=== PATIENT | male | born 1940 | race Caucasian/White ===

== ENCOUNTER → 2017-11-27 | Outpatient (CLI) | payer MEDICARE ==
[2017-11-27 16:07] LABS: T4, Free (Free Thyroxine) 0.71 ng/dL (0.78-2.19)
== END | disposition home or self-care (01) ==
LOC: LABWHC1 15:11
PROVIDERS: ATTEND Internal Medicine
DX: I48.91 Unspecified atrial fibrillation (principal)
CPT/HCPCS: 36415; 84439; 84443

== ENCOUNTER → 2018-04-30 | Outpatient (CLI) | payer MEDICARE ==
[2018-04-30 12:32] LABS: T4, Free (Free Thyroxine) 0.8 ng/dL (0.78-2.19)
== END | disposition home or self-care (01) ==
LOC: LABWHC1 11:22
PROVIDERS: ATTEND Psychiatry & Neurology Neurology
DX: R41.3 Other amnesia (principal)
CPT/HCPCS: 36415; 82607; 83036; 84439; 84443

== ENCOUNTER → 2018-06-11 | Outpatient (CLI) | payer MEDICARE ==
--- NOTE | 2018-06-11 12:16 | CT ---
EXAMINATION TYPE: CT brain wo con DATE OF EXAM: 06/11/2018 COMPARISON: None HISTORY: Memory Loss CT DLP: 1207 mGycm Automated exposure control for dose reduction was used. FINDINGS: Moderate generalized degenerative change. Diffuse areas of low-attenuation the white matter are nonsp ecific. Intracranial atherosclerotic changes noted. No acute hemorrhage or mass effect. Changes of mild chronic sinusitis Craniocervical junction maintained. Sella turcica has a normal appearance. There is ectasia of the ve rtebrobasilar system. IMPRESSION: MODERATE GENERALIZED DEGENERATIVE CHANGE WITH DIFFUSE NONSPECIFIC WHITE MATTER CHANGES MOST TYPICAL R EMOTE MICROVASCULAR ISCHEMIA. SLIGHTLY GREATER CENTRAL COMPONENT RAISES THE POSSIBILITY OF NORMAL PRE SSURE HYDROCEPHALUS. CORRELATE CLINICALLY.
== END ==
LOC: RADCTMAIN 10:50
PROVIDERS: ATTEND Psychiatry & Neurology Neurology
DX: R90.89 Other abnormal findings on diagnostic imaging of central nervous system (principal)
CPT/HCPCS: 70450

== ENCOUNTER → 2019-12-24 | Outpatient (CLI) | payer MEDICARE | END | disposition home or self-care (01) | LOC: LABWHC1 11:37 | PROVIDERS: ATTEND Internal Medicine Interventional Cardiology | DX: Z11.59 Encounter for screening for other viral diseases (principal) | CPT/HCPCS: 87635 ==

== ENCOUNTER 2019-12-28 08:08 | Day surgery (SDC) | payer MEDICARE ==
[2019-12-24 14:00] VITALS: BMI 33.2
[~2019-12-28 08:08] MED LIST: ALPRAZolam 0.25 MG TAB PO PRN; ALPRAZolam 0.5 MG TAB PO PRN; ASPIRIN 325 MG TAB PO ONE; NITROGLYCERIN SL TABS 0.4 MG TAB SUBLINGUAL PRN; SODIUM CHLORIDE 0.9% 1,000 ML in EMPTY BAG 1 BAG IV ONE
[2019-12-28 08:58] VITALS: TEMP 98
[2019-12-28] MEDS ORDERED: LIDOCAINE 1% INJ 10MG/ML (20 ML MDV) ONE (09:05)
[2019-12-28] MEDS ORDERED: MIDAZOLAM 2 MG/2 ML VIAL IVP ONE (09:17)
[2019-12-28] MEDS ORDERED: LIDOCAINE 1% INJ 10MG/ML (20 ML MDV) SQ ONE (09:18)
[2019-12-28 09:28] LABS: Basophils # (A) 0.1 k/uL (0-0.2); Basophils % (A) 0 %; Eosinophils # (A) 0.2 k/uL (0-0.7); Eosinophils % (A) 2 %; HCT 49.4 % (39.0-53.0); HGB 16.1 gm/dL (13.0-17.5); Lymphocytes # (A) 0.7 k/uL (1.0-4.8); Lymphocytes % (A) 5 %; MCH 29.6 pg (25.0-35.0); MCHC 32.6 g/dL (31.0-37.0); MCV 90.9 fL (80.0-100.0); Mean Platelet Volume 8.8; Monocytes # (A) 0.6 k/uL (0-1.0); Monocytes % (A) 4 %; Neutrophils # (A) 12.9 k/uL (1.3-7.7); Neutrophils % (A) 88 %; Platelet Count 213 k/uL (150-450); RBC 5.44 m/uL (4.30-5.90); RDW 13.2 % (11.5-15.5); WBC 14.6 k/uL (3.8-10.6)
[2019-12-28 09:34] LABS: INR 1.1 (<1.2); Prothrombin Time 11.6 sec (9.0-12.0)
[2019-12-28 09:36] LABS: Calcium 9.7 mg/dL (8.4-10.2); Potassium 4.5 mmol/L (3.5-5.1)
[2019-12-28] MEDS ORDERED: IOPAMIDOL-370 50ML BTL INJ ONE (09:40)
[2019-12-28] MEDS ORDERED: IOPAMIDOL-370 100ML BTL INJ ONE (09:40)
[2019-12-28] MEDS ORDERED: SODIUM CHLORIDE 0.9% 1,000 ML IV SCH (10:00)
--- NOTE | 2019-12-28 11:56 | CC ---
CARDIAC CATHETERIZATION REPORT DATE OF SERVICE: 12/28/2019 PROCEDURE: Left heart catheterization, coronary angiography, left ventriculography. PERFORMED BY: Dr. Christine Wyatt. Moderate conscious sedation time was 31 minutes. Patient was administered Versed. Oxygenation, hemodynamics and EKG were monitored closely. CLINICAL INFORMATION: Mr. Pawan Balbuena is a 79-year-old gentleman with a history of nonischemic cardiomyopathy type picture, chronic atrial fibrillation with rate control and underlying sick sinus syndrome. He has a permanent single-chamber pacemaker. He has been having symptoms of shortness of breath and chest tightness. I was also concerned that he was pacing all the time and there could be a pacing-related cardiomyopathy as well. I advised coronary angiography to rule out obstructive CAD and also if he would benefit from a Bi V ICD as well to rule out any obstructive CAD. Procedure, risks, benefits, and options were explained to the patient and and he was brought in for the procedure electively. PROCEDURE NOTE: Under local anesthesia and strict aseptic precautions, a 6-Turkmen introducer was placed in the right femoral artery. Using a JR4 and JL5 catheters, I performed selective coronary angiography and a pigtail catheter was used to check LV pressures and LV-gram was performed in 30-degree NEGRON projection. Patient tolerated procedure well. The sheath was taken out and Angio-Seal device used to secure hemostasis and was sent to the room in stable condition. Results were discussed with the patient and family and I expect he will be discharged later on today and I will also obtain an echocardiogram this afternoon. FINDINGS: The left end-diastolic pressure was 14-15 mmHg without any gradient across the aortic valve. RIGHT CORONARY ARTERY: A large dominant vessel. No significant disease, has minor irregularities, gives off a large PLV, smaller PDA. No significant disease. LEFT MAIN CORONARY ARTERY: Short, patent, disease-free vessel that bifurcates into LAD and circumflex. LEFT ANTERIOR DESCENDING CORONARY ARTERY: Good caliber vessel extends along the anterior wall, gives off septal and diagonal branches. In the midportion, after the second diagonal, there is a 30% to 35% narrowing. Then the caliber improves, it runs all the way to the apex, curves over the apex to supply the inferoapical portion of left ventricle. LEFT POSTERIOR CIRCUMFLEX CORONARY ARTERY: A nondominant vessel, has minor irregularities, 20%-30% distally, it gives off three branches. No significant disease. LEFT VENTRICULOGRAM: This was performed in a 30-degree NEGRON projection. There was a lot of ventricular ectopy. Ejection fraction is at least 50% and there was a catheter- induced mitral regurgitation noted. IMPRESSION: This patient has a right dominant system, about 35% mid LAD disease. Minor irregularities in the circumflex. No significant disease. Not seeing acceptable filling pressures and no gradient across the aortic valve. Ejection fraction is about 50%. There was some ventricular ectopy and ectopy related to mitral regurgitation, ejection fraction is in the 50% range. RECOMMENDATION: Findings were discussed with the patient and . I am recommending that we will do an echocardiogram this afternoon to get a better assessment of wall motion with Definity. We will probably not pursue with any biventricular ICD given the fact that the EF is good and we will seek a Pulmonary evaluation and also improve conditioning by getting into a walking program. Discussed my thoughts in detail with the patient and . I expect he will be discharged later on today if he remains stable. MMEMMANUELLEL / IJN: [id number] /
[2019-12-28 14:00] VITALS: RESP 16
[2019-12-28 17:22] VITALS: BP 132/65; PULSE 56
--- NOTE | 2019-12-29 09:43 | ECHOF ---
Referral Reason:need a good ef evaluation MEASUREMENTS -------- HEIGHT: 180.3 cm WEIGHT: 111.1 kg BP: RVIDd: 3.0 cm (< 3.3) IVSd: 1.4 cm (0.6 - 1.1) LVIDd: 5.4 cm (3.9 - 5.3) LVPWd: 1.9 cm (0.6 - 1.1) IVSs: 2.2 cm LVIDs: 3.3 cm LVPWs: 2.2 cm LAESV Index (A-L): 36.97 ml/m Ao Diam: 3.7 cm (2.0 - 3.7) AV Cusp: 2.6 cm (1.5 - 2.6) LA Diam: 3.7 cm (2.7 - 3.8) MV EXCURSION: 23.279 mm (> 18.000) MV EF SLOPE: 135 mm/s (70 - 150) EPSS: 0.9 cm MV E Ambrosio: 0.64 m/s MV DecT: 202 ms MV A Ambrosio: 0.46 m/s MV E/A Ratio: 1.39 AR PHT: 2292 ms RAP: 5.00 mmHg RVSP: 14.27 mmHg FINDINGS -------- Paced rhythm. This was a technically adequate study. The left ventricular size is normal. There is moderate concentric left ventricular hypertrophy. O verall left ventricular systolic function is low-normal with, an EF between 50 - 55 %. Septal wall motion is delayed, and consistent with ventricular pacing. The right ventricle is normal in size. LA is moderately dilated 34-39 ml/m2 The right atrial size is normal. 5.0mg of Lumason was utilized for enhancement of images The aortic valve is trileaflet and appears structurally normal. There is mild aortic regurgitation. The mitral valve is normal. Mild mitral regurgitation is present. The tricuspid valve appears structurally normal. Mild tricuspid regurgitation present. Right vent ricular systolic pressure is normal at < 35 mmHg. There is no pulmonic regurgitation present. The aortic root size is normal. Normal inferior vena cava with normal inspiratory collapse consistent with estimated right atrial pre ssure of 5 mmHg. There is no pericardial effusion. CONCLUSIONS -------- 1. Paced rhythm. 2. This was a technically adequate study. 3. The left ventricular size is normal. 4. There is moderate concentric left ventricular hypertrophy. 5. Septal wall motion is delayed, and consistent with ventricular pacing. 6. The right ventricle is normal in size. 7. LA is moderately dilated 34-39 ml/m2 8. The right atrial size is normal. 9. 5.0mg of Lumason was utilized for enhancement of images 10. The aortic valve is trileaflet and appears structurally normal. 11. There is mild aortic regurgitation. 12. The mitral valve is normal. 13. Mild mitral regurgitation is present. 14. The tricuspid valve appears structurally normal. 15. Mild tricuspid regurgitation present. 16. Right ventricular systolic pressure is normal at < 35 mmHg. 17. There is no pulmonic regurgitation present. 18. The aortic root size is normal. 19. Normal inferior vena cava with normal inspiratory collapse consistent with estimated right atrial pressure of 5 mmHg. 20. There is no pericardial effusion. COMMUNITY SERVICE OFFICER COORDINATOR: Elizabeth Rosas RDCS
== END 2019-12-28 17:10 | disposition home or self-care (01) ==
LOC: CATHCVL 08:08
PROVIDERS: ATTEND Internal Medicine Interventional Cardiology
DX: I25.10 Atherosclerotic heart disease of native coronary artery without angina pectoris (principal); I42.8 Other cardiomyopathies; I49.5 Sick sinus syndrome; I48.20 Chronic atrial fibrillation, unspecified; I34.0 Nonrheumatic mitral (valve) insufficiency; I11.0 Hypertensive heart disease with heart failure; I50.9 Heart failure, unspecified; D64.9 Anemia, unspecified; E78.5 Hyperlipidemia, unspecified; G47.33 Obstructive sleep apnea (adult) (pediatric); Z79.01 Long term (current) use of anticoagulants; Z79.02 Long term (current) use of antithrombotics/antiplatelets; Z79.82 Long term (current) use of aspirin; Z79.899 Other long term (current) drug therapy; Z95.0 Presence of cardiac pacemaker
CPT/HCPCS: 93458; 80048; 85025; 85610; C8929; C1769 ×4; C1760; C1894; J2250; J2001; Q9950; Q9967 ×2; 93306

== ENCOUNTER → 2020-01-05 | Outpatient (CLI) | payer MEDICARE ==
[2020-01-05 12:01] LABS: HCT 45.7 % (39.0-53.0); HGB 15.1 gm/dL (13.0-17.5); MCH 30.7 pg (25.0-35.0); MCV 92.9 fL (80.0-100.0); Mean Platelet Volume 8.1; Platelet Count 152 k/uL (150-450); RBC 4.92 m/uL (4.30-5.90); RDW 13.4 % (11.5-15.5); WBC 8.7 k/uL (3.8-10.6)
== END | disposition home or self-care (01) ==
LOC: LABWHC1 10:45
PROVIDERS: ATTEND Internal Medicine
DX: I48.91 Unspecified atrial fibrillation (principal)
CPT/HCPCS: 36415; 85027

== ENCOUNTER 2020-05-17 21:47 | Emergency (ER) | payer MEDICARE ==
[2020-05-17] MEDS ORDERED: KETOROLAC 15 MG/ML 1 ML VIAL IM STA (22:30)
--- NOTE | 2020-05-17 23:02 | ED ---
General Adult HPI - General Chief complaint: Extremity Injury, Lower Stated complaint: R Hip Pain Time Seen by Provider: 05/17/20 22:08 Source: patient, family, RN notes reviewed Mode of arrival: wheelchair Limitations: no limitations - History of Present Illness Initial comments: 80-year-old male with a past medical history of atrial fibrillation, hype rlipidemia, hypertension presents to the emergency department for chief complaint of right hip pain. Patient had a trip and fall about a week ago and has had right hip pain since that time however has been able to ambulate. Patient reports that today the pain worsened and he is having difficulty bearing weight on the right hip. Patient denies hitting his head. Patient also complaining of mild right shoulder pain. Patient denies fevers or chills. Denies any back pain.Patient has no other complaints at this time including shortness of breath, chest pain, abdominal pain, nausea or vomiting, headache, or visual changes. - Related Data Home Medications Medication Instructions Recorded Confirmed Warfarin [Coumadin] 3.75 tab PO MOWEFR 12/16/15 12/24/19 Warfarin [Coumadin] 7.5 mg PO SUTUTHSA 12/16/15 12/28/19 lisinopriL 30 mg PO DAILY 12/16/15 12/28/19 hydrALAZINE HCL 25 mg PO TID 04/18/16 12/28/19 Cyanocobalamin (Vitamin B-12) 1,000 mcg PO DAILY 12/24/19 12/28/19 [Vitamin B-12] Multivitamins, Thera [Multivitamin 1 tab PO DAILY 12/24/19 12/28/19 (formulary)] carvediloL [Coreg] 12.5 mg PO BID 12/24/19 12/28/19 Allergies Allergy/AdvReac Type Severity Reaction Status Date / Time shellfish derived [Shrimp] Allergy Anaphylaxis Verified 05/17/20 21:52 Review of Systems ROS Statement: Those systems with pertinent positive or pertinent negative responses have been documented in the HPI. ROS Other: All systems not noted in ROS Statement are negative. Past Medical History Past Medical History: Atrial Fibrillation, Hyperlipidemia, Hypertension, Thyroid Disorder History of Any Multi-Drug Resistant Organisms: None Reported Past Surgical History: Cholecystectomy Past Anesthesia/Blood Transfusion Reactions: No Reported Reaction Past Psychological History: No Psychological Hx Reported Smoking Status: Never smoker Past Alcohol Use History: None Reported Past Drug Use History: None Reported - Past Family History Mother Family Medical History: No Reported History General Exam Limitations: no limitations General appearance: alert, in no apparent distress Head exam: Present: atraumatic, normocephalic, normal inspection Eye exam: Present: normal appearance, PERRL, EOMI. Absent: scleral icterus, conjunctival injection, periorbital swelling ENT exam: Present: normal exam, mucous membranes moist Neck exam: Present: normal inspection, full ROM. Absent: tenderness, meningismus, lymphadenopathy Respiratory exam: Present: normal lung sounds bilaterally. Absent: respiratory distress, wheezes, rales, rhonchi, stridor Cardiovascular Exam: Present: regular rate, normal rhythm, normal heart sounds. Absent: systolic murmur, diastolic murmur, rubs, gallop, clicks GI/Abdominal exam: Present: soft, normal bowel sounds. Absent: distended, tenderness, guarding, rebound, rigid Extremities exam: Present: normal capillary refill (Capillary refill less than 2 seconds, DP pulse 2+ in the right lower extremity.), other (Sensation intact right lower extremity. no external signs of trauma). Absent: full ROM (Patient has about 45 flexion of the right hip, extension to neutral position. He does have pain with external rotation of the right hip.), tenderness Neurological exam: Present: alert Course Vital Signs 05/17/20 21:48 Temperature 98 F Pulse Rate 60 Respiratory 18 Rate Blood Pressure 125/76 O2 Sat by Pulse 98 Oximetry Medical Decision Making - Medical Decision Making X-ray of the right hip and pelvis are negative. X-ray of the right shoulder is negative. Patient can minimally ambulate on the right hip. However given degree of pain CT of the hip was ordered. CT of the hip showed subcutaneous bruising posterior to the right gluteal muscle. No fracture seen. Patient feels comfortable being discharged home. reports have plenty of help. He will follow up outpatient. He will return here for any worsening symptoms. Disposition Clinical Impression: Hip pain, right Disposition: HOME SELF-CARE Condition: Good Instructions (If sedation given, give patient instructions): Hip Pain (ED) Additional Instructions: Take Tylenol for pain. Follow-up with primary care or orthopedics in one to 2 days. Return to the emergency room for any worsening symptoms. Is patient prescribed a controlled substance at d/c from ED?: No Referrals: Dolly Bello MD [Primary Care Provider] - 1-2 days Iván Marie MD [STAFF PHYSICIAN] - 1-2 days Time of Disposition: 00:48
--- NOTE | 2020-05-17 23:14 | XR ---
EXAMINATION TYPE: XR Hip RT and AP Pelvis DATE OF EXAM: 05/17/2020 COMPARISON: NONE HISTORY: Fall. Hip pain TECHNIQUE: 4 views FINDINGS: The pelvic ring is intact. Proximal right femur and hip joint appear intact. There is no si gn of hip dysplasia. Sacroiliac joints appear normal. IMPRESSION: Negative pelvis and right hip exam. No fracture.
--- NOTE | 2020-05-17 23:15 | XR ---
EXAMINATION TYPE: XR shoulder complete RT DATE OF EXAM: 05/17/2020 COMPARISON: NONE HISTORY: Fall. Shoulder pain TECHNIQUE: 3 views FINDINGS: There is mild spurring at the AC joint. There is no fracture nor dislocation. Glenohumeral joint is intact. IMPRESSION: No acute abnormality of the right shoulder.
--- NOTE | 2020-05-18 00:34 | CT ---
EXAMINATION TYPE: CT hip RT wo con DATE OF EXAM: 05/17/2020 COMPARISON: None HISTORY: Fall CT DLP: 1255.6 mGycm Automated exposure control for dose reduction was used. Images were obtained from the mid ileum to the subtrochanteric femur without contrast. The right hemipelvis appears intact. Sacroiliac joint appears intact. There is no evidence of free fl uid in the pelvis. The appendix appears normal. The proximal femur is intact. There is minimal spurri ng of the acetabulum. I see no bony destructive process. There is moderate L5-S1 spondylolisthesis wi th anterior bridging osteophyte. There is subcutaneous density over the posterior right gluteal muscles. IMPRESSION: Subcutaneous bruising posterior to the right gluteal muscles. No hip fracture seen. No significant ar thritic disease.
[2020-05-18 01:14] VITALS: BP 133/76; PULSE 66; RESP 19; TEMP 97.9
== END 2020-05-18 01:13 | disposition home or self-care (01) ==
LOC: EC 21:47
DX: M25.551 Pain in right hip (principal); S30.0XXA Contusion of lower back and pelvis, initial encounter; I48.91 Unspecified atrial fibrillation; I10 Essential (primary) hypertension; Z79.01 Long term (current) use of anticoagulants; Z79.02 Long term (current) use of antithrombotics/antiplatelets; Z79.899 Other long term (current) drug therapy; Z91.013 Allergy to seafood; W01.0XXA Fall on same level from slipping, tripping and stumbling without subsequent striking against object, initial encounter
CPT/HCPCS: 73502; 73030; 73700; 99284; 96372; J1885

== ENCOUNTER → 2020-05-23 | Outpatient (CLI) | payer MEDICARE ==
[2020-05-23 14:15] LABS: HCT 37.9 % (39.0-53.0); HGB 12.7 gm/dL (13.0-17.5); MCH 31.5 pg (25.0-35.0); MCHC 33.6 g/dL (31.0-37.0); MCV 93.8 fL (80.0-100.0); Mean Platelet Volume 7.8; Platelet Count 260 k/uL (150-450); RBC 4.04 m/uL (4.30-5.90); RDW 13.5 % (11.5-15.5); WBC 9.2 k/uL (3.8-10.6)
== END | disposition home or self-care (01) ==
LOC: LABWHC1 13:21
PROVIDERS: ATTEND Internal Medicine
DX: M79.81 Nontraumatic hematoma of soft tissue (principal)
CPT/HCPCS: 36415; 85027

== ENCOUNTER → 2020-08-16 | Outpatient (CLI) | payer MEDICARE ==
[2020-08-16 22:28] LABS: African American GFR (CKD) 73.1 (60.0-200.0); Anion Gap 6.8 mmol/L (4.00-12.00); BUN/Creat Ratio 15.45 Ratio (12.00-20.00); Calcium 9.4 mg/dL (8.7-10.3); Carbon Dioxide 28.2 mmol/L (21.6-31.8); Non-African American GFR(CKD) 63.1 (60.0-200.0)
== END | disposition home or self-care (01) ==
LOC: LABWHC1 12:51
PROVIDERS: ATTEND Internal Medicine Interventional Cardiology
DX: I10 Essential (primary) hypertension (principal); I25.10 Atherosclerotic heart disease of native coronary artery without angina pectoris
CPT/HCPCS: 36415; 80048

== ENCOUNTER → 2020-08-30 | Outpatient (CLI) | payer MEDICARE ==
[2020-08-31 01:19] LABS: Hemoglobin A1C 5.7 % (4.0-6.0)
[2020-08-31 04:59] LABS: INR 2.18 (0.90-1.11); Partial Thromboplastin Time 38.3 sec (23.5-31.0); Prothrombin Time 22.2 sec (9.9-11.9)
[2020-08-31 10:14] LABS: Protein, Total 6.6 g/dL (6.2-8.2)
[2020-08-31 15:07] LABS: Gamma Globulin 0.65 g/dL (0.70-1.50)
== END | disposition home or self-care (01) ==
LOC: LABWHC1 15:48
PROVIDERS: ATTEND Psychiatry & Neurology Neurology
DX: I48.91 Unspecified atrial fibrillation (principal); G62.9 Polyneuropathy, unspecified; G72.9 Myopathy, unspecified; R53.1 Weakness; R26.89 Other abnormalities of gait and mobility; R73.9 Hyperglycemia, unspecified
CPT/HCPCS: 36415; 82550; 82607; 82747; 83036; 84165; 84439; 84443; 85610; 85652; 85730; 86038; 86618

== ENCOUNTER → 2021-02-08 | Outpatient (CLI) | payer MEDICARE ==
--- NOTE | 2021-02-08 14:17 | CT ---
EXAMINATION TYPE: CT brain wo/w con DATE OF EXAM: 02/08/2021 COMPARISON: 06/11/2018 INDICATION: Frequent falls DLP: 3038.1 mGycm, Automated exposure control for dose reduction was used. CONTRAST: None CT of the brain is performed utilizing 3 mm thick sections through the posterior fossa and 3 mm thick sections through the remaining calvarium. Study is performed within 24 hours of arrival to the hosp ital. No abnormal hyperdensity is present to suggest an acute intracranial hemorrhage. No mass lesion is evident. No acute infarcts are evident. Patchy hypodensity is present, likely on the basis of chronic white ma tter ischemic changes Ventricles and sulci are mildly prominent for the patient age. Paranasal sinuses and mastoid air cells within the [id number] are clear. No suspicious enhancement is evident. IMPRESSIONS: 1. Age-related atrophy with mild periventricular white matter ischemic-type changes.
== END | disposition home or self-care (01) ==
LOC: RADCTMAIN 07:06
PROVIDERS: ATTEND Internal Medicine
DX: R93.0 Abnormal findings on diagnostic imaging of skull and head, not elsewhere classified (principal); G31.9 Degenerative disease of nervous system, unspecified
CPT/HCPCS: 70470; 82565; 84520

== ENCOUNTER 2021-05-25 15:31 | Emergency (ER) | payer MEDICARE ==
[2021-05-25] MEDS ORDERED: IBUPROFEN 600 MG TAB PO STA (16:09)
[2021-05-25] MEDS ORDERED: ACETAMINOPHEN TAB 500 MG TAB PO STA (16:09)
[2021-05-25] MEDS ORDERED: SODIUM CHLORIDE 0.9% 1,000 ML IV ONE (16:10)
--- NOTE | 2021-05-25 16:18 | ED ---
General Adult HPI - General Chief complaint: Altered Mental Status Stated complaint: Covid+, fever, bodyaches Time Seen by Provider: 05/25/21 15:45 Source: patient, EMS, RN notes reviewed, old records reviewed Mode of arrival: EMS Limitations: altered mental status - History of Present Illness Initial comments: This is an 81-year-old male who presents emergency Department stating he was diagnosed as COVID on Saturday and he started symptoms on May 17. Patient states he's been still having a fever and he is primary medical care doctor wanted him to come in to get monoclonal antibodies. Patient denies any shortness of breath. Patient states he has occasional cough but is not bothering him. Patient denies chest pain or palpitations. Patient denies any nausea vomiting diarrhea. Patient denies any loss of taste or smell. Patient denies abdominal pain. Patient denies any headache patient denies numbness weakness. - Related Data Home Medications Medication Instructions Recorded Confirmed Warfarin [Coumadin] 3.75 tab PO MOWEFR 12/16/15 12/24/19 Warfarin [Coumadin] 7.5 mg PO SUTUTHSA 12/16/15 12/28/19 lisinopriL 30 mg PO DAILY 12/16/15 12/28/19 hydrALAZINE HCL 25 mg PO TID 04/18/16 12/28/19 Cyanocobalamin (Vitamin B-12) 1,000 mcg PO DAILY 12/24/19 12/28/19 [Vitamin B-12] Multivitamins, Thera [Multivitamin 1 tab PO DAILY 12/24/19 12/28/19 (formulary)] carvediloL [Coreg] 12.5 mg PO BID 12/24/19 12/28/19 Previous Rx's Medication Instructions Recorded Azithromycin [Zithromax Tri-Thony] 500 mg PO DAILY #3 tab 05/25/21 Dexamethasone [Decadron] 6 mg PO DAILY #10 tablet 05/25/21 Allergies Allergy/AdvReac Type Severity Reaction Status Date / Time shellfish derived [Shrimp] Allergy Anaphylaxis Verified 05/25/21 16:05 Review of Systems ROS Statement: Those systems with pertinent positive or pertinent negative responses have been documented in the HPI. ROS Other: All systems not noted in ROS Statement are negative. Past Medical History Past Medical History: Atrial Fibrillation, Hyperlipidemia, Hypertension, Thyroid Disorder History of Any Multi-Drug Resistant Organisms: None Reported Past Surgical History: Cholecystectomy Past Anesthesia/Blood Transfusion Reactions: No Reported Reaction Past Psychological History: No Psychological Hx Reported Smoking Status: Never smoker Past Alcohol Use History: None Reported Past Drug Use History: None Reported - Past Family History Mother Family Medical History: No Reported History General Exam - General Exam Comments Initial Comments: GENERAL: Patient is well-developed and well-nourished. Patient is nontoxic and well- hydrated and is in no acute distress. ENT: Neck is soft and supple. No significant lymphadenopathy is noted. Oropharynx is clear. Moist mucous membranes. Neck has full range of motion without eliciting any pain. EYES: The sclera were anicteric and conjunctiva were pink and moist. Extraocular movements were intact and pupils were equal round and reactive to light. Eyelids were unremarkable. PULMONARY: Unlabored respirations. Good breath sounds bilaterally. No audible rales rhonchi or wheezing was noted. CARDIOVASCULAR: There is a regular rate and rhythm without any murmurs gallops or rubs. ABDOMEN: Soft and nontender with normal bowel sounds. SKIN: Skin is clear with no lesions or rashes and otherwise unremarkable. NEUROLOGIC: Patient is alert and oriented x3. Cranial nerves II through XII are grossly intact. Motor and sensory are also intact. Normal speech, volume and content. Symmetrical smile. MUSCULOSKELETAL: Normal extremities with adequate strength and full range of motion. No lower extremity swelling or edema. No calf tenderness. LYMPHATICS: No significant lymphadenopathy is noted PSYCHIATRIC: Normal psychiatric evaluation. Limitations: altered mental status Course Vital Signs 05/25/21 05/25/21 15:42 17:48 Temperature 102.5 F H 98.8 F Pulse Rate 90 63 Respiratory 18 17 Rate Blood Pressure 128/78 132/82 O2 Sat by Pulse 97 97 Oximetry Medical Decision Making - Medical Decision Making Chest x-ray right lower lobe pneumonia. Patient received monoclonal antibodies. Patient also received 2 g Rocephin and Zithromax. Patient received Decadron as well. I reviewed reevaluated the patient after he got his monoclonal antibodies and antibiotics as well as Decadron and he had no complaints and wanted to go home. I informed the patient if anything worsens to get in immediately. Disposition Clinical Impression: Pneumonia, COVID Disposition: HOME SELF-CARE Instructions (If sedation given, give patient instructions): Pneumonia (ED) Prescriptions: Dexamethasone [Decadron] 6 mg PO DAILY #10 tablet Azithromycin [Zithromax Tri-Thony] 500 mg PO DAILY #3 tab Is patient prescribed a controlled substance at d/c from ED?: No Referrals: Dolly Bello MD [Primary Care Provider] - 1-2 days Time of Disposition: 19:00
[2021-05-25 17:48] VITALS: RESP 17
[2021-05-25] MEDS ORDERED: CASIRIVIMAB (REGN10933) (EUA) 600 MG, IMDEVIMAB (REGN10987) (EUA) 600 MG in SODIUM CHLO... IVPB ONE (18:00)
[2021-05-25] MEDS ORDERED: SODIUM CHLORIDE 0.9% 50 ML IVPB ONE (18:30)
--- NOTE | 2021-05-25 18:48 | XR ---
EXAMINATION TYPE: XR chest 2V DATE OF EXAM: 05/25/2021 COMPARISON: Radiograph 12/20/2015 HISTORY: Fever. TECHNIQUE: Frontal and lateral views of the chest are obtained. FINDINGS: Cardiomediastinal silhouette and pulmonary vasculature are within normal limits. Patchy opacity in the right lower lobe. No effusion or pneumothorax. AICD with the lead tip in the right ventricle. IMPRESSION: Right lower lobe pneumonia.
[2021-05-25] MEDS ORDERED: AZITHROMYCIN 500 MG in SODIUM CHLORIDE 0.9% 250 ML IVPB STA (18:57)
[2021-05-25] MEDS ORDERED: cefTRIAXone IN SWFI 1,000 MG/10 ML SYRINGE IVP STA (18:57)
[2021-05-25] MEDS ORDERED: dexAMETHasone 2 MG TAB PO STA (18:58)
[2021-05-25] MEDS ORDERED: AZITHROMYCIN 500 MG TAB PO STA (20:15)
[2021-05-25] MEDS ORDERED: ACETAMINOPHEN TAB 325 MG TAB PO STA (20:25)
[2021-05-25 21:07] VITALS: BP 140/78; PULSE 89; TEMP 98.5
== END 2021-05-25 20:45 | disposition home or self-care (01) ==
LOC: EC 15:31
DX: U07.1 COVID-19 (principal); J12.82 Pneumonia due to coronavirus disease 2019; I48.91 Unspecified atrial fibrillation; E78.5 Hyperlipidemia, unspecified; I10 Essential (primary) hypertension; E07.9 Disorder of thyroid, unspecified; Z79.01 Long term (current) use of anticoagulants; Z90.49 Acquired absence of other specified parts of digestive tract
CPT/HCPCS: 99283; 96365; 96367; 96375; 96361; 71046; J0456; J0696; J8540; Q0243

== ENCOUNTER 2021-06-27 13:50 | Emergency (ER) | payer MEDICARE ==
--- NOTE | 2021-06-27 14:16 | ED ---
General Adult HPI - General Stated complaint: back pain Time Seen by Provider: 06/27/21 13:56 Source: patient, family, RN notes reviewed Limitations: no limitations - History of Present Illness Initial comments: Patient is a pleasant 81-year-old male presenting to the emergency Department with right hip and back pain. Patient did have a fall over a week ago. Patient does have bruising. Patient is able to ambulate. Patient was not using his walker when he fell and states sometimes that happens. Patient normally does use a walker however occasionally uses a cane. No head injury or loss of consc iousness. No weakness. No incontinence or retention of bowel or bladder products. - Related Data Home Medications Medication Instructions Recorded Confirmed Warfarin [Coumadin] 3.75 tab PO MOWEFR 12/16/15 12/24/19 Warfarin [Coumadin] 7.5 mg PO SUTUTHSA 12/16/15 12/28/19 lisinopriL 30 mg PO DAILY 12/16/15 12/28/19 hydrALAZINE HCL 25 mg PO TID 04/18/16 12/28/19 Cyanocobalamin (Vitamin B-12) 1,000 mcg PO DAILY 12/24/19 12/28/19 [Vitamin B-12] Multivitamins, Thera [Multivitamin 1 tab PO DAILY 12/24/19 12/28/19 (formulary)] carvediloL [Coreg] 12.5 mg PO BID 12/24/19 12/28/19 Previous Rx's Medication Instructions Recorded Azithromycin [Zithromax Tri-Thony] 500 mg PO DAILY #3 tab 05/25/21 Dexamethasone [Decadron] 6 mg PO DAILY #10 tablet 05/25/21 Ibuprofen [Motrin] 600 mg PO Q6HR PRN #12 tab 06/27/21 Allergies Allergy/AdvReac Type Severity Reaction Status Date / Time shellfish derived [Shrimp] Allergy Anaphylaxis Verified 05/25/21 16:05 Review of Systems ROS Statement: Those systems with pertinent positive or pertinent negative responses have been documented in the HPI. ROS Other: All systems not noted in ROS Statement are negative. Constitutional: Denies: fever Eyes: Denies: eye pain ENT: Denies: ear pain Respiratory: Denies: cough Cardiovascular: Denies: chest pain Endocrine: Denies: fatigue Gastrointestinal: Denies: abdominal pain Genitourinary: Denies: dysuria Musculoskeletal: Reports: as per HPI, back pain Skin: Reports: as per HPI Neurological: Denies: weakness Past Medical History Past Medical History: Atrial Fibrillation, Hyperlipidemia, Hypertension, Thyroid Disorder History of Any Multi-Drug Resistant Organisms: None Reported Past Surgical History: Cholecystectomy Past Anesthesia/Blood Transfusion Reactions: No Reported Reaction Past Psychological History: No Psychological Hx Reported Smoking Status: Never smoker Past Alcohol Use History: None Reported Past Drug Use History: None Reported - Past Family History Mother Family Medical History: No Reported History General Exam Limitations: no limitations General appearance: alert, in no apparent distress Head exam: Present: normocephalic Eye exam: Present: normal appearance Neck exam: Present: normal inspection. Absent: tenderness Respiratory exam: Present: normal lung sounds bilaterally Cardiovascular Exam: Present: regular rate, normal rhythm GI/Abdominal exam: Present: soft. Absent: tenderness Extremities exam: Present: normal inspection, full ROM. Absent: tenderness Back exam: Present: tenderness (Mild tenderness right ischial tuberosity). Absent: vertebral tenderness Neurological exam: Present: alert Psychiatric exam: Present: normal affect, normal mood Skin exam: Present: other (Ecchymosis right buttocks) Course Vital Signs 06/27/21 14:14 Temperature 98.5 F Pulse Rate 60 Respiratory 16 Rate Blood Pressure 160/80 O2 Sat by Pulse 97 Oximetry Medical Decision Making - Medical Decision Making Patient reevaluated. Patient and family updated. - Radiology Data Radiology results: image reviewed (X-ray right hip and pelvis shows no fracture or dislocation. Lumbar spine x-rays show alignment stable and straighten. Vertebral body height within normal limits.Narrowing.) Disposition Clinical Impression: Fall, Hip pain Disposition: HOME SELF-CARE Instructions (If sedation given, give patient instructions): Acute Low Back Pain (ED) Additional Instructions: Please follow-up with primary care physician in the next couple of days for recheck. Return for increased pain, weakness, worsening or changing symptoms or other concerns. Prescription for Motrin 600 has been sent to pharmacy. Prescriptions: Ibuprofen [Motrin] 600 mg PO Q6HR PRN #12 tab PRN Reason: Pain Is patient prescribed a controlled substance at d/c from ED?: No Referrals: Dolly Bello MD [Primary Care Provider] - 1-2 days Time of Disposition: 15:38
--- NOTE | 2021-06-27 14:52 | XR ---
EXAMINATION TYPE: XR Hip RT and AP Pelvis DATE OF EXAM: 06/27/2021 COMPARISON: Pelvic and right hip x-ray May 17, 2020 HISTORY: Pain after fall injury. TECHNIQUE: A single AP view of the pelvis is obtained. Two views of the right hip are obtained. FINDINGS: There is no acute fracture/dislocation evident in the pelvis. The sacroiliac joints appea r stable and symmetric. Pubic symphysis is intact. Mild axial joint space loss both hips redemonstrat ed. The overlying soft tissue appears unremarkable. Two views of right hip show no acute fracture or dislocation. No focal lytic or sclerotic lesion see n in the proximal right femur. The overlying soft tissue is unremarkable. IMPRESSION: There is no acute fracture or dislocation in the pelvis or right hip.
--- NOTE | 2021-06-27 14:56 | XR ---
EXAMINATION TYPE: XR lumbar spine 2 or 3V DATE OF EXAM: 06/27/2021 CLINICAL HISTORY: Pain from fall injury. TECHNIQUE: Frontal and lateral images of the lumbar spine are obtained. COMPARISON: Lumbar spine x-ray July 03, 2011 FINDINGS: There are 5 lumbar type vertebral bodies redemonstrated. Alignment is stable and straighte carlton. Vertebral body heights are within normal limits. Moderate disc space narrowing and anterior spur ring L4-L5 level is more prominent from prior. Moderate disc space narrowing L5-S1 level redemonstra liz. Mild to moderate overlying arterial vascular calcifications now seen. IMPRESSION: As above.
[2021-06-27] MEDS ORDERED: traMADol 50 MG STARTER PACK 3 TAB BTL PO STA (15:37)
[2021-06-27 16:04] VITALS: BP 156/78; PULSE 56; RESP 20; TEMP 98.2
== END 2021-06-27 16:03 | disposition home or self-care (01) ==
LOC: EC 13:50
DX: S70.01XA Contusion of right hip, initial encounter (principal); I10 Essential (primary) hypertension; E78.5 Hyperlipidemia, unspecified; I48.91 Unspecified atrial fibrillation; Z79.01 Long term (current) use of anticoagulants; Z79.1 Long term (current) use of non-steroidal anti-inflammatories (NSAID); Z79.52 Long term (current) use of systemic steroids; Z79.899 Other long term (current) drug therapy; Z90.49 Acquired absence of other specified parts of digestive tract; W01.0XXA Fall on same level from slipping, tripping and stumbling without subsequent striking against object, initial encounter
CPT/HCPCS: 72100; 73502; 99284

== ENCOUNTER 2022-10-11 11:13 | Observation (INO) | payer MEDICARE ==
--- NOTE | 2022-10-11 12:18 | XR ---
EXAMINATION TYPE: XR chest 2V DATE OF EXAM: 10/11/2022 COMPARISON: Chest x-ray May 25, 2021 HISTORY: Altered mental status and weakness. TECHNIQUE: Frontal and lateral views of the chest are obtained. FINDINGS: There is no suspicious new focal air space opacity, pleural effusion, or pneumothorax seen . There is cardiomegaly with single lead pacemaker redemonstrated. Bridging osteophytes in the spine are redemonstrated. Cholecystectomy clips are noted. IMPRESSION: Cardiomegaly without acute pulmonary process.
[2022-10-11 12:35] LABS: Basophils % (A) 0 %; Eosinophils # (A) 0.3 k/uL (0-0.7); Eosinophils % (A) 3 %; HGB 15.4 gm/dL (13.0-17.5); Lymphocytes # (A) 0.6 k/uL (1.0-4.8); Lymphocytes % (A) 7 %; MCH 30.3 pg (25.0-35.0); MCHC 33.5 g/dL (31.0-37.0); MCV 90.4 fL (80.0-100.0); Mean Platelet Volume 8.6; Monocytes # (A) 0.4 k/uL (0-1.0); Monocytes % (A) 5 %; Neutrophils # (A) 6.7 k/uL (1.3-7.7); Neutrophils % (A) 83 %; Platelet Count 139 k/uL (150-450); RBC 5.09 m/uL (4.30-5.90); RDW 13.7 % (11.5-15.5); WBC 8.1 k/uL (3.8-10.6)
[2022-10-11 12:42] LABS: Albumin 3.7 g/dL (3.5-5.0); Calcium 8.5 mg/dL (8.4-10.2); Potassium 3.9 mmol/L (3.5-5.1); Total Bilirubin 1.2 mg/dL (0.2-1.3); Total Protein 6.1 g/dL (6.3-8.2)
[2022-10-11 13:10] LABS: INR 2.3 (<1.2); Partial Thromboplastin Time 29.9 sec (22.0-30.0); Prothrombin Time 22.2 sec (9.0-12.0)
--- NOTE | 2022-10-11 14:15 | CT ---
EXAMINATION TYPE: CT brain wo con DATE OF EXAM: 10/11/2022 COMPARISON: 02/08/2021 HISTORY: 82-year-old male Neuro deficit, acute, stroke suspected TECHNIQUE: Examination was done in axial plane without intravenous contrast. Coronal and sagittal r econstructions performed. CT DLP: 1126.5 mGycm Automated exposure control for dose reduction was used. FINDINGS: There is no evidence of acute intracranial hemorrhage, acute ischemic changes, mass, mass-effect, or extra-axial fluid collection. There is no effacement of cerebral sulci or basal subarachnoid cister ns. There is no midline shift. Montalvo-white matter distinction is preserved. Extensive atherosclerotic calcifications within the right greater than left carotid siphons. Some 5 m m nodular prominence to the tip of the basilar artery, axial image 25 and coronal image 43. Some punc guevara benign basal ganglionic calcifications are noted. There is mild ventriculomegaly, administration of calculated at 0.36, stable to minimally increased f rom prior exam. Severe confluent white matter hypodensities in posterior hemispheres. Mild generalized supratentorial volume loss. Moderate mucosal thickening throughout the ethmoid air cells and right maxillary sinus. Small air-flu id level right maxillary sinus. Mastoid air cells are pneumatized. Cerumen in the bilateral external auditory canals. Leftward nasal septal deviation. Orbits and globes are intact. IMPRESSION: 1. Severe confluent burden of chronic small vessel ischemic disease. 2. Mild generalized atrophy. Mild ventriculomegaly is somewhat out of proportion to the degree of cor tical atrophy. Correlate to exclude a component of NPH. Otherwise, no acute intracranial abnormality seen. 3. Nodular prominence to the tip of the basilar artery at 5 mm. A subtle underlying basilar top aneur ysm is difficult to exclude. 4. Chronic ethmoid and right maxillary sinus disease. Air-fluid level suggesting possible superimpose d acute right maxillary sinusitis.
[2022-10-11] MEDS ORDERED: ACETAMINOPHEN TAB 500 MG TAB PO PRN (14:17)
--- NOTE | 2022-10-11 14:44 | CT ---
EXAMINATION TYPE: CT angio head neck DATE OF EXAM: 10/11/2022 HISTORY: Neuro deficit, acute, stroke suspected COMPARISON: None. CT DLP: 815 mGycm. Automated Exposure Control for Dose Reduction was Utilized. TECHNIQUE: CTA scan of the head and neck is performed without and with IV Contrast, patient injected with 100 ml mL of Isovue 370, axial images are obtained, coronal and sagittal reformatted images are reviewed. 3D reconstructed images are created on an independent workstation and reviewed. FINDINGS: Carotid/Vascular Structures: Mild to moderate peripheral plaque in the aortic arch extends into the 3 great vessels without significant stenosis. There is normal origin of the right common carotid arter y from the right brachiocephalic artery. There is mild to moderate peripheral calcified plaque in the right carotid bulb posteriorly extending into the proximal internal carotid artery without significa nt stenosis. There is more moderate mixed plaque in the left carotid bulb extending into the proximal internal carotid artery without significant stenosis. There is mild calcified plaque at origin of th e right external carotid artery. No significant stenosis in either external carotid artery is seen. Tortuous course to the internal carotid arteries is seen bilaterally. Moderate peripheral calcified p laque is seen. There is no significant focal stenosis or aneurysm in the anterior circulation. There is hypoplastic anterior communicating artery. There are codominant vertebral arteries patent to the b asilar junction. There is focal caliber narrowing of the proximal to mid segment of the basilar arter y axial image 29 down to roughly 2.1 mm and reconstitution distal to this up to 3.7 mm. There is some prominence or dolichoectasia of the basilar tip at the branching point of the posterior cerebral art eries. There are hypoplastic bilateral posterior to indicating arteries. There is no significant foca l stenosis or aneurysm seen. Other: Patchy opacification and fluid in the ethmoid sinuses bilaterally. [id number]-[id number] mucosal th ickening inferior left frontal sinus. [id number] mucosal thickening right greater than left max illary sinuses with some dependent fluid on the right. There is mild to moderate diffuse cerebral atrophy and moderate to advanced chronic small vessel isch emic change. There are prominent but subcentimeter lymph nodes seen throughout the neck bilaterally. For reference is a 1.1 x 1.0 cm lymph node axial image 82 adjacent to the right common carotid artery above the hy oid bone axial image 82. There is partial visualization of pacemaker-type device. Some prominence of the ascending aorta, possible 4.0 cm aneurysm right before the great vessel takeoffs is noted axial i mage 4. IMPRESSION: No significant stenosis in common or internal carotid arteries bilaterally. No significan t stenosis or aneurysm at the level of the [place].. NASCET criteria was used in interpretation of this exam?
--- NOTE | 2022-10-11 14:52 | ED ---
Neuro HPI - General Chief Complaint: Neuro Symptoms/Deficit Stated Complaint: poss TIA Time Seen by Provider: 10/11/22 11:40 Source: patient, family, EMS, RN notes reviewed Mode of arrival: EMS Limitations: no limitations - History of Present Illness Is the patient presenting with stroke symptoms?: No Initial Comments: 82-year-old male with a history of atrial fibrillation with a pacemaker hypertension thyroid disease who had the onset yesterday of right side weakness was resolved then today seemed to be a little bit weak on the left that also has resolved. Currently he denies any fevers chills nausea vomiting sweats. Per his family he has been demonstrating weakness however he normally he get around with assistance. Past 2 days has not. - Related Data Home Medications: Home Medications Medication Instructions Recorded Confirmed Warfarin [Coumadin] 3.75 tab PO MOWEFR@209912/16/15 10/11/22 Warfarin [Coumadin] 7.5 mg PO SUTUTHSA@209912/16/15 10/11/22 Multivitamins, Thera [Multivitamin 1 tab PO DAILY@119912/24/19 10/11/22 (formulary)] carvediloL [Coreg] 12.5 mg PO BID 12/24/19 10/11/22 Acetaminophen [Tylenol] 500 mg PO Q4-6H PRN 06/27/21 10/11/22 Cholecalciferol [Vitamin D3 (25 50 mcg PO DAILY@1200 06/27/21 10/11/22 Mcg = 1000 Iu)] Cyanocobalamin [Vitamin B-12] 500 mcg PO DAILY@1200 06/27/21 10/11/22 Ibuprofen [Motrin Ib] 800 mg PO Q4H PRN 06/27/21 10/11/22 L.acidoph,Paracasei, B.lactis 1 cap PO DAILY@1200 06/27/21 10/11/22 [Probiotic] Losartan Potassium 50 mg PO DAILY 06/27/21 10/11/22 Zinc 50 mg PO HS 06/27/21 10/11/22 Ascorbic Acid [Vitamin C] 1,000 mg PO HS 10/11/22 10/11/22 Rosuvastatin Calcium 5 mg PO HS 10/11/22 10/11/22 Allergies/Adverse Reactions: Allergies Allergy/AdvReac Type Severity Reaction Status Date / Time shellfish derived [Shrimp] Allergy Anaphylaxis Verified 10/11/22 12:38 watermelon Allergy Abdominal Verified 10/11/22 12:38 Pain watermelon Allergy Abdominal Uncoded 10/11/22 11:20 Pain Review of Systems ROS Statement: Those systems with pertinent positive or pertinent negative responses have been documented in the HPI. ROS Other: All systems not noted in ROS Statement are negative. General Exam - General Exam Comments Initial Comments: This a well-developed well-nourished awake alert oriented 4 male Limitations: no limitations General appearance: alert, in no apparent distress Head exam: Present: atraumatic, normocephalic, normal inspection Eye exam: Present: normal appearance, PERRL, EOMI. Absent: scleral icterus, conjunctival injection, periorbital swelling ENT exam: Present: mucous membranes dry Neck exam: Present: normal inspection, full ROM, other (Surgery or bruits). Absent: tenderness, meningismus, lymphadenopathy Respiratory exam: Present: normal lung sounds bilaterally. Absent: respiratory distress, wheezes, rales, rhonchi, stridor Cardiovascular Exam: Present: normal rhythm, bradycardia. Absent: systolic murmur, diastolic murmur, rubs, gallop, clicks GI/Abdominal exam: Present: soft, normal bowel sounds. Absent: distended, tenderness, guarding, rebound, rigid Extremities exam: Present: full ROM, normal capillary refill, other. Absent: tenderness, pedal edema, joint swelling, calf tenderness Back exam: Present: normal inspection Neurological exam: Present: alert, oriented X3, CN II-XII intact Psychiatric exam: Present: normal affect, normal mood Skin exam: Present: warm, dry, intact, normal color. Absent: rash Stroke MDM - Lab Data Result diagrams: 10/11/22 12:13 10/11/22 12:13 Lab Results 10/11/22 10/11/22 10/11/22 Range/Units 12:13 12:13 12:13 WBC 8.1 (3.8-10.6) k/uL RBC 5.09 (4.30-5.90) m/uL Hgb 15.4 (13.0-17.5) gm/dL Hct 46.0 (39.0-53.0) % MCV 90.4 (80.0-100.0) fL MCH 30.3 (25.0-35.0) pg MCHC 33.5 (31.0-37.0) g/dL RDW 13.7 (11.5-15.5) % Plt Count 139 L (150-450) k/uL MPV 8.6 Neutrophils % 83 % Lymphocytes % 7 % Monocytes % 5 % Eosinophils % 3 % Basophils % 0 % Neutrophils # 6.7 (1.3-7.7) k/uL Lymphocytes # 0.6 L (1.0-4.8) k/uL Monocytes # 0.4 (0-1.0) k/uL Eosinophils # 0.3 (0-0.7) k/uL Basophils # 0.0 (0-0.2) k/uL PT 22.2 H (9.0-12.0) sec INR 2.3 H (<1.2) APTT 29.9 (22.0-30.0) sec Sodium 141 (137-145) mmol/L Potassium 3.9 (3.5-5.1) mmol/L Chloride 107 (98-107) mmol/L Carbon Dioxide 27 (22-30) mmol/L Anion Gap 7 mmol/L BUN 25 H (9-20) mg/dL Creatinine 1.14 (0.66-1.25) mg/dL Est GFR (CKD-EPI)AfAm 69 (>60 ml/min/1.73 sqM) Est GFR (CKD-EPI)NonAf 60 (>60 ml/min/1.73 sqM) Glucose 122 H (74-99) mg/dL Calcium 8.5 (8.4-10.2) mg/dL Total Bilirubin 1.2 (0.2-1.3) mg/dL AST 26 (17-59) U/L ALT 25 (4-49) U/L Alkaline Phosphatase 61 (38-126) U/L Creatine Kinase 81 (55-170) U/L Troponin I (0.000-0.034) ng/mL Total Protein 6.1 L (6.3-8.2) g/dL Albumin 3.7 (3.5-5.0) g/dL 10/11/22 Range/Units 12:13 WBC (3.8-10.6) k/uL RBC (4.30-5.90) m/uL Hgb (13.0-17.5) gm/dL Hct (39.0-53.0) % MCV (80.0-100.0) fL MCH (25.0-35.0) pg MCHC (31.0-37.0) g/dL RDW (11.5-15.5) % Plt Count (150-450) k/uL MPV Neutrophils % % Lymphocytes % % Monocytes % % Eosinophils % % Basophils % % Neutrophils # (1.3-7.7) k/uL Lymphocytes # (1.0-4.8) k/uL Monocytes # (0-1.0) k/uL Eosinophils # (0-0.7) k/uL Basophils # (0-0.2) k/uL PT (9.0-12.0) sec INR (<1.2) APTT (22.0-30.0) sec Sodium (137-145) mmol/L Potassium (3.5-5.1) mmol/L Chloride (98-107) mmol/L Carbon Dioxide (22-30) mmol/L Anion Gap mmol/L BUN (9-20) mg/dL Creatinine (0.66-1.25) mg/dL Est GFR (CKD-EPI)AfAm (>60 ml/min/1.73 sqM) Est GFR (CKD-EPI)NonAf (>60 ml/min/1.73 sqM) Glucose (74-99) mg/dL Calcium (8.4-10.2) mg/dL Total Bilirubin (0.2-1.3) mg/dL AST (17-59) U/L ALT (4-49) U/L Alkaline Phosphatase (38-126) U/L Creatine Kinase (55-170) U/L Troponin I 0.017 (0.000-0.034) ng/mL Total Protein (6.3-8.2) g/dL Albumin (3.5-5.0) g/dL - NIH Stroke Scale 1a. Level of Consciousness: (0) alert 1b. LOC Questions: (0) answers correctly 1c. LOC Commands: (0) performs tasks correctly 2. Best Gaze: (0) normal 3. Visual: (0) no visual loss 4. Facial Palsy: (0) normal symmetrical movement 5a. Motor Arm Left: (0) no drift 5b. Motor Arm Right: (0) no drift 6a. Motor Leg Left: (0) no drift 6b. Motor Leg Right: (0) no drift 7. Limb Ataxia: (0) absent 8. Sensory: (0) normal 9. Best Language: (0) no aphasia 10. Dysarthria: (0) normal 11. Extinction/Inattention: (0) no abnormality - Medical Decision Making I did interpret the imaging x-ray shows no processes at this time CAT scan shows no apparent acute bleeds or masses potassium evidence of old CVA. I did discuss findings with the patient family as well as with Dr. Macario who did come the emergency department see the patient patient will be admitted diagnoses appears consistent with TIAWas pt. sent in by a medical professional or institution (, [place], [facility], urgent care, hospital, or residential...) When possible be specific @ -[No] Did you speak to anyone other than the patient for history (EMS, parent, family, police, friend...)? What history was obtained from this source @ -[Family] Did you review nursing and triage notes (agree or disagree)? Why? @ -[I reviewed and agree with nursing and triage notes] Were old charts reviewed (outside hosp., previous admission, EMS record, old EKG, old radiological studies, urgent care reports/EKG's, residential records)? Report findings @ -[ old charts were reviewed] Differential Diagnosis (chest pain, altered mental status, abdominal pain women, abdominal pain men, vaginal bleeding, weakness, fever, dyspnea, syncope, headache, dizziness, GI bleed, back pain, seizure, CVA, palpatations, mental health, musculoskeletal)? @ -[TIA] EKG interpreted by me (3pts min.). @ -[As above] X-rays interpreted by me (1pt min.). @ -[As above] CT interpreted by me (1pt min.). @ -[As above] U/S interpreted by me (1pt. min.). @ -[None done] What testing was considered but not performed or refused? (CT, X-rays, U/S, labs)? Why? @ -[None] What meds were considered but not given or refused? Why? @ -[None] Did you discuss the management of the patient with other professionals (professionals i.e. , [place], [facility] [employer], lab, RT, psych nurse, manager social, stationary equipment mechanic, teacher, information officer, onsite case manager)? Give summary @ -[Dr. Macario] Was smoking cessation discussed for >3mins.? @ -[No] Was critical care preformed (if so, how long)? @ -[No] Were there social determinants of health that impacted care today? How? (Homelessness, low income, unemployed, alcoholism, drug addiction, transpor tation, low edu. Level, literacy, decrease access to med. care, intermediate, rehab)? @ -[No] Was there de-escalation of care discussed even if they declined (Discuss DNR or withdrawal of care, Hospice)? DNR status @ -[No] What co-morbidities impacted this encounter? (DM, HTN, Smoking, COPD, CAD, Cancer, CVA, ARF, Chemo, Hep., AIDS, mental health diagnosis, sleep apnea, morbid obesity)? @ -[Atrial fibrillation and pacemaker placement, thyroid disease hypertension] Was patient admitted / discharged? Hospital course, mention meds given and route, prescriptions, significant lab abnormalities, going to OR and other pertinent info. @ -[hospital course] minute Undiagnosed new problem with uncertain prognosis? @ -[No] Drug Therapy requiring intensive monitoring for toxicity (Heparin, Nitro, Insulin, Cardizem)? @ -[No] Were any procedures done? @ -[No] Diagnosis/symptom? @ -[TIA] Acute, or Chronic, or Acute on Chronic? @ -[] Uncomplicated (without systemic symptoms) or Complicated (systemic symptoms)? @ -[default] Side effects of treatment? @ -[No] Exacerbation, Progression, or Severe Exacerbation? @ -[No] Poses a threat to life or bodily function? How? (Chest pain, [place], [place], pneumonia, PE, COPD, DKA, ARF, appy, cholecystitis, CVA, Diverticulitis, Homicidal, Suicidal, threat to staff... and all critical care pts) @ -[No] - EKG Data -: EKG Interpreted by Me (EKG interpreted by me like a pacemaker rhythm a 61 QRS duration 188 QT sinc) Past Medical History Past Medical History: Atrial Fibrillation, Hyperlipidemia, Hypertension, Thyroid Disorder History of Any Multi-Drug Resistant Organisms: None Reported Past Surgical History: Cholecystectomy Past Anesthesia/Blood Transfusion Reactions: No Reported Reaction Past Psychological History: No Psychological Hx Reported Smoking Status: Never smoker Past Alcohol Use History: None Reported Past Drug Use History: None Reported - Past Family History Mother Family Medical History: No Reported History Course Vital Signs 10/11/22 10/11/22 11:21 13:31 Pulse Rate 60 61 Respiratory 19 19 Rate Blood Pressure 138/77 136/88 O2 Sat by Pulse 93 L 97 Oximetry Disposition Clinical Impression: Transient cerebral ischemia Disposition: ADMITTED IP TO THIS [facility] Condition: Stable Referrals: Dolly Bello MD [Primary Care Provider] - 1-2 days Decision Date: 10/11/22 Decision Time: 14:00
[2022-10-11] MEDS: SODIUM CHLORIDE 0.9% 1,000 ML IV SCH (16:07)
[2022-10-11 17:06] LABS: INR 2.3 (<1.2); Prothrombin Time 22.7 sec (9.0-12.0)
[2022-10-11] MEDS: carvediloL 12.5 MG TAB PO SCH ×2 (18:19→21:13)
--- NOTE | 2022-10-11 18:53 | P.CNNES ---
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 History was obtained from the patient's and daughter were at bedside. According to the patient's she stated that yesterday the patient was the very weak and they felt the patient had weakness on the right side than the left side and episode was a noticeable at 2 PM yesterday and the lasted for at least 7 hours. They are unsure when the onset of his symptoms but again they noticed that at 2. Patient does not recall what happened yesterday. That and the family had to help him a system as a result of his weakness. Patient denies of any headache, any difficulty getting his words out any focal weakness currently or numbness. No jerk in of any extremities yesterday. feels that the patient is back to baseline other than he does not remember what transpired yesterday. No history of seizures. No tongue bite, urinary bowel incontinence. According to the may be the patient had a TIA that was questionable at in the past in which the patient was sitting in [employer] and the was not responsive. Patient is on Coumadi n for atrial fibrillation and he follows up with the communications supervisor. Of note he follows up with the Dr. 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 Some of the workup in this hospital visit consisted of: Initial INR is 2.3 Initial serum glucose is 122 BUN is 25 otherwise is unremarkable of the chemistry panel CT of the head is reported as severe confluent burden of chronic small vessel ischemic disease. Mild degenerative atrophy. Mild ventricle medullary is somewhat out of proportion to the degree of the cortical atrophy. Correlate to exclude a component of NPH. Otherwise no acute intracranial abnormality seen. Nodule prominence at the tip of the basilar artery at 5 mm. Septal underlying basilar tip aneurysm is difficult to exclude. Chronic ethmoid and right maxillary sinus disease. Air fluid level she just possible superimposed acute right maxillary sinusitis. I personally reviewed the CT of the head and I agree there is no acute or subacute ischemia and appears the ventricles is that the more dilated than the his atrophy possible suggestive of NPH. CT and dry view of the head and neck is reported as no significant stenosis in the common or internal carotid arteries bilaterally. No significant stenosis or aneurysm at the level [place]. Review of Systems Review of system: The 12 point system was reviewed and apparent positive and negative per HPI. Past Medical History Past Medical History: Atrial Fibrillation, Hyperlipidemia, Hypertension, Thyroid Disorder History of Any Multi-Drug Resistant Organisms: None Reported Past Surgical History: Cholecystectomy Past Anesthesia/Blood Transfusion Reactions: No Reported Reaction Past Psychological History: No Psychological Hx Reported Smoking Status: Never smoker Past Alcohol Use History: None Reported Past Drug Use History: None Reported - Past Family History Mother Family Medical History: No Reported History Medications and Allergies Home Medications Medication Instructions Recorded Confirmed Type Warfarin [Coumadin] 3.75 tab PO [id number]@209912/16/15 10/11/22 History Warfarin [Coumadin] 7.5 mg PO SUTUTHSA@209912/16/15 10/11/22 History Multivitamins, Thera [Multivitamin 1 tab PO DAILY@1200 12/24/19 10/11/22 History (formulary)] carvediloL [Coreg] 12.5 mg PO BID 12/24/19 10/11/22 History Acetaminophen [Tylenol] 500 mg PO Q4-6H PRN 06/27/21 10/11/22 History Cholecalciferol [Vitamin D3 (25 50 mcg PO DAILY@1200 06/27/21 10/11/22 History Mcg = 1000 Iu)] Cyanocobalamin [Vitamin B-12] 500 mcg PO DAILY@1200 06/27/21 10/11/22 History Ibuprofen [Motrin Ib] 800 mg PO Q4H PRN 06/27/21 10/11/22 History L.acidoph,Paracasei, B.lactis 1 cap PO DAILY@1200 06/27/21 10/11/22 History [Probiotic] Losartan Potassium 50 mg PO DAILY 06/27/21 10/11/22 History Zinc 50 mg PO HS 06/27/21 10/11/22 History Ascorbic Acid [Vitamin C] 1,000 mg PO HS 10/11/22 10/11/22 History Rosuvastatin Calcium 5 mg PO HS 10/11/22 10/11/22 History Allergies Allergy/AdvReac Type Severity Reaction Status Date / Time shellfish derived [Shrimp] Allergy Anaphylaxis Verified 10/11/22 12:38 watermelon Allergy Abdominal Verified 10/11/22 12:38 Pain watermelon Allergy Abdominal Uncoded 10/11/22 11:20 Pain Physical Examination - Vital Signs Vital Signs: Vital Signs Pulse Resp BP Pulse Ox 10/11/22 17:00 61 18 146/86 10/11/22 16:11 60 18 165/85 96 10/11/22 13:31 61 19 136/88 97 10/11/22 11:21 60 19 138/77 93 L Intake and Output 10/11/22 10/11/22 10/11/22 06:59 14:59 22:59 Other: Weight 81.647 kg GENERAL: The patient is lying in bed and is not in acute distress. CHEST: The heart rate is regular rate rhythm. No murmurs to auscultation. LUNG: Clear to auscultation bilaterally no wheezing noted throughout. Not labored breathing. ABDOMEN/GI: Bowel sounds present in all 4 quadrants. No tenderness to palpation throughout. NEUROLOGICAL: Higher mental function: The patient is awake, alert, oriented to self, place and time. Patient is following commands. No aphasia and no neglect. Cranial nerves: The pupils are round, equal and reactive to light and accommodation. Visual courtney are full to confrontation throughout. Extraocular movement is intact no nystagmus is noted. Facial sensation is normal to touch throughout. The facial strength is normal throughout. Hearing is normal bilaterally to hand rub. Tongue is midline and moved [id number] without any difficulty. No dysarthria is noted. Shoulder shrug is normal bilaterally. Motor: The strength is 5 over 5 throughout. Normal tone and bulk. Cerebellum: Normal finger to nose bilaterally. Sensation: Sensation is normal to touch throughout. Reflexes (right/left): 1+ throughout Plantars are mute bilaterally. Results - Laboratory Findings CBC and BMP: 10/11/22 12:13 10/11/22 12:13 Abnormal Lab Findings: Abnormal Labs 10/11/22 10/11/22 10/11/22 12:13 12:13 12:13 Plt Count 139 L Lymphocytes # 0.6 L PT 22.2 H INR 2.3 H BUN 25 H Glucose 122 H Total Protein 6.1 L 10/11/22 15:57 Plt Count Lymphocytes # PT 22.7 H INR 2.3 H BUN Glucose Total Protein Assessment and Plan Assessment: Episode of generalized weakness but mostly the right side was weaker than the left and had confusion: Probable transient ischemic attack. Cannot exclude underlying subclinical seizure but seems unlikely. Possible Normal Pressure Hydrocephalus from radiographic imaging Atrial fibrillation on Coumadin Pacemaker Hypertension Neuropathy of lowers Plan: * I cannot obtain MRI therefore I'll either obtain a repeat CT tomorrow or the day after to see if there is any changes from the initial CT * I ordered routine EEG since patient had episode of confusion. * I ordered a 2-D echo, vitamin B12, folate, HA1c * Is on Coumadin and I feel if the patient is on other oral anticoagulant such as Ahlquist or Xarelto would be possibly beneficial since there is no diet m odification or monitoring but will defer that decision to the communications supervisor. * Continue Lipitor 10 mg daily at bedtime for secondary stroke prophylaxis * Continue neuro checks * Cardiac monitoring * PT OT and MEDIA MANAGER are consulted * Regarding this questionable normal pressure hydrocephalus recommend a large volume tap and if there is improvement after the tap then recommend LEATHER GOODS II ASSEMBLER shunt. 7 the patient to follow-up with the his neurologist (Dr. Garza) and follow-up with neurosurgeon. Currently on Coumadin. * We'll defer the rest of the medical management to the primary team * For DVT prophylaxis the patient is on Coumadin The plan is discussed with patient and his who is at bedside. Thank you for the consultation. Time with Patient: Greater than 30
[2022-10-11 19:36] LABS: Creatine Kinase 99 U/L (55-170)
[2022-10-11] MEDS ORDERED: WARFARIN 7.5 MG TAB PO SCH (21:00)
[2022-10-11] MEDS: ZINC SULFATE 220 MG CAP PO SCH (21:13)
[2022-10-11] MEDS: ASCORBIC ACID 500 MG TAB PO SCH (21:13)
[2022-10-11] MEDS: ATORVASTATIN 10 MG TAB PO SCH (21:14)
[2022-10-12] MEDS: SODIUM CHLORIDE 0.9% 1,000 ML IV SCH ×3 (00:39→20:16)
[2022-10-12 04:42] LABS: Basophils # (A) 0.1 k/uL (0-0.2); Basophils % (A) 1 %; Eosinophils # (A) 0.5 k/uL (0-0.7); Eosinophils % (A) 6 %; HCT 46.5 % (39.0-53.0); Lymphocytes # (A) 0.9 k/uL (1.0-4.8); Lymphocytes % (A) 11 %; MCH 29.6 pg (25.0-35.0); MCHC 32.4 g/dL (31.0-37.0); MCV 91.5 fL (80.0-100.0); Mean Platelet Volume 8.1; Monocytes # (A) 0.5 k/uL (0-1.0); Monocytes % (A) 7 %; Neutrophils # (A) 6.1 k/uL (1.3-7.7); Neutrophils % (A) 74 %; Platelet Count 161 k/uL (150-450); RBC 5.08 m/uL (4.30-5.90); RDW 13.5 % (11.5-15.5); WBC 8.3 k/uL (3.8-10.6)
[2022-10-12 04:50] LABS: African American GFR (CKD) 86 (>60 ml/min/1.73 sqM); Anion Gap 8 mmol/L; Blood Urea Nitrogen 25 mg/dL (9-20); Calcium 8.5 mg/dL (8.4-10.2); Carbon Dioxide 25 mmol/L (22-30); Chloride 107 mmol/L (98-107); Glucose 111 mg/dL (74-99); Non-African American GFR(CKD) 75 (>60 ml/min/1.73 sqM); Potassium 3.8 mmol/L (3.5-5.1); Sodium 140 mmol/L (137-145)
--- NOTE | 2022-10-12 05:33 | CONS ---
CONSULTATION REASON FOR CONSULTATION: Numbness of the left and right of the body. HISTORY OF PRESENT ILLNESS: This is an 82-year-old gentleman with past medical history of atrial fibrillation, hypertension, hyperlipidemia, being followed by Dr. Bello in the outpatient complaining of right-sided numbness yesterday. Today, the patient had left-sided numbness. The patient came to [facility] and admitted for further evaluation and treatment. A CAT scan of the brain, which I reviewed personally was reported as showing mild generalized atrophy and multiple other abnormalities. There is no history of any fever, rigors or chills. PAST MEDICAL HISTORY: Reviewed and include atrial fibrillation, hypertension, hyperlipidemia. The rest of history and the rest of the chart is also reviewed. HOME MEDICATIONS: Reviewed include Crestor, dose and rest of medication noted. ALLERGIES: Reviewed include shellfish. FAMILY HISTORY: No history of heart disease or strokes in the family. SOCIAL HISTORY: No history of smoking or alcohol. REVIEW OF SYSTEMS: A 14-point review is negative except as mentioned earlier. PHYSICAL EXAMINATION: VITAL SIGNS: Pulse is 61, blood pressure 130/80, respirations 19. HEENT: Conjunctivae normal. NECK: No jugular venous distention. CARDIOVASCULAR: S1, S2 muffled. RESPIRATIONS: Diminished at the bases. ABDOMEN: Soft. LEGS: No edema. No swelling. NERVOUS SYSTEM: No focal deficits. SKIN: No ulcer, rash, bleeding. JOINTS: No active deforming arthropathy. LABORATORY DATA: Labs are reviewed. INR 2.3. ASSESSMENT: 1. Acute transient ischemic attack involving both hemispheres. 2. Hypertension. 3. Hyperlipidemia. 4. Atrial fibrillation. 5. Hypothyroidism. RECOMMENDATIONS: This is an 82-year-old gentleman who presented with multiple complex medical issues, we will monitor the patient closely. Continue current medications and symptomatic treatment. We will obtain Neurology consultation. Complete neurovascular workup. Resume the home medications. Monitor closely. Antiplatelet agents. Prognosis guarded because of multiple complex medical issues. Further recommendations to follow. MMODL / IJN: [id number] /
[2022-10-12 08:00] LABS: INR 2.1 (<1.2); Prothrombin Time 20.2 sec (9.0-12.0)
[2022-10-12] MEDS: LOSARTAN 50 MG TAB PO SCH (08:07)
[2022-10-12 10:06] LABS: Chol/HDL Ratio 4.81 Ratio; LDL Cholesterol,Calculated 87.9 mg/dL (0.0-131.0)
[2022-10-12] MEDS: CHOLECALCIFEROL 25 MCG (1000 IU) TABLET PO SCH (12:29)
[2022-10-12] MEDS: MULTIVITAMINS, THERA 1 EACH TAB PO SCH (12:30)
[2022-10-12] MEDS: LACTOBACILLUS ACIDOPH & BULGAR 1 EACH PACKET PO SCH (12:30)
[2022-10-12] MEDS: CYANOCOBALAMIN 500 MCG TAB PO SCH (12:30)
--- NOTE | 2022-10-12 12:46 | P.PN ---
Subjective Progress Note Date: 10/12/22 The patient is seen at bedside and feels is doing well. No further issues. Feels back to baseline. Objective - Vital Signs Vital signs: Vital Signs Temp 98.2 F 10/12/22 06:02 Pulse 85 10/12/22 06:02 Resp 19 10/12/22 06:02 BP 164/88 10/12/22 06:02 Pulse Ox 94 L 10/12/22 08:12 FiO2 21 10/12/22 08:12 Intake & Output 10/11/22 10/12/22 10/12/22 18:59 06:59 18:59 Weight 81.647 kg 81.647 kg Other: Voiding Method Toilet Toilet Diaper # Voids 1 - Exam GENERAL: The patient is lying in bed and is not in acute distress. CHEST: The heart rate is regular rate rhythm. No murmurs to auscultation. LUNG: Clear to auscultation bilaterally no wheezing noted throughout. Not labored breathing. ABDOMEN/GI: Bowel sounds present in all 4 quadrants. No tenderness to palpation throughout. NEUROLOGICAL: Higher mental function: The patient is awake, alert, oriented to self, place and time. Patient is following commands. No aphasia and no neglect. Cranial nerves: The pupils are round, equal and reactive to light and accommodation. Visual courtney are full to confrontation throughout. Extraocular movement is intact no nystagmus is noted. Facial sensation is normal to touch throughout. The facial strength is normal throughout. Tongue is midline and moved [id number] without any difficulty. No dysarthria is noted. Shoulder shrug is normal bilaterally. Motor: The strength is 5 over 5 throughout. Normal tone and bulk. Cerebellum: Normal finger to nose bilaterally. Sensation: Sensation is normal to touch throughout. Some of the workup in this hospital visit consisted of: Vitamin B12 641, folate is 22.3 TSH is 1.50 CK level is 99 Hemoglobin A1c is 6.0 Lipid panels triglyceride of 107, last roll 138, LDLs the 87 and HDL is 28. Initial serum glucose is 122 BUN is 25 otherwise is unremarkable of the chemistry panel CT of the head is reported as severe confluent burden of chronic small vessel ischemic disease. Mild degenerative atrophy. Mild ventricle medullary is somewhat out of proportion to the degree of the cortical atrophy. Correlate to exclude a component of NPH. Otherwise no acute intracranial abnormality seen. Nodule prominence at the tip of the basilar artery at 5 mm. Septal underlying basilar tip aneurysm is difficult to exclude. Chronic ethmoid and right maxillary sinus disease. Air fluid level she just possible superimposed acute right maxillary sinusitis. I personally reviewed the CT of the head and I agree there is no acute or subacute ischemia and appears the ventricles is that the more dilated than the his atrophy possible suggestive of NPH. CTA head and neck is reported as no significant stenosis in the common or internal carotid arteries bilaterally. No significant stenosis or aneurysm at the level [place] of [place]. - Labs CBC & Chem 7: 10/12/22 04:26 10/12/22 04:26 Labs: Abnormal Lab Results - Last 24 Hours (Table) 10/11/22 10/11/22 10/11/22 Range/Units 12:13 12:13 15:57 Lymphocytes # (1.0-4.8) k/uL PT 22.2 H 22.7 H (9.0-12.0) sec INR 2.3 H 2.3 H (<1.2) BUN 25 H (9-20) mg/dL Glucose 122 H (74-99) mg/dL Total Protein 6.1 L (6.3-8.2) g/dL HDL Cholesterol (40.00-60.00) mg/dL 10/12/22 10/12/22 10/12/22 Range/Units 04:26 04:26 06:52 Lymphocytes # 0.9 L (1.0-4.8) k/uL PT 20.2 H (9.0-12.0) sec INR 2.1 H (<1.2) BUN 25 H (9-20) mg/dL Glucose 111 H (74-99) mg/dL Total Protein (6.3-8.2) g/dL HDL Cholesterol 28.70 L (40.00-60.00) mg/dL Assessment and Plan Assessment: Episode of generalized weakness but mostly the right side was weaker than the left and had confusion: Probable transient ischemic attack. Cannot exclude underlying subclinical seizure but seems unlikely. Possible Normal Pressure Hydrocephalus from radiographic imaging Atrial fibrillation on Coumadin Pacemaker Hypertension Neuropathy of lowers Plan: * I cannot obtain MRI Brain and patient is doing clinically better. If he has new changes will get repeat CT head. * Pending routine EEG since patient had episode of confusion--today is much better. * Pending 2-D echo, * Is on Coumadin and I feel if the patient is on other oral anticoagulant such as Ahlquist or Xarelto would be possibly beneficial since there is no diet modification or monitoring but will defer that decision to the envelope addresser. * Continue Lipitor 10 mg daily at bedtime for secondary stroke prophylaxis * Continue neuro checks * Cardiac monitoring * PT OT and STUDENT SUCCESS COACH are consulted * Regarding this questionable normal pressure hydrocephalus recommend a large volume tap and if there is improvement after the tap then recommend STREETCAR DISPATCHER shunt. 7 the patient to follow-up with the his neurologist (Dr. Garza) and follow-up with neurosurgeon. Currently on Coumadin. * We'll defer the rest of the medical management to the primary team * For DVT prophylaxis the patient is on Coumadin The plan is discussed with patient and his nurse. Time with Patient: Less than 30
[2022-10-12] MEDS: carvediloL 12.5 MG TAB PO SCH (17:31)
--- NOTE | 2022-10-12 19:49 | P.PN ---
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 History was obtained from the patient's and daughter were at bedside. According to the patient's she stated that yesterday the patient was the very weak and they felt the patient had weakness on the right side than the left side and episode was a noticeable at 2 PM yesterday and the lasted for at least 7 hours. They are unsure when the onset of his symptoms but again they noticed that at 2. Patient does not recall what happened yesterday. That and the family had to help him a system as a result of his weakness. Patient denies of any headache, any difficulty getting his words out any focal weakness currently or numbness. No jerk in of any extremities yesterday. feels that the patient is back to baseline other than he does not remember what transpired yesterday. No history of seizures. No tongue bite, urinary bowel incontinence. 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 Patient is on Coumadin for atrial fibrillat ion and he follows up with the general administrator. Of note he follows up with the Dr. 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 Some of the workup in this hospital visit consisted of: Initial INR is 2.3 Initial serum glucose is 122 BUN is 25 otherwise is unremarkable of the chemistry panel CT of the head is reported as severe confluent burden of chronic small vessel ischemic disease. Mild degenerative atrophy. Mild ventricle medullary is somewhat out of proportion to the degree of the cortical atrophy. Correlate to exclude a component of NPH. Otherwise no acute intracranial abnormality seen. Nodule prominence at the tip of the basilar artery at 5 mm. Septal underlying basilar tip aneurysm is difficult to exclude. Chronic ethmoid and right maxillary sinus disease. Air fluid level she just possible superimposed acute right maxillary sinusitis. I personally reviewed the CT of the head and I agree there is no acute or subacute ischemia and appears the ventricles is that the more dilated than the his atrophy possible suggestive of NPH. CT and dry view of the head and neck is reported as no significant stenosis in the common or internal carotid arteries bilaterally. No significant stenosis or aneurysm at the level [place] of [place]. Objective - Vital Signs Vital signs: Vital Signs Temp 98.2 F 10/12/22 06:02 Pulse 85 10/12/22 06:02 Resp 19 10/12/22 06:02 BP 164/88 10/12/22 06:02 Pulse Ox 94 L 10/12/22 08:12 FiO2 21 10/12/22 08:12 Intake & Output 10/11/22 10/12/22 10/12/22 18:59 06:59 18:59 Weight 81.647 kg 81.647 kg Other: Voiding Method Toilet Toilet Diaper # Voids 1 - Exam PHYSICAL EXAMINATION: GENERAL: The patient is alert and oriented x3, not in any acute distress. Well developed, well nourished. HEENT: Pupils are round and equally reacting to light. EOMI. No scleral icterus. No conjunctival pallor. Normocephalic, atraumatic. No pharyngeal erythema. No thyromegaly. CARDIOVASCULAR: S1 and S2 present. No murmurs, rubs, or gallops. PULMONARY: Chest is clear to auscultation, no wheezing or crackles. ABDOMEN: Soft, nontender, nondistended, normoactive bowel sounds. No palpable organomegaly. MUSCULOSKELETAL: No joint swelling or deformity. EXTREMITIES: No cyanosis, clubbing, or pedal edema. NEUROLOGICAL: Gross neurological examination did not reveal any focal deficits. SKIN: No rashes. - Labs CBC & Chem 7: 10/12/22 04:26 10/12/22 04:26 Labs: Abnormal Lab Results - Last 24 Hours (Table) 10/11/22 10/11/22 10/11/22 Range/Units 12:13 12:13 12:13 Plt Count 139 L (150-450) k/uL Lymphocytes # 0.6 L (1.0-4.8) k/uL PT 22.2 H (9.0-12.0) sec INR 2.3 H (<1.2) BUN 25 H (9-20) mg/dL Glucose 122 H (74-99) mg/dL Total Protein 6.1 L (6.3-8.2) g/dL HDL Cholesterol (40.00-60.00) mg/dL 10/11/22 10/12/22 10/12/22 Range/Units 15:57 04:26 04:26 Plt Count (150-450) k/uL Lymphocytes # 0.9 L (1.0-4.8) k/uL PT 22.7 H (9.0-12.0) sec INR 2.3 H (<1.2) BUN 25 H (9-20) mg/dL Glucose 111 H (74-99) mg/dL Total Protein (6.3-8.2) g/dL HDL Cholesterol 28.70 L (40.00-60.00) mg/dL 10/12/22 Range/Units 06:52 Plt Count (150-450) k/uL Lymphocytes # (1.0-4.8) k/uL PT 20.2 H (9.0-12.0) sec INR 2.1 H (<1.2) BUN (9-20) mg/dL Glucose (74-99) mg/dL Total Protein (6.3-8.2) g/dL HDL Cholesterol (40.00-60.00) mg/dL Assessment and Plan Assessment: 1. Episode of generalized weakness but mostly the right side was weaker than the left and had confusion: Probable transient ischemic attack. Cannot exclude underlying subclinical seizure but seems unlikely. 2. 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 Atrial fibrillation on Coumadin 4. History of Pacemaker 5. Hypertension 6. Peripheral neuropathy Plan: -- cannot obtain MRI Brain and patient is doing clinically better. If he has new changes will get repeat CT head. - routine EEG since patient had episode of confusion--today is much better. - 2-D echo, ordered and pending - Continue Lipitor 10 mg daily at bedtime for secondary stroke prophylaxis - Continue neuro checks - Cardiac monitoring - PT OT and POURER BUGGY LADLE are consulted - Regarding this questionable normal pressure hydrocephalus recommend a large vo lume tap and if there is improvement after the tap then recommend CERAMIC PAINTER shunt. 7 the patient to follow-up with the his neurologist (Dr. Garza) and follow-up with neurosurgeon. Currently on Coumadin.
[2022-10-12] MEDS: ATORVASTATIN 10 MG TAB PO SCH (20:16)
[2022-10-12] MEDS: ASCORBIC ACID 500 MG TAB PO SCH (20:16)
[2022-10-12] MEDS: ZINC SULFATE 220 MG CAP PO SCH (20:17)
--- NOTE | 2022-10-12 20:25 | EEG ---
ELECTROENCEPHALOGRAM REPORT CLINICAL HISTORY: This is an 82-year-old gentleman with altered mental status. The video EEG is obtained to evaluate for seizure and epileptiform activity. RELEVANT MEDICATIONS: The patient is not on any antiseizure medication. EEG TYPE: A routine 21-channel EEG is performed with video using the 10/20 electrode placement system. DESCRIPTION: Wakefulness is only obtained. During awake state, the posterior-dominant rhythm consists of [id number] voltage of 5.5 to 6.5 hertz activity that is well modulated and well sustained. Rarely the patient had diffuse nonrhythmic delta activity. There was no physiological stage 2 sleep architecture. There is no focal slowing. Interictal and ictal is none. ACTIVATION PROCEDURE: Photic stimulation did not evoke a posterior driving response. There is no abnormality during the photic stimulation. Hyperventilation is not performed. CLINICAL CORRELATION: This is an abnormal routine EEG. The background slowing is suggestive of mild-to- moderate encephalopathy of unknown etiology. Otherwise, there is no focal slowing, epileptiform discharges or seizure on the EEG. If there is any further concerns for seizure or the patient has any further confusion, consider repeat EEG or prolonged EEG. Clinical correlation is recommended. MMODL / IJN: [id number] /
[2022-10-12] MEDS ORDERED: WARFARIN 7.5 MG TAB PO SCH (21:00)
[2022-10-13] MEDS: SODIUM CHLORIDE 0.9% 1,000 ML IV SCH (03:26)
[2022-10-13] MEDS: carvediloL 12.5 MG TAB PO SCH (05:17)
[2022-10-13 08:09] VITALS: RESP 16
[2022-10-13] MEDS: LOSARTAN 50 MG TAB PO SCH (08:42)
--- NOTE | 2022-10-13 11:41 | CA ---
Transthoracic Echo Report Name: Pawan Balbuena Age: 82 Gender: M : 1940 Exam Date: 10/12/2022 11:46 Exam Location: [facility] Ht (in): 28.3 Wt (lb): 397 Ordering Physician: López Collazo MD Attending/Referring Phys: Alternative Energy Engineer Alva Ervin RDCS Procedure CPT: Indications: stroke Cardiac Hx: HTN, Pacemaker, Obesity Technical Quality: Fair Contrast 1: Lumason Total Dose (mL): 4 Contrast 2: Total Dose (mL): MEASUREMENTS (Male / Female) Normal Values 2D ECHO LV Diastolic Diameter PLAX 6.2 cm 4.2 - 5.9 / 3.9 - 5.3 cm LV Systolic Diameter PLAX 4.9 cm IVS Diastolic Thickness 1.9 cm 0.6 - 1.0 / 0.6 - 0.9 cm LVPW Diastolic Thickness 1.6 cm 0.6 - 1.0 / 0.6 - 0.9 cm LV Relative Wall Thickness 0.6 RV Internal Dim ED PLAX 4.2 cm LVOT Diameter 2.7 cm LA Systolic Diameter LX 5.1 cm 3.0 - 4.0 / 2.7 - 3.8 cm M-MODE Aortic Root Diameter MM 3.8 cm LA Systolic Diameter MM 4.7 cm LA Ao Ratio MM 1.3 MV E Point Septal Separation 3.5 cm AV Cusp Separation MM 1.5 cm DOPPLER AV Peak Velocity 116.3 cm/s AV Peak Gradient 5.4 mmHg AI Peak Velocity 451.8 cm/s AI Peak Gradient 81.6 mmHg AI Pressure Half Time 913.1 ms Mitral E Point Velocity 59.0 cm/s Mitral A Point Velocity 22.7 cm/s Mitral E to A Ratio 2.6 MV Deceleration Time 371.8 ms MV E' Velocity 3.0 cm/s Mitral E to MV E' Ratio 19.5 TR Peak Velocity 308.7 cm/s TR Peak Gradient 38.1 mmHg Right Ventricular Systolic Press 46.1 mmHg PV Peak Velocity 102.5 cm/s PV Peak Gradient 4.2 mmHg FINDINGS Left Ventricle Left ventricular ejection fraction is estimated at 40-45 %. Left ventricular cavity size at the upper limits of normal. Mild left ventricular dilatation. Mild concentric left ventricular hypertrophy. Dyskinetic septum. [place] hypokinetic. 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 Right Ventricle Right ventricle at upper limits of normal. Mild pulmonary hypertension. Catheter/pacemaker wire in the right ventricular cavity. RVSP-46 mm Hg. Right Atrium Mild right atrial dilatation. Left Atrium Mild left atrial dilatation. Mitral Valve Mitral valve thickened. Mild mitral annular calcification. Mild mitral regurgitation. Aortic Valve Trileaflet aortic valve. Diffuse thickening of the aortic valve cusps with reduced excursion. [id number] aortic regurgitation. Tricuspid Valve Mild tricuspid regurgitation. Structurally normal tricuspid valve. Pulmonic Valve Mild pulmonic regurgitation. Structurally normal pulmonic valve. Pericardium Normal pericardium. No pericardial effusion. Aorta Normal size aortic root and proximal ascending aorta. CONCLUSIONS Inverted OV function was EF between 40-45% [id number] aortic regurgitation Previewed by: Dr. Rehan Britt MD (Electronically Signed) Final Date: 13 October 2022 11:40
[2022-10-13] MEDS: LACTOBACILLUS ACIDOPH & BULGAR 1 EACH PACKET PO SCH (13:17)
[2022-10-13] MEDS: CHOLECALCIFEROL 25 MCG (1000 IU) TABLET PO SCH (13:17)
[2022-10-13] MEDS: CYANOCOBALAMIN 500 MCG TAB PO SCH (13:17)
[2022-10-13] MEDS: MULTIVITAMINS, THERA 1 EACH TAB PO SCH (13:29)
--- NOTE | 2022-10-13 14:10 | P.PN ---
Subjective Progress Note Date: 10/13/22 I am following up for the patient and he is accompanied by his . He feels he is at baseline and feels he is doing well. Denies any focal weakness. Objective - Vital Signs Vital signs: Vital Signs Temp 97.9 F 10/13/22 08:00 Pulse 61 10/13/22 08:00 Resp 16 10/13/22 08:00 BP 172/91 10/13/22 08:00 Pulse Ox 91 L 10/13/22 09:05 FiO2 21 10/12/22 08:12 Intake & Output 10/12/22 10/13/22 10/13/22 18:59 06:59 18:59 Intake Total 709 118 Balance 709 118 Intake: Oral 709 118 Other: Voiding Method Toilet Toilet Toilet Diaper Diaper Diaper # Voids 1 1 # Bowel Movements 1 - Exam GENERAL: The patient is lying in bed and is not in acute distress. CHEST: The heart rate is regular rate rhythm. No murmurs to auscultation. LUNG: Clear to auscultation bilaterally no wheezing noted throughout. Not labored breathing. ABDOMEN/GI: Bowel sounds present in all 4 quadrants. No tenderness to palpation throughout. NEUROLOGICAL: Higher mental function: The patient is awake, alert, oriented to self, place and is oriented to month. But could not tell me month. Patient is following commands. No aphasia and no neglect. Cranial nerves: The pupils are round, equal and reactive to light and accommodation. Visual courtney are full to confrontation throughout. Extraocular movement is intact no nystagmus is noted. Facial sensation is normal to touch throughout. The facial strength is normal throughout. Tongue is midline and moved [id number] without any difficulty. No dysarthria is noted. Shoulder shrug is normal bilaterally. Motor: The strength is 5 over 5 throughout. Normal tone and bulk. Cerebellum: Normal finger to nose bilaterally. Sensation: Sensation is normal to touch throughout. Some of the workup in this hospital visit consisted of: Vitamin B12 641, folate is 22.3 TSH is 1.50 CK level is 99 Hemoglobin A1c is 6.0 Lipid panels triglyceride of 107, last roll 138, LDLs the 87 and HDL is 28. Initial serum glucose is 122 BUN is 25 otherwise is unremarkable of the chemistry panel CT of the head is reported as severe confluent burden of chronic small vessel ischemic disease. Mild degenerative atrophy. Mild ventricle medullary is somewhat out of proportion to the degree of the cortical atrophy. Correlate to exclude a component of NPH. Otherwise no acute intracranial abnormality seen. Nodule prominence at the tip of the basilar artery at 5 mm. Septal underlying basilar tip aneurysm is difficult to exclude. Chronic ethmoid and right maxillary sinus disease. Air fluid level she just possible superimposed acute right maxillary sinusitis. I personally reviewed the CT of the head and I agree there is no acute or subacute ischemia and appears the ventricles is that the more dilated than the his atrophy possible suggestive of NPH. CTA head and neck is reported as no significant stenosis in the common or internal carotid arteries bilaterally. No significant stenosis or aneurysm at the level gambell of [place]. EEG: This is an abnromal routine. The background slowing is suggestive of mild to moderate encephalopathy of unknown etiology. Otherwise, there is no focal slowing, epileptiform discharges or seizure on the EEG. If there is any further concerns for seizure or patient has any further confusion, consider repeat EEG or prolonged EEG. 2D echo: Inverted OV function was EF 40-45%. Mild to moderate aortic regurgitation. - Labs CBC & Chem 7: 10/12/22 04:26 10/12/22 04:26 Assessment and Plan Assessment: Episode of generalized weakness but mostly the right side was weaker than the left and had confusion: Probable transient ischemic attack. Cannot exclude underlying subclinical seizure but seems unlikely. 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 From clinical image has symptoms for 1.5 years. Atrial fibrillation on Coumadin Pacemaker Hypertension Neuropathy of lowers Plan: * I cannot obtain MRI Brain and patient is doing clinically better. Patient stated he does not want any repeat CT imaging and agrees since feels back to baseline. I recommend MRI Brain as outpatient that is pacemaker compatible. * Is on Coumadin and I feel if the patient is on other oral anticoagulant such as Ahlquist or Xarelto would be possibly beneficial since there is no diet modification or monitoring but will defer that decision to the type caster. * Continue Lipitor 10 mg daily at bedtime for secondary stroke prophylaxis * Continue neuro checks * Cardiac monitoring * PT OT and DIRECTOR GIFT are consulted * Regarding this questionable normal pressure hydrocephalus recommend a large volume tap and if there is improvement after the tap then recommend ASSOCIATE PROFESSOR OF MEDIA ARTS shunt. The patient to follow-up with the his neurologist (Dr. Garza) and follow-up with neurosurgeon. Currently on Coumadin. I notified the and she stated he has memory issues, unsteady gait and urinary incontinence for past 1.5 years. She will speak with Dr. Garza regarding further work-up. * We'll defer the rest of the medical management to the primary team * For DVT prophylaxis the patient is on Coumadin The plan is discussed with patient and his nurse. There is no further neurological and is clear for discharge. Time with Patient: Less than 30
[2022-10-13 15:11] VITALS: BP 133/79; PULSE 64; TEMP 97.7
--- NOTE | 2022-10-19 05:43 | CDI ---
Documentation Clarification Form Date: 10/19/22 From: Sherly Mirza Admit Date: 10/12/2022 12:53:00 PM Patient Name: Pawan Balbuena Visit Number: [id number] Discharge Date: 10/13/2022 4:08:00 PM ATTENTION: The Clinical Documentation Specialists (CDI) and [facility] Coding Staff appreciate your assistance in clarifying documentation. Please respond to the clarification below the line at the bottom and electronically sign. The CDI & [facility] Coding staff will review the response and follow-up if needed. Please note: Queries are made part of the Legal Health Record. If you have any questions, please contact the author of this message via ITS. Dr. Criss Macario, Atrial Fibrillation is documented in your consult. Additional clarification regarding the type of atrial fibrillation is requested. History/Risk Factors: TIA, HTN, HLD, hypothyroidism Clinical Indicators: History of atrial fibrillation EKG/telemetry: pacemakerrhythma 61 QRS duration 188 QT Treatment: Coumadin Please clarify the type of atrial fibrillation, if known: [ ] Chronic [ ] Permanent [ ] Paroxysmal [ ] Persistent [ ] Other, please specify [ ] Unable to determine Chronic MTDD
--- NOTE | 2022-11-16 08:07 | P.DS ---
Providers Date of admission: 10/12/22 12:53 Expected date of discharge: 10/13/22 Attending physician: Criss Macario Consults: 10/11/22 14:52 Consult Physician Routine Consulting Provider: López Collazo Consult Reason/Comments: TIA Do you want consulting provider notified?: Yes Primary care physician: Dolly Bello 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 History was obtained from the patient's and daughter were at bedside. According to the patient's she stated that yesterday the patient was the very weak and they felt the patient had weakness on the right side than the left side and episode was a noticeable at 2 PM yesterday and the lasted for at least 7 hours. They are unsure when the onset of his symptoms but again they noticed that at 2. Patient does not recall what happened yesterday. That and the family had to help him a system as a result of his weakness. Patient denies of any headache, any difficulty getting his words out any focal weakness currently or numbness. No jerk in of any extremities yesterday. feels that the patient is back to baseline other than he does not remember what transpired yesterday. No history of seizures. No tongue bite, urinary bowel incontinence. According to the may be the patient had a TIA that was questionable at in the past in which the patient was sitting in scientology and the was not responsive. Patient is on Coumadin for atrial fibrillation and he follows up with the program director scouting. Of note he follows up with the Dr. 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 Mild degenerative atrophy. Mild ventricle medullary is somewhat out of proportion to the degree of the cortical atrophy. Correlate to exclude a component of NPH. Otherwise no acute intracranial abnormality seen. Nodule prominence at the tip of the basilar artery at 5 mm. Septal underlying basilar tip aneurysm is difficult to exclude. Chronic ethmoid and right maxillary sinus disease. Air fluid level she just possible superimposed acute right maxillary sinusitis. I personally reviewed the CT of the head and I agree there is no acute or subacute ischemia and appears the ventricles is that the more dilated than the his atrophy possible suggestive of NPH. CT and dry view of the head and neck is reported as no significant stenosis in the common or internal carotid arteries bilaterally. No significant stenosis or aneurysm at the level [place]. 1. Episode of generalized weakness but mostly the right side was weaker than the left and had confusion: Probable transient ischemic attack. Cannot exclude underlying subclinical seizure but seems unlikely. 2. 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 Atrial fibrillation on Coumadin 4. History of Pacemaker 5. Hypertension 6. Peripheral neuropathy Plan: -- cannot obtain MRI Brain and patient is doing clinically better. If he has new changes will get repeat CT head. - routine EEG since patient had episode of confusion--today is much better. - 2-D echo, ordered and pending - Continue Lipitor 10 mg daily at bedtime for secondary stroke prophylaxis - Continue neuro checks - Cardiac monitoring - PT OT and COOLING SYSTEM OPERATOR are consulted - Regarding this questionable normal pressure hydrocephalus recommend a large volume tap and if there is improvement after the tap then recommend SUPERVISOR FORMING DEPARTMENT shunt. 7 the patient to follow-up with the [facility] neurologist (Dr. Garza) and follow-up with neurosurgeon. Currently on Coumadin. * I cannot obtain MRI Brain and patient is doing clinically better. Patient stated he does not want any repeat CT imaging and agrees since feels back to baseline. I recommend MRI Brain as outpatient that is pacemaker compatible. * Is on Coumadin and I feel if the patient is on other oral anticoagulant such as [place] or Xarelto would be possibly beneficial since there is no diet modification or monitoring but will defer that decision to the program director scouting. * Continue Lipitor 10 mg daily at bedtime for secondary stroke prophylaxis * Continue neuro checks * Cardiac monitoring * PT OT and COOLING SYSTEM OPERATOR are consulted * Regarding this questionable normal pressure hydrocephalus recommend a large volume tap and if there is improvement after the tap then recommend SUPERVISOR FORMING DEPARTMENT shunt. The patient to follow-up with the [facility] neurologist (Dr. Garza) and follow-up with neurosurgeon. Currently on Coumadin. I notified the and she stated he has memory issues, unsteady gait and urinary incontinence for past 1.5 years. She will speak with Dr. Garza regarding further work-up. * We'll defer the rest of the medical management to the primary team * For DVT prophylaxis the patient is on Coumadin Patient Condition at Discharge: Stable Plan - Discharge Summary New Discharge Prescriptions: Continue Warfarin [Coumadin] 7.5 mg PO SUTUTHSA@2100 Warfarin [Coumadin] 3.75 tab PO MOWEFR@2100 Multivitamins, Thera [Multivitamin (formulary)] 1 tab PO DAILY@1200 carvediloL [Coreg*] 12.5 mg PO BID L.acidoph,Paracasei, B.lactis [Probiotic] 1 cap PO DAILY@1200 Acetaminophen [Tylenol] 500 mg PO Q4-6H PRN PRN Reason: Pain Rosuvastatin Calcium 5 mg PO HS Ascorbic Acid [Vitamin C] 1,000 mg PO HS Zinc 50 mg PO HS Ibuprofen [Motrin Ib] 800 mg PO Q4H PRN PRN Reason: Pain Or Fever > 100.5 Cyanocobalamin [Vitamin B-12] 500 mcg PO DAILY@1200 Cholecalciferol [Vitamin D3 (25 Mcg = 1000 Iu)] 50 mcg PO DAILY@1200 Losartan Potassium 50 mg PO DAILY No Action Cephalexin [Keflex] 500 mg PO Q6HR 7 Days #28 cap Discharge Medication List Warfarin [Coumadin] 3.75 tab PO MOWEFR@209912/16/15 [History] Warfarin [Coumadin] 7.5 mg PO SUTUTHSA@209912/16/15 [History] Multivitamins, Thera [Multivitamin (formulary)] 1 tab PO DAILY@1200 12/24/19 [History] carvediloL [Coreg*] 12.5 mg PO BID 12/24/19 [History] Acetaminophen [Tylenol] 500 mg PO Q4-6H PRN 06/27/21 [History] Cholecalciferol [Vitamin D3 (25 Mcg = 1000 Iu)] 50 mcg PO DAILY@1200 06/27/21 [History] Cyanocobalamin [Vitamin B-12] 500 mcg PO DAILY@1200 06/27/21 [History] Ibuprofen [Motrin Ib] 800 mg PO Q4H PRN 06/27/21 [History] L.acidoph,Paracasei, B.lactis [Probiotic] 1 cap PO DAILY@1200 06/27/21 [History] Losartan Potassium 50 mg PO DAILY 06/27/21 [History] Zinc 50 mg PO HS 06/27/21 [History] Ascorbic Acid [Vitamin C] 1,000 mg PO HS 10/11/22 [History] Rosuvastatin Calcium 5 mg PO HS 10/11/22 [History] Cephalexin [Keflex] 500 mg PO Q6HR 7 Days #28 cap 11/02/22 [Rx] Follow up Appointment(s)/Referral(s): Kishor Garza DO [STAFF PHYSICIAN] - 1 Week Dolly Bello MD [Primary Care Provider] - 1-2 days Patient Instructions/Handouts: Transient Ischemic Attack (DC) Discharge Disposition: HOME SELF-CARE
== END 2022-10-13 16:08 | disposition home or self-care (01) ==
LOC: EC 11:13 → 6NMEDSUR 15:01 → 3SCARD 15:26 → 6NMEDSUR 22:13 → INTOOBSV 10-12 12:53 → OBSVTOIN 10-12 12:53 → 6NMEDSUR 10-12 21:31 → UNDODISIN 10-13 16:08
PROVIDERS: ADMIT Hospitalist; ATTEND Hospitalist
DX: R53.1 Weakness (principal); R41.0 Disorientation, unspecified; I48.91 Unspecified atrial fibrillation; E03.9 Hypothyroidism, unspecified; I10 Essential (primary) hypertension; E78.5 Hyperlipidemia, unspecified; G62.9 Polyneuropathy, unspecified; R94.01 Abnormal electroencephalogram [EEG]; Z95.0 Presence of cardiac pacemaker; Z79.01 Long term (current) use of anticoagulants; Z79.899 Other long term (current) drug therapy
CPT/HCPCS: 96360; 99285; 36415; 94760 ×2; 95816; 93005; 97162; 97166; 80061; 80053; 80048; 84443; 82607; 82550; 82746; 84484; 85025 ×2; 85610 ×2; 85730; 83036; 71046; 70496; 70450; 70498; G0378 ×4; C8929; Q9950; Q9967; 93306

== ENCOUNTER 2022-11-02 19:45 | Emergency (ER) | payer MEDICARE ==
[2022-11-02] MEDS ORDERED: SODIUM CHLORIDE 0.9% 1,000 ML IV ONE (20:13)
[2022-11-02] MEDS ORDERED: hydrALAZINE HCL 20 MG/ML 1 ML VIAL IVP STA (20:13)
[2022-11-02] MEDS ORDERED: SILVER NITRATE APPLICATOR 1 EACH STICK..EA. TOPICAL STA (20:47)
[2022-11-02 21:36] LABS: Basophils # (A) 0.1 k/uL (0-0.2); Basophils % (A) 1 %; Eosinophils # (A) 0.3 k/uL (0-0.7); Eosinophils % (A) 5 %; INR 2.1 (<1.2); Lymphocytes % (A) 13 %; MCH 30.1 pg (25.0-35.0); MCHC 33.3 g/dL (31.0-37.0); MCV 90.4 fL (80.0-100.0); Mean Platelet Volume 8.1; Monocytes # (A) 0.5 k/uL (0-1.0); Monocytes % (A) 7 %; Neutrophils # (A) 5.6 k/uL (1.3-7.7); Neutrophils % (A) 75 %; Platelet Count 101 k/uL (150-450); Prothrombin Time 20.2 sec (9.0-12.0); RBC 6.56 m/uL (4.30-5.90); RDW 13.3 % (11.5-15.5); WBC 7.5 k/uL (3.8-10.6)
[2022-11-02] MEDS ORDERED: carvediloL 12.5 MG TAB PO STA (22:11)
[2022-11-02 22:23] LABS: HGB 19.7 gm/dL (13.0-17.5)
[2022-11-02 22:24] LABS: HCT 59.3 % (39.0-53.0)
[2022-11-02 22:47] LABS: Basophils # (A) 0.1 k/uL (0-0.2); Basophils % (A) 1 %; Eosinophils # (A) 0.4 k/uL (0-0.7); Eosinophils % (A) 3 %; HCT 43.4 % (39.0-53.0); Lymphocytes # (A) 1.1 k/uL (1.0-4.8); Lymphocytes % (A) 9 %; MCH 30.1 pg (25.0-35.0); MCHC 33.5 g/dL (31.0-37.0); MCV 89.8 fL (80.0-100.0); Mean Platelet Volume 8.3; Monocytes # (A) 0.5 k/uL (0-1.0); Monocytes % (A) 4 %; Neutrophils % (A) 83 %; Platelet Count 176 k/uL (150-450); RBC 4.83 m/uL (4.30-5.90); RDW 13.4 % (11.5-15.5); WBC 12.1 k/uL (3.8-10.6)
[2022-11-02 23:04] LABS: HGB 14.5 gm/dL (13.0-17.5); INR 2.2 (<1.2); Prothrombin Time 21.7 sec (9.0-12.0)
--- NOTE | 2022-11-02 23:09 | ED ---
ENT HPI - General Chief complaint: ENT Stated complaint: Nose Bleed Time Seen by Provider: 11/02/22 20:09 Source: patient, EMS, old records reviewed Mode of arrival: EMS Limitations: no limitations - History of Present Illness Initial comments: Patient is an 82-year-old male presenting with chief complaint of nosebleed. Patient presents from [facility]. Patient is on warfarin. Patient states that he had a nosebleed earlier today which eventually stopped, however this current nosebleed has been ongoing for the last 3-4 hours. Patient has no dizziness or lightheadedness. No fall, injury, trauma. Patient is hypertensive, patient resides at [facility] and believes that he got his medication as scheduled today. Patient has nasal clamp on and blood is draining down the back of his throat which he is coughing up. - Related Data Home Medications Medication Instructions Recorded Confirmed Warfarin [Coumadin] 3.75 tab PO MOWEFR@209912/16/15 10/11/22 Warfarin [Coumadin] 7.5 mg PO SUTUTHSA@209912/16/15 10/11/22 Multivitamins, Thera [Multivitamin 1 tab PO DAILY@1200 12/24/19 10/11/22 (formulary)] carvediloL [Coreg*] 12.5 mg PO BID 12/24/19 10/11/22 Acetaminophen [Tylenol] 500 mg PO Q4-6H PRN 06/27/21 10/11/22 Cholecalciferol [Vitamin D3 (25 50 mcg PO DAILY@1200 06/27/21 10/11/22 Mcg = 1000 Iu)] Cyanocobalamin [Vitamin B-12] 500 mcg PO DAILY@1200 06/27/21 10/11/22 Ibuprofen [Motrin Ib] 800 mg PO Q4H PRN 06/27/21 10/11/22 L.acidoph,Paracasei, B.lactis 1 cap PO DAILY@1200 06/27/21 10/11/22 [Probiotic] Losartan Potassium 50 mg PO DAILY 06/27/21 10/11/22 Zinc 50 mg PO HS 06/27/21 10/11/22 Ascorbic Acid [Vitamin C] 1,000 mg PO HS 10/11/22 10/11/22 Rosuvastatin Calcium 5 mg PO HS 10/11/22 10/11/22 Previous Rx's Medication Instructions Recorded Cephalexin [Keflex] 500 mg PO Q6HR 7 Days #28 cap 11/02/22 Allergies Allergy/AdvReac Type Severity Reaction Status Date / Time shellfish derived [Shrimp] Allergy Anaphylaxis Verified 10/11/22 12:38 watermelon Allergy Abdominal Verified 10/11/22 12:38 Pain watermelon Allergy Abdominal Uncoded 10/11/22 11:20 Pain Review of Systems ROS Statement: Those systems with pertinent positive or pertinent negative responses have been documented in the HPI. ROS Other: All systems not noted in ROS Statement are negative. Past Medical History Past Medical History: Atrial Fibrillation, Hyperlipidemia, Hypertension, Thyroid Disorder History of Any Multi-Drug Resistant Organisms: None Reported Past Surgical History: Cholecystectomy Past Anesthesia/Blood Transfusion Reactions: No Reported Reaction Past Psychological History: No Psychological Hx Reported Smoking Status: Never smoker Past Alcohol Use History: None Reported Past Drug Use History: None Reported - Past Family History Mother Family Medical History: No Reported History General Exam Limitations: no limitations General appearance: alert, in no apparent distress Head exam: Present: atraumatic, normocephalic, normal inspection Eye exam: Present: normal appearance ENT exam: Present: other (Bleeding from the left nare) Neck exam: Present: normal inspection, full ROM Neurological exam: Present: alert Psychiatric exam: Present: normal affect, normal mood Skin exam: Present: warm, dry, intact, normal color. Absent: rash Course Vital Signs 11/02/22 11/02/22 11/02/22 20:02 20:22 23:18 Temperature 97.9 F 98.0 F Pulse Rate 60 67 62 Respiratory 18 20 18 Rate Blood Pressure 191/111 145/95 152/78 O2 Sat by Pulse 97 95 97 Oximetry Medical Decision Making - Medical Decision Making Was pt. sent in by a medical professional or institution (, PA, BUSINESS DIRECTOR, urgent care, hospital, or alf...) When possible be specific @ -FCI Did you speak to anyone other than the patient for history (EMS, parent, family, police, friend...)? What history was obtained from this source @ - Did you review nursing and triage notes (agree or disagree)? Why? @ -I reviewed and agree with nursing and triage notes Were old charts reviewed (outside hosp., previous admission, EMS record, old EKG, old radiological studies, urgent care reports/EKG's, alf records)? Report findings @ -No old charts were reviewed Differential Diagnosis (chest pain, altered mental status, abdominal pain women, abdominal pain men, vaginal bleeding, weakness, fever, dyspnea, syncope, headache, dizziness, GI bleed, back pain, seizure, CVA, palpatations, mental health, musculoskeletal)? @ -not applicable EKG interpreted by me (3pts min.). @ -As above X-rays interpreted by me (1pt min.). @ -None done CT interpreted by me (1pt min.). @ -None done U/S interpreted by me (1pt. min.). @ -None done What testing was considered but not performed or refused? (CT, X-rays, U/S, labs)? Why? @ -None What meds were considered but not given or refused? Why? @ -None Did you discuss the management of the patient with other professionals (professionals i.e. , PA, BUSINESS DIRECTOR, lab, RT, psych nurse, hospital social worker, communications department chair, teacher, contact officer, top case assembler)? Give summary @ -No Was smoking cessation discussed for >3mins.? @ -No Was critical care preformed (if so, how long)? @ -No Were there social determinants of health that impacted care today? How? (Homelessness, low income, unemployed, alcoholism, drug addiction, transportation, low edu. Level, literacy, decrease access to med. care, fdc, rehab)? @ -No Was there de-escalation of care discussed even if they declined (Discuss DNR or withdrawal of care, Hospice)? DNR status @ -No What co-morbidities impacted this encounter? (DM, HTN, Smoking, COPD, CAD, Cancer, CVA, ARF, Chemo, Hep., AIDS, mental health diagnosis, sleep apnea, morbid obesity)? @ -Hypertension Was patient admitted / discharged? Hospital course, mention meds given and route, prescriptions, significant lab abnormalities, going to OR and other pertinent info. @ -Patient is an 82-year-old male presenting with chief complaint of epistaxis. Episode has been ongoing for the last 3-4 hours. Patient is on warfarin. On physical examination there is bleeding from the left nostril. Patient is hypertensive. Patient is given one dose of hydralazine, which normalizes his blood pressure. Murocel is placed in the left nostril which was successful in stopping the bleeding. Patient is having a small amount of bleeding from the right nostril. Silver nitrate cauterization sticks were used to help control the bleeding. Lab work is drawn INR is 2.1. Initial CBC showed signs of hemoconcentration, redraw is WNL. Patient is observed and has no recurrence of bleeding. He is given his evening dose of carvedilol. Patient is placed on Keflex and instructed to follow-up with ENT. Follow-up with PCP. Report back to ER with any new or worsening symptoms. Discussed return parameters and answered all questions. Patient conveyed verbal understanding and agreed to the plan. I discussed this case in detail with my attending Dr. Edouard Undiagnosed new problem with uncertain prognosis? @ -No Drug Therapy requiring intensive monitoring for toxicity (Heparin, Nitro, Insulin, Cardizem)? @ -No Were any procedures done? @ -No Diagnosis/symptom? @ -Epistaxis Acute, or Chronic, or Acute on Chronic? @ -Acute Uncomplicated (without systemic symptoms) or Complicated (systemic symptoms)? @ -Uncomplicated Side effects of treatment? @ -No Exacerbation, Progression, or Severe Exacerbation? @ -No Poses a threat to life or bodily function? How? (Chest pain, USA, SC, pneumonia, PE, COPD, DKA, ARF, appy, cholecystitis, CVA, Diverticulitis, Homicidal, Suicidal, threat to staff... and all critical care pts) @ - - Lab Data Result diagrams: 11/02/22 22:39 Lab Results 11/02/22 11/02/22 11/02/22 Range/Units 21:23 21:23 22:39 WBC 7.5 12.1 H (3.8-10.6) k/uL RBC 6.56 H 4.83 (4.30-5.90) m/uL Hgb 19.7 H* D 14.5 D (13.0-17.5) gm/dL Hct 59.3 H* 43.4 (39.0-53.0) % MCV 90.4 89.8 (80.0-100.0) fL MCH 30.1 30.1 (25.0-35.0) pg MCHC 33.3 33.5 (31.0-37.0) g/dL RDW 13.3 13.4 (11.5-15.5) % Plt Count 101 L 176 D (150-450) k/uL MPV 8.1 8.3 Neutrophils % 75 83 % Lymphocytes % 13 9 % Monocytes % 7 4 % Eosinophils % 5 3 % Basophils % 1 1 % Neutrophils # 5.6 10.0 H (1.3-7.7) k/uL Lymphocytes # 1.0 1.1 (1.0-4.8) k/uL Monocytes # 0.5 0.5 (0-1.0) k/uL Eosinophils # 0.3 0.4 (0-0.7) k/uL Basophils # 0.1 0.1 (0-0.2) k/uL PT 20.2 H (9.0-12.0) sec INR 2.1 H (<1.2) 11/02/22 Range/Units 22:39 WBC (3.8-10.6) k/uL RBC (4.30-5.90) m/uL Hgb (13.0-17.5) gm/dL Hct (39.0-53.0) % MCV (80.0-100.0) fL MCH (25.0-35.0) pg MCHC (31.0-37.0) g/dL RDW (11.5-15.5) % Plt Count (150-450) k/uL MPV Neutrophils % % Lymphocytes % % Monocytes % % Eosinophils % % Basophils % % Neutrophils # (1.3-7.7) k/uL Lymphocytes # (1.0-4.8) k/uL Monocytes # (0-1.0) k/uL Eosinophils # (0-0.7) k/uL Basophils # (0-0.2) k/uL PT 21.7 H (9.0-12.0) sec INR 2.2 H (<1.2) Disposition Clinical Impression: Epistaxis Disposition: HOME SELF-CARE Condition: Fair Instructions (If sedation given, give patient instructions): Nosebleed (ED) Additional Instructions: Follow-up with PCP and ENT. Report back to ER with any new or worsening symptoms. Take medication as prescribed. Prescriptions: Cephalexin [Keflex] 500 mg PO Q6HR 7 Days #28 cap Is patient prescribed a controlled substance at d/c from ED?: No Referrals: Dolly Bello MD [Primary Care Provider] - 1-2 days Gwyn Benedict DO [Doctor of Osteopathic Medicine] - 1-2 days Time of Disposition: 23:07
[2022-11-02 23:20] VITALS: BP 152/78; PULSE 62; RESP 18; TEMP 98
== END 2022-11-02 23:20 | disposition home or self-care (01) ==
LOC: EC 19:45
DX: R04.0 Epistaxis (principal); I48.91 Unspecified atrial fibrillation; E78.5 Hyperlipidemia, unspecified; I10 Essential (primary) hypertension; Z79.01 Long term (current) use of anticoagulants; Z79.899 Other long term (current) drug therapy; Z91.013 Allergy to seafood; Z91.018 Allergy to other foods
CPT/HCPCS: 36415; 85025; 85610; 99284; 96374; 96361; J0360

== ENCOUNTER 2022-11-08 09:25 | Emergency (ER) | payer MEDICARE ==
[2022-11-08 09:32] VITALS: BP 111/67; PULSE 60; RESP 20; TEMP 97.5
--- NOTE | 2022-11-08 09:56 | ED ---
General Adult HPI - General Chief complaint: Recheck/Abnormal Lab/Rx Stated complaint: FOREIGN OBJECT IN NOSE Time Seen by Provider: 11/08/22 09:27 Source: patient Mode of arrival: ambulatory Limitations: no limitations - History of Present Illness Initial comments: Dictation was produced using [employer] dictation software. please excuse any grammatical, word or spelling errors. Chief Complaint: 82-year-old male presents emergency department for nasal packing removal History of Present Illness: Is 82-year-old male who presents emergency department for nasal packing removal. Patient was here in emergency department for epistaxis on November 02. He had more so placement to the left naris. Patient followed up shortly after with primary care doctor. Primary care doctor did not fill comfortable removing packing. She did speak with ENT who told patient and family were to leave packing in for total 5 days. Patient tried to make an appointment with ENT however Available point was in December. Instead he decided come to the emergency department for nasal packing removal. He was prescribed antibiotics during his last ER visit however has not filled his medications. Patient states that the bleeding is improved overall. The ROS documented in this emergency department record has been reviewed and confirmed by me. Those systems with pertinent positive or negative responses have been documented in the HPI. All other systems are other negative and/or noncontributory. PHYSICAL EXAM: General Impression: Alert and oriented x3, not in acute distress HEENT: Normocephalic atraumatic, extra-ocular movements intact, pupils equal and reactive to light bilaterally, mucous membranes moist, nasal packing in place to the left nostril, no posterior oropharyngeal bleeding, no bleeding from the right naris Cardiovascular: Heart regular rate and rhythm Chest: Able to complete full sentences, no retractions, no tachypnea Musculoskeletal: no peripheral edema Motor: no focal deficits noted Neurological: CN II-XII grossly intact, no focal motor or sensory deficits noted Skin: Intact with no visualized rashes Psych: Normal affect and mood ED course: 82-year-old male presents emergency department for nasal packing removal. All signs upon arrival are within acceptable limits. Nasal packing was removed. Patient be observed in emergency department assess for recurrence of bleeding. Nursing notes and chart review was performed Was pt. sent in by a medical professional or institution (, PA, REHEAT FURNACE OPERATOR, urgent care, hospital, or prison...) When possible be specific @ -No Did you speak to anyone other than the patient for history (EMS, parent, family, police, friend...)? What history was obtained from this source @ -No Did you review nursing and triage notes (agree or disagree)? Why? @ -I reviewed and agree with nursing and triage notes Were old charts reviewed (outside hosp., previous admission, EMS record, old EKG, old radiological studies, urgent care reports/EKG's, prison records)? Report findings @ -No old charts were reviewed Differential Diagnosis (chest pain, altered mental status, abdominal pain women, abdominal pain men, vaginal bleeding, musculoskeletal, weakness, fever, dyspnea, syncope, headache, dizziness, GI bleed, back pain, seizure, CVA, palpatations, mental health)? @ -not applicable EKG interpreted by me (3pts min.). @ -None done X-rays interpreted by me (1pt min.). @ -None done CT interpreted by me (1pt min.). @ -None done U/S interpreted by me (1pt. min.). @ -None done What testing was considered but not performed or refused? (CT, X-rays, U/S, labs)? Why? @ -None What meds were considered but not given or refused? Why? @ -None Did you discuss the management of the patient with other professionals (professionals i.e. , PA, REHEAT FURNACE OPERATOR, lab, RT, psych nurse, social media specialist, shafting worker, teacher, landcare officer, pillowcase cleaner)? Give summary @ -No Was smoking cessation discussed for >3mins.? @ -No Was critical care preformed (if so, how long)? @ -No Were there social determinants of health that impacted care today? How? (Homelessness, low income, unemployed, alcoholism, drug addiction, transportation, low edu. Level, literacy, decrease access to med. care, correction, rehab)? @ -Unable to get a timely appointment with ENT Was there de-escalation of care discussed even if they declined (Discuss DNR or withdrawal of care, Hospice)? DNR status @ -No What co-morbidities impacted this encounter? (DM, HTN, Smoking, COPD, CAD, Cancer, CVA, ARF, Chemo, Hep., AIDS, mental health diagnosis, sleep apnea, morbid obesity)? @ -None Was patient admitted / discharged? Hospital course, mention meds given and route, prescriptions, significant lab abnormalities, going to OR and other pertinent info. @ -82 Year-old male presents emergency department for nasal packing removal after nasal packing had been in place for 5 days. Patient was removed immediately upon arrival. Patient observed in emergency department for one hour and 20 minutes. Reevaluated at bedside at 10:45 AM. No bleeding. Patient g iven [place] nasal spray. Patient discharged advised follow-up with primary care doctor. Undiagnosed new problem with uncertain prognosis? @ -No Drug Therapy requiring intensive monitoring for toxicity (Heparin, Nitro, Insulin, Cardizem)? @ -No Were any procedures done? @ -No Diagnosis/symptom? Acute, or Chronic, or Acute on Chronic? Uncomplicated (without systemic symptoms) or Complicated (systemic symptoms)? @ -1. Nasal packing removal Side effects of treatment? @ -No Exacerbation, Progression, or Severe Exacerbation? @ -No Poses a threat to life or bodily function? How? (Chest pain, [place], ID, pneumonia, PE, COPD, DKA, ARF, appy, cholecystitis, CVA, Diverticulitis, Homicidal, Suicidal, threat to staff... and all critical care pts) @ -No - Related Data Home Medications Medication Instructions Recorded Confirmed Warfarin [Coumadin] 3.75 tab PO MOWEFR@209912/16/15 10/11/22 Warfarin [Coumadin] 7.5 mg PO SUTUTHSA@209912/16/15 10/11/22 Multivitamins, Thera [Multivitamin 1 tab PO DAILY@119912/24/19 10/11/22 (formulary)] carvediloL [Coreg*] 12.5 mg PO BID 12/24/19 10/11/22 Acetaminophen [Tylenol] 500 mg PO Q4-6H PRN 06/27/21 10/11/22 Cholecalciferol [Vitamin D3 (25 50 mcg PO DAILY@119906/27/21 10/11/22 Mcg = 1000 Iu)] Cyanocobalamin [Vitamin B-12] 500 mcg PO DAILY@119906/27/21 10/11/22 Ibuprofen [Motrin Ib] 800 mg PO Q4H PRN 06/27/21 10/11/22 L.acidoph,Paracasei, B.lactis 1 cap PO DAILY@119906/27/21 10/11/22 [Probiotic] Losartan Potassium 50 mg PO DAILY 06/27/21 10/11/22 Zinc 50 mg PO HS 06/27/21 10/11/22 Ascorbic Acid [Vitamin C] 1,000 mg PO HS 10/11/22 10/11/22 Rosuvastatin Calcium 5 mg PO HS 10/11/22 10/11/22 Previous Rx's Medication Instructions Recorded Cephalexin [Keflex] 500 mg PO Q6HR 7 Days #28 cap 11/02/22 Allergies Allergy/AdvReac Type Severity Reaction Status Date / Time shellfish derived [Shrimp] Allergy Anaphylaxis Verified 11/08/22 09:32 watermelon Allergy Abdominal Verified 11/08/22 09:32 Pain watermelon Allergy Abdominal Uncoded 11/08/22 09:32 Pain Review of Systems ROS Statement: Those systems with pertinent positive or pertinent negative responses have been documented in the HPI. ROS Other: All systems not noted in ROS Statement are negative. Past Medical History Past Medical History: Atrial Fibrillation, Hyperlipidemia, Hypertension, Thyroid Disorder History of Any Multi-Drug Resistant Organisms: None Reported Past Surgical History: Cholecystectomy Past Anesthesia/Blood Transfusion Reactions: No Reported Reaction Past Psychological History: No Psychological Hx Reported Smoking Status: Never smoker Past Alcohol Use History: None Reported Past Drug Use History: None Reported - Past Family History Mother Family Medical History: No Reported History General Exam Limitations: no limitations Course Vital Signs 11/08/22 09:26 Temperature 97.5 F L Pulse Rate 60 Respiratory 20 Rate Blood Pressure 111/67 O2 Sat by Pulse 96 Oximetry Disposition Clinical Impression: Encounter for removal of nasal packing Disposition: HOME SELF-CARE Condition: Good Instructions (If sedation given, give patient instructions): Nosebleed (ED) Is patient prescribed a controlled substance at d/c from ED?: No Referrals: Dolly Bello MD [Primary Care Provider] - 1-2 days Time of Disposition: 10:45
[2022-11-08] MEDS ORDERED: SODIUM CHLORIDE 0.65% NASAL SPRAY 44 ML BTL NASAL SCH (10:05)
== END 2022-11-08 10:53 | disposition home or self-care (01) ==
LOC: EC 09:25
DX: Z48.00 Encounter for change or removal of nonsurgical wound dressing (principal); I10 Essential (primary) hypertension; E78.5 Hyperlipidemia, unspecified; I48.91 Unspecified atrial fibrillation; Z79.01 Long term (current) use of anticoagulants; Z79.899 Other long term (current) drug therapy; Z91.013 Allergy to seafood; Z91.018 Allergy to other foods
CPT/HCPCS: 99282

== ENCOUNTER 2023-08-18 19:06 | Inpatient (IN) | payer MEDICARE ==
[2023-08-18 19:34] LABS: Glucose,Whole Blood 146 mg/dL (70-110)
[2023-08-18] MEDS ORDERED: SODIUM CHLORIDE 0.9% 500 ML 500 ML IV STA (19:39)
--- NOTE | 2023-08-18 19:47 | ED ---
Altered Mental Status HPI - General Chief Complaint: Altered Mental Status Stated Complaint: AMS Time Seen by Provider: 08/18/23 19:28 Source: family, EMS, RN notes reviewed, old records reviewed Mode of arrival: EMS Limitations: altered mental status - History of Present Illness Initial Comments: 83-year-old male with history of multiple medical problems who resides in a fpc who also has dementia lady onset 2 days ago progressively worsening mental status. He was found have a Covid today on testing was sent here for further evaluation. Additionally per paramedics she was noted have a fever upon contacted. Patient himself is a poor historian the patient's states he normally is confused but this is worse than usual. No reports of nausea vomiting diarrhea no focal deficits. He has a history of apparently becoming confused when he gets sick per his he is also noted have elevated blood pressure the high of 208 systolic. MD Complaint: altered mental status, decreased responsiveness, other - Related Data Home Medications Medication Instructions Recorded Confirmed Warfarin [Coumadin] 7.5 mg PO DAILY 12/16/15 08/18/23 Multivitamins, Thera [Multivitamin 1 tab PO DAILY 12/24/19 08/18/23 (formulary)] carvediloL [Coreg*] 12.5 mg PO BID 12/24/19 08/18/23 Cyanocobalamin [Vitamin B-12] 500 mcg PO DAILY 06/27/21 08/18/23 Rosuvastatin Calcium 5 mg PO DAILY 10/11/22 08/18/23 Albuterol Nebulized [Ventolin 2.5 mg INHALATION RT-Q4H PRN 08/18/23 08/18/23 Nebulized] Cholecalciferol [Vitamin D3 (10 10 mcg PO DAILY 08/18/23 08/18/23 Mcg = 400 Iu)] Losartan [Cozaar] 50 mg PO DAILY 08/18/23 08/18/23 guaiFENesin [Mucinex] 600 mg PO Q6HR PRN 08/18/23 08/18/23 Allergies Allergy/AdvReac Type Severity Reaction Status Date / Time shellfish derived [Shrimp] Allergy Anaphylaxis Verified 08/18/23 20:17 watermelon Allergy Abdominal Verified 08/18/23 20:17 Pain Review of Systems ROS Statement: Those systems with pertinent positive or pertinent negative responses have been documented in the HPI. ROS Other: All systems not noted in ROS Statement are negative. Past Medical History Past Medical History: Atrial Fibrillation, Hyperlipidemia, Hypertension, Thyroid Disorder History of Any Multi-Drug Resistant Organisms: None Reported Past Surgical History: Cholecystectomy Past Anesthesia/Blood Transfusion Reactions: No Reported Reaction Past Psychological History: No Psychological Hx Reported Smoking Status: Never smoker Past Alcohol Use History: None Reported Past Drug Use History: None Reported - Past Family History Mother Family Medical History: No Reported History General Exam - General Exam Comments Initial Comments: Is a well-developed well-nourished lethargic male who appears be awake and alert to Noted have an axillary Temperature of 101. Limitations: altered mental status General appearance: lethargic Head exam: Present: atraumatic, normocephalic, normal inspection Eye exam: Present: normal appearance, PERRL, EOMI. Absent: scleral icterus, conjunctival injection, periorbital swelling ENT exam: Present: mucous membranes dry Neck exam: Present: normal inspection, full ROM, other. Absent: tenderness, meningismus, lymphadenopathy Respiratory exam: Present: decreased breath sounds, other ( decreased breath sounds left especially compared to right also tachypnea noted). Absent: respiratory distress, wheezes, rales, rhonchi, stridor Cardiovascular Exam: Present: regular rate, normal rhythm, normal heart sounds. Absent: systolic murmur, diastolic murmur, rubs, gallop, clicks GI/Abdominal exam: Present: soft, normal bowel sounds. Absent: distended, tenderness, guarding, rebound, rigid Extremities exam: Present: full ROM, normal capillary refill, pedal edema. Absent: tenderness, joint swelling, calf tenderness Back exam: Present: normal inspection Neurological exam: Present: alert, altered, CN II-XII intact Psychiatric exam: Present: normal affect, normal mood Skin exam: Present: warm, dry, intact, normal color. Absent: rash Course Vital Signs 08/18/23 08/18/23 08/18/23 19:10 19:35 20:21 Temperature 99.4 F 101 F H 97.9 F Pulse Rate 60 60 Respiratory 30 H 22 Rate Blood Pressure 182/107 O2 Sat by Pulse 92 L 93 L Oximetry 08/18/23 08/18/23 08/18/23 21:21 23:18 23:42 Temperature Pulse Rate 61 60 60 Respiratory 24 24 36 H Rate Blood Pressure 187/106 O2 Sat by Pulse 93 L 94 L 96 Oximetry 08/19/23 00:10 Temperature Pulse Rate 60 Respiratory 36 H Rate Blood Pressure 196/117 O2 Sat by Pulse 92 L Oximetry - Reevaluation(s) Reevaluation #1: 08/19/23 00:36 The patient did get some improvement breathing after the nebulizer treatment. Mckenna catheter was placed showing markedly dark urine consistent with dehydration. Reevaluation #2: 08/19/23 00:42 On questioning family did state that the patient has had decreased urine output of late. Medical Decision Making - Medical Decision Making I did discuss Pfizer the patient's family. Reevaluation patient reveals improvement after nebulizer treatment he did get IV hydration blood pressure still remains high be treated for this. I did discuss CODE STATUS with the family the patient is a no code and I did paperwork to confirm this. Case is discussed with denise who is covering for Dr. Macario's group.Was pt. sent in by a medical professional or institution (, PA, OXYHYDROGEN WELDER, urgent care, hospital, or fpc...) When possible be specific @ -No Did you speak to anyone other than the patient for history (EMS, parent, family, police, friend...)? What history was obtained from this source @ -Paramedics as well as family members Did you review nursing and triage notes (agree or disagree)? Why? @ -I reviewed and agree with nursing and triage notes Were old charts reviewed (outside hosp., previous admission, EMS record, old EKG, old radiological studies, urgent care reports/EKG's, fpc records)? Report findings @ -Nursing facility old charts were reviewed Differential Diagnosis (chest pain, altered mental status, abdominal pain women, abdominal pain men, vaginal bleeding, weakness, fever, dyspnea, syncope, heada parrish, dizziness, GI bleed, back pain, seizure, CVA, palpatations, mental health, musculoskeletal)? @ -Covid, bronchospasm, dehydration, hypertensive episode, febrile illness EKG interpreted by me (3pts min.). @ -As above EKG interpreted by me electronic ventricular pacemaker rhythm of 60 QRS duration 176 QT since QTC 8 no acute findings seen X-rays interpreted by me (1pt min.). @ -Interpreted by me no definitive acute process seen. CT interpreted by me (1pt min.). @ -Interpreted by me no acute definitive process seen U/S interpreted by me (1pt. min.). @ -None done What testing was considered but not performed or refused? (CT, X-rays, U/S, labs)? Why? @ -None What meds were considered but not given or refused? Why? @ -None Did you discuss the management of the patient with other professionals (professionals i.e. DrMishel, PA, OXYHYDROGEN WELDER, lab, RT, psych nurse, social service manager, platen press feeder, teacher, contracts officer, mattress spring encaser)? Give summary @ -Laura covering for Dr. Macario Was smoking cessation discussed for >3mins.? @ -No Was critical care preformed (if so, how long)? @ -No Were there social determinants of health that impacted care today? How? (Homelessness, low income, unemployed, alcoholism, drug addiction, transpo rtation, low edu. Level, literacy, decrease access to med. care, custodial, rehab)? @ -No Was there de-escalation of care discussed even if they declined (Discuss DNR or withdrawal of care, Hospice)? DNR status @ -No What co-morbidities impacted this encounter? (DM, HTN, Smoking, COPD, CAD, Cancer, CVA, ARF, Chemo, Hep., AIDS, mental health diagnosis, sleep apnea, morbid obesity)? @ -Pacemaker, dementia Was patient admitted / discharged? Hospital course, mention meds given and route, prescriptions, significant lab abnormalities, going to OR and other pertinent info. @ -hospital course patient was admitted for inpatient treatment Undiagnosed new problem with uncertain prognosis? @ -Covid 19 Drug Therapy requiring intensive monitoring for toxicity (Heparin, Nitro, Insulin, Cardizem)? @ -No Were any procedures done? @ -No Diagnosis/symptom? @ -Acute altered mental status, Covid 19, acute bronchospasm, dehydration, elevated BNP, febrile illness, elevated pro calcitonin Acute, or Chronic, or Acute on Chronic? @ -Acute Uncomplicated (without systemic symptoms) or Complicated (systemic symptoms)? @ -default Side effects of treatment? @ -No Exacerbation, Progression, or Severe Exacerbation? @ -No Poses a threat to life or bodily function? How? (Chest pain, [place], NH, pneumonia, PE, COPD, DKA, ARF, appy, cholecystitis, CVA, Diverticulitis, Homicidal, Suicidal, threat to staff... and all critical care pts) @ -Potential - Lab Data Result diagrams: 08/18/23 19:36 08/18/23 19:36 Lab Results 08/18/23 08/18/23 08/18/23 Range/Units 19:32 19:32 19:36 WBC 9.6 (3.8-10.6) k/uL RBC 5.24 (4.30-5.90) m/uL Hgb 15.7 (13.0-17.5) gm/dL Hct 48.2 (39.0-53.0) % MCV 92.0 (80.0-100.0) fL MCH 30.0 (25.0-35.0) pg MCHC 32.6 (31.0-37.0) g/dL RDW 14.0 (11.5-15.5) % Plt Count 130 L (150-450) k/uL MPV 8.8 Neutrophils % 88 % Lymphocytes % 6 % Monocytes % 5 % Eosinophils % 0 % Basophils % 0 % Neutrophils # 8.4 H (1.3-7.7) k/uL Lymphocytes # 0.5 L (1.0-4.8) k/uL Monocytes # 0.5 (0-1.0) k/uL Eosinophils # 0.0 (0-0.7) k/uL Basophils # 0.0 (0-0.2) k/uL Sodium (137-145) mmol/L Potassium (3.5-5.1) mmol/L Chloride (98-107) mmol/L Carbon Dioxide (22-30) mmol/L Anion Gap mmol/L BUN (9-20) mg/dL Creatinine (0.66-1.25) mg/dL Est GFR (CKD-EPI)AfAm (>60 ml/min/1.73 sqM) Est GFR (CKD-EPI)NonAf (>60 ml/min/1.73 sqM) Glucose (74-99) mg/dL POC Glucose (mg/dL) 146 H (70-110) mg/dL POC Glu [place] [employer] Dredge Or Barge ID Dk [place] Plasma Lactic Acid Jerald (0.7-2.0) mmol/L Calcium (8.4-10.2) mg/dL Magnesium (1.6-2.3) mg/dL Total Bilirubin (0.2-1.3) mg/dL AST (17-59) U/L ALT (4-49) U/L Alkaline Phosphatase (38-126) U/L Creatine Kinase (55-170) U/L Troponin I (0.000-0.034) ng/mL NT-Pro-B Natriuret Pep 51925 pg/mL Total Protein (6.3-8.2) g/dL Albumin (3.5-5.0) g/dL Procalcitonin (0.02-0.09) ng/mL Urine Color Urine Appearance (Clear) Urine pH (5.0-8.0) Ur Specific [place] (1.001-1.035) Urine Protein (Negative) Urine Glucose (UA) (Negative) Urine Ketones (Negative) Urine Blood (Negative) Urine Nitrite (Negative) Urine Bilirubin (Negative) Urine Urobilinogen (<2.0) mg/dL Ur Leukocyte Esterase (Negative) Urine RBC (0-5) /hpf Urine WBC (0-5) /hpf Urine Mucus (None) /hpf Influenza Type A (PCR) (Not Detectd) Influenza Type B (PCR) (Not Detectd) RSV (PCR) (Not Detectd) SARS-CoV-2 (PCR) (Not Detectd) 08/18/23 08/18/23 08/18/23 Range/Units 19:36 19:36 19:36 WBC (3.8-10.6) k/uL RBC (4.30-5.90) m/uL Hgb (13.0-17.5) gm/dL Hct (39.0-53.0) % MCV (80.0-100.0) fL MCH (25.0-35.0) pg MCHC (31.0-37.0) g/dL RDW (11.5-15.5) % Plt Count (150-450) k/uL MPV Neutrophils % % Lymphocytes % % Monocytes % % Eosinophils % % Basophils % % Neutrophils # (1.3-7.7) k/uL Lymphocytes # (1.0-4.8) k/uL Monocytes # (0-1.0) k/uL Eosinophils # (0-0.7) k/uL Basophils # (0-0.2) k/uL Sodium 142 (137-145) mmol/L Potassium 4.5 (3.5-5.1) mmol/L Chloride 109 H (98-107) mmol/L Carbon Dioxide 21 L (22-30) mmol/L Anion Gap 12 mmol/L BUN 29 H (9-20) mg/dL Creatinine 1.15 (0.66-1.25) mg/dL Est GFR (CKD-EPI)AfAm 68 (>60 ml/min/1.73 sqM) Est GFR (CKD-EPI)NonAf 59 (>60 ml/min/1.73 sqM) Glucose 147 H (74-99) mg/dL POC Glucose (mg/dL) (70-110) mg/dL POC Glu [place] [employer] Dredge Or Barge ID Plasma Lactic Acid Jerald 2.0 (0.7-2.0) mmol/L Calcium 9.3 (8.4-10.2) mg/dL Magnesium 2.2 (1.6-2.3) mg/dL Total Bilirubin 1.6 H (0.2-1.3) mg/dL AST 35 (17-59) U/L ALT 29 (4-49) U/L Alkaline Phosphatase 82 (38-126) U/L Creatine Kinase 203 H (55-170) U/L Troponin I 0.022 (0.000-0.034) ng/mL NT-Pro-B Natriuret Pep pg/mL Total Protein 6.9 (6.3-8.2) g/dL Albumin 4.3 (3.5-5.0) g/dL Procalcitonin (0.02-0.09) ng/mL Urine Color Urine Appearance (Clear) Urine pH (5.0-8.0) Ur Specific [place] (1.001-1.035) Urine Protein (Negative) Urine Glucose (UA) (Negative) Urine Ketones (Negative) Urine Blood (Negative) Urine Nitrite (Negative) Urine Bilirubin (Negative) Urine Urobilinogen (<2.0) mg/dL Ur Leukocyte Esterase (Negative) Urine RBC (0-5) /hpf Urine WBC (0-5) /hpf Urine Mucus (None) /hpf Influenza Type A (PCR) (Not Detectd) Influenza Type B (PCR) (Not Detectd) RSV (PCR) (Not Detectd) SARS-CoV-2 (PCR) (Not Detectd) 0108/18/23 08/19/23 Range/Units 19:36 19:36 00:14 WBC (3.8-10.6) k/uL RBC (4.30-5.90) m/uL Hgb (13.0-17.5) gm/dL Hct (39.0-53.0) % MCV (80.0-100.0) fL MCH (25.0-35.0) pg MCHC (31.0-37.0) g/dL RDW (11.5-15.5) % Plt Count (150-450) k/uL MPV Neutrophils % % Lymphocytes % % Monocytes % % Eosinophils % % Basophils % % Neutrophils # (1.3-7.7) k/uL Lymphocytes # (1.0-4.8) k/uL Monocytes # (0-1.0) k/uL Eosinophils # (0-0.7) k/uL Basophils # (0-0.2) k/uL Sodium (137-145) mmol/L Potassium (3.5-5.1) mmol/L Chloride (98-107) mmol/L Carbon Dioxide (22-30) mmol/L Anion Gap mmol/L BUN (9-20) mg/dL Creatinine (0.66-1.25) mg/dL Est GFR (CKD-EPI)AfAm (>60 ml/min/1.73 sqM) Est GFR (CKD-EPI)NonAf (>60 ml/min/1.73 sqM) Glucose (74-99) mg/dL POC Glucose (mg/dL) (70-110) mg/dL POC Glu [place] [employer] Dredge Or Barge ID Plasma Lactic Acid Jerald (0.7-2.0) mmol/L Calcium (8.4-10.2) mg/dL Magnesium (1.6-2.3) mg/dL Total Bilirubin (0.2-1.3) mg/dL AST (17-59) U/L ALT (4-49) U/L Alkaline Phosphatase (38-126) U/L Creatine Kinase (55-170) U/L Troponin I (0.000-0.034) ng/mL NT-Pro-B Natriuret Pep pg/mL Total Protein (6.3-8.2) g/dL Albumin (3.5-5.0) g/dL Procalcitonin 0.14 H (0.02-0.09) ng/mL Urine Color Yellow Urine Appearance Clear (Clear) Urine pH 5.5 (5.0-8.0) Ur Specific [place] 1.039 H (1.001-1.035) Urine Protein 2+ H (Negative) Urine Glucose (UA) Negative (Negative) Urine Ketones Trace H (Negative) Urine Blood Negative (Negative) Urine Nitrite Negative (Negative) Urine Bilirubin Negative (Negative) Urine Urobilinogen 4.0 (<2.0) mg/dL Ur Leukocyte Esterase Negative (Negative) Urine RBC 11 H (0-5) /hpf Urine WBC 1 (0-5) /hpf Urine Mucus Many H (None) /hpf Influenza Type A (PCR) Not Detected (Not Detectd) Influenza Type B (PCR) Not Detected (Not Detectd) RSV (PCR) Not Detected (Not Detectd) SARS-CoV-2 (PCR) Detected A (Not Detectd) - EKG Data -: EKG Interpreted by Me EKG Comments: EKG interpreted by me pacemaker rhythm of 60 QRS 176 QT since QTC 5 white cells 508 Disposition Clinical Impression: Acute alteration in mental status, Acute bronchospasm, Febrile illness, acute, Dehydration, Oliguria, Elevated brain natriuretic peptide (BNP) level Disposition: ADMITTED IP TO THIS HOSP Condition: Fair Referrals: Dolly Bello MD [STAFF PHYSICIAN] - 1-2 days Decision Date: 08/19/23 Decision Time: 00:43
--- NOTE | 2023-08-18 20:21 | XR ---
EXAMINATION TYPE: XR chest 2V DATE OF EXAM: 08/18/2023 COMPARISON: 10/11/2022 HISTORY: 83-year-old male with fever, confusion, altered mental status, COVID positive TECHNIQUE: AP and lateral views FINDINGS: Left anterior chest wall pacemaker generator with right ventricular lead. Heart mild to moderately en larged. Interstitial density. Possible trace effusions. The lateral view is motion limited. IMPRESSION: Mild to moderate cardiomegaly. Possible mild pulmonary vascular congestion. The lateral view is motio n limited. There may be trace effusions.
[2023-08-18 20:25] LABS: Basophils % (A) 0 %; Eosinophils % (A) 0 %; HCT 48.2 % (39.0-53.0); HGB 15.7 gm/dL (13.0-17.5); Lymphocytes # (A) 0.5 k/uL (1.0-4.8); Lymphocytes % (A) 6 %; MCHC 32.6 g/dL (31.0-37.0); Mean Platelet Volume 8.8; Monocytes # (A) 0.5 k/uL (0-1.0); Monocytes % (A) 5 %; Neutrophils # (A) 8.4 k/uL (1.3-7.7); Neutrophils % (A) 88 %; Platelet Count 130 k/uL (150-450); RBC 5.24 m/uL (4.30-5.90); WBC 9.6 k/uL (3.8-10.6)
[2023-08-18] MEDS: SODIUM CHLORIDE 0.9% 1,000 ML IV STA (20:29)
[2023-08-18 20:36] LABS: ALT 29 U/L (4-49); AST 35 U/L (17-59); African American GFR (CKD) 68 (>60 ml/min/1.73 sqM); Albumin 4.3 g/dL (3.5-5.0); Alkaline Phosphatase 82 U/L (38-126); Anion Gap 12 mmol/L; Blood Urea Nitrogen 29 mg/dL (9-20); Calcium 9.3 mg/dL (8.4-10.2); Carbon Dioxide 21 mmol/L (22-30); Chloride 109 mmol/L (98-107); Creatine Kinase 203 U/L (55-170); Glucose 147 mg/dL (74-99); Magnesium 2.2 mg/dL (1.6-2.3); Non-African American GFR(CKD) 59 (>60 ml/min/1.73 sqM); Potassium 4.5 mmol/L (3.5-5.1); Sodium 142 mmol/L (137-145); Total Bilirubin 1.6 mg/dL (0.2-1.3); Total Protein 6.9 g/dL (6.3-8.2)
[2023-08-18] MEDS ORDERED: IPRATROPIUM-ALBUTEROL 3 ML NEB INHALATION STA (22:28)
--- NOTE | 2023-08-18 22:50 | CT ---
EXAM: CT Head Without Intravenous Contrast CLINICAL HISTORY: ITS.REASON CT Reason: Altered mental status TECHNIQUE: Axial computed tomography images of the head/brain without intravenous contrast. CTDI is 49.1 mGy and DLP is 1220.4 mGy-cm. This CT exam was performed using one or more of the following dose reduction techniques: automated exposure control, adjustment of the mA and/or kV according to patient size, and/or use of iterative reconstruction technique. COMPARISON: No relevant prior studies available. FINDINGS: No acute intracranial hemorrhage. No midline shift or mass effect. The territorial schwartz-white matter differentiation is maintained throughout. Age-related cerebral volume loss. Periventricular and subcortical white matter hypoattenuation, consistent with chronic microangiopathy. The visualized orbits appear grossly unremarkable. The calvarium is intact. Paranasal sinus mucosal thickening. IMPRESSION: No acute intracranial hemorrhage, midline shift, or mass effect.
[2023-08-19] MEDS: ALBUTEROL HFA INHALER INHALATION SCH ×6 (00:18→20:33)
[2023-08-19 00:28] LABS: Appearance,Urine Clear (Clear); Bilirubin,Urine Negative (Negative); Blood,Urine Negative (Negative); Color,Urine Yellow; Glucose,Urine (UA) Negative (Negative); Ketones,Urine Trace (Negative); Leukocyte Esterase,Urine Negative (Negative); Mucus,Urine Many /hpf; Nitrite,Urine Negative (Negative); PH, Urine 5.5 (5.0-8.0); Protein,Urine 2+ (Negative); RBC,Urine 11 /hpf (0-5); Specific Gravity,Urine 1.039 (1.001-1.035); WBC,Urine 1 /hpf (0-5)
[2023-08-19] MEDS ORDERED: hydrALAZINE HCL 20 MG/ML 1 ML VIAL IVP STA ×2 (00:28→01:43)
[2023-08-19] MEDS ORDERED: ONDANSETRON 4 MG/2 ML VIAL IVP PRN (00:43)
[2023-08-19] MEDS ORDERED: NALOXONE 0.4 MG/ML 1 ML VIAL IV PRN (00:43)
[2023-08-19] MEDS ORDERED: SODIUM CHLORIDE 0.9% 1,000 ML IV SCH (00:45)
[2023-08-19] MEDS ORDERED: methylPREDNISolone SOD SUCCI 125 MG/2 ML VIAL IV STA (00:46)
[2023-08-19] MEDS ORDERED: ALBUTEROL HFA INHALER INHALATION PRN (00:46)
[2023-08-19] MEDS: SODIUM CHLORIDE 0.9% 1,000 ML IV STA (01:06)
[2023-08-19] MEDS ORDERED: dexAMETHasone 2 MG TAB PO STA (09:36)
[2023-08-19] MEDS ORDERED: hydrALAZINE HCL 20 MG/ML 1 ML VIAL IVP PRN (09:41)
--- NOTE | 2023-08-19 09:44 | P.HPIM ---
History of Present Illness This is a pleasant 83 years old male with past medical history of Atrial Fibrillation, Hyperlipidemia, Hypertension and hypothyroidism. He presents from [facility] for altered mental status, hypertension and recently diagnosed with Stanley it. Information is obtained from the patient and at bedside. He is awake and alert mildly confused He feels generally weak and tachypneic Occasional cough and no chest pain. No change in urine or bowel habits. No fever. However vitals show increased temperature of 101, his tachypneic 24 saturating 91-94% on room air. His blood pressure was elevated with systolic more than 200 on presentation, currently blood pressure is 186/129. He feels generally weak. He denies smoking alcohol or illicit tracts. Other Vitas looks stable. Labs showing no leukocytosis with platelet counts around 130, WBC is 9.6, hemoglobin 15.7, creatinine 1.15. MRSA BMP liver enzymes were unremarkable. Protocol stone and is moderately elevated [place] 0.14[place] [address]. He tested positive for cough. EKG showing paced ventricular rhythm CT of the brain's negative for acute process Chest x-ray showing mild to moderate cardiomegaly with mild pulmonary vascular congestion and maybe trace left effusion. Review of Systems Review of systems CONSTITUTIONAL: No fever, no malaise, no fatigue. HEENT: No recent visual problems or hearing problems. Denied any sore throat. CARDIOVASCULAR: No orthopnea, PND, no palpitations, no syncope. PULMONARY: No shortness of breath, no cough, no hemoptysis. GASTROINTESTINAL: No diarrhea, no nausea, no vomiting, no abdominal pain. Normoactive bowel sounds. NEUROLOGICAL: No headaches, no weakness, no numbness. HEMATOLOGICAL: Denies any bleeding or petechiae. GENITOURINARY: Denies any burning micturition, frequency, or urgency. MUSCULOSKELETAL/RHEUMATOLOGICAL: Denies any joint pain, swelling, or any muscle pain. ENDOCRINE: Denies any polyuria or polydipsia. Past Medical History Past Medical History: Atrial Fibrillation, Hyperlipidemia, Hypertension, Thyroid Disorder History of Any Multi-Drug Resistant Organisms: None Reported Past Surgical History: Cholecystectomy Past Anesthesia/Blood Transfusion Reactions: No Reported Reaction Past Psychological History: No Psychological Hx Reported Smoking Status: Never smoker Past Alcohol Use History: None Reported Past Drug Use History: None Reported - Past Family History Mother Family Medical History: No Reported History Medications and Allergies Home Medications Medication Instructions Recorded Confirmed Type Warfarin [Coumadin] 7.5 mg PO DAILY 12/16/15 08/18/23 History Multivitamins, Thera [Multivitamin 1 tab PO DAILY 12/24/19 08/18/23 History (formulary)] carvediloL [Coreg*] 12.5 mg PO BID 12/24/19 08/18/23 History Cyanocobalamin [Vitamin B-12] 500 mcg PO DAILY 06/27/21 08/18/23 History Rosuvastatin Calcium 5 mg PO DAILY 10/11/22 08/18/23 History Albuterol Nebulized [Ventolin 2.5 mg INHALATION RT-Q4H PRN 08/18/23 08/18/23 History Nebulized] Cholecalciferol [Vitamin D3 (10 10 mcg PO DAILY 08/18/23 08/18/23 History Mcg = 400 Iu)] Losartan [Cozaar] 50 mg PO DAILY 08/18/23 08/18/23 History guaiFENesin [Mucinex] 600 mg PO Q6HR PRN 08/18/23 08/18/23 History Allergies Allergy/AdvReac Type Severity Reaction Status Date / Time shellfish derived [Shrimp] Allergy Anaphylaxis Verified 08/18/23 20:17 watermelon Allergy Abdominal Verified 08/18/23 20:17 Pain Physical Exam Vitals: Vital Signs Temp Pulse Resp BP Pulse Ox 08/19/23 07:01 60 172/95 94 L 08/19/23 06:25 60 24 177/98 91 L 08/19/23 05:45 60 32 H 156/83 08/19/23 04:05 59 L 32 H 148/110 08/19/23 03:05 60 32 H 171/120 93 L 08/19/23 02:41 60 36 H 174/94 08/19/23 01:43 60 28 H 178/102 95 08/19/23 01:14 60 40 H 187/110 08/19/23 00:10 60 36 H 196/117 92 L 08/18/23 23:42 60 36 H 96 08/18/23 23:18 60 24 187/106 94 L 08/18/23 21:21 61 24 93 L 08/18/23 20:21 97.9 F 60 22 93 L 08/18/23 19:35 101 F H 08/18/23 19:10 99.4 F 60 30 H 182/107 92 L Intake and Output 08/18/23 08/19/23 08/19/23 22:59 06:59 14:59 Output Total 200 Balance -200 Output: Urine 200 Uretheral (Mckenna) 200 Other: Weight 110.677 kg GENERAL: The patient is alert and oriented x3, not in any acute distress. Well developed, well nourished. HEENT: Pupils are round and equally reacting to light. EOMI. No scleral icterus. No conjunctival pallor. Normocephalic, atraumatic. No pharyngeal erythema. No thyromegaly. CARDIOVASCULAR: S1 and S2 present. No murmurs, rubs, or gallops. -PULMONARY: Chest is clear to auscultation, no wheezing , bilateral basal crackles. ABDOMEN: Soft, nontender, nondistended, normoactive bowel sounds. No palpable organomegaly. MUSCULOSKELETAL: No joint swelling or deformity. -EXTREMITIES: No cyanosis, clubbing, or bilateral patellar leg edema. NEUROLOGICAL: Gross neurological examination did not reveal any focal deficits. SKIN: No rashes. no petechiae. Results CBC & Chem 7: 08/18/23 19:36 08/18/23 19:36 Labs: Abnormal Lab Results - Last 24 Hours (Table) 08/18/23 08/18/23 08/18/23 Range/Units 19:32 19:36 19:36 Plt Count 130 L (150-450) k/uL Neutrophils # 8.4 H (1.3-7.7) k/uL Lymphocytes # 0.5 L (1.0-4.8) k/uL Chloride 109 H (98-107) mmol/L Carbon Dioxide 21 L (22-30) mmol/L BUN 29 H (9-20) mg/dL Glucose 147 H (74-99) mg/dL POC Glucose (mg/dL) 146 H (70-110) mg/dL Total Bilirubin 1.6 H (0.2-1.3) mg/dL Creatine Kinase 203 H (55-170) U/L Procalcitonin (0.02-0.09) ng/mL Ur Specific [place] (1.001-1.035) Urine Protein (Negative) Urine Ketones (Negative) Urine RBC (0-5) /hpf Urine Mucus (None) /hpf SARS-CoV-2 (PCR) (Not Detectd) 08/18/23 08/18/23 08/19/23 Range/Units 19:36 19:36 00:14 Plt Count (150-450) k/uL Neutrophils # (1.3-7.7) k/uL Lymphocytes # (1.0-4.8) k/uL Chloride (98-107) mmol/L Carbon Dioxide (22-30) mmol/L BUN (9-20) mg/dL Glucose (74-99) mg/dL POC Glucose (mg/dL) (70-110) mg/dL Total Bilirubin (0.2-1.3) mg/dL Creatine Kinase (55-170) U/L Procalcitonin 0.14 H (0.02-0.09) ng/mL Ur Specific [place] 1.039 H (1.001-1.035) Urine Protein 2+ H (Negative) Urine Ketones Trace H (Negative) Urine RBC 11 H (0-5) /hpf Urine Mucus Many H (None) /hpf SARS-CoV-2 (PCR) Detected A (Not Detectd) Assessment and Plan Assessment: Acute on chronic systolic CHF with ejection fraction 40-45% Covid infection with no pneumonia Mild hypoxic respiratory failure Metabolic encephalopathy Hypertension with urgency present on admission Generalized weakness secondary to above Hyperlipidemia Chronic dementia Cardiology consult Labs and medication were reviewed.. Continue same treatment. Continue with sym ptomatic treatment. Resume home medication. Monitor labs and vitals. DVT and GI prophylaxis. Further recommendations as per clinical course of the patient DVT prophylaxis: Subcutaneous heparin GI Prophylaxis: Ppi PT/OT: Pending Prognosis is guarded
[2023-08-19] MEDS ORDERED: ENOXAPARIN 40 MG/0.4 ML SYRINGE SQ SCH (10:00)
[2023-08-19 10:25] LABS: INR 2.6 (<1.2); Prothrombin Time 25.7 sec (10.0-12.5)
[2023-08-19] MEDS: ASCORBIC ACID 500 MG TAB PO SCH (10:28)
[2023-08-19] MEDS: CHOLECALCIFEROL 25 MCG (1000 IU) TABLET PO SCH (10:29)
[2023-08-19] MEDS: ZINC SULFATE 220 MG CAP PO SCH (10:30)
[2023-08-19] MEDS: carvediloL 12.5 MG TAB PO SCH ×2 (10:31→19:37)
[2023-08-19] MEDS: LOSARTAN 50 MG TAB PO SCH (10:32)
[2023-08-19] MEDS: PANTOPRAZOLE 40 MG/10 ML VIAL IV SCH (10:40)
[2023-08-19] MEDS: FUROSEMIDE 10 MG/ML 4 ML VIAL IV SCH ×2 (10:44→20:20)
[2023-08-19 10:49] LABS: C Reactive Protein 5.1 mg/dL (<1.0)
--- NOTE | 2023-08-19 11:34 | P.CRDCN ---
History of Present Illness Consult date: 08/19/23 Consult reason: congestive heart failure History of present illness: History of present illness: This is an 83-year-old male patient of Dr. VIOLETA Wyatt with past medical history of chronic atrial fibrillation on Coumadin, nonischemic cardiomyopathy, sick sinus syndrome with dual-chamber pacemaker, noncritical coronary artery disease. Known ejection fraction is 40%. We have been asked to evaluate the patient for heart failure. Patient is seen today in the emergency center waiting for a bed on the [facility] floor. He is currently in isolation due to Covid 19. Patient resides at [facility] and was noted to be more confused with underlying dementia that has started 2 days ago and progressively worsening. Patient was noted to have fever. Patient unable to provide history due to his underlying dementia and mental status changes.. EKG ventricularly paced rhythm Chest x-ray: Mild to moderate cardiomegaly. Possible mild pulmonary vascular congestion. WBC 9.6, hemoglobin 15.7, platelet count 130. INR 2.6. Sodium 142, potassium 4 .5, BUN 29 creatinine 1.15. Blood sugar 146. CK 203. ProBNP 16,600. Pro- calcitonin 0.14. Total bilirubin 1.6 otherwise liver function tests are normal. Magnesium 2.2. Urinalysis reveals 2+ protein, trace ketones. Influenza A, influenza B, RSV not detected. Covid 19 detected. Home cardiac medications: Coreg 12.5 mg twice daily, losartan 50 mg daily, Crestor 5 mg daily, Coumadin 7.5 mg daily. Cardiac catheterization history 2019 revealed right dominant system, 35% mid LAD, minor irregularities in the RCA and circumflex, no significant coronary artery disease. No gradient across aortic valve, ejection fraction 50%. Echocardiogram performed 07/02/2023 in the office revealed EF 40%, moderate mitral, tricuspid and mild to moderate aortic regurgitation with moderate pulmonary hypertension with right-sided pressure of 48 mmHg. Lexiscan stress test performed 2018 revealed no ischemia. Review Of Systems: At the time of my exam: CONSTITUTIONAL: + fever or chills. CARDIOVASCULAR: Denies chest pain, Denies shortness of breath, no orthopnea, PND or palpitations. RESPIRATORY: Denies cough. GASTROINTESTINAL: Denies abdominal pain, diarrhea, constipation, nausea or vomiting. MUSCULOSKELETAL: Denies myalgias. NEUROLOGIC: Denies numbness, tingling or weakness. ENDOCRINE: Denies fatigue, weight change, polydipsia or polyurina. GENITOURINARY: Denies burning, hematuria or urgency with micturation. HEMATOLOGIC: Denies history of anemia or bleeding. Physical examination: Gen: This is an 83-year-old male. He is resting on ER stretcher appears to be in no acute respiratory distress. VS: reviewed temperature max 101. Heart rate 60, blood pressure 175/93. HEENT: Head is atraumatic, normocephalic. Pupils equal, round. Sclerae is anicteric. NECK: Supple. No JVD. LUNGS: Clear to auscultation. No wheezes or rhonchi. No intercostal retractions. HEART: Regular rate and rhythm. No murmur. ABDOMEN: Soft No tenderness. EXTREMITIES: No pedal edema. No calf tenderness. NEUROLOGICAL: Patient is awake, alert and oriented x3. Assessment: COVID-19 Patient is euvolemic, no signs of acute heart failure Uncontrolled hypertension Chronic atrial fibrillation on Coumadin Nonischemic cardiomyopathy Sick sinus syndrome status post dual-chamber pacemaker Noncritical coronary artery disease Plan: Resume patient's home cardiac medications Pharmacy to manage Coumadin Further recommendations to follow based upon clinical course Thank you kindly for this consultation. Nurse practitioner note has been reviewed, I agree with documented findings and plan of care. Patient was seen and examined. Past Medical History Past Medical History: Atrial Fibrillation, Hyperlipidemia, Hypertension, Thyroid Disorder History of Any Multi-Drug Resistant Organisms: None Reported Past Surgical History: Cholecystectomy Past Anesthesia/Blood Transfusion Reactions: No Reported Reaction Past Psychological History: No Psychological Hx Reported Smoking Status: Never smoker Past Alcohol Use History: None Reported Past Drug Use History: None Reported - Past Family History Mother Family Medical History: No Reported History Medications and Allergies Home Medications Medication Instructions Recorded Confirmed Type Warfarin [Coumadin] 7.5 mg PO DAILY 12/16/15 08/18/23 History Multivitamins, Thera [Multivitamin 1 tab PO DAILY 12/24/19 08/18/23 History (formulary)] carvediloL [Coreg*] 12.5 mg PO BID 12/24/19 08/18/23 History Cyanocobalamin [Vitamin B-12] 500 mcg PO DAILY 06/27/21 08/18/23 History Rosuvastatin Calcium 5 mg PO DAILY 10/11/22 08/18/23 History Albuterol Nebulized [Ventolin 2.5 mg INHALATION RT-Q4H PRN 08/18/23 08/18/23 History Nebulized] Cholecalciferol [Vitamin D3 (10 10 mcg PO DAILY 08/18/23 08/18/23 History Mcg = 400 Iu)] Losartan [Cozaar] 50 mg PO DAILY 08/18/23 08/18/23 History guaiFENesin [Mucinex] 600 mg PO Q6HR PRN 08/18/23 08/18/23 History Allergies Allergy/AdvReac Type Severity Reaction Status Date / Time shellfish derived [Shrimp] Allergy Anaphylaxis Verified 08/18/23 20:17 watermelon Allergy Abdominal Verified 08/18/23 20:17 Pain Physical Exam Vitals: Vital Signs Temp Pulse Resp BP Pulse Ox 08/19/23 07:01 60 172/95 94 L 08/19/23 06:25 60 24 177/98 91 L 08/19/23 05:45 60 32 H 156/83 08/19/23 04:05 59 L 32 H 148/110 08/19/23 03:05 60 32 H 171/120 93 L 08/19/23 02:41 60 36 H 174/94 08/19/23 01:43 60 28 H 178/102 95 08/19/23 01:14 60 40 H 187/110 08/19/23 00:10 60 36 H 196/117 92 L 08/18/23 23:42 60 36 H 96 08/18/23 23:18 60 24 187/106 94 L 08/18/23 21:21 61 24 93 L 08/18/23 20:21 97.9 F 60 22 93 L 08/18/23 19:35 101 F H 08/18/23 19:10 99.4 F 60 30 H 182/107 92 L Intake and Output 08/18/23 08/19/23 08/19/23 22:59 06:59 14:59 Output Total 200 Balance -200 Output: Urine 200 Uretheral (Mckenna) 200 Other: Weight 110.677 kg Results 08/18/23 19:36 08/18/23 19:36 Cardiac Enzymes 08/18/23 08/18/23 08/19/23 Range/Units 19:36 19:36 10:00 AST 35 (17-59) U/L Lactate Dehydrogenase 205 (120-246) U/L Troponin I 0.022 (0.000-0.034) ng/mL Coagulation 08/19/23 Range/Units 10:00 PT 25.7 H (10.0-12.5) sec APTT 34.0 H (22.0-30.0) sec CBC 08/18/23 Range/Units 19:36 WBC 9.6 (3.8-10.6) k/uL RBC 5.24 (4.30-5.90) m/uL Hgb 15.7 (13.0-17.5) gm/dL Hct 48.2 (39.0-53.0) % Plt Count 130 L (150-450) k/uL Comprehensive Metabolic Panel 08/18/23 Range/Units 19:36 Sodium 142 (137-145) mmol/L Potassium 4.5 (3.5-5.1) mmol/L Chloride 109 H (98-107) mmol/L Carbon Dioxide 21 L (22-30) mmol/L BUN 29 H (9-20) mg/dL Creatinine 1.15 (0.66-1.25) mg/dL Glucose 147 H (74-99) mg/dL Calcium 9.3 (8.4-10.2) mg/dL AST 35 (17-59) U/L ALT 29 (4-49) U/L Alkaline Phosphatase 82 (38-126) U/L Total Protein 6.9 (6.3-8.2) g/dL Albumin 4.3 (3.5-5.0) g/dL Current Medications Generic Name Dose Route Start Last Admin Trade Name Freq PRN Reason Stop Dose Admin Albuterol Sulfate 2 puff 08/19/23 00:20 08/19/23 08:48 Albuterol Hfa Inhaler INHALATION 2 puff RT-QID MAURIZIO Administration Albuterol Sulfate 2.5 puff 08/19/23 00:46 Albuterol Hfa Inhaler INHALATION RT-Q4H PRN Shortness Of Breath Ascorbic Acid 1,000 mg 08/19/23 09:45 08/19/23 10:28 Ascorbic Acid 500 Mg Tab PO 1,000 mg DAILY MAURIZIO Administration Carvedilol 12.5 mg 08/19/23 10:00 08/19/23 10:31 Carvedilol 12.5 Mg Tab PO 12.5 mg BID-W/MEALS MAURIZIO Administration Cholecalciferol 50 mcg 08/19/23 09:45 08/19/23 10:29 Cholecalciferol 25 Mcg (1000 Iu) Tablet PO 50 mcg DAILY MAURIZIO Administration Enoxaparin Sodium 40 mg 08/19/23 10:00 08/19/23 10:47 Enoxaparin 40 Mg/0.4 Ml Syringe SQ 40 mg DAILY MAURIZIO Administration Furosemide 40 mg 08/19/23 10:00 08/19/23 10:44 Furosemide 10 Mg/Ml 4 Ml Vial IV 40 mg Q12HR MAURIZIO Administration Hydralazine HCl 10 mg 08/19/23 09:41 Hydralazine Hcl 20 Mg/Ml 1 Ml Vial IVP Q6HR PRN Blood Pressure - High Losartan Potassium 50 mg 08/19/23 10:00 08/19/23 10:32 Losartan 50 Mg Tab PO 50 mg DAILY MAURIZIO Administration Naloxone HCl 0.2 mg 08/19/23 00:43 Naloxone 0.4 Mg/Ml 1 Ml Vial IV Q2M PRN Opioid Reversal Ondansetron HCl 4 mg 08/19/23 00:43 Ondansetron 4 Mg/2 Ml Vial IVP Q8HR PRN Nausea And Vomiting Pantoprazole Sodium 40 mg 08/19/23 09:00 08/19/23 10:40 Pantoprazole 40 Mg/10 Ml Vial IV 40 mg DAILY MAURIZIO Administration Zinc Sulfate 220 mg 08/19/23 09:45 08/19/23 10:30 Zinc Sulfate 220 Mg Cap PO 220 mg DAILY MAURIZIO Administration Intake and Output 08/18/23 08/19/23 08/19/23 22:59 06:59 14:59 Output Total 200 Balance -200 Output: Urine 200 Uretheral (Mckenna) 200 Other: Weight 110.677 kg 08/18/23 19:36 08/18/23 19:36
[2023-08-19] MEDS ORDERED: WARFARIN 7.5 MG TAB PO SCH (18:00)
[2023-08-20] MEDS: carvediloL 12.5 MG TAB PO SCH ×2 (06:30→17:20)
[2023-08-20 07:17] LABS: INR 3.2 (<1.2); Prothrombin Time 31.9 sec (10.0-12.5)
[2023-08-20] MEDS: FUROSEMIDE 10 MG/ML 4 ML VIAL IV SCH ×2 (08:26→20:21)
[2023-08-20] MEDS: PANTOPRAZOLE 40 MG/10 ML VIAL IV SCH (08:26)
[2023-08-20] MEDS: ATORVASTATIN 10 MG TAB PO SCH (08:34)
[2023-08-20] MEDS: CHOLECALCIFEROL 25 MCG (1000 IU) TABLET PO SCH (08:34)
[2023-08-20] MEDS: LOSARTAN 50 MG TAB PO SCH (08:34)
[2023-08-20] MEDS: ASCORBIC ACID 500 MG TAB PO SCH (08:34)
[2023-08-20] MEDS: ZINC SULFATE 220 MG CAP PO SCH (08:34)
[2023-08-20] MEDS: ALBUTEROL HFA INHALER INHALATION SCH ×4 (08:45→21:10)
[2023-08-20 10:52] LABS: Basophils # (A) 0.01 X 10*3/uL (0.00-0.10); Basophils % (A) 0.1 %; Eosinophils # (A) 0 X 10*3/uL (0.04-0.35); Eosinophils % (A) 0 %; HCT 45.2 % (39.6-50.0); HGB 14.9 g/dL (13.0-17.0); Lymphocytes # (A) 0.66 X 10*3/uL (0.90-5.00); Lymphocytes % (A) 5.5 %; MCH 29.4 pg (27.0-32.0); MCV 89.2 FL (80.0-97.0); Mean Platelet Volume 11.6 FL (9.5-12.2); Monocytes # (A) 1.05 X 10*3/uL (0.20-1.00); Monocytes % (A) 8.7 %; NRBC Per 100 WBC 0 X 10*3/uL (0.00-0.01); Neutrophils # (A) 10.29 X 10*3/uL (1.80-7.70); Neutrophils % (A) 85.2 %; Platelet Count 156 X 10*3/uL (140-440); RBC 5.07 X 10*6/uL (4.40-5.60); RDW 14.5 % (11.5-14.5); WBC 12.07 X 10*3/uL (4.50-10.00)
[2023-08-20 11:08] LABS: Blood Urea Nitrogen 34.8 mg/dL (9.0-27.0); Calcium 9.4 mg/dL (8.7-10.3); Carbon Dioxide 23.9 mmol/L (21.6-31.8); Chloride 106 mmol/L (96-109); Glucose 136 mg/dL (70-110); Potassium 3.7 mmol/L (3.5-5.5); Sodium 144 mmol/L (135-145)
[2023-08-20] MEDS ORDERED: LOSARTAN 50 MG TAB PO STA (11:50)
--- NOTE | 2023-08-20 12:47 | P.PN ---
Subjective This is a pleasant 83 years old male with past medical history of Atrial Fibrillation, Hyperlipidemia, Hypertension and hypothyroidism. He presents from [facility] for altered mental status, hypertension and recently diagnosed with [place] it. Information is obtained from the patient and at bedside. He is awake and alert mildly confused He feels generally weak and tachypneic Occasional cough and no chest pain. No change in urine or bowel habits. No fever. However vitals show increased temperature of 101, his tachypneic 24 saturating 91-94% on room air. His blood pressure was elevated with systolic more than 200 on presentation, currently blood pressure is 186/129. He feels generally weak. He denies smoking alcohol or illicit tracts. Other Vitas looks stable. Labs showing no leukocytosis with platelet counts around 130, WBC is 9.6, hemoglobin 15.7, creatinine 1.15. MRSA BMP liver enzymes were unremarkable. Protocol stone and is moderately elevated at 0.14[place] [address]. He tested positive for cough. EKG showing paced ventricular rhythm CT of the brain's negative for acute process Chest x-ray showing mild to moderate cardiomegaly with mild pulmonary vascular congestion and maybe trace left effusion. 08/20/2023 Patient is still confused, he knows he is in the hospital but he cannot feel the date or the person. He has insight into health illness and he knows that he is confused. No weakness in extremities or numbness. CT of the brain was negative for acute process Re: To consult neurology service Patient breathing quietly Is still mildly fluid overloaded Chest x-ray showing pulmonary congestion with cardiomegaly Currently kept on IV Lasix 40 mg twice daily at my be considered to switch to oral dose tomorrow Creatinine is 1.2 which is similar to yesterday of 1.15. INRs today 3.2, patient is Coumadin pharmacy to dose Losartan increased to 100 mg with close monitoring of blood pressure. Blood cardiology or the following the patient. Review of systems CONSTITUTIONAL: No fever, no malaise, no fatigue. HEENT: No recent visual problems or hearing problems. Denied any sore throat. CARDIOVASCULAR: No orthopnea, PND, no palpitations, no syncope. PULMONARY: No shortness of breath, no cough, no hemoptysis. GASTROINTESTINAL: No diarrhea, no nausea, no vomiting, no abdominal pain. Normoactive bowel sounds. NEUROLOGICAL: No headaches, no weakness, no numbness. Active Medications Generic Name Dose Route Start Last Admin Trade Name Freq PRN Reason Stop Dose Admin Albuterol Sulfate 2 puff 08/19/23 00:20 08/20/23 12:26 Albuterol Hfa Inhaler INHALATION 2 puff RT-QID MAURIZIO Administration Albuterol Sulfate 2.5 puff 08/19/23 00:46 Albuterol Hfa Inhaler INHALATION RT-Q4H PRN Shortness Of Breath Ascorbic Acid 1,000 mg 08/19/23 09:45 08/20/23 08:34 Ascorbic Acid 500 Mg Tab PO 1,000 mg DAILY MAURIZIO Administration Atorvastatin Calcium 10 mg 08/20/23 09:00 08/20/23 08:34 Atorvastatin 10 Mg Tab PO 10 mg DAILY MAURIZIO Administration Carvedilol 12.5 mg 08/19/23 10:00 08/20/23 06:30 Carvedilol 12.5 Mg Tab PO 12.5 mg BID-W/MEALS MAURIZIO Administration Cholecalciferol 50 mcg 08/19/23 09:45 08/20/23 08:34 Cholecalciferol 25 Mcg (1000 Iu) Tablet PO 50 mcg DAILY MAURIZIO Administration Furosemide 40 mg 08/19/23 10:00 08/20/23 08:26 Furosemide 10 Mg/Ml 4 Ml Vial IV 40 mg Q12HR MAURIZIO Administration Hydralazine HCl 10 mg 08/19/23 09:41 Hydralazine Hcl 20 Mg/Ml 1 Ml Vial IVP Q6HR PRN Blood Pressure - High Losartan Potassium 100 mg 08/21/23 09:00 Losartan 50 Mg Tab PO DAILY [facility] Miscellaneous Information 1 each 08/19/23 11:03 Warfarin Per Pharmacy MISCELLANE DIRECTED PRN Per Protocol Naloxone HCl 0.2 mg 08/19/23 00:43 Naloxone 0.4 Mg/Ml 1 Ml Vial IV Q2M PRN Opioid Reversal Ondansetron HCl 4 mg 08/19/23 00:43 Ondansetron 4 Mg/2 Ml Vial IVP Q8HR PRN Nausea And Vomiting Pantoprazole Sodium 40 mg 08/19/23 09:00 08/20/23 08:26 Pantoprazole 40 Mg/10 Ml Vial IV 40 mg DAILY MAURIZIO Administration Warfarin Sodium 0 mg 08/20/23 18:00 Warfarin 0.5 Mg Tab PO 08/20/23 18:01 ONCE@1800 ONE Zinc Sulfate 220 mg 08/19/23 09:45 08/20/23 08:34 Zinc Sulfate 220 Mg Cap PO 220 mg DAILY MAURIZIO Administration Objective - Vital Signs Vital signs: Vital Signs Temp 97.9 F 08/20/23 07:12 Pulse 60 08/20/23 07:12 Resp 20 08/20/23 07:12 BP 179/90 08/20/23 07:12 Pulse Ox 94 L 08/20/23 07:12 FiO2 Intake & Output 08/19/23 08/20/23 08/20/23 18:59 06:59 18:59 Output Total 1550 2900 Balance -1550 -2900 Weight 110.677 kg Output: Urine 1550 2900 Uretheral (Mckenna) 1550 900 Other: Voiding Method Indwelling Catheter - Exam GENERAL: The patient is alert and oriented x1, not in any acute distress. Well developed, well nourished. HEENT: Pupils are round and equally reacting to light. EOMI. No scleral icterus. No conjunctival pallor. Normocephalic, atraumatic. No pharyngeal erythema. No thyromegaly. CARDIOVASCULAR: S1 and S2 present. No murmurs, rubs, or gallops. PULMONARY: Chest is clear to auscultation, no wheezing , no crackles. ABDOMEN: Soft, nontender, nondistended, normoactive bowel sounds. No palpable o rganomegaly. MUSCULOSKELETAL: No joint swelling or deformity. EXTREMITIES: No cyanosis, clubbing, or pedal edema. NEUROLOGICAL: Gross neurological examination did not reveal any focal deficits. SKIN: No rashes. no petechiae. - Labs CBC & Chem 7: 08/20/23 06:09 08/20/23 06:09 Labs: Abnormal Lab Results - Last 24 Hours (Table) 08/20/23 08/20/23 Range/Units 06:09 06:09 WBC 12.07 H (4.50-10.00) X 10*3/uL Immature Gran # 0.06 H (0.00-0.04) X 10*3/uL Neutrophils # 10.29 H (1.80-7.70) X 10*3/uL Lymphocytes # 0.66 L (0.90-5.00) X 10*3/uL Monocytes # 1.05 H (0.20-1.00) X 10*3/uL Eosinophils # 0 L (0.04-0.35) X 10*3/uL PT 31.9 H (10.0-12.5) sec INR 3.2 H (<1.2) Assessment and Plan Assessment: Acute on chronic systolic CHF with ejection fraction 40-45% Covid infection with no pneumonia Mild hypoxic respiratory failure Metabolic encephalopathy, rule out intracranial caused Hypertension with urgency present on admission Generalized weakness secondary to above Hyperlipidemia Chronic dementia Cardiology consult Labs and medication were reviewed.. Continue same treatment. Continue with symptomatic treatment. Resume home medication. Monitor labs and vitals. DVT and GI prophylaxis. Further recommendations as per clinical course of the patient DVT prophylaxis: Subcutaneous heparin GI Prophylaxis: Ppi PT/OT: Pending Prognosis is guarded Plan: Continue with IV Lasix for another 24 hours and may be switched to oral dose tomorrow Monitor INR and continue with Coumadin pharmacy to dose Continue with vitamin C, vitamin D and zinc LDH and CRP are not significantly elevated Low Zartan was increased 100 mg daily by trial justice Cardiology team on the case. We'll consult neurology service for continuous confusion Labs and medication were reviewed.. Continue same treatment. Continue with symptomatic treatment. Resume home medication. Monitor labs and vitals. DVT and GI prophylaxis. Further recommendations as per clinical course of the patient DVT prophylaxis: on coumadin GI Prophylaxis: Ppi PT/OT: Pending Prognosis is guarded
--- NOTE | 2023-08-20 13:09 | P.CNNES ---
History of Present Illness Consult date: 08/20/23 Requesting physician: Andrew E Fanta Reason for Consult: Confusion History of Present Illness: Patient is a 83-year-old male with history of atrial fibrillation, mild dementia, came to the hospital by ambulance 2 days ago, on 08/18/2022 at 7:06 PM for altered mental status. Patient's was also present, who provided history. She mentions that on Saturday, 2 days ago, he was having difficulty breathing, and temperature was high 101. He tested positive for Covid at home. She notices that his blood pressure was very high and he was generalized weak. Because of these symptoms including breathing difficulty, he was brought to the hospital by ambulance. As per EMS flow sheet, when they arrived, patient was alert and oriented 1, sitting in a chair. Patient's and staff states patient tested positive for Covid today, is hypertensive at this time and more altered than normal. mentioned that he is normally with it for most part. When asking the patient questions, he would repeat the same answers for any question you ask him. Patient's mentions that he is talking to himself as well. Patient's mentioned that he has not been eating or drinking normally. Staff mentions that his urine is very dark and is dehydrated. Patient denied any chest pain, difficulty breathing nausea or dizziness. Patient states that he does not feel good and does not feel right. The cardiac rhythm showed a paced rhythm. Patient's vitals at the scene was blood pressure 127/106, pulse rate 59, respiration 22 saturation 94% temperature 99.1. Blood test shows normal CBC, INR 2.6, sodium and potassium are normal, renal functions normal. Hepatic panel normal. Troponin negative. UA negative, influenza is negative RSV negative, but [place] virus PCR positive. Patient has history of mild dementia for last 2 years since he suffered from Covid in 2020. He takes losartan, carvedilol, and Coumadin. Patient's has not noticed any strokelike symptoms like loss of vision, double vision, slurred speech, facial droop or focal weakness. He was just generalized weak since he got Covid infection. Review of Systems Constitutional: Reports fever, Denies chills Eyes: denies blurred vision, denies diplopia, denies pain Ears: deny: decreased hearing, ear discharge Ears, nose, mouth and throat: Denies headache, Denies sore throat Cardiovascular: Reports shortness of breath, Denies chest pain Respiratory: Reports cough, Reports excessive sputum Gastrointestinal: Denies abdominal pain, Denies diarrhea, Denies nausea, Denies vomiting Genitourinary: Reports incontinence, Reports urinary frequency Musculoskeletal: Denies low back pain, Denies neck pain Integumentary: Denies pruritus, Denies rash Neurological: Reports as per HPI Psychiatric: Reports memory loss, Denies anxiety, Denies depression Endocrine: Reports fatigue, Denies weight change Hematologic/Lymphatic: Denies easy bleeding, Denies easy bruising Past Medical History Past Medical History: Atrial Fibrillation, Dementia, Hyperlipidemia, Hypertension, Memory Impairment History of Any Multi-Drug Resistant Organisms: None Reported Past Surgical History: Cholecystectomy, Pacemaker Past Anesthesia/Blood Transfusion Reactions: No Reported Reaction Type of Cardiac Device: Unknown Device Placement Date:: 2013 Past Psychological History: No Psychological Hx Reported Smoking Status: Never smoker Past Alcohol Use History: None Reported Past Drug Use History: None Reported - Past Family History Mother Family Medical History: No Reported History Medications and Allergies Home Medications Medication Instructions Recorded Confirmed Type Warfarin [Coumadin] 7.5 mg PO DAILY 12/16/15 08/18/23 History Multivitamins, Thera [Multivitamin 1 tab PO DAILY 12/24/19 08/18/23 History (formulary)] carvediloL [Coreg*] 12.5 mg PO BID 12/24/19 08/18/23 History Cyanocobalamin [Vitamin B-12] 500 mcg PO DAILY 06/27/21 08/18/23 History Rosuvastatin Calcium 5 mg PO DAILY 10/11/22 08/18/23 History Albuterol Nebulized [Ventolin 2.5 mg INHALATION RT-Q4H PRN 08/18/23 08/18/23 History Nebulized] Cholecalciferol [Vitamin D3 (10 10 mcg PO DAILY 08/18/23 08/18/23 History Mcg = 400 Iu)] Losartan [Cozaar] 50 mg PO DAILY 08/18/23 08/18/23 History guaiFENesin [Mucinex] 600 mg PO Q6HR PRN 08/18/23 08/18/23 History Allergies Allergy/AdvReac Type Severity Reaction Status Date / Time shellfish derived [Shrimp] Allergy Anaphylaxis Verified 08/18/23 20:17 watermelon Allergy Abdominal Verified 08/18/23 20:17 Pain Physical Examination - Vital Signs Vital Signs: Vital Signs Temp Pulse Pulse Resp BP BP Pulse Ox 08/20/23 07:12 97.9 F 60 20 179/90 94 L 08/20/23 02:00 97.4 F L 57 L 18 171/74 92 L 08/19/23 22:29 98.1 F 61 18 162/81 92 L 08/19/23 21:35 98.1 F 60 18 143/80 92 L 08/19/23 20:00 60 18 154/82 93 L 08/19/23 19:00 60 18 155/77 92 L 08/19/23 16:04 60 18 08/19/23 14:28 79 18 170/93 93 L Intake and Output 08/19/23 08/20/23 08/20/23 22:59 06:59 14:59 Output Total 1800 2300 Balance -1800 -2300 Output: Urine 1800 2300 Uretheral (Mckenna) 1800 300 Other: Voiding Method Indwelling Catheter Weight 110.677 kg Patient is an elderly male, in no acute distress. Patient is alert awake in no distress. Patient states it is August and the year is 2019 and that he is in [facility] in [place]. He thinks Mr. Gurwinder Gramajo is the president. Speech and language functions are n ormal. Patient can name and repeat very well. No aphasia or dysarthria. Attention, concentration is intact and fund of knowledge is slightly limited. Patient has positive bilateral palmomental reflex, and positive visuospatial apraxia. On cranial nerve examination, pupils are equal, round and reacting to light, visual courtney are full on confrontation, with no neglect on double simultaneous stimulation. Extraocular muscles are intact with no nystagmus. Face is symmetric, tongue protrudes to the midline. Palatal elevation and sensation normal, hearing and shoulder shrug normal, facial sensation normal. On muscle strength testing, there is no pronator drift and the strength is norm al in arms and legs distally and proximally. Deep tendon reflexes are symmetric and hypoactive and plantars are flat bilaterally. Sensory to touch is equal with no neglect on double simultaneous stimulation. Cerebellar function showed no ataxia for [id number] testing. No dysdiadochokinesia. No ataxia for [id number] testing on either side. Tone and bulk of muscles normal. Gait deferred.. On general examination, there is no carotid bruit or murmur, S1-S2 audible. Chest is clear on consultation. Abdomen is soft nontender. No organomegaly, bowel sounds present. Peripheral pulses are present. Patient has mild peripheral edema. Results - Laboratory Findings CBC and BMP: 08/20/23 06:09 08/20/23 06:09 Abnormal Lab Findings: Abnormal Labs 08/18/23 08/18/23 08/18/23 19:32 19:36 19:36 WBC Plt Count 130 L Immature Gran # Neutrophils # 8.4 H Lymphocytes # 0.5 L Monocytes # Eosinophils # PT INR APTT Chloride 109 H Carbon Dioxide 21 L Anion Gap BUN 29 H BUN/Creatinine Ratio Glucose 147 H POC Glucose (mg/dL) 146 H Total Bilirubin 1.6 H Creatine Kinase 203 H C-Reactive Protein Procalcitonin Ur Specific [place] Urine Protein Urine Ketones Urine RBC Urine Mucus SARS-CoV-2 (PCR) 08/18/23 08/18/23 08/19/23 19:36 19:36 00:14 WBC Plt Count Immature Gran # Neutrophils # Lymphocytes # Monocytes # Eosinophils # PT INR APTT Chloride Carbon Dioxide Anion Gap BUN BUN/Creatinine Ratio Glucose POC Glucose (mg/dL) Total Bilirubin Creatine Kinase C-Reactive Protein Procalcitonin 0.14 H Ur Specific [place] 1.039 H Urine Protein 2+ H Urine Ketones Trace H Urine RBC 11 H Urine Mucus Many H SARS-CoV-2 (PCR) Detected A 08/19/23 08/19/23 08/20/23 10:00 10:00 06:09 WBC 12.07 H Plt Count Immature Gran # 0.06 H Neutrophils # 10.29 H Lymphocytes # 0.66 L Monocytes # 1.05 H Eosinophils # 0 L PT 25.7 H INR 2.6 H APTT 34.0 H Chloride Carbon Dioxide Anion Gap BUN BUN/Creatinine Ratio Glucose POC Glucose (mg/dL) Total Bilirubin Creatine Kinase C-Reactive Protein 5.1 H Procalcitonin Ur Specific [place] Urine Protein Urine Ketones Urine RBC Urine Mucus SARS-CoV-2 (PCR) 08/20/23 08/20/23 06:09 06:09 WBC Plt Count Immature Gran # Neutrophils # Lymphocytes # Monocytes # Eosinophils # PT 31.9 H INR 3.2 H APTT Chloride Carbon Dioxide Anion Gap 14.10 H BUN 34.8 H BUN/Creatinine Ratio 29.00 H Glucose 136 H POC Glucose (mg/dL) Total Bilirubin Creatine Kinase C-Reactive Protein Procalcitonin Ur Specific [place] Urine Protein Urine Ketones Urine RBC Urine Mucus SARS-CoV-2 (PCR) Assessment and Plan Assessment: * Altered mental status, and generalized weakness, likely due to acute Covid infection. Patient's examination is nonfocal. * Acute Covid infection. * Dementia, mild degree, for last 2 years * Hypertension * Hyperlipidemia * History of atrial fibrillation, currently on Coumadin with therapeutic INR. Plan: * Patient's worsening confusion, and generalized weakness is likely due to acute Covid infection. Current examination is nonfocal. No other neurological workup indicated. * Continue Coumadin. INR is therapeutic 3.2. * Patient had all tests performed earlier this year including vitamin B12 641, folate 22.3, TSH 1.15, A1c 6.0, cholesterol 138, LDL 87.9. * CTA of head and neck performed 10/11/2022 revealed no significant stenosis and, or internal carotid arteries bilaterally. No significant stenosis or aneurysm at the level of [place] * 2-D echo from 10/12/2022 revealed LVEF between 40-45%, left ventricular cavity size at the upper limits of normal, mild left-ventricular dilation, mild concentric LVH, dyskinetic septum, apex hypokinetic, dyssynchrony movement of LV hernandez due to pacemaker, mild to moderate AR, mild left atrial dilation. * Patient does have mild dementia, currently not on any cognitive enhancing medication. Patient and his were suggested for patient to follow-up with the neurologist outpatient to consider starting cognitive enhancing medication. * Neurologically clear for discharge. We will sign off. Thank you for the consult.
--- NOTE | 2023-08-20 14:09 | P.PN ---
Subjective Progress Note Date: 08/20/23 Consult reason: congestive heart failure History of present illness: History of present illness: This is an 83-year-old male patient of Dr. VIOLETA Wyatt with past medical history of chronic atrial fibrillation on Coumadin, nonischemic cardiomyopathy, sick sinus syndrome with dual-chamber pacemaker, noncritical coronary artery disease. Known ejection fraction is 40%. We have been asked to evaluate the patient for heart failure. Patient is seen today in the emergency center waiting for a bed on the [facility] floor. He is currently in isolation due to Covid 19. Patient resides at [facility] and was noted to be more confused with underlying dementia that has started 2 days ago and progressively worsening. Patient was noted to have fever. Patient unable to provide history due to his underlying dementia and mental status changes.. EKG ventricularly paced rhythm Chest x-ray: Mild to moderate cardiomegaly. Possible mild pulmonary vascular c ongestion. WBC 9.6, hemoglobin 15.7, platelet count 130. INR 2.6. Sodium 142, potassium 4.5, BUN 29 creatinine 1.15. Blood sugar 146. CK 203. ProBNP 16,600. Pro- calcitonin 0.14. Total bilirubin 1.6 otherwise liver function tests are normal. Magnesium 2.2. Urinalysis reveals 2+ protein, trace ketones. Influenza A, influenza B, RSV not detected. Covid 19 detected. Home cardiac medications: Coreg 12.5 mg twice daily, losartan 50 mg daily, Crestor 5 mg daily, Coumadin 7.5 mg daily. Cardiac catheterization history 2019 revealed right dominant system, 35% mid LAD, minor irregularities in the RCA and circumflex, no significant coronary artery disease. No gradient across aortic valve, ejection fraction 50%. Echocardiogram performed 07/02/2023 in the office revealed EF 40%, moderate nely ral, tricuspid and mild to moderate aortic regurgitation with moderate pulmonary hypertension with right-sided pressure of 48 mmHg. Lexiscan stress test performed 2018 revealed no ischemia. 08/20 Patient is seen today in follow-up. He remains in isolation for Covid 19. Noted that his blood pressure readings are elevated. He has been resumed back on his home cardiac medications. Patient noted to have less coughing and breathing seems to be stable today. Blood pressure 179/90, heart rate in the 60s, pulse ox 94% on room air. INR is 3.2 and Coumadin is being dosed by pharmacy. Hemoglobin 14.9. Creatinine 1.2. Physical examination: Gen: This is an 83-year-old male. He is resting on ER stretcher appears to be in no acute respiratory distress. VS: reviewed temperature max 101. Heart rate 60, blood pressure 175/93. HEENT: Head is atraumatic, normocephalic. Pupils equal, round. Sclerae is anicteric. NECK: Supple. No JVD. LUNGS: Clear to auscultation. No wheezes or rhonchi. No intercostal retractions. HEART: Regular rate and rhythm. No murmur. ABDOMEN: Soft No tenderness. EXTREMITIES: No pedal edema. No calf tenderness. NEUROLOGICAL: Patient is awake, alert and oriented x3. Assessment: COVID-19 Patient is euvolemic, no signs of acute heart failure Uncontrolled hypertension Chronic atrial fibrillation on Coumadin Nonischemic cardiomyopathy Sick sinus syndrome status post dual-chamber pacemaker Noncritical coronary artery disease Plan: Continue patient's home cardiac medications Increase losartan to 100 mg daily Pharmacy to manage Coumadin At time of discharge, patient will follow-up with Dr. VIOLETA Wyatt in about 2 weeks. Nurse practitioner note has been reviewed, I agree with documented findings and plan of care. Patient was seen and examined. Objective - Vital Signs Vital signs: Vital Signs Temp 97.9 F 08/20/23 07:12 Pulse 60 08/20/23 07:12 Resp 20 08/20/23 07:12 BP 179/90 08/20/23 07:12 Pulse Ox 94 L 08/20/23 07:12 FiO2 Intake & Output 08/19/23 08/20/23 08/20/23 18:59 06:59 18:59 Output Total 1550 2900 Balance -1550 -2900 Weight 110.677 kg Output: Urine 1550 2900 Uretheral (Mckenna) 1550 900 Other: Voiding Method Indwelling Catheter - Labs CBC & Chem 7: 08/20/23 06:09 08/20/23 06:09 Labs: Abnormal Lab Results - Last 24 Hours (Table) 08/20/23 08/20/23 08/20/23 Range/Units 06:09 06:09 06:09 WBC 12.07 H (4.50-10.00) X 10*3/uL Immature Gran # 0.06 H (0.00-0.04) X 10*3/uL Neutrophils # 10.29 H (1.80-7.70) X 10*3/uL Lymphocytes # 0.66 L (0.90-5.00) X 10*3/uL Monocytes # 1.05 H (0.20-1.00) X 10*3/uL Eosinophils # 0 L (0.04-0.35) X 10*3/uL PT 31.9 H (10.0-12.5) sec INR 3.2 H (<1.2) Anion Gap 14.10 H (4.00-12.00) mmol/L BUN 34.8 H (9.0-27.0) mg/dL BUN/Creatinine Ratio 29.00 H (12.00-20.00) Ratio Glucose 136 H (70-110) mg/dL
[2023-08-20] MEDS ORDERED: WARFARIN 0.5 MG TAB PO ONE (18:00)
[2023-08-21] MEDS: carvediloL 12.5 MG TAB PO SCH ×2 (06:38→17:41)
[2023-08-21 06:57] LABS: INR 3.7 (<1.2); Prothrombin Time 36.5 sec (10.0-12.5)
[2023-08-21] MEDS: CHOLECALCIFEROL 25 MCG (1000 IU) TABLET PO SCH (07:58)
[2023-08-21] MEDS: ASCORBIC ACID 500 MG TAB PO SCH (07:58)
[2023-08-21] MEDS: LOSARTAN 50 MG TAB PO SCH (07:58)
[2023-08-21] MEDS: ZINC SULFATE 220 MG CAP PO SCH (07:58)
[2023-08-21] MEDS: FUROSEMIDE 10 MG/ML 4 ML VIAL IV SCH ×2 (07:59→20:15)
[2023-08-21] MEDS: PANTOPRAZOLE 40 MG/10 ML VIAL IV SCH (07:59)
[2023-08-21] MEDS: ATORVASTATIN 10 MG TAB PO SCH (07:59)
[2023-08-21 08:50] LABS: Basophils # (A) 0.03 X 10*3/uL (0.00-0.10); Basophils % (A) 0.3 %; Eosinophils # (A) 0.27 X 10*3/uL (0.04-0.35); Eosinophils % (A) 2.6 %; HCT 47.7 % (39.6-50.0); HGB 15.6 g/dL (13.0-17.0); Lymphocytes # (A) 0.62 X 10*3/uL (0.90-5.00); Lymphocytes % (A) 5.9 %; MCH 29.4 pg (27.0-32.0); MCHC 32.7 g/dL (32.0-37.0); MCV 89.8 FL (80.0-97.0); Mean Platelet Volume 11.3 FL (9.5-12.2); Monocytes # (A) 0.82 X 10*3/uL (0.20-1.00); Monocytes % (A) 7.8 %; NRBC Per 100 WBC 0 X 10*3/uL (0.00-0.01); Neutrophils # (A) 8.77 X 10*3/uL (1.80-7.70); Platelet Count 170 X 10*3/uL (140-440); RBC 5.31 X 10*6/uL (4.40-5.60); RDW 14.3 % (11.5-14.5); WBC 10.55 X 10*3/uL (4.50-10.00)
[2023-08-21] MEDS: ALBUTEROL HFA INHALER INHALATION SCH ×4 (09:45→21:27)
[2023-08-21 11:03] LABS: BUN/Creat Ratio 30.25 Ratio (12.00-20.00); Blood Urea Nitrogen 36.3 mg/dL (9.0-27.0); Calcium 9.1 mg/dL (8.7-10.3); Carbon Dioxide 26.6 mmol/L (21.6-31.8); Chloride 103 mmol/L (96-109); Glucose 113 mg/dL (70-110); Potassium 3.1 mmol/L (3.5-5.5); Sodium 144 mmol/L (135-145)
[2023-08-21] MEDS: amLODIPine 10 MG TAB PO SCH (11:33)
[2023-08-21] MEDS ORDERED: Potassium Replacement Protocol 1 EACH MISC MISCELLANE PRN (13:27)
--- NOTE | 2023-08-21 13:29 | P.PN ---
Subjective Progress Note Date: 08/21/23 This is a pleasant 83 years old male with past medical history of Atrial Fibrillation, Hyperlipidemia, Hypertension and hypothyroidism. He presents from [facility] for altered mental status, hypertension and recently diagnosed with [place] it. Information is obtained from the patient and at bedside. He is awake and alert mildly confused He feels generally weak and tachypneic Occasional cough and no chest pain. No change in urine or bowel habits. No fever. However vitals show increased temperature of 101, his tachypneic 24 saturating 91-94% on room air. His blood pressure was elevated with systolic more than 200 on presentation, currently blood pressure is 186/129. He feels generally weak. He denies smoking alcohol or illicit tracts. Other Vitas looks stable. Labs showing no leukocytosis with platelet counts around 130, WBC is 9.6, hemoglobin 15.7, creatinine 1.15. MRSA BMP liver enzymes were unremarkable. Protocol stone and is moderately elevated at 0.14[place] [address]. He tested positive for cough. EKG showing paced ventricular rhythm CT of the brain's negative for acute process Chest x-ray showing mild to moderate cardiomegaly with mild pulmonary vascular congestion and maybe trace left effusion. 08/20/2023 Patient is still confused, he knows he is in the hospital but he cannot feel the date or the person. He has insight into health illness and he knows that he is confused. No weakness in extremities or numbness. CT of the brain was negative for acute process Re: To consult neurology service Patient breathing quietly Is still mildly fluid overloaded Chest x-ray showing pulmonary congestion with cardiomegaly Currently kept on IV Lasix 40 mg twice daily at my be considered to switch to oral dose tomorrow Creatinine is 1.2 which is similar to yesterday of 1.15. INRs today 3.2, patient is Coumadin pharmacy to dose Losartan increased to 100 mg with close monitoring of blood pressure. Blood cardiology or the following the patient. 08/21. Patient seen and examined. at the bedside. Patient continues to be lethargic and get lab work done this morning showed WBC 10.55, hemoglobin 15.6, sodium 144, potassium 3.1, BUN 36, creatinine 1.2 REVIEW OF SYSTEMS: CONSTITUTIONAL: No fever, no malaise,. CARDIOVASCULAR: No chest pain, no palpitations, no syncope. PULMONARY: No shortness of breath, no cough, GASTROINTESTINAL: No diarrhea, no nausea, no vomiting, no abdominal pain. NEUROLOGICAL: No headaches, no weakness, PHYSICAL EXAMINATION: GENERAL: The patient is alert , not in any acute distress. Well developed, well nourished. HEENT: Pupils are round and equally reacting to light. EOMI. No scleral icterus. No conjunctival pallor. Normocephalic, atraumatic. No pharyngeal erythema. No thyromegaly. CARDIOVASCULAR: S1 and S2 present. No murmurs, rubs, or gallops. PULMONARY: Chest is clear to auscultation, no wheezing or crackles. ABDOMEN: Soft, nontender, nondistended, normoactive bowel sounds. No palpable organomegaly. MUSCULOSKELETAL: No joint swelling or deformity. EXTREMITIES: No cyanosis, clubbing, or pedal edema. NEUROLOGICAL: Gross neurological examination did not reveal any focal deficits. SKIN: No rashes. Assessment and plan Acute on chronic systolic CHF with ejection fraction 40-45% Covid infection with no pneumonia Mild hypoxic respiratory failure Metabolic encephalopathy, rule out intracranial caused Hypertension with urgency present on admission Generalized weakness secondary to above Hyperlipidemia Chronic dementia Plan: Monitor vital signs Monitor CBC Monitor CMP Continue COVID-19 isolation Strict I's and O's, daily weights, continue IV Lasix Monitor INR and continue with Coumadin pharmacy to dose Continue with vitamin C, vitamin D and zinc Cardiology following Neurology cleared the patient for discharge Labs and medication were reviewed.. Continue same treatment. Continue with symptomatic treatment. Resume home medication. Monitor labs and vitals. DVT and GI prophylaxis. Further recommendations as per clinical course of the patient Dictation was produced using [employer] dictation software. please excuse any grammatical, word or spelling errors. Objective - Vital Signs Vital signs: Vital Signs Temp 98.3 F 08/21/23 07:58 Pulse 59 L 08/21/23 07:59 Resp 15 08/21/23 07:59 BP 168/84 08/21/23 07:58 Pulse Ox 96 08/21/23 07:58 FiO2 Intake & Output 08/20/23 08/21/23 08/21/23 18:59 06:59 18:59 Other: Voiding Method Diaper Diaper # Voids 2 1 # Bowel Movements 1 - Labs CBC & Chem 7: 08/21/23 05:45 08/21/23 05:45 Labs: Abnormal Lab Results - Last 24 Hours (Table) 08/21/23 08/21/23 08/21/23 Range/Units 05:45 05:45 05:45 WBC 10.55 H (4.50-10.00) X 10*3/uL Neutrophils # 8.77 H (1.80-7.70) X 10*3/uL Lymphocytes # 0.62 L (0.90-5.00) X 10*3/uL PT 36.5 H (10.0-12.5) sec INR 3.7 H (<1.2) Potassium 3.1 L (3.5-5.5) mmol/L Anion Gap 14.40 H (4.00-12.00) mmol/L BUN 36.3 H (9.0-27.0) mg/dL BUN/Creatinine Ratio 30.25 H (12.00-20.00) Ratio Glucose 113 H (70-110) mg/dL
--- NOTE | 2023-08-21 14:37 | P.PN ---
Subjective Progress Note Date: 08/21/23 Consult reason: congestive heart failure History of present illness: History of present illness: This is an 83-year-old male patient of Dr. VIOLETA Wyatt with past medical history of chronic atrial fibrillation on Coumadin, nonischemic cardiomyopathy, sick sinus syndrome with dual-chamber pacemaker, noncritical coronary artery disease. Known ejection fraction is 40%. We have been asked to evaluate the patient for heart failure. Patient is seen today in the emergency center waiting for a bed on the [facility] floor. He is currently in isolation due to Covid 19. Patient resides at [facility] and was noted to be more confused with underlying dementia that has started 2 days ago and progressively worsening. Patient was noted to have fever. Patient unable to provide history due to his underlying dementia and mental status changes.. EKG ventricularly paced rhythm Chest x-ray: Mild to moderate cardiomegaly. Possible mild pulmonary vascular c ongestion. WBC 9.6, hemoglobin 15.7, platelet count 130. INR 2.6. Sodium 142, potassium 4.5, BUN 29 creatinine 1.15. Blood sugar 146. CK 203. ProBNP 16,600. Pro- calcitonin 0.14. Total bilirubin 1.6 otherwise liver function tests are normal. Magnesium 2.2. Urinalysis reveals 2+ protein, trace ketones. Influenza A, influenza B, RSV not detected. Covid 19 detected. Home cardiac medications: Coreg 12.5 mg twice daily, losartan 50 mg daily, Crestor 5 mg daily, Coumadin 7.5 mg daily. Cardiac catheterization history 2019 revealed right dominant system, 35% mid LAD, minor irregularities in the RCA and circumflex, no significant coronary artery disease. No gradient across aortic valve, ejection fraction 50%. Echocardiogram performed 07/02/2023 in the office revealed EF 40%, moderate nely ral, tricuspid and mild to moderate aortic regurgitation with moderate pulmonary hypertension with right-sided pressure of 48 mmHg. Lexiscan stress test performed 2018 revealed no ischemia. 08/20 Patient is seen today in follow-up. He remains in isolation for Covid 19. Noted that his blood pressure readings are elevated. He has been resumed back on his home cardiac medications. Patient noted to have less coughing and breathing seems to be stable today. Blood pressure 179/90, heart rate in the 60s, pulse ox 94% on room air. INR is 3.2 and Coumadin is being dosed by pharmacy. Hemoglobin 14.9. Creatinine 1.2. 08/21 Respiratory status seems to be slowly improving. Blood pressure levels are elevated and yesterday losartan was increased to 100 mg daily. Patient will be started on amlodipine. Patient is maintained on Coreg and Coumadin pharmacy dosing. INR is 3.7. Physical examination: Gen: This is an 83-year-old male. He is resting on ER stretcher appears to be in no acute respiratory distress. VS: reviewed temperature max 101. Heart rate 60, blood pressure 175/93. HEENT: Head is atraumatic, normocephalic. Pupils equal, round. Sclerae is anicteric. NECK: Supple. No JVD. LUNGS: Clear to auscultation. No wheezes or rhonchi. No intercostal retractions. HEART: Regular rate and rhythm. No murmur. ABDOMEN: Soft No tenderness. EXTREMITIES: No pedal edema. No calf tenderness. NEUROLOGICAL: Patient is awake, alert and oriented x3. Assessment: COVID-19 Patient is euvolemic, no signs of acute heart failure Uncontrolled hypertension Chronic atrial fibrillation on Coumadin Nonischemic cardiomyopathy Sick sinus syndrome status post dual-chamber pacemaker Noncritical coronary artery disease Plan: Continue patient's home cardiac medications Continue losartan to 100 mg daily Pharmacy to manage Coumadin Start patient on amlodipine 10 mg daily At time of discharge, patient will follow-up with Dr. VIOLETA Wyatt in about 2 weeks. Cardiology will sign off this case and follow on an as-needed basis. Please reconsult for any new concerns. Nurse practitioner note has been reviewed, I agree with documented findings and plan of care. Patient was seen and examined. Objective - Vital Signs Vital signs: Vital Signs Temp 98.3 F 08/21/23 07:58 Pulse 59 L 08/21/23 07:59 Resp 15 08/21/23 07:59 BP 168/84 08/21/23 07:58 Pulse Ox 96 08/21/23 07:58 FiO2 Intake & Output 08/20/23 08/21/23 08/21/23 18:59 06:59 18:59 Other: Voiding Method Diaper Diaper # Voids 2 1 # Bowel Movements 1 - Labs CBC & Chem 7: 08/21/23 05:45 08/21/23 05:45 Labs: Abnormal Lab Results - Last 24 Hours (Table) 08/20/23 08/20/23 08/21/23 Range/Units 06:09 06:09 05:45 WBC 12.07 H (4.50-10.00) X 10*3/uL Immature Gran # 0.06 H (0.00-0.04) X 10*3/uL Neutrophils # 10.29 H (1.80-7.70) X 10*3/uL Lymphocytes # 0.66 L (0.90-5.00) X 10*3/uL Monocytes # 1.05 H (0.20-1.00) X 10*3/uL Eosinophils # 0 L (0.04-0.35) X 10*3/uL PT 36.5 H (10.0-12.5) sec INR 3.7 H (<1.2) Anion Gap 14.10 H (4.00-12.00) mmol/L BUN 34.8 H (9.0-27.0) mg/dL BUN/Creatinine Ratio 29.00 H (12.00-20.00) Ratio Glucose 136 H (70-110) mg/dL 08/21/23 Range/Units 05:45 WBC 10.55 H (4.50-10.00) X 10*3/uL Immature Gran # (0.00-0.04) X 10*3/uL Neutrophils # 8.77 H (1.80-7.70) X 10*3/uL Lymphocytes # 0.62 L (0.90-5.00) X 10*3/uL Monocytes # (0.20-1.00) X 10*3/uL Eosinophils # (0.04-0.35) X 10*3/uL PT (10.0-12.5) sec INR (<1.2) Anion Gap (4.00-12.00) mmol/L BUN (9.0-27.0) mg/dL BUN/Creatinine Ratio (12.00-20.00) Ratio Glucose (70-110) mg/dL
[2023-08-21] MEDS: POTASSIUM CHLORIDE ER 20 MEQ TAB.ER PO SCH ×2 (16:25→17:41)
[2023-08-21] MEDS ORDERED: WARFARIN 0.5 MG TAB PO ONE (18:00)
[2023-08-21 20:09] VITALS: TEMP 98.3
[2023-08-22 06:47] LABS: INR 2.9 (<1.2); Prothrombin Time 28.2 sec (10.0-12.5)
[2023-08-22] MEDS: ATORVASTATIN 10 MG TAB PO SCH (08:50)
[2023-08-22] MEDS: carvediloL 12.5 MG TAB PO SCH (08:50)
[2023-08-22] MEDS: amLODIPine 10 MG TAB PO SCH (08:50)
[2023-08-22] MEDS: ZINC SULFATE 220 MG CAP PO SCH (08:50)
[2023-08-22] MEDS: ASCORBIC ACID 500 MG TAB PO SCH (08:50)
[2023-08-22] MEDS: CHOLECALCIFEROL 25 MCG (1000 IU) TABLET PO SCH (08:50)
[2023-08-22] MEDS: PANTOPRAZOLE 40 MG/10 ML VIAL IV SCH (08:50)
[2023-08-22] MEDS: LOSARTAN 50 MG TAB PO SCH (08:50)
[2023-08-22] MEDS: ALBUTEROL HFA INHALER INHALATION SCH ×2 (08:58→12:51)
[2023-08-22 10:17] LABS: Basophils # (A) 0.1 k/uL (0-0.2); Basophils % (A) 1 %; Eosinophils # (A) 0.5 k/uL (0-0.7); Eosinophils % (A) 5 %; HCT 48.9 % (39.0-53.0); HGB 16.2 gm/dL (13.0-17.5); Lymphocytes % (A) 11 %; MCH 30.2 pg (25.0-35.0); MCHC 33.1 g/dL (31.0-37.0); MCV 91.2 fL (80.0-100.0); Mean Platelet Volume 10.5; Monocytes # (A) 0.8 k/uL (0-1.0); Monocytes % (A) 9 %; Neutrophils # (A) 6.4 k/uL (1.3-7.7); Neutrophils % (A) 72 %; Platelet Count 160 k/uL (150-450); RBC 5.36 m/uL (4.30-5.90); WBC 8.8 k/uL (3.8-10.6)
[2023-08-22 10:21] LABS: African American GFR (CKD) 83 (>60 ml/min/1.73 sqM); Anion Gap 10 mmol/L; Blood Urea Nitrogen 35 mg/dL (9-20); Calcium 8.7 mg/dL (8.4-10.2); Carbon Dioxide 28 mmol/L (22-30); Chloride 103 mmol/L (98-107); Glucose 110 mg/dL (74-99); Non-African American GFR(CKD) 72 (>60 ml/min/1.73 sqM); Potassium 3.4 mmol/L (3.5-5.1); Sodium 141 mmol/L (137-145)
[2023-08-22] MEDS: FUROSEMIDE 10 MG/ML 4 ML VIAL IV SCH (11:29)
[2023-08-22] MEDS ORDERED: POTASSIUM CHLORIDE ER 20 MEQ TAB.ER PO STA (12:39)
[2023-08-22 14:23] VITALS: BP 104/67; PULSE 60; RESP 14
[2023-08-22] MEDS ORDERED: WARFARIN 5 MG TAB PO ONE (18:00)
--- NOTE | 2023-08-24 07:37 | P.DS ---
Providers Date of admission: 08/19/23 00:44 Expected date of discharge: 08/22/23 Attending physician: Criss Macario Consults: 08/19/23 09:42 Consult Physician Routine Consulting Provider: Rehan Britt Consult Reason/Comments: chf Do you want consulting provider notified?: Yes 08/20/23 08:39 Consult Physician Routine Consulting Provider: Elijah Calle Consult Reason/Comments: confusion Do you want consulting provider notified?: Yes Primary care physician: Stated None Hospital Course: Final diagnosis Acute on chronic systolic CHF with ejection fraction 40-45% Covid infection with no pneumonia Mild hypoxic respiratory failure, secondary to Covid and CHF exacerbation, improved Metabolic encephalopathy, secondary to Covid 19, improved Hypertension with urgency present on admission Generalized weakness secondary to above Hyperlipidemia Chronic dementia Discharge disposition Patient is being discharged in a stable condition with guarded prognosis to an resides at [facility]. Patient will follow-up with Dr. Bello in the outpatient setting upon discharge. Patient is to continue with medications as mentioned below and outpatient follow-up with cardiology as scheduled. Total time taken is greater than 35 minutes. Hospital course This is a 83-year-old male who was recently admitted With slightly altered mentation with metabolic encephalopathy likely secondary to Covid along with acute on chronic CHF exacerbation. Patient was placed on IV Lasix and has weaned off O2 and mentation is improved to baseline. Patient has been cleared by consultations for discharge and patient resides at [facility] with his . Patient reports to feeling improved and was evaluated by physical therapy and will be going back to [facility] with continued care. Please refer to other consultation notes for further HPI. Patient reports to feeling well and would like to go home. Currently no reports of chest pain, shortness of breath, or palpitations. Patient is afebrile. No reports of nausea or vomiting and patient is tolerating diet. Patient will be discharged today. Physical exam: Gen: This is a 83-year-old male who is awake, alert and oriented 2-3, baseline, well-developed, well-nourished, obese HEENT: Head is atraumatic, normocephalic. Pupils equal, round. Sclerae is anicteric. NECK: Supple. No JVD. No lymphadenopathy. No thyromegaly. LUNGS: diminished breath sounds bilaterally otherwise Clear to auscultation. No wheezes or rhonchi. No intercostal retractions. HEART: Regular rate and rhythm. No murmur. ABDOMEN: Soft. Bowel sounds are present. No masses. No tenderness. EXTREMITIES: No pedal edema. No calf tenderness. NEUROLOGICAL: Patient is awake, alert and oriented x3. Cranial nerves 2 through 12 are grossly intact. Please refer to medication reconciliation sheet for a list of medications. The impression and plan of care has been dictated by Eri Horn, Nurse Practitioner as directed. Dr. Cristian MD I have performed a history and examination and MDM of this patient, discussed the same with the dictator, and agree with the dictator's assessment and plan as written ,documented as a scribe. Based on total visit time, I have performed more than 50% of the visit. Patient Condition at Discharge: Fair Plan - Discharge Summary Discharge Rx Participant: No New Discharge Prescriptions: New amLODIPine [Norvasc] 10 mg PO DAILY 30 Days #30 tab Zinc Sulfate [Orazinc] 220 mg PO DAILY 15 Days #15 cap Cholecalciferol [Vitamin D3 (25 Mcg = 1000 Iu)] 50 mcg PO DAILY #30 tab Losartan [Cozaar] 100 mg PO DAILY #60 tab Ascorbic Acid [Vitamin C] 1,000 mg PO DAILY 30 Days #30 tab Continue Warfarin [Coumadin] 7.5 mg PO DAILY Multivitamins, Thera [Multivitamin (formulary)] 1 tab PO DAILY carvediloL [Coreg*] 12.5 mg PO BID Rosuvastatin Calcium 5 mg PO DAILY Cholecalciferol [Vitamin D3 (10 Mcg = 400 Iu)] 10 mcg PO DAILY Cyanocobalamin [Vitamin B-12] 500 mcg PO DAILY Albuterol Nebulized [Ventolin Nebulized] 2.5 mg INHALATION RT-Q4H PRN PRN Reason: Shortness Of Breath guaiFENesin [Mucinex] 600 mg PO Q6HR PRN PRN Reason: Cough Discontinued Losartan [Cozaar] 50 mg PO DAILY Discharge Medication List Warfarin [Coumadin] 7.5 mg PO DAILY 12/16/15 [History] Multivitamins, Thera [Multivitamin (formulary)] 1 tab PO DAILY 12/24/19 [History] carvediloL [Coreg*] 12.5 mg PO BID 12/24/19 [History] Cyanocobalamin [Vitamin B-12] 500 mcg PO DAILY 06/27/21 [History] Rosuvastatin Calcium 5 mg PO DAILY 10/11/22 [History] Albuterol Nebulized [Ventolin Nebulized] 2.5 mg INHALATION RT-Q4H PRN 08/18/23 [History] Cholecalciferol [Vitamin D3 (10 Mcg = 400 Iu)] 10 mcg PO DAILY 08/18/23 [History] guaiFENesin [Mucinex] 600 mg PO Q6HR PRN 08/18/23 [History] Ascorbic Acid [Vitamin C] 1,000 mg PO DAILY 30 Days #30 tab 08/22/23 [Rx] Cholecalciferol [Vitamin D3 (25 Mcg = 1000 Iu)] 50 mcg PO DAILY #30 tab 08/22/23 [Rx] Losartan [Cozaar] 100 mg PO DAILY #60 tab 08/22/23 [Rx] Zinc Sulfate [Orazinc] 220 mg PO DAILY 15 Days #15 cap 08/22/23 [Rx] amLODIPine [Norvasc] 10 mg PO DAILY 30 Days #30 tab 08/22/23 [Rx] Follow up Appointment(s)/Referral(s): Ayo Wyatt MD [STAFF PHYSICIAN] - 2 Weeks (Office is closed at time of discharge. Please call for follow-up appointment.) Dolly Bello MD [STAFF PHYSICIAN] - 1-2 days (Office is closed at time of discharge. Please call for follow-up appointment.) Ambulatory/Diagnostic Orders: Basic Metabolic Panel [LAB.AMB] Time Frame: 3 Days, Location: None Selected Prothrombin Time INR [LAB.AMB] Location: None Selected Activity/Diet/Wound Care/Special Instructions: activity limited until follow up follow up with cardio outpatient follow up with pcp on discharge repeat labs in 2 days to monitor INR levels Discharge Disposition: TRANSFER TO SNF/ECF
== END 2023-08-22 16:08 | DRG 291 ==
LOC: EC 19:06 → 4SSUR 08-19 00:44
PROVIDERS: ADMIT Hospitalist; ATTEND Hospitalist
DX: I11.0 Hypertensive heart disease with heart failure (principal); G93.41 Metabolic encephalopathy; I50.23 Acute on chronic systolic (congestive) heart failure; U07.1 COVID-19; J96.91 Respiratory failure, unspecified with hypoxia; I48.20 Chronic atrial fibrillation, unspecified; E78.5 Hyperlipidemia, unspecified; F03.A0 Unspecified dementia, mild, without behavioral disturbance, psychotic disturbance, mood disturbance, and anxiety; E03.9 Hypothyroidism, unspecified; E86.0 Dehydration; I25.10 Atherosclerotic heart disease of native coronary artery without angina pectoris; I27.20 Pulmonary hypertension, unspecified; I16.0 Hypertensive urgency; R53.1 Weakness; I08.3 Combined rheumatic disorders of mitral, aortic and tricuspid valves; I42.8 Other cardiomyopathies; I49.5 Sick sinus syndrome; Z79.01 Long term (current) use of anticoagulants; E07.9 Disorder of thyroid, unspecified; Z95.0 Presence of cardiac pacemaker; Z78.9 Other specified health status; Z79.899 Other long term (current) drug therapy; Z91.013 Allergy to seafood; Z79.890 Hormone replacement therapy; I27.29 Other secondary pulmonary hypertension; Z86.16 Personal history of COVID-19; Z91.018 Allergy to other foods; Z90.49 Acquired absence of other specified parts of digestive tract
CPT/HCPCS: 36415; 51702; 70450; 71046; 80048; 80053; 81001; 82550; 83605; 83615; 83735; 83880; 84145; 84484; 85025; 85610; 85730; 86140; 87636; 93005; 94640; 96361; 96372; 96374; 96375; 96376; 99285

== ENCOUNTER 2023-10-21 09:31 | Emergency (ER) | payer MEDICARE ==
[2023-10-21 10:00] VITALS: PULSE 60
[2023-10-21 10:27] LABS: Basophils # (A) 0.1 k/uL (0-0.2); Basophils % (A) 1 %; Eosinophils # (A) 0.4 k/uL (0-0.7); Eosinophils % (A) 4 %; HCT 44.1 % (39.0-53.0); HGB 14.2 gm/dL (13.0-17.5); Lymphocytes # (A) 1.1 k/uL (1.0-4.8); Lymphocytes % (A) 12 %; MCH 29.1 pg (25.0-35.0); MCHC 32.1 g/dL (31.0-37.0); MCV 90.6 fL (80.0-100.0); Mean Platelet Volume 7.8; Monocytes # (A) 0.4 k/uL (0-1.0); Monocytes % (A) 5 %; Neutrophils # (A) 6.8 k/uL (1.3-7.7); Neutrophils % (A) 77 %; Platelet Count 252 k/uL (150-450); RBC 4.87 m/uL (4.30-5.90); RDW 14.1 % (11.5-15.5); WBC 8.8 k/uL (3.8-10.6)
[2023-10-21 10:31] LABS: INR 2.3 (<1.2); Partial Thromboplastin Time 33.8 sec (22.0-30.0); Prothrombin Time 22.8 sec (10.0-12.5)
[2023-10-21 10:34] LABS: African American GFR (CKD) 80 (>60 ml/min/1.73 sqM); Anion Gap 6 mmol/L; Blood Urea Nitrogen 22 mg/dL (9-20); Calcium 9.1 mg/dL (8.4-10.2); Carbon Dioxide 26 mmol/L (22-30); Chloride 108 mmol/L (98-107); Glucose 115 mg/dL (74-99); Non-African American GFR(CKD) 69 (>60 ml/min/1.73 sqM); Sodium 140 mmol/L (137-145)
--- NOTE | 2023-10-21 11:02 | CT ---
EXAMINATION TYPE: CT brain merle luz con DATE OF EXAM: 10/21/2023 COMPARISON: CT brain on 08/18/2023. HISTORY: Pain after fall. CT DLP: 1664.7 mGycm Automated exposure control for dose reduction was used. TECHNIQUE: CT scan of the head and cervical spine are performed without contrast. FINDINGS: CT HEAD: There is no acute intracranial hemorrhage, mass, mass effect, midline shift, extra axial fluid collec tion or hydrocephalus. There is extensive hypoattenuation the periventricular, subcortical and deep white matter which likel y relates to chronic ischemic small vessel change. No acute major vessel infarct is seen. Visualized paranasal sinuses show some mild mucosal thickening within the right maxillary sinus. The sinuses otherwise appear clear. There is no mastoid air cell opacification. Cervical spine: The vertebral bodies are well aligned without evidence of fracture, subluxation or dislocation. There is moderate multilevel degenerative disc, facet and uncovertebral joint changes throughout the spine. Vertebral body heights are maintained. There is no prevertebral soft tissue swelling. IMPRESSION: 1. No acute intracranial process with extensive chronic changes as described above. 2. Degenerative changes of the cervical spine with no acute fracture, subluxation or dislocation.
--- NOTE | 2023-10-21 11:32 | ED ---
General Adult HPI - General Chief complaint: Fall Stated complaint: Fall, head injury Time Seen by Provider: 10/21/23 09:31 Source: patient, family, RN notes reviewed, old records reviewed Mode of arrival: ambulatory Limitations: no limitations - History of Present Illness Initial comments: Patient is an 83-year-old male who presents from his assisted living facility with his over concern for a fall on blood thinners. Patient does take Coumadin. Last known INR was elevated at 4. States he had his legs give out on him, which is a frequent occurrence as he was not using his walker. Fell backwards on the carpet and struck his head. Has a bruise over the back of his head. Did not lose consciousness. Denies chest pain or shortness of breath. Has no other acute complaints at this time. No other injuries at this time. Presents for further evaluation at this time. Fall occurred approximately 1 hour prior to arrival. - Related Data Home Medications Medication Instructions Recorded Confirmed Warfarin [Coumadin] 7.5 mg PO DAILY 12/16/15 08/18/23 Multivitamins, Thera [Multivitamin 1 tab PO DAILY 12/24/19 08/18/23 (formulary)] carvediloL [Coreg*] 12.5 mg PO BID 12/24/19 08/18/23 Cyanocobalamin [Vitamin B-12] 500 mcg PO DAILY 06/27/21 08/18/23 Rosuvastatin Calcium 5 mg PO DAILY 10/11/22 08/18/23 Albuterol Nebulized [Ventolin 2.5 mg INHALATION RT-Q4H PRN 08/18/23 08/18/23 Nebulized] Cholecalciferol [Vitamin D3 (10 10 mcg PO DAILY 08/18/23 08/18/23 Mcg = 400 Iu)] guaiFENesin [Mucinex] 600 mg PO Q6HR PRN 08/18/23 08/18/23 Previous Rx's Medication Instructions Recorded Ascorbic Acid [Vitamin C] 1,000 mg PO DAILY 30 Days #30 tab 08/22/23 Cholecalciferol [Vitamin D3 (25 50 mcg PO DAILY #30 tab 08/22/23 Mcg = 1000 Iu)] Losartan [Cozaar] 100 mg PO DAILY #60 tab 08/22/23 Zinc Sulfate [Orazinc] 220 mg PO DAILY 15 Days #15 cap 08/22/23 amLODIPine [Norvasc] 10 mg PO DAILY 30 Days #30 tab 08/22/23 Allergies Allergy/AdvReac Type Severity Reaction Status Date / Time shellfish derived [Shrimp] Allergy Anaphylaxis Verified 08/18/23 20:17 watermelon Allergy Abdominal Verified 08/18/23 20:17 Pain Review of Systems ROS Statement: Those systems with pertinent positive or pertinent negative responses have been documented in the HPI. Review of Systems: CONST: Denies fever EYES: Denies blurry vision ENT: Denies nasal congestion C/V: Denies Chest pain RESP: Denies shortness of breath GI: Denies abdominal pain : Denies dysuria SKIN: Denies rash. MSK: Denies joint pain. NEURO: Denies headache ROS Other: All systems not noted in ROS Statement are negative. Past Medical History Past Medical History: Atrial Fibrillation, Dementia, Hyperlipidemia, Hypertension, Memory Impairment History of Any Multi-Drug Resistant Organisms: None Reported Past Surgical History: Cholecystectomy, Pacemaker Past Anesthesia/Blood Transfusion Reactions: No Reported Reaction Type of Cardiac Device: Unknown Device Placement Date:: 2013 Past Psychological History: No Psychological Hx Reported Smoking Status: Never smoker Past Alcohol Use History: None Reported Past Drug Use History: None Reported - Past Family History Mother Family Medical History: No Reported History General Exam - General Exam Comments Initial Comments: General: Appears in no acute distress. HEAD: Patient does have a small contusion to the posterior superior scalp. Negative Pop sign. Negative raccoon eyes. EYES: PERRLA, EOMI, conjunctiva normal, no discharge. Pupils are 2 to 3 mm and equal bilaterally. ENT: Hearing grossly intact, normal oropharynx. RESPIRATORY: Clear breath sounds bilaterally. No wheezes, rales, or rhonchi. C/V: Regular rate and rhythm. S1 and S2 auscultated, no edema, peripheral pulses 2+ and intact throughout ABD: Abd is soft, nontender, nondistended EXT: Normal range of motion, no obvious deformity. Pelvis is stable. No midli ne cervical, thoracic, lumbar spine tenderness to palpation. No extremity tenderness to palpation. SKIN: Small contusion to the posterior superior scalp. NEURO: Alert and oriented x 4. GCS of 15. No focal deficits. Limitations: no limitations Course Vital Signs 10/21/23 10/21/23 09:35 11:41 Temperature 98.4 F 97.8 F Pulse Rate 60 60 Respiratory 16 18 Rate Blood Pressure 92/60 97/60 O2 Sat by Pulse 98 97 Oximetry Medical Decision Making - Medical Decision Making Was pt. sent in by a medical professional or institution (NARENDRA Mckeon, [employer], urgent care, hospital, or fdc...) When possible be specific @ -No Did you speak to anyone other than the patient for history (EMS, parent, family, police, friend...)? What history was obtained from this source @ -No Did you review nursing and triage notes (agree or disagree)? Why? @ -I reviewed and agree with nursing and triage notes Were old charts reviewed (outside hosp., previous admission, EMS record, old EKG, old radiological studies, urgent care reports/EKG's, fdc records)? Report findings @ -No old charts were reviewed Differential Diagnosis (chest pain, altered mental status, abdominal pain women, abdominal pain men, vaginal bleeding, weakness, fever, dyspnea, syncope, headache, dizziness, GI bleed, back pain, seizure, CVA, palpatations, mental health, musculoskeletal)? @ -Differential Musculoskeletal Muscular strain, contusion, ligament sprain, fracture, arthritis, septic arthritis, bursitis, cellulitis, muscle spasm, nerve compression, DVT, arterial occlusion, herpes zoster, electrolyte abnormality, tumor.... This is not meant to be in all inclusive list. Also includes intracranial trauma. EKG interpreted by me (3pts min.). @ -As above X-rays interpreted by me (1pt min.). @ -None done CT interpreted by me (1pt min.). @ -CT brain shows no obvious acute intracranial process. CT C-spine negative for any obvious traumatic injury. U/S interpreted by me (1pt. min.). @ -None done What testing was considered but not performed or refused? (CT, X-rays, U/S, labs)? Why? @ -Considered x-rays however patient declines at this time. What meds were considered but not given or refused? Why? @ -None Did you discuss the management of the patient with other professionals (professionals i.e. NARENDRA Mckeon, [employer], lab, RT, psych nurse, social worker aide, character actor, teacher, ship's officer, correctional case manager)? Give summary @ -No Was smoking cessation discussed for >3mins.? @ -No Was critical care preformed (if so, how long)? @ -No Were there social determinants of health that impacted care today? How? (Homelessness, low income, unemployed, alcoholism, drug addiction, tra nsportation, low edu. Level, literacy, decrease access to med. care, skilled nursing, rehab)? @ -No Was there de-escalation of care discussed even if they declined (Discuss DNR or withdrawal of care, Hospice)? DNR status @ -No What co-morbidities impacted this encounter? (DM, HTN, Smoking, COPD, CAD, Cancer, CVA, ARF, Chemo, Hep., AIDS, mental health diagnosis, sleep apnea, morbid obesity)? @ -On Coumadin. Was patient admitted / discharged? Hospital course, mention meds given and route, prescriptions, significant lab abnormalities, going to OR and other pertinent info. @ -Based on the patient's presentation and physical exam, patient presents emergency department complaining of fall on blood thinners. We will obtain basic labs including INR as well as CT of the brain and C-spine. Discussed with family as well as patient and they declined any x-rays as patient is low risk fall from standing, with no other obvious injuries at this time. Has no complaints at this time. Does not meet criteria for trauma activation. Vital signs are within acceptable limits. Imaging is unremarkable. Labs are remarkable for therapeutic INR. Remainder the workup unremarkable. On reevaluation, patient is feeling the same. No complaints. Reviewed his images. He will be discharged home at this time. He was in agreement this plan. Strict return precautions discussed. I instructed the patient to follow up with their PCP in the next 1-3 days. I explained that the patient should return to the emergency department if they experience any worsening symptoms. Strict return precautions were discussed with the patient. The patient expressed understanding of these instructions. I answered all questions that the patient had. The patient was discharged home in good condition with their prescriptions and follow up information. Undiagnosed new problem with uncertain prognosis? @ -No Drug Therapy requiring intensive monitoring for toxicity (Heparin, Nitro, Insulin, Cardizem)? @ -No Were any procedures done? @ -No Diagnosis/symptom? @ -Fall, scalp contusion Acute, or Chronic, or Acute on Chronic? @ -Acute Uncomplicated (without systemic symptoms) or Complicated (systemic symptoms)? @ -Uncomplicated Side effects of treatment? @ -No Exacerbation, Progression, or Severe Exacerbation? @ -No Poses a threat to life or bodily function? How? (Chest pain, USA, LA, pneumonia, PE, COPD, DKA, ARF, appy, cholecystitis, CVA, Diverticulitis, Homicidal, Suicidal, threat to staff... and all critical care pts) @ -Unlikely - Lab Data Result diagrams: 10/21/23 09:58 10/21/23 09:58 Lab Results 10/21/23 10/21/23 10/21/23 Range/Units 09:58 09:58 09:58 WBC 8.8 (3.8-10.6) k/uL RBC 4.87 (4.30-5.90) m/uL Hgb 14.2 (13.0-17.5) gm/dL Hct 44.1 (39.0-53.0) % MCV 90.6 (80.0-100.0) fL MCH 29.1 (25.0-35.0) pg MCHC 32.1 (31.0-37.0) g/dL RDW 14.1 (11.5-15.5) % Plt Count 252 (150-450) k/uL MPV 7.8 Neutrophils % 77 % Lymphocytes % 12 % Monocytes % 5 % Eosinophils % 4 % Basophils % 1 % Neutrophils # 6.8 (1.3-7.7) k/uL Lymphocytes # 1.1 (1.0-4.8) k/uL Monocytes # 0.4 (0-1.0) k/uL Eosinophils # 0.4 (0-0.7) k/uL Basophils # 0.1 (0-0.2) k/uL PT 22.8 H (10.0-12.5) sec INR 2.3 H (<1.2) APTT 33.8 H (22.0-30.0) sec Sodium 140 (137-145) mmol/L Potassium 4.0 (3.5-5.1) mmol/L Chloride 108 H (98-107) mmol/L Carbon Dioxide 26 (22-30) mmol/L Anion Gap 6 mmol/L BUN 22 H (9-20) mg/dL Creatinine 1.00 (0.66-1.25) mg/dL Est GFR (CKD-EPI)AfAm 80 (>60 ml/min/1.73 sqM) Est GFR (CKD-EPI)NonAf 69 (>60 ml/min/1.73 sqM) Glucose 115 H (74-99) mg/dL Calcium 9.1 (8.4-10.2) mg/dL Disposition Clinical Impression: Fall, Scalp contusion Disposition: HOME SELF-CARE Condition: Good Instructions (If sedation given, give patient instructions): Fall Prevention for Older Adults (ED) Is patient prescribed a controlled substance at d/c from ED?: No Referrals: None,Stated [Primary Care Provider] - 1-2 days Time of Disposition: 11:31
[2023-10-21 11:46] VITALS: BP 97/60; RESP 18; TEMP 97.8
== END 2023-10-21 11:51 | disposition home or self-care (01) ==
LOC: EC 09:31
DX: S00.03XA Contusion of scalp, initial encounter (principal); I10 Essential (primary) hypertension; I48.91 Unspecified atrial fibrillation; E78.5 Hyperlipidemia, unspecified; F03.90 Unspecified dementia, unspecified severity, without behavioral disturbance, psychotic disturbance, mood disturbance, and anxiety; Z79.01 Long term (current) use of anticoagulants; Z79.899 Other long term (current) drug therapy; Z95.0 Presence of cardiac pacemaker; Z90.49 Acquired absence of other specified parts of digestive tract; Z91.013 Allergy to seafood; Z91.018 Allergy to other foods; W18.30XA Fall on same level, unspecified, initial encounter; W22.03XA Walked into furniture, initial encounter
CPT/HCPCS: 36415; 70450; 72125; 80048; 85025; 85610; 85730; 99284

== ENCOUNTER 2023-11-12 21:28 | Inpatient (IN) | payer MEDICARE ==
--- NOTE | 2023-11-12 21:40 | ED ---
General Adult HPI - General Chief complaint: Syncope Stated complaint: Syncope Time Seen by Provider: 11/12/23 21:35 Source: EMS Mode of arrival: EMS - History of Present Illness Initial comments: Pawan is an 83 male with history of dementia is brought to the ER today from his nursing facility. Family notes he has had multiple falls and seemingly episodes of syncope over the past 2 weeks. Patient had an episode today in which she had syncope he was noted to be pale and very unwell appearing, nursing staff checked his vital signs and noted that his heart rate was in the 20s. Patient does have a demand pacemaker due to a history of bradycardia however it seemed as though it was not pacing at that time. 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 - Related Data Home Medications Medication Instructions Recorded Confirmed Warfarin [Coumadin] 7.5 mg PO DAILY 12/16/15 08/18/23 Multivitamins, Thera [Multivitamin 1 tab PO DAILY 12/24/19 08/18/23 (formulary)] carvediloL [Coreg*] 12.5 mg PO BID 12/24/19 08/18/23 Cyanocobalamin [Vitamin B-12] 500 mcg PO DAILY 06/27/21 08/18/23 Rosuvastatin Calcium 5 mg PO DAILY 10/11/22 08/18/23 Albuterol Nebulized [Ventolin 2.5 mg INHALATION RT-Q4H PRN 08/18/23 08/18/23 Nebulized] Cholecalciferol [Vitamin D3 (10 10 mcg PO DAILY 08/18/23 08/18/23 Mcg = 400 Iu)] guaiFENesin [Mucinex] 600 mg PO Q6HR PRN 08/18/23 08/18/23 Previous Rx's Medication Instructions Recorded Ascorbic Acid [Vitamin C] 1,000 mg PO DAILY 30 Days #30 tab 08/22/23 Cholecalciferol [Vitamin D3 (25 50 mcg PO DAILY #30 tab 08/22/23 Mcg = 1000 Iu)] Losartan [Cozaar] 100 mg PO DAILY #60 tab 08/22/23 Zinc Sulfate [Orazinc] 220 mg PO DAILY 15 Days #15 cap 08/22/23 amLODIPine [Norvasc] 10 mg PO DAILY 30 Days #30 tab 08/22/23 Allergies Allergy/AdvReac Type Severity Reaction Status Date / Time shellfish derived [Shrimp] Allergy Anaphylaxis Verified 11/12/23 21:35 watermelon Allergy Abdominal Verified 11/12/23 21:35 Pain Review of Systems ROS Statement: Those systems with pertinent positive or pertinent negative responses have been documented in the HPI. ROS Other: All systems not noted in ROS Statement are negative. Past Medical History Past Medical History: Atrial Fibrillation, Dementia, Hyperlipidemia, Hypertension, Memory Impairment History of Any Multi-Drug Resistant Organisms: None Reported Past Surgical History: Cholecystectomy, Pacemaker Past Anesthesia/Blood Transfusion Reactions: No Reported Reaction Type of Cardiac Device: Unknown Device Placement Date:: 2013 Past Psychological History: No Psychological Hx Reported Smoking Status: Never smoker Past Alcohol Use History: None Reported Past Drug Use History: None Reported - Past Family History Mother Family Medical History: No Reported History General Exam - General Exam Comments Initial Comments: Physical Exam GENERAL: Chronically ill-appearing elderly gentleman HENT: Normocephalic, Atraumatic. EYES: PERRL, EOMI PULMONARY: Unlabored respirations CARDIOVASCULAR: Rate is 60 ABDOMEN: Non-distended SKIN: No rashes or bruising : Deferred NEUROLOGIC: Alert and oriented to self MUSCULOSKELETAL: Moving all extremities with no apparent injury Course Vital Signs 11/12/23 11/12/23 11/13/23 21:29 23:00 00:00 Temperature 97.8 F Pulse Rate 67 60 62 Respiratory 18 18 18 Rate Blood Pressure 113/63 124/64 122/59 O2 Sat by Pulse 97 95 96 Oximetry 11/13/23 04:00 Temperature Pulse Rate 60 Respiratory 18 Rate Blood Pressure 119/56 O2 Sat by Pulse 97 Oximetry EKG Findings - EKG Comments: EKG Findings:: EKG interpreted by me, EKG obtained due to syncope, EKG obtained at 2131 rate is 60 rhythm is ventricularly paced. No ST elevations or depressio ns no evidence of acute ischemia or infarction. Medical Decision Making - Medical Decision Making Was pt. sent in by a medical professional or institution (, PA, BROWNING PROCESSOR, urgent care, hospital, or group home...) When possible be specific @ -Yes sent from group home Did you speak to anyone other than the patient for history (EMS, parent, family, police, friend...)? What history was obtained from this source @ -, EMS Did you review nursing and triage notes (agree or disagree)? Why? @ -I reviewed and agree with nursing and triage notes Were old charts reviewed (outside hosp., previous admission, EMS record, old EKG, old radiological studies, urgent care reports/EKG's, group home records)? Report findings @ -Previous admissions reviewed Differential Diagnosis (chest pain, altered mental status, abdominal pain women, abdominal pain men, vaginal bleeding, weakness, fever, dyspnea, syncope, headache, dizziness, GI bleed, back pain, seizure, CVA, palpatations, mental health)? @ -Differential Syncope: Valvular disease, hypertrophic cardiomyopathy, pulmonary embolism, tamponade, tachycardia, bradycardia, [place], hypovolemia, hemorrhage, dissection, anemia, intracranial hemorrhage, seizure, hypoglycemia, carbon monoxide poisoning, this is not meant to be an all-inclusive list. EKG interpreted by me (3pts min.). @ -As above X-rays interpreted by me (1pt min.). @ -Chest x-ray with cardiomegaly, pacemaker in place, no pneumothorax or focal consolidations CT interpreted by me (1pt min.). @ -Head CT with no mass or bleed U/S interpreted by me (1pt. min.). @ -None done What testing was considered but not performed or refused? (CT, X-rays, U/S, labs)? Why? @ -Pacemaker interrogation -will be done while admitted What meds were considered but not given or refused? Why? @ -None Did you discuss the management of the patient with other professionals (professionals i.e. , PA, BROWNING PROCESSOR, lab, RT, psych nurse, long term care social worker, hoop maker machine, teacher, housing management officer, corrections caseworker)? Give summary @ -No Was smoking cessation discussed for >3mins.? @ -No Was critical care preformed (if so, how long)? @ -No Were there social determinants of health that impacted care today? How? (Homelessness, low income, unemployed, alcoholism, drug addiction, transportation, low edu. Level, literacy, decrease access to med. care, longterm, rehab)? @ -No Was there de-escalation of care discussed even if they declined (Discuss DNR or withdrawal of care, Hospice)? DNR status @ -Patient was DNR upon arrival, we did discuss possible reversal of CODE STATUS if he is to have a procedure for his pacemaker What co-morbidities impacted this encounter? (DM, HTN, Smoking, COPD, CAD, Cancer, CVA, ARF, Chemo, Hep., AIDS, mental health diagnosis, sleep apnea, morbid obesity)? @ -None Was patient admitted / discharged? Hospital course, mention meds given and route, prescriptions, significant lab abnormalities, going to OR and other pertinent info. @ -Admit Patient was seen and evaluated, history is obtained from patient EMS and family at bedside. Patient with multiple syncopal episodes over the past couple of weeks noted to have a heart rate in the 20s concern for pacemaker failure. We will place the patient in observation on cardiac monitoring with referral to cardiology. Undiagnosed new problem with uncertain prognosis? @ -No Drug Therapy requiring intensive monitoring for toxicity (Heparin, Nitro, Insulin, Cardizem)? @ -No Were any procedures done? @ -No Diagnosis/symptom? @ -Recurrent syncope, bradycardia Acute, or Chronic, or Acute on Chronic? @ -Acute Uncomplicated (without systemic symptoms) or Complicated (systemic symptoms)? @ -Default Side effects of treatment? @ -No Exacerbation, Progression, or Severe Exacerbation? @ -No Poses a threat to life or bodily function? How? (Chest pain, [place], [place], pneumonia, PE, COPD, DKA, ARF, appy, cholecystitis, CVA, Diverticulitis, Homicidal, Suicidal, threat to staff... and all critical care pts) @ -Potentially - Lab Data Result diagrams: 11/12/23 21:31 11/12/23 21:31 Lab Results 11/12/23 11/12/23 11/12/23 Range/Units 21:31 21:31 21:31 WBC 8.9 (3.8-10.6) k/uL RBC 4.85 (4.30-5.90) m/uL Hgb 15.2 (13.0-17.5) gm/dL Hct 44.7 (39.0-53.0) % MCV 92.2 (80.0-100.0) fL MCH 31.4 (25.0-35.0) pg MCHC 34.1 (31.0-37.0) g/dL RDW 14.9 (11.5-15.5) % Plt Count 175 (150-450) k/uL MPV 8.4 Neutrophils % 79 % Lymphocytes % 11 % Monocytes % 5 % Eosinophils % 4 % Basophils % 0 % Neutrophils # 7.1 (1.3-7.7) k/uL Lymphocytes # 1.0 (1.0-4.8) k/uL Monocytes # 0.5 (0-1.0) k/uL Eosinophils # 0.3 (0-0.7) k/uL Basophils # 0.0 (0-0.2) k/uL PT 25.5 H (10.0-12.5) sec INR 2.6 H (<1.2) APTT 33.8 H (22.0-30.0) sec Sodium 140 (137-145) mmol/L Potassium 3.4 L (3.5-5.1) mmol/L Chloride 108 H (98-107) mmol/L Carbon Dioxide 23 (22-30) mmol/L Anion Gap 9 mmol/L BUN 31 H (9-20) mg/dL Creatinine 1.27 H (0.66-1.25) mg/dL Est GFR (CKD-EPI)AfAm 60 (>60 ml/min/1.73 sqM) Est GFR (CKD-EPI)NonAf 52 (>60 ml/min/1.73 sqM) Glucose 136 H (74-99) mg/dL Calcium 8.6 (8.4-10.2) mg/dL Magnesium 2.0 (1.6-2.3) mg/dL Total Bilirubin 1.2 (0.2-1.3) mg/dL AST 44 (17-59) U/L ALT 44 (4-49) U/L Alkaline Phosphatase 93 (38-126) U/L Troponin I (0.000-0.034) ng/mL Total Protein 6.3 (6.3-8.2) g/dL Albumin 3.8 (3.5-5.0) g/dL 11/12/23 Range/Units 21:31 WBC (3.8-10.6) k/uL RBC (4.30-5.90) m/uL Hgb (13.0-17.5) gm/dL Hct (39.0-53.0) % MCV (80.0-100.0) fL MCH (25.0-35.0) pg MCHC (31.0-37.0) g/dL RDW (11.5-15.5) % Plt Count (150-450) k/uL MPV Neutrophils % % Lymphocytes % % Monocytes % % Eosinophils % % Basophils % % Neutrophils # (1.3-7.7) k/uL Lymphocytes # (1.0-4.8) k/uL Monocytes # (0-1.0) k/uL Eosinophils # (0-0.7) k/uL Basophils # (0-0.2) k/uL PT (10.0-12.5) sec INR (<1.2) APTT (22.0-30.0) sec Sodium (137-145) mmol/L Potassium (3.5-5.1) mmol/L Chloride (98-107) mmol/L Carbon Dioxide (22-30) mmol/L Anion Gap mmol/L BUN (9-20) mg/dL Creatinine (0.66-1.25) mg/dL Est GFR (CKD-EPI)AfAm (>60 ml/min/1.73 sqM) Est GFR (CKD-EPI)NonAf (>60 ml/min/1.73 sqM) Glucose (74-99) mg/dL Calcium (8.4-10.2) mg/dL Magnesium (1.6-2.3) mg/dL Total Bilirubin (0.2-1.3) mg/dL AST (17-59) U/L ALT (4-49) U/L Alkaline Phosphatase (38-126) U/L Troponin I 0.017 (0.000-0.034) ng/mL Total Protein (6.3-8.2) g/dL Albumin (3.5-5.0) g/dL Disposition Clinical Impression: Fall, Syncope, Symptomatic bradycardia, Pacemaker failure Disposition: ADMITTED IP TO THIS HOSP Condition: Serious Is patient prescribed a controlled substance at d/c from ED?: No
[2023-11-12 21:46] LABS: Basophils % (A) 0 %; Eosinophils # (A) 0.3 k/uL (0-0.7); Eosinophils % (A) 4 %; HCT 44.7 % (39.0-53.0); HGB 15.2 gm/dL (13.0-17.5); Lymphocytes % (A) 11 %; MCH 31.4 pg (25.0-35.0); MCHC 34.1 g/dL (31.0-37.0); MCV 92.2 fL (80.0-100.0); Mean Platelet Volume 8.4; Monocytes # (A) 0.5 k/uL (0-1.0); Monocytes % (A) 5 %; Neutrophils # (A) 7.1 k/uL (1.3-7.7); Neutrophils % (A) 79 %; Platelet Count 175 k/uL (150-450); RBC 4.85 m/uL (4.30-5.90); RDW 14.9 % (11.5-15.5); WBC 8.9 k/uL (3.8-10.6)
[2023-11-12 21:57] LABS: ALT 44 U/L (4-49); AST 44 U/L (17-59); African American GFR (CKD) 60 (>60 ml/min/1.73 sqM); Albumin 3.8 g/dL (3.5-5.0); Alkaline Phosphatase 93 U/L (38-126); Anion Gap 9 mmol/L; Blood Urea Nitrogen 31 mg/dL (9-20); Calcium 8.6 mg/dL (8.4-10.2); Carbon Dioxide 23 mmol/L (22-30); Chloride 108 mmol/L (98-107); Glucose 136 mg/dL (74-99); Non-African American GFR(CKD) 52 (>60 ml/min/1.73 sqM); Potassium 3.4 mmol/L (3.5-5.1); Sodium 140 mmol/L (137-145); Total Bilirubin 1.2 mg/dL (0.2-1.3); Total Protein 6.3 g/dL (6.3-8.2)
--- NOTE | 2023-11-12 22:20 | CT ---
EXAM: CT Head Without Intravenous Contrast CLINICAL HISTORY: ITS.REASON CT Reason: syncope TECHNIQUE: Axial computed tomography images of the head/brain without intravenous contrast. CTDI is 45.2 mGy and DLP is 1094 mGy-cm. This CT exam was performed using one or more of the following dose reduction techniques: automated exposure control, adjustment of the mA and/or kV according to patient size, and/or use of iterative reconstruction technique. COMPARISON: No relevant prior studies available. FINDINGS: No acute intracranial hemorrhage. No midline shift or mass effect. The territorial schwartz-white matter differentiation is maintained throughout. Age-related cerebral volume loss. Periventricular and subcortical white matter hypoattenuation, consistent with chronic microangiopathy. The visualized orbits appear grossly unremarkable. The calvarium is intact. The visualized paranasal sinuses and mastoid air cells are grossly clear. IMPRESSION: No acute intracranial hemorrhage, midline shift, or mass effect. EXAM: CT Cervical Spine Without Intravenous Contrast CLINICAL HISTORY: ITS.REASON CT Reason: syncope TECHNIQUE: Axial computed tomography images of the cervical spine without intravenous contrast. CTDI is 13.9 mGy and DLP is 378.4 mGy-cm. This CT exam was performed using one or more of the following dose reduction techniques: automated exposure control, adjustment of the mA and/or kV according to patient size, and/or use of iterative reconstruction technique. COMPARISON: No relevant prior studies available. FINDINGS: The vertebral body heights are maintained. The craniocervical junction is intact. The atlanto-dens interval is maintained. The dens is intact. There is no spondylolisthesis. Multilevel cervical spondylosis and degenerative disc disease. Straightening of the cervical lordosis. The unenhanced neck soft tissues are grossly unremarkable. The visualized lung apices are grossly clear. IMPRESSION: No acute fracture or subluxation of the cervical spine.
--- NOTE | 2023-11-12 22:21 | XR ---
EXAM: XR Chest, 1 View CLINICAL HISTORY: ITS.REASON XR Reason: syncope TECHNIQUE: Frontal view of the chest. COMPARISON: No relevant prior studies available. FINDINGS: Lungs: Unremarkable. No consolidation. Pleural space: Unremarkable. No pneumothorax. Heart: Cardiomegaly. Mediastinum: Unremarkable. Normal mediastinal contour. Bones/joints: Unremarkable. No acute fracture. Tubes, lines and devices: Pacemaker lead. Upper abdomen: Cholecystectomy clip. IMPRESSION: No acute findings in the chest.
[2023-11-12 22:37] LABS: INR 2.6 (<1.2); Partial Thromboplastin Time 33.8 sec (22.0-30.0); Prothrombin Time 25.5 sec (10.0-12.5)
[2023-11-12] MEDS: SODIUM CHLORIDE 0.9% 500 ML 500 ML IV ONE (23:07)
[2023-11-12] MEDS ORDERED: NITROGLYCERIN SL TABS 0.4 MG TAB SUBLINGUAL PRN (23:37)
--- NOTE | 2023-11-13 07:42 | P.HPIM ---
History of Present Illness Patient is a pleasant 83 years old male with past medical history of dementia, atrial fibrillation, hypertension, hyperlipidemia Presents because of recurrent syncopal episodes. Patient states he was getting to the living room when he got wobbly and dizzy and fell to the ground and with passing out, he states he woke up right away. He has been feeling more dizzy lately and he had similar episodes and fell about 5 times over the last 2 to 3 weeks. He states he has been feeling dizzy on and off. As per staff states he shital t to see his PCP a week ago who diagnosed him with orthostatic hypotension 1 day earlier he had stomach flu, he was complaining from stomach upset and he vomited more than once and he had diarrhea more than once but these are resolved now. He denies any dysuria or urgency No chest pain or dyspnea No headache dizziness weakness or numbness He denies smoking alcohol or illicit drugs He is hemodynamically stable He has unremarkable CBC, BMP except for mildly low potassium 3.1 and creatinine slightly elevated 1.27 with baseline 0.1-1.0. Liver enzymes not elevated. Troponin x 2 is -0.017 and less than 0.012. EKG showing ventricular paced rhythm at 63 and another EKG at a rate of 60 CTA of the head and neck is negative for aneurysm dissection or other abnormality Chest x-ray is negative for acute process Patient was started on aspirin 325 mg and admitted with cardiology consult There was documented in the chart for bradycardia and heart rate was in the 20s and history however since admission is heart rate was in 60s with a range 60-67. Also blood pressure and other vitals stable Review of Systems Review of systems CONSTITUTIONAL: No fever, no malaise, no fatigue. HEENT: No recent visual problems or hearing problems. Denied any sore throat. CARDIOVASCULAR: No orthopnea, PND, no palpitations, no syncope. PULMONARY: No shortness of breath, no cough, no hemoptysis. GASTROINTESTINAL: No diarrhea, no nausea, no vomiting, no abdominal pain. Normoactive bowel sounds. NEUROLOGICAL: No headaches, no weakness, no numbness. HEMATOLOGICAL: Denies any bleeding or petechiae. GENITOURINARY: Denies any burning micturition, frequency, or urgency. MUSCULOSKELETAL/RHEUMATOLOGICAL: Denies any joint pain, swelling, or any muscle pain. ENDOCRINE: Denies any polyuria or polydipsia. Past Medical History Past Medical History: Atrial Fibrillation, Dementia, Hyperlipidemia, Hypertension, Memory Impairment History of Any Multi-Drug Resistant Organisms: None Reported Past Surgical History: Cholecystectomy, Pacemaker Past Anesthesia/Blood Transfusion Reactions: No Reported Reaction Type of Cardiac Device: Unknown Device Placement Date:: 2013 Past Psychological History: No Psychological Hx Reported Smoking Status: Never smoker Past Alcohol Use History: None Reported Past Drug Use History: None Reported - Past Family History Mother Family Medical History: No Reported History Medications and Allergies Home Medications Medication Instructions Recorded Confirmed Type Warfarin [Coumadin] 7.5 mg PO DAILY 12/16/15 08/18/23 History Multivitamins, Thera [Multivitamin 1 tab PO DAILY 12/24/19 08/18/23 History (formulary)] carvediloL [Coreg*] 12.5 mg PO BID 12/24/19 08/18/23 History Cyanocobalamin [Vitamin B-12] 500 mcg PO DAILY 06/27/21 08/18/23 History Rosuvastatin Calcium 5 mg PO DAILY 10/11/22 08/18/23 History Albuterol Nebulized [Ventolin 2.5 mg INHALATION RT-Q4H PRN 08/18/23 08/18/23 History Nebulized] Cholecalciferol [Vitamin D3 (10 10 mcg PO DAILY 08/18/23 08/18/23 History Mcg = 400 Iu)] guaiFENesin [Mucinex] 600 mg PO Q6HR PRN 08/18/23 08/18/23 History Ascorbic Acid [Vitamin C] 1,000 mg PO DAILY 30 Days #30 tab 08/22/23 Rx Cholecalciferol [Vitamin D3 (25 50 mcg PO DAILY #30 tab 08/22/23 Rx Mcg = 1000 Iu)] Losartan [Cozaar] 100 mg PO DAILY #60 tab 08/22/23 Rx Zinc Sulfate [Orazinc] 220 mg PO DAILY 15 Days #15 cap 08/22/23 Rx amLODIPine [Norvasc] 10 mg PO DAILY 30 Days #30 tab 08/22/23 Rx Allergies Allergy/AdvReac Type Severity Reaction Status Date / Time shellfish derived [Shrimp] Allergy Anaphylaxis Verified 11/12/23 21:35 watermelon Allergy Abdominal Verified 11/12/23 21:35 Pain Physical Exam Vitals: Vital Signs Temp Pulse Resp BP Pulse Ox 11/13/23 06:00 60 18 148/89 97 11/13/23 04:00 60 18 119/56 97 11/13/23 00:00 62 18 122/59 96 11/12/23 23:00 60 18 124/64 95 11/12/23 21:29 97.8 F 67 18 113/63 97 Intake and Output 11/12/23 11/13/23 11/13/23 22:59 06:59 14:59 Other: Weight 101.151 kg GENERAL: The patient is alert and oriented x3, not in any acute distress. Well developed, well nourished. HEENT: Pupils are round and equally reacting to light. EOMI. No scleral icterus. No conjunctival pallor. Normocephalic, atraumatic. No pharyngeal erythema. No thyromegaly. CARDIOVASCULAR: S1 and S2 present. No murmurs, rubs, or gallops. PULMONARY: Chest is clear to auscultation, no wheezing , no crackles. ABDOMEN: Soft, nontender, nondistended, normoactive bowel sounds. No palpable organomegaly. MUSCULOSKELETAL: No joint swelling or deformity. EXTREMITIES: No cyanosis, clubbing, or pedal edema. NEUROLOGICAL: Gross neurological examination did not reveal any focal deficits. SKIN: No rashes. no petechiae. Results CBC & Chem 7: 11/12/23 21:31 11/12/23 21:31 Labs: Abnormal Lab Results - Last 24 Hours (Table) 11/12/23 11/12/23 Range/Units 21:31 21:31 PT 25.5 H (10.0-12.5) sec INR 2.6 H (<1.2) APTT 33.8 H (22.0-30.0) sec Potassium 3.4 L (3.5-5.1) mmol/L Chloride 108 H (98-107) mmol/L BUN 31 H (9-20) mg/dL Creatinine 1.27 H (0.66-1.25) mg/dL Glucose 136 H (74-99) mg/dL Assessment and Plan Assessment: Recurrent syncope, rule out arrhythmia. Could be contributed to orthostatic hypotension versus other. Mild acute kidney injury related to dehydration and mild gastroenteritis at 1.2 prior to admission Mild acute kidney injury Paroxysmal atrial fibrillation, currently patient has ventricular paced rhythm History of dementia Plan: Check orthostatic vitals Continue with telemetry monitoring with cardiology consult Continue with Coumadin with monitoring INR Giv encourage hydration and monitor creatinine Check TSH, B12. Check urine analysis and bladder scan Check orthostatic vitals Labs and medication were reviewed.. Continue same treatment. Continue with symptomatic treatment. Resume home medication. Monitor labs and vitals. DVT and GI prophylaxis. Further recommendations as per clinical course of the patient DVT prophylaxis: On warfarin GI Prophylaxis: Pepcid PT/OT: Pending Prognosis is guarded
[2023-11-13] MEDS: ASPIRIN 325 MG TAB PO SCH (08:14)
[2023-11-13] MEDS: FAMOTIDINE 20 MG/2 ML VIAL IV SCH (08:24)
[2023-11-13 09:18] LABS: Anion Gap 9 mmol/L; Blood Urea Nitrogen 32 mg/dL (9-20); Carbon Dioxide 24 mmol/L (22-30); Chloride 109 mmol/L (98-107); Glucose 104 mg/dL (74-99); Potassium 3.5 mmol/L (3.5-5.1); Sodium 142 mmol/L (137-145)
[2023-11-13 10:00] LABS: African American GFR (CKD) 69 (>60 ml/min/1.73 sqM); Non-African American GFR(CKD) 60 (>60 ml/min/1.73 sqM)
--- NOTE | 2023-11-13 10:38 | P.CRDCN ---
History of Present Illness History of present illness: HISTORY OF PRESENT ILLNESS: This is a 83-year-old male with a past medical history significant for permanent atrial fibrillation, nonischemic cardiomyopathy, sick sinus syndrome with prev ious pacemaker implantation, hypertension, hyperlipidemia, and asthma. Patient follows in the office with Dr. Wyatt. We have been asked to see the patient in consultation for symptomatic bradycardia. Patient examined at the bedside in the emergency room. There is no family present. The patient is a poor historian. Apparently he had a syncopal episode at his nursing facility. According to the ER documentation the patient has had multiple falls recently. The patient currently denies any chest pain or pressure. He denies any shortness of breath. Vital signs are stable. According to EMS the patient's heart rate was down in the 20s however there are no telemetry tracings available for review. Since patient has been in the hospital his heart rates have been around 60. His pacemaker appears to be functioning properly. DIAGNOSTICS: - EKG reveals paced rhythm - Chest xray negative for acute process - Laboratory data: WBC 8.9. Hemoglobin 15.2. Platelet count 175. INR 2.6. Sodium 142. Potassium 3.5. BUN 32. Creatinine 1.13. Magnesium 2.0. TSH 2.250. Troponin negative x 3. - Current home cardiac medications include carvedilol 12.5 mg twice a day, Norvasc 10 mg daily, rosuvastatin 5 mg daily, warfarin 7.5 mg daily, and losartan 50 mg daily. - Most recent echocardiogram obtained in October 2022 revealed ejection fraction 40 to 45%, mild left ventricular dilatation, mild concentric LVH, dyskinetic septum, apex hypokinetic, mild pulmonary hypertension, mild to moderate AR - Cardiac catheterization history: December 2019 revealing right dominant system, 35% mid LAD disease, minor irregularities in RCA and circumflex no significant CAD, no gradient across aortic valve, EF 50% REVIEW OF SYSTEMS: At the time of my exam: CONSTITUTIONAL: Denies fever or chills. HEENT: Denies blurred vision, vision changes, or eye pain. Denies hemoptysis CARDIOVASCULAR: Denies chest pain. Denies orthopnea. Denies PND. Denies palpitations RESPIRATORY: Denies shortness of breath. GASTROINTESTINAL: Denies abdominal pain. Denies nausea or vomiting. HEMATOLOGIC: Denies bleeding disorders. GENITOURINARY: Denies any blood in urine. SKIN: Denies pruitis. Denies rash. PHYSICAL EXAM: VITAL SIGNS: Reviewed. GENERAL: Well-developed in no acute distress. HEENT: Head is normocephalic. Pupils are equal, round. Sclerae anicteric. Mucous membranes of the mouth are moist. Neck supple. No JVD or thyromegaly LUNGS: Respirations even and unlabored. Lungs essentially clear to auscultation bilaterally. HEART: Regular rate and rhythm. S1 and S2 heard. ABDOMEN: Soft. Nondistended. Nontender. EXTREMITIES: Normal range of motion. No clubbing or cyanosis. Peripheral pulses intact. No lower extremity edema NEUROLOGIC: Awake and alert. Oriented x 3. ASSESSMENT: Reported syncope Questionable bradycardia per EMS, however no telemetry strips available for review, no evidence of bradycardia since being in the hospital Permanent atrial fibrillation Nonischemic cardiomyopathy Sick sinus syndrome with previous pacemaker implantation Hypertension Hyperlipidemia History of asthma PLAN: Obtain 2D echo to assess cardiac structure and function Resume home cardiac medications Continue home dose of carvedilol. No bradycardia has been seen since patient has arrived at the hospital Interrogate patient's pacemaker, [email or web address] Continue telemetry monitoring Continue anticoagulation with Coumadin. Monitor INR. Further recommendations pending patient course Nurse practitioner note has been reviewed by physician. Signing provider agrees with the documented findings, assessment, and plan of care documented by RACE ENGINE BUILDER as a scribe. Past Medical History Past Medical History: Atrial Fibrillation, Dementia, Hyperlipidemia, Hypertension, Memory Impairment History of Any Multi-Drug Resistant Organisms: None Reported Past Surgical History: Cholecystectomy, Pacemaker Past Anesthesia/Blood Transfusion Reactions: No Reported Reaction Type of Cardiac Device: Unknown Device Placement Date:: 2013 Past Psychological History: No Psychological Hx Reported Smoking Status: Never smoker Past Alcohol Use History: None Reported Past Drug Use History: None Reported - Past Family History Mother Family Medical History: No Reported History Medications and Allergies Home Medications Medication Instructions Recorded Confirmed Type Warfarin [Coumadin] 7.5 mg PO DAILY 12/16/15 11/13/23 History Multivitamins, Thera [Multivitamin 1 tab PO DAILY 12/24/19 11/13/23 History (formulary)] carvediloL [Coreg*] 12.5 mg PO BID 12/24/19 11/13/23 History Cyanocobalamin [Vitamin B-12] 500 mcg PO DAILY 06/27/21 11/13/23 History Rosuvastatin Calcium 5 mg PO DAILY 10/11/22 11/13/23 History Albuterol Nebulized [Ventolin 2.5 mg INHALATION RT-Q4H PRN 08/18/23 11/13/23 History Nebulized] Cholecalciferol [Vitamin D3 (10 10 mcg PO DAILY 08/18/23 11/13/23 History Mcg = 400 Iu)] guaiFENesin [Mucinex] 600 mg PO Q6HR PRN 08/18/23 11/13/23 History Ascorbic Acid [Vitamin C] 1,000 mg PO DAILY 30 Days #30 tab 08/22/23 11/13/23 Rx amLODIPine [Norvasc] 10 mg PO DAILY 30 Days #30 tab 08/22/23 11/13/23 Rx Losartan [Cozaar] 50 mg PO DAILY 11/13/23 11/13/23 History Zinc Gluconate [Zinc] 100 mg PO DAILY 11/13/23 11/13/23 History Allergies Allergy/AdvReac Type Severity Reaction Status Date / Time iodine Allergy Unknown Verified 11/13/23 08:22 shellfish derived [Shrimp] Allergy Anaphylaxis Verified 11/13/23 08:22 watermelon AdvReac Abdominal Verified 11/13/23 08:22 Pain Physical Exam Vitals: Vital Signs Temp Pulse Resp BP Pulse Ox 11/13/23 10:06 66 18 132/77 95 11/13/23 08:19 59 L 20 123/78 96 11/13/23 07:47 96 11/13/23 06:00 60 18 148/89 97 11/13/23 04:00 60 18 119/56 97 11/13/23 00:00 62 18 122/59 96 11/12/23 23:00 60 18 124/64 95 11/12/23 21:29 97.8 F 67 18 113/63 97 Intake and Output 11/12/23 11/13/23 11/13/23 22:59 06:59 14:59 Output Total 72 Balance -72 Output: Post Void Residual 72 Other: Weight 101.151 kg Results 11/12/23 21:31 11/13/23 08:16 Cardiac Enzymes 11/12/23 11/12/23 11/13/23 Range/Units 21:31 21:31 03:27 AST 44 (17-59) U/L Troponin I 0.017 <0.012 (0.000-0.034) ng/mL 11/13/23 Range/Units 08:16 AST (17-59) U/L Troponin I 0.013 (0.000-0.034) ng/mL Coagulation 11/12/23 Range/Units 21:31 PT 25.5 H (10.0-12.5) sec APTT 33.8 H (22.0-30.0) sec CBC 11/12/23 Range/Units 21:31 WBC 8.9 (3.8-10.6) k/uL RBC 4.85 (4.30-5.90) m/uL Hgb 15.2 (13.0-17.5) gm/dL Hct 44.7 (39.0-53.0) % Plt Count 175 (150-450) k/uL Comprehensive Metabolic Panel 11/12/23 11/13/23 Range/Units 21:31 08:16 Sodium 140 142 (137-145) mmol/L Potassium 3.4 L 3.5 (3.5-5.1) mmol/L Chloride 108 H 109 H (98-107) mmol/L Carbon Dioxide 23 24 (22-30) mmol/L BUN 31 H 32 H (9-20) mg/dL Creatinine 1.27 H 1.13 (0.66-1.25) mg/dL Glucose 136 H 104 H (74-99) mg/dL Calcium 8.6 9.0 (8.4-10.2) mg/dL AST 44 (17-59) U/L ALT 44 (4-49) U/L Alkaline Phosphatase 93 (38-126) U/L Total Protein 6.3 (6.3-8.2) g/dL Albumin 3.8 (3.5-5.0) g/dL Current Medications Generic Name Dose Route Start Last Admin Trade Name Freq PRN Reason Stop Dose Admin Aspirin 325 mg 11/13/23 09:00 11/13/23 08:24 Aspirin 325 Mg Tab PO Not Given DAILY [facility] Famotidine 10 mg 11/13/23 09:00 11/13/23 08:24 Famotidine 20 Mg/2 Ml Vial IV Not Given Q12HR [facility] Miscellaneous Information 1 each 11/13/23 07:41 Warfarin Per Pharmacy MISCELLANE DIRECTED PRN Per Protocol Protocol Nitroglycerin 0.4 mg 11/12/23 23:37 Nitroglycerin Sl Tabs 0.4 Mg Tab SUBLINGUAL Q5M PRN Chest Pain Intake and Output 11/12/23 11/13/23 11/13/23 22:59 06:59 14:59 Output Total 72 Balance -72 Output: Post Void Residual 72 Other: Weight 101.151 kg 11/12/23 21:31 11/13/23 08:16
[2023-11-13 10:56] LABS: Amorphous Sediment,Urine Rare /hpf; Appearance,Urine Cloudy (Clear); Bilirubin,Urine Negative (Negative); Blood,Urine Negative (Negative); Color,Urine Yellow; Glucose,Urine (UA) Negative (Negative); Hyaline Casts,Urine 9 /lpf (0-2); Ketones,Urine Negative (Negative); Leukocyte Esterase,Urine Negative (Negative); Mucus,Urine Occasional /hpf; Nitrite,Urine Negative (Negative); PH, Urine 5.5 (5.0-8.0); Protein,Urine Trace (Negative); Specific Gravity,Urine 1.028 (1.001-1.035); Squamous Epithelial Cell,Urine <1 /hpf (0-4); Urobilinogen,Urine <2.0 mg/dL (<2.0); WBC,Urine 4 /hpf (0-5)
[2023-11-13] MEDS: LOSARTAN 50 MG TAB PO SCH (11:41)
[2023-11-13] MEDS: ATORVASTATIN 10 MG TAB PO SCH (11:41)
[2023-11-13] MEDS: carvediloL 12.5 MG TAB PO SCH (11:41)
[2023-11-13] MEDS: WARFARIN 3 MG TAB PO ONE (17:32)
[2023-11-13] MEDS ORDERED: guaiFENesin 600 MG TABLET.ER PO PRN (19:59)
[2023-11-13] MEDS ORDERED: ALBUTEROL NEBULIZED 2.5 MG/3 ML INHALATION PRN (19:59)
--- NOTE | 2023-11-14 08:35 | P.PN ---
Subjective Patient is a pleasant 83 years old male with past medical history of dementia, atrial fibrillation, hypertension, hyperlipidemia Presents because of recurrent syncopal episodes. Patient states he was getting to the living room when he got wobbly and dizzy and fell to the ground and with passing out, he states he woke up right away. He has been feeling more dizzy lately and he had similar episodes and fell about 5 times over the last 2 to 3 weeks. He states he has been feeling dizzy on and off. As per staff states he went to see his PCP a week ago who diagnosed him with orthostatic hypotension 1 day earlier he had stomach flu, he was complaining from stomach upset and he vomited more than once and he had diarrhea more than once but these are resolved now. He denies any dysuria or urgency No chest pain or dyspnea No headache dizziness weakness or numbness He denies smoking alcohol or illicit drugs He is hemodynamically stable He has unremarkable CBC, BMP except for mildly low potassium 3.1 and creatinine slightly elevated 1.27 with baseline 0.1-1.0. Liver enzymes not elevated. Troponin x 2 is -0.017 and less than 0.012. EKG showing ventricular paced rhythm at 63 and another EKG at a rate of 60 CTA of the head and neck is negative for aneurysm dissection or other abnormality Chest x-ray is negative for acute process Patient was started on aspirin 325 mg and admitted with cardiology consult There was documented in the chart for bradycardia and heart rate was in the 20s and history however since admission is heart rate was in 60s with a range 60-67. Also blood pressure and other vitals stable 11/14/2023 Patient just waking up from sleep, he denies chest pain or dizziness. No other new complaints Yesterday we checked his orthostatic vitals and they were really off his systolic blood pressure dropped to 141 on supine down to 88 on standing. Patient also has evidence of dehydration on admission which might be c ontributing with creatinine 1.27, down to 1.1. We are going to check orthostatic again this morning and the distal positive for going to give him more fluids. I lowered his Norvasc 10 mg to 5 mg. Patient has evidence of supine hypertension with systolic blood pressure 141 therefore we recommend elevated head of bed 30 degree at night to help lower his supine hypertension. No other new complaint. Vital stable Labs from today still pending He is still on aspirin and warfarin. INR 3 yesterday recommend to check INR again today. Echocardiogram still pending. I reviewed TSH, B12, urine analysis and bladder scan: All checked and they were unremarkable Discussed with staff in details Review of systems CONSTITUTIONAL: No fever, no malaise, no fatigue. HEENT: No recent visual problems or hearing problems. Denied any sore throat. CARDIOVASCULAR: No orthopnea, PND, no palpitations, no syncope. PULMONARY: No shortness of breath, no cough, no hemoptysis. GASTROINTESTINAL: No diarrhea, no nausea, no vomiting, no abdominal pain. Normoactive bowel sounds. NEUROLOGICAL: No headaches, no weakness, no numbness. Active Medications Generic Name Dose Route Start Last Admin Trade Name Freq PRN Reason Stop Dose Admin Albuterol Sulfate 2.5 mg 11/13/23 19:59 Albuterol Nebulized 2.5 Mg/3 Ml INHALATION RT-Q4H PRN Shortness Of Breath Amlodipine Besylate 5 mg 11/14/23 09:00 Amlodipine 5 Mg Tab PO DAILY [facility] Ascorbic Acid 1,000 mg 11/14/23 09:00 Ascorbic Acid 500 Mg Tab PO DAILY [facility] Atorvastatin Calcium 10 mg 11/13/23 10:45 11/13/23 11:41 Atorvastatin 10 Mg Tab PO 10 mg DAILY [facility] Administration Carvedilol 12.5 mg 11/13/23 10:30 11/14/23 06:41 Carvedilol 12.5 Mg Tab PO 12.5 mg BID-W/MEALS [facility] Administration Cholecalciferol 10 mcg 11/14/23 09:00 Cholecalciferol 10 Mcg (400 Iu) Tablet PO DAILY [facility] Cyanocobalamin 500 mcg 11/14/23 09:00 Cyanocobalamin 500 Mcg Tab PO DAILY [facility] Famotidine 10 mg 11/13/23 09:00 11/13/23 20:11 Famotidine 20 Mg/2 Ml Vial IV 10 mg Q12HR [facility] Administration Guaifenesin 600 mg 11/13/23 19:59 Guaifenesin 600 Mg Tablet.Er PO Q6HR PRN Cough Losartan Potassium 50 mg 11/13/23 10:45 11/13/23 11:41 Losartan 50 Mg Tab PO 50 mg DAILY [facility] Administration Miscellaneous Information 1 each 11/13/23 07:41 Warfarin Per Pharmacy MISCELLANE DIRECTED PRN Per Protocol Protocol Multivitamins 1 each 11/14/23 09:00 Multivitamins, Thera 1 Each Tab PO DAILY [facility] Nitroglycerin 0.4 mg 11/12/23 23:37 Nitroglycerin Sl Tabs 0.4 Mg Tab SUBLINGUAL Q5M PRN Chest Pain Quetiapine Fumarate 12.5 mg 11/14/23 02:15 Quetiapine 25 Mg Tab PO HS PRN Mild Anxiety Zinc Sulfate 220 mg 11/14/23 09:00 Zinc Sulfate 220 Mg Cap PO DAILY [facility] Objective - Vital Signs Vital signs: Vital Signs Temp 98.1 F 11/14/23 04:00 Pulse 60 11/14/23 04:00 Resp 16 11/14/23 04:00 BP 134/73 11/14/23 04:00 Pulse Ox 96 11/14/23 08:17 FiO2 Intake & Output 11/13/23 11/14/23 11/14/23 18:59 06:59 18:59 Output Total 72 Balance -72 Weight 101.151 kg Output: Post Void Residual 72 Other: Voiding Method Toilet Toilet Urinal Urinal # Voids 1 - Exam GENERAL: The patient is alert and oriented x3, not in any acute distress. Well developed, well nourished. HEENT: Pupils are round and equally reacting to light. EOMI. No scleral icterus. No conjunctival pallor. Normocephalic, atraumatic. No pharyngeal erythema. No thyromegaly. CARDIOVASCULAR: S1 and S2 present. No murmurs, rubs, or gallops. PULMONARY: Chest is clear to auscultation, no wheezing , no crackles. ABDOMEN: Soft, nontender, nondistended, normoactive bowel sounds. No palpable organomegaly. MUSCULOSKELETAL: No joint swelling or deformity. EXTREMITIES: No cyanosis, clubbing, or pedal edema. NEUROLOGICAL: Gross neurological examination did not reveal any focal deficits. SKIN: No rashes. no petechiae. - Labs CBC & Chem 7: 11/12/23 21:31 11/13/23 08:16 Labs: Abnormal Lab Results - Last 24 Hours (Table) 11/13/23 11/13/23 11/13/23 Range/Units 08:16 09:58 10:17 PT 29.0 H (10.0-12.5) sec INR 3.0 H (<1.2) Chloride 109 H (98-107) mmol/L BUN 32 H (9-20) mg/dL Glucose 104 H (74-99) mg/dL Vitamin B12 2383.0 H (200.0-944.0) pg/mL Urine Protein Trace H (Negative) Amorphous Sediment Rare H (None) /hpf Hyaline Casts 9 H (0-2) /lpf Urine Mucus Occasional H (None) /hpf Assessment and Plan Assessment: recurrent falls secondary to syncope, rule out arrhythmia. Could be contributed to orthostatic hypotension versus other. Orthostatic hypotension, present on admission Mild acute kidney injury related to dehydration and mild gastroenteritis at 1.2 prior to admission Paroxysmal atrial fibrillation, currently patient has ventricular paced rhythm History of dementia Plan: Check orthostatic vitals this morning Continue with telemetry monitoring with cardiology consult Continue with Coumadin with monitoring INR Giv encourage hydration and monitor creatinine Labs and medication were reviewed.. Continue same treatment. Continue with symptomatic treatment. Resume home medication. Monitor labs and vitals. DVT and GI prophylaxis. Further recommendations as per clinical course of the patient DVT prophylaxis: On warfarin GI Prophylaxis: Pepcid PT/OT: Pending Prognosis is guarded
[2023-11-14] MEDS ORDERED: amLODIPine 10 MG TAB PO SCH (09:00)
[2023-11-14] MEDS ORDERED: amLODIPine 5 MG TAB PO SCH (09:00)
[2023-11-14] MEDS: CHOLECALCIFEROL 10 MCG (400 IU) TABLET PO SCH (09:25)
[2023-11-14] MEDS: ZINC SULFATE 220 MG CAP PO SCH (09:25)
[2023-11-14] MEDS: MULTIVITAMINS, THERA 1 EACH TAB PO SCH (09:25)
[2023-11-14] MEDS: CYANOCOBALAMIN 500 MCG TAB PO SCH (09:25)
[2023-11-14] MEDS: ASCORBIC ACID 500 MG TAB PO SCH (09:25)
[2023-11-14] MEDS: FAMOTIDINE 20 MG TAB PO SCH (09:27)
[2023-11-14] MEDS: LOSARTAN 25 MG TAB PO SCH (09:41)
[2023-11-14] MEDS: SODIUM CHLORIDE 0.9% 500 ML 500 ML IV ONE ×2 (10:20→11:24)
[2023-11-14] MEDS: MIDODRINE 5 MG TAB PO SCH (11:16)
[2023-11-14 11:18] LABS: Basophils % (A) 1 %; Eosinophils # (A) 0.4 k/uL (0-0.7); Eosinophils % (A) 5 %; HCT 44.7 % (39.0-53.0); HGB 14.2 gm/dL (13.0-17.5); Lymphocytes % (A) 14 %; MCH 29.6 pg (25.0-35.0); MCHC 31.8 g/dL (31.0-37.0); MCV 93.1 fL (80.0-100.0); Monocytes # (A) 0.4 k/uL (0-1.0); Monocytes % (A) 6 %; Neutrophils # (A) 4.9 k/uL (1.3-7.7); Neutrophils % (A) 73 %; Platelet Count 173 k/uL (150-450); RDW 14.8 % (11.5-15.5); WBC 6.8 k/uL (3.8-10.6)
[2023-11-14 11:29] LABS: African American GFR (CKD) 69 (>60 ml/min/1.73 sqM); Anion Gap 4 mmol/L; Blood Urea Nitrogen 27 mg/dL (9-20); Calcium 8.5 mg/dL (8.4-10.2); Carbon Dioxide 28 mmol/L (22-30); Chloride 110 mmol/L (98-107); Glucose 96 mg/dL (74-99); Non-African American GFR(CKD) 60 (>60 ml/min/1.73 sqM); Potassium 3.7 mmol/L (3.5-5.1); Sodium 142 mmol/L (137-145)
[2023-11-14 11:30] LABS: INR 3.1 (<1.2); Prothrombin Time 30.3 sec (10.0-12.5)
[2023-11-14 11:40] VITALS: BMI 28.6
--- NOTE | 2023-11-14 12:07 | CA ---
Transthoracic Echo Report Name: Pawan Balbuena Age: 83 Gender: M : 1940 Exam Date: 11/13/2023 11:15 Exam Location: [facility] Ht (in): 72 Wt (lb): 223 Ordering Physician: Molly Zavala Attending/Referring Phys: [id number], Lucas Grants Administrator Sudhir Salazar RDCS Procedure CPT: Indications: LV function, possible syncope Cardiac Hx: Technical Quality: Contrast 1: Definity Total Dose (mL): 3 Contrast 2: Total Dose (mL): MEASUREMENTS (Male / Female) Normal Values 2D ECHO LV Diastolic Diameter PLAX 6.0 cm 4.2 - 5.9 / 3.9 - 5.3 cm LV Systolic Diameter PLAX 3.7 cm IVS Diastolic Thickness 1.1 cm 0.6 - 1.0 / 0.6 - 0.9 cm LVPW Diastolic Thickness 1.3 cm 0.6 - 1.0 / 0.6 - 0.9 cm LV Relative Wall Thickness 0.4 LVOT Diameter 2.3 cm Aortic Root Diameter 4.0 cm LA Systolic Diameter LX 5.2 cm 3.0 - 4.0 / 2.7 - 3.8 cm LA Volume 129.6 cm??? 18 - 58 / 22 - 52 cm??? LA Volume Index 56.6 cm???/m??? 16 - 28 cm???/m??? DOPPLER AV Peak Velocity 106.5 cm/s AV Peak Gradient 4.5 mmHg AV Mean Velocity 68.3 cm/s AV Mean Gradient 2.2 mmHg AV Velocity Time Integral 17.7 cm AI Peak Velocity 385.0 cm/s AI Peak Gradient 59.3 mmHg AI Pressure Half Time 885.1 ms LVOT Peak Velocity 45.8 cm/s LVOT Peak Gradient 0.8 mmHg LVOT Velocity Time Integral 8.7 cm LVOT Stroke Volume 37.8 cm??? LVOT Stroke Volume Index 17.0 ml/m??? LVOT Cardiac Index 974.1 cm???/min???m??? AV Area Cont Eq vti 2.1 cm??? AV Area Cont Eq pk 1.9 cm??? MV Area PHT 3.8 cm??? Mitral E Point Velocity 62.1 cm/s Mitral A Point Velocity 29.6 cm/s Mitral E to A Ratio 2.1 MV Deceleration Time 200.2 ms TR Peak Velocity 234.0 cm/s TR Peak Gradient 21.9 mmHg PV Peak Velocity 69.4 cm/s PV Peak Gradient 1.9 mmHg FINDINGS Left Ventricle Mildly increased septal wall thickness. Mildly increased left ventricular diastolic diameter. Left ventricular ejection fraction is estimated at 45%. There is mid to apical anterior, apical inferior hypokinesis which may be consistent with CAD versus Takotsubo's cardiomyopathy. Right Ventricle Normal right ventricular size. Right Atrium Normal right atrial size. Left Atrium Moderately increased left atrial diameter. Moderately increased left atrial area. Mitral Valve Mild mitral regurgitation. Aortic Valve Mild aortic regurgitation. Tricuspid Valve Mild tricuspid regurgitation. Pulmonic Valve Trace pulmonic regurgitation. Pericardium No pericardial effusion. Aorta Mildly dilated aortic root and proximal ascending aorta. CONCLUSIONS Left ventricular EF 45% with apical hypokinesis. May be consistent with CAD versus Takotsubo's cardiomyopathy. Mildly dilated left atrium Mild mitral regurgitation Mild tricuspid regurgitation Previewed by: Dr. Mayco Dc DO (Electronically Signed) Final Date: 14 November 2023 12:07
--- NOTE | 2023-11-14 12:13 | P.PN ---
Subjective HISTORY OF PRESENT ILLNESS: This is a 83-year-old male with a past medical history significant for permanent atrial fibrillation, nonischemic cardiomyopathy, sick sinus syndrome with previous pacemaker implantation, hypertension, hyperlipidemia, and asthma. Patient follows in the office with Dr. Wyatt. We have been asked to see the patient in consultation for symptomatic bradycardia. Patient examined at the bedside in the emergency room. There is no family present. The patient is a poor historian. Apparently he had a syncopal episode at his nursing facility. According to the ER documentation the patient has had multiple falls recently. The patient currently denies any chest pain or pressure. He denies any shortness of breath. Vital signs are stable. According to EMS the patient's heart rate was down in the 20s however there are no telemetry tracings available for review. Since patient has been in the hospital his heart rates have been around 60. His pacemaker appears to be functioning properly. DIAGNOSTICS: - EKG reveals paced rhythm - Chest xray negative for acute process - Laboratory data: WBC 8.9. Hemoglobin 15.2. Platelet count 175. INR 2.6. Sodium 142. Potassium 3.5. BUN 32. Creatinine 1.13. Magnesium 2.0. TSH 2.250. Troponin negative x 3. - Current home cardiac medications include carvedilol 12.5 mg twice a day, Norvasc 10 mg daily, rosuvastatin 5 mg daily, warfarin 7.5 mg daily, and losartan 50 mg daily. - Most recent echocardiogram obtained in October 2022 revealed ejection fraction 40 to 45%, mild left ventricular dilatation, mild concentric LVH, dyskinetic septum, apex hypokinetic, mild pulmonary hypertension, mild to moderate AR - Cardiac catheterization history: December 2019 revealing right dominant system, 35% mid LAD disease, minor irregularities in RCA and circumflex no significant CAD, no gradient across aortic valve, EF 50% 11/14/2023 Patient examined this morning at the bedside. Patient currently denies chest pain or pressure. He denies shortness of breath. He does report dizziness upon standing. Patient's pacemaker was interrogated and is functioning appropriately. No significant events were noted. Patient was found to have positive orthostatic blood pressures with a systolic blood pressure supine of 141 dropping to 88 standing. Echocardiogram completed revealing ejection fraction 45% with mid to apical anterior, apical inferior hypokinesis, mild MR, mild TR PHYSICAL EXAM: VITAL SIGNS: Reviewed. GENERAL: Well-developed in no acute distress. HEENT: Head is normocephalic. Pupils are equal, round. Sclerae anicteric. Mucous membranes of the mouth are moist. Neck supple. No JVD or thyromegaly LUNGS: Respirations even and unlabored. Lungs essentially clear to auscultation bilaterally. HEART: Regular rate and rhythm. S1 and S2 heard. ABDOMEN: Soft. Nondistended. Nontender. EXTREMITIES: Normal range of motion. No clubbing or cyanosis. Peripheral pulses intact. No lower extremity edema NEUROLOGIC: Awake and alert. Oriented x 3. ASSESSMENT: Reported syncope Questionable bradycardia per EMS, however no telemetry strips available for review, no evidence of bradycardia since being in the hospital Orthostatic hypotension Permanent atrial fibrillation Nonischemic cardiomyopathy Sick sinus syndrome with previous pacemaker implantation Hypertension Hyperlipidemia History of asthma PLAN: Discontinue amlodipine Decrease losartan to 25 mg daily Add midodrine 2.5 mg 3 times a day Continue telemetry monitoring Continue to monitor orthostatic blood pressures Continue anticoagulation with Coumadin. Monitor INR. Further recommendations pending patient course Nurse practitioner note has been reviewed by physician. Signing provider agrees with the documented findings, assessment, and plan of care documented by [employer] CONSULTANT as a scribe. Objective - Vital Signs Vital signs: Vital Signs Temp 97.4 F L 11/14/23 09:06 Pulse 61 11/14/23 11:01 Resp 16 11/14/23 11:01 BP 117/77 11/14/23 11:03 Pulse Ox 97 11/14/23 11:01 FiO2 Intake & Output 11/13/23 11/14/23 11/14/23 18:59 06:59 18:59 Output Total 72 Balance -72 Weight 101.151 kg 101.151 kg Output: Post Void Residual 72 Other: Voiding Method Toilet Toilet Toilet Urinal Urinal Urinal # Voids 1 1 - Labs CBC & Chem 7: 11/14/23 09:24 11/14/23 09:24 Labs: Abnormal Lab Results - Last 24 Hours (Table) 11/13/23 11/14/23 11/14/23 Range/Units 08:16 09:24 09:24 PT 30.3 H (10.0-12.5) sec INR 3.1 H (<1.2) Chloride 110 H (98-107) mmol/L BUN 27 H (9-20) mg/dL Vitamin B12 2383.0 H (200.0-944.0) pg/mL
[2023-11-14] MEDS: WARFARIN 5 MG TAB PO ONE (18:03)
[2023-11-14] MEDS: QUEtiapine 25 MG TAB PO PRN (20:59)
[2023-11-15 11:28] LABS: Basophils % (A) 1 %; Eosinophils # (A) 0.4 k/uL (0-0.7); Eosinophils % (A) 5 %; HCT 42.7 % (39.0-53.0); HGB 13.8 gm/dL (13.0-17.5); Lymphocytes # (A) 0.8 k/uL (1.0-4.8); Lymphocytes % (A) 11 %; MCHC 32.5 g/dL (31.0-37.0); MCV 92.3 fL (80.0-100.0); Mean Platelet Volume 8.5; Monocytes # (A) 0.4 k/uL (0-1.0); Monocytes % (A) 5 %; Neutrophils # (A) 5.9 k/uL (1.3-7.7); Neutrophils % (A) 78 %; Platelet Count 174 k/uL (150-450); RBC 4.62 m/uL (4.30-5.90); RDW 15.1 % (11.5-15.5); WBC 7.6 k/uL (3.8-10.6)
[2023-11-15 11:44] LABS: African American GFR (CKD) 76 (>60 ml/min/1.73 sqM); Anion Gap 7 mmol/L; Blood Urea Nitrogen 23 mg/dL (9-20); Calcium 8.5 mg/dL (8.4-10.2); Carbon Dioxide 24 mmol/L (22-30); Chloride 109 mmol/L (98-107); Glucose 102 mg/dL (74-99); Non-African American GFR(CKD) 66 (>60 ml/min/1.73 sqM); Potassium 3.8 mmol/L (3.5-5.1); Sodium 140 mmol/L (137-145)
[2023-11-15 11:50] LABS: INR 3.8 (<1.2)
[2023-11-15] MEDS: MIDODRINE 5 MG TAB PO SCH (11:58)
--- NOTE | 2023-11-15 12:40 | P.PN ---
Subjective HISTORY OF PRESENT ILLNESS: This is a 83-year-old male with a past medical history significant for permanent atrial fibrillation, nonischemic cardiomyopathy, sick sinus syndrome with previous pacemaker implantation, hypertension, hyperlipidemia, and asthma. Patient follows in the office with Dr. Wyatt. We have been asked to see the patient in consultation for symptomatic bradycardia. Patient examined at the bedside in the emergency room. There is no family present. The patient is a poor historian. Apparently he had a syncopal episode at his nursing facility. According to the ER documentation the patient has had multiple falls recently. The patient currently denies any chest pain or pressure. He denies any shortness of breath. Vital signs are stable. According to EMS the patient's heart rate was down in the 20s however there are no telemetry tracings available for review. Since patient has been in the hospital his heart rates have been around 60. His pacemaker appears to be functioning properly. DIAGNOSTICS: - EKG reveals paced rhythm - Chest xray negative for acute process - Laboratory data: WBC 8.9. Hemoglobin 15.2. Platelet count 175. INR 2.6. Sodium 142. Potassium 3.5. BUN 32. Creatinine 1.13. Magnesium 2.0. TSH 2.250. Troponin negative x 3. - Current home cardiac medications include carvedilol 12.5 mg twice a day, Norvasc 10 mg daily, rosuvastatin 5 mg daily, warfarin 7.5 mg daily, and losartan 50 mg daily. - Most recent echocardiogram obtained in October 2022 revealed ejection fraction 40 to 45%, mild left ventricular dilatation, mild concentric LVH, dyskinetic septum, apex hypokinetic, mild pulmonary hypertension, mild to moderate AR - Cardiac catheterization history: December 2019 revealing right dominant system, 35% mid LAD disease, minor irregularities in RCA and circumflex no significant CAD, no gradient across aortic valve, EF 50% 11/14/2023 Patient examined this morning at the bedside. Patient currently denies chest pain or pressure. He denies shortness of breath. He does report dizziness upon standing. Patient's pacemaker was interrogated and is functioning appropriately. No significant events were noted. Patient was found to have positive orthostatic blood pressures with a systolic blood pressure supine of 141 dropping to 88 standing. Echocardiogram completed revealing ejection fraction 45% with mid to apical anterior, apical inferior hypokinesis, mild MR, mild TR 11/15/2023 Patient examined this morning. He is sitting up in the chair. His is present. Patient continues to have positive orthostatic blood pressures. Patient's baseline blood pressures are now in the low 100s which is new from yesterday as his blood pressures were in the [id number]. Patient's states he has been having dizziness and episodes of falls for the past 5 weeks. She states about 3 weeks ago they did get a blood pressure machine and he has been having orthostatic changes on an outpatient basis as well. They did speak to Dr. Wyatt about this and his losartan was decreased on an outpatient basis. PHYSICAL EXAM: VITAL SIGNS: Reviewed. GENERAL: Well-developed in no acute distress. HEENT: Head is normocephalic. Pupils are equal, round. Sclerae anicteric. Mucous membranes of the mouth are moist. Neck supple. No JVD or thyromegaly LUNGS: Respirations even and unlabored. Lungs essentially clear to auscultation bilaterally. HEART: Regular rate and rhythm. S1 and S2 heard. ABDOMEN: Soft. Nondistended. Nontender. EXTREMITIES: Normal range of motion. No clubbing or cyanosis. Peripheral pulses intact. No lower extremity edema NEUROLOGIC: Awake and alert. Oriented x 3. ASSESSMENT: Reported syncope Questionable bradycardia per EMS, however no telemetry strips available for review, no evidence of bradycardia since being in the hospital Orthostatic hypotension, symptomatic Permanent atrial fibrillation Nonischemic cardiomyopathy Sick sinus syndrome with previous pacemaker implantation Hypertension Hyperlipidemia History of asthma PLAN: Amlodipine has been discontinued Decrease carvedilol to 3.125 mg twice a day Continue losartan. Hold for systolic blood pressure less than 100 Increase midodrine to 5 mg 3 times a day Nursing to place AUR[place]A hose to bilateral lower extremities Continue telemetry monitoring Continue to monitor orthostatic blood pressures every shift Continue anticoagulation with Coumadin. Monitor INR. Hold Coumadin tonight as INR is 3.8. Further recommendations pending patient course Nurse practitioner note has been reviewed by physician. Signing provider agrees with the documented findings, assessment, and plan of care documented by WATER/WASTEWATER ENGINEER as a scribe. Objective - Vital Signs Vital signs: Vital Signs Temp 97.7 F 11/15/23 11:25 Pulse 60 11/15/23 11:25 Resp 18 11/15/23 11:25 BP 109/67 11/15/23 11:25 Pulse Ox 95 11/15/23 11:25 FiO2 Intake & Output 11/14/23 11/15/23 11/15/23 18:59 06:59 18:59 Intake Total 480 180 Output Total 450 Balance 480 -450 180 Weight 101.151 kg Intake: Oral 480 180 Output: Urine 450 Other: Voiding Method Urinal Urinal Diaper Incontinent # Voids 2 1 - Labs CBC & Chem 7: 11/15/23 11:01 11/15/23 11:01 Labs: Abnormal Lab Results - Last 24 Hours (Table) 11/15/23 11/15/23 11/15/23 Range/Units 11:01 11:01 11:01 Lymphocytes # 0.8 L (1.0-4.8) k/uL PT 37.0 H (10.0-12.5) sec INR 3.8 H (<1.2) Chloride 109 H (98-107) mmol/L BUN 23 H (9-20) mg/dL Glucose 102 H (74-99) mg/dL
--- NOTE | 2023-11-15 13:26 | P.PN ---
Subjective Progress Note Date: 11/15/23 Patient is a pleasant 83 years old male with past medical history of dementia, atrial fibrillation, hypertension, hyperlipidemia Presents because of recurrent syncopal episodes. Patient states he was getting to the living room when he got wobbly and dizzy and fell to the ground and with passing out, he states he woke up right away. He has been feeling more dizzy lately and he had similar episodes and fell about 5 times over the last 2 to 3 weeks. He states he has been feeling dizzy on and off. As per staff states he went to see his PCP a week ago who diagnosed him with orthostatic hypotension 1 day earlier he had stomach flu, he was complaining from stomach upset and he vomited more than once and he had diarrhea more than once but these are resolved now. He denies any dysuria or urgency No chest pain or dyspnea No headache dizziness weakness or numbness He denies smoking alcohol or illicit drugs He is hemodynamically stable He has unremarkable CBC, BMP except for mildly low potassium 3.1 and creatinine slightly elevated 1.27 with baseline 0.1-1.0. Liver enzymes not elevated. Troponin x 2 is -0.017 and less than 0.012. EKG showing ventricular paced rhythm at 63 and another EKG at a rate of 60 CTA of the head and neck is negative for aneurysm dissection or other abnormality Chest x-ray is negative for acute process Patient was started on aspirin 325 mg and admitted with cardiology consult There was documented in the chart for bradycardia and heart rate was in the 20s and history however since admission is heart rate was in 60s with a range 60-67. Also blood pressure and other vitals stable 11/14/2023 Patient just waking up from sleep, he denies chest pain or dizziness. No other new complaints Yesterday we checked his orthostatic vitals and they were really off his sys tolic blood pressure dropped to 141 on supine down to 88 on standing. Patient also has evidence of dehydration on admission which might be contributing with creatinine 1.27, down to 1.1. We are going to check orthostatic again this morning and the distal positive for going to give him more fluids. I lowered his Norvasc 10 mg to 5 mg. Patient has evidence of supine hypertension with systolic blood pressure 141 therefore we recommend elevated head of bed 30 degree at night to help lower his supine hypertension. No other new complaint. Vital stable Labs from today still pending He is still on aspirin and warfarin. INR 3 yesterday recommend to check INR again today. Echocardiogram still pending. I reviewed TSH, B12, urine analysis and bladder scan: All checked and they were unremarkable Discussed with staff in details 11/14. Patient seen and examined. Patient still very orthostatic, got dizzy on standing up. Patient was started on midodrine, dose increased to 5 mg 3 times daily. REVIEW OF SYSTEMS: CONSTITUTIONAL: No fever, no malaise,. CARDIOVASCULAR: No chest pain, no palpitations, no syncope. PULMONARY: No shortness of breath, no cough, GASTROINTESTINAL: No diarrhea, no nausea, no vomiting, no abdominal pain. NEUROLOGICAL: No headaches, no weakness, PHYSICAL EXAMINATION: GENERAL: The patient is alert and oriented x3, not in any acute distress. Well developed, well nourished. HEENT: Pupils are round and equally reacting to light. EOMI. No scleral icterus. No conjunctival pallor. Normocephalic, atraumatic. No pharyngeal erythema. No thyromegaly. CARDIOVASCULAR: S1 and S2 present. No murmurs, rubs, or gallops. PULMONARY: Chest is clear to auscultation, no wheezing or crackles. ABDOMEN: Soft, nontender, nondistended, normoactive bowel sounds. No palpable organomegaly. MUSCULOSKELETAL: No joint swelling or deformity. EXTREMITIES: No cyanosis, clubbing, or pedal edema. NEUROLOGICAL: Gross neurological examination did not reveal any focal deficits. SKIN: No rashes. Assessment and plan recurrent falls secondary to syncope, rule out arrhythmia. Could be contributed to orthostatic hypotension versus other. Orthostatic hypotension, present on admission Mild acute kidney injury related to dehydration and mild gastroenteritis at 1.2 prior to admission Paroxysmal atrial fibrillation, currently patient has ventricular paced rhythm History of dementia Monitor vital signs Monitor CBC Monitor CMP Continue telemetry monitoring Encourage use of incentive spirometer Check orthostatics Continue Coumadin pharmacy to dose Continue Lipitor Continue Coreg, losartan, midodrine Cardiology following Labs and medication were reviewed.. Continue same treatment. Continue with symptomatic treatment. Resume home medication. Monitor labs and vitals. DVT and GI prophylaxis. Further recommendations as per clinical course of the patient Dictation was produced using [employer] dictation software. please excuse any grammatical, word or spelling errors. Objective - Vital Signs Vital signs: Vital Signs Temp 98 F 11/15/23 08:45 Pulse 60 11/15/23 08:45 Resp 18 11/15/23 08:45 BP 92/58 11/15/23 09:30 Pulse Ox 95 11/15/23 08:45 FiO2 Intake & Output 11/14/23 11/15/23 11/15/23 18:59 06:59 18:59 Intake Total 480 180 Output Total 450 Balance 480 -450 180 Weight 101.151 kg Intake: Oral 480 180 Output: Urine 450 Other: Voiding Method Urinal Urinal Diaper Incontinent # Voids 2 1 - Labs CBC & Chem 7: 11/15/23 11:01 11/15/23 11:01 Labs: Abnormal Lab Results - Last 24 Hours (Table) 11/14/23 11/14/23 Range/Units 09:24 09:24 PT 30.3 H (10.0-12.5) sec INR 3.1 H (<1.2) Chloride 110 H (98-107) mmol/L BUN 27 H (9-20) mg/dL
[2023-11-15] MEDS: carvediloL 3.125 MG TAB PO SCH (16:49)
[2023-11-15] MEDS: WARFARIN 0.5 MG TAB PO ONE (17:22)
[2023-11-15] MEDS ORDERED: carvediloL 6.25 MG TAB PO SCH (17:30)
[2023-11-16 09:38] LABS: INR 3.9 (<1.2)
--- NOTE | 2023-11-16 11:58 | P.PN ---
Subjective HISTORY OF PRESENT ILLNESS: This is a 83-year-old male with a past medical history significant for permanent atrial fibrillation, nonischemic cardiomyopathy, sick sinus syndrome with previous pacemaker implantation, hypertension, hyperlipidemia, and asthma. Patient follows in the office with Dr. Wyatt. We have been asked to see the patient in consultation for symptomatic bradycardia. Patient examined at the bedside in the emergency room. There is no family present. The patient is a poor historian. Apparently he had a syncopal episode at his nursing facility. According to the ER documentation the patient has had multiple falls recently. The patient currently denies any chest pain or pressure. He denies any shortness of breath. Vital signs are stable. According to EMS the patient's heart rate was down in the 20s however there are no telemetry tracings available for review. Since patient has been in the hospital his heart rates have been around 60. His pacemaker appears to be functioning properly. DIAGNOSTICS: - EKG reveals paced rhythm - Chest xray negative for acute process - Laboratory data: WBC 8.9. Hemoglobin 15.2. Platelet count 175. INR 2.6. Sodium 142. Potassium 3.5. BUN 32. Creatinine 1.13. Magnesium 2.0. TSH 2.250. Troponin negative x 3. - Current home cardiac medications include carvedilol 12.5 mg twice a day, Norvasc 10 mg daily, rosuvastatin 5 mg daily, warfarin 7.5 mg daily, and losartan 50 mg daily. - Most recent echocardiogram obtained in October 2022 revealed ejection fraction 40 to 45%, mild left ventricular dilatation, mild concentric LVH, dyskinetic septum, apex hypokinetic, mild pulmonary hypertension, mild to moderate AR - Cardiac catheterization history: December 2019 revealing right dominant system, 35% mid LAD disease, minor irregularities in RCA and circumflex no significant CAD, no gradient across aortic valve, EF 50% 11/14/2023 Patient examined this morning at the bedside. Patient currently denies chest pain or pressure. He denies shortness of breath. He does report dizziness upon standing. Patient's pacemaker was interrogated and is functioning appropriately. No significant events were noted. Patient was found to have positive orthostatic blood pressures with a systolic blood pressure supine of 141 dropping to 88 standing. Echocardiogram completed revealing ejection fraction 45% with mid to apical anterior, apical inferior hypokinesis, mild MR, mild TR 11/15/2023 Patient examined this morning. He is sitting up in the chair. His is present. Patient continues to have positive orthostatic blood pressures. Patient's baseline blood pressures are now in the low 100s which is new from yesterday as his blood pressures were in the [id number]. Patient's states he has been having dizziness and episodes of falls for the past 5 weeks. She states about 3 weeks ago they did get a blood pressure machine and he has been having orthostatic changes on an outpatient basis as well. They did speak to Dr. Wyatt about this and his losartan was decreased on an outpatient basis. 11/16/2023 Patient examined this morning. He is sitting up in the chair. Patient's pulses present. Orthostatic blood pressures obtained this morning are still positive. Blood pressure sitting 107/66. Blood pressure standing 76/39. INR today 3.9. PHYSICAL EXAM: VITAL SIGNS: Reviewed. GENERAL: Well-developed in no acute distress. HEENT: Head is normocephalic. Pupils are equal, round. Sclerae anicteric. Mucous membranes of the mouth are moist. Neck supple. No JVD or thyromegaly LUNGS: Respirations even and unlabored. Lungs essentially clear to auscultation bilaterally. HEART: Regular rate and rhythm. S1 and S2 heard. ABDOMEN: Soft. Nondistended. Nontender. EXTREMITIES: Normal range of motion. No clubbing or cyanosis. Peripheral pulses intact. No lower extremity edema NEUROLOGIC: Awake and alert. Oriented x 3. ASSESSMENT: Reported syncope Questionable bradycardia per EMS, however no telemetry strips available for review, no evidence of bradycardia since being in the hospital Orthostatic hypotension, symptomatic Permanent atrial fibrillation Nonischemic cardiomyopathy Sick sinus syndrome with previous pacemaker implantation Hypertension Hyperlipidemia History of asthma PLAN: Amlodipine has been discontinued Continue decreased dose of carvedilol 3.125 mg twice a day Discontinue losartan Increase midodrine to 10 mg 3 times a day Add Florinef 0.1 mg daily Continue to monitor orthostatic blood pressures every shift Continue AUR[place]A hose to bilateral lower extremities Continue telemetry monitoring Continue anticoagulation with Coumadin. Monitor INR. Hold Coumadin tonight as INR is 3.9. Further recommendations pending patient course Nurse practitioner note has been reviewed by physician. Signing provider agrees with the documented findings, assessment, and plan of care documented by SUPERINTENDENT ELECTRIC POWER as a scribe. Objective - Vital Signs Vital signs: Vital Signs Temp 97.8 F 11/16/23 09:55 Pulse 60 11/16/23 09:55 Resp 16 11/16/23 09:55 BP 107/66 11/16/23 09:55 Pulse Ox 96 11/16/23 09:55 FiO2 Intake & Output 11/15/23 11/16/23 11/16/23 18:59 06:59 18:59 Intake Total 540 Balance 540 Intake: Oral 540 Other: Voiding Method Toilet Toilet Toilet Urinal Urinal Urinal Diaper Diaper Diaper Incontinent Incontinent Incontinent # Voids 1 2 # Bowel Movements 1 - Labs CBC & Chem 7: 11/15/23 11:01 11/15/23 11:01 Labs: Abnormal Lab Results - Last 24 Hours (Table) 11/16/23 Range/Units 08:26 PT 38.0 H (10.0-12.5) sec INR 3.9 H (<1.2)
[2023-11-16] MEDS: FLUDROCORTISONE 0.1 MG TAB PO SCH (12:11)
[2023-11-16] MEDS: MIDODRINE 5 MG TAB PO SCH (12:12)
--- NOTE | 2023-11-16 13:25 | P.PN ---
Subjective Progress Note Date: 11/16/23 Patient is a pleasant 83 years old male with past medical history of dementia, atrial fibrillation, hypertension, hyperlipidemia Presents because of recurrent syncopal episodes. Patient states he was getting to the living room when he got wobbly and dizzy and fell to the ground and with passing out, he states he woke up right away. He has been feeling more dizzy lately and he had similar episodes and fell about 5 times over the last 2 to 3 weeks. He states he has been feeling dizzy on and off. As per staff states he went to see his PCP a week ago who diagnosed him with orthostatic hypotension 1 day earlier he had stomach flu, he was complaining from stomach upset and he vomited more than once and he had diarrhea more than once but these are resolved now. He denies any dysuria or urgency No chest pain or dyspnea No headache dizziness weakness or numbness He denies smoking alcohol or illicit drugs He is hemodynamically stable He has unremarkable CBC, BMP except for mildly low potassium 3.1 and creatinine slightly elevated 1.27 with baseline 0.1-1.0. Liver enzymes not elevated. Troponin x 2 is -0.017 and less than 0.012. EKG showing ventricular paced rhythm at 63 and another EKG at a rate of 60 CTA of the head and neck is negative for aneurysm dissection or other abnormality Chest x-ray is negative for acute process Patient was started on aspirin 325 mg and admitted with cardiology consult There was documented in the chart for bradycardia and heart rate was in the 20s and history however since admission is heart rate was in 60s with a range 60-67. Also blood pressure and other vitals stable 11/14/2023 Patient just waking up from sleep, he denies chest pain or dizziness. No other new complaints Yesterday we checked his orthostatic vitals and they were really off his sys tolic blood pressure dropped to 141 on supine down to 88 on standing. Patient also has evidence of dehydration on admission which might be contributing with creatinine 1.27, down to 1.1. We are going to check orthostatic again this morning and the distal positive for going to give him more fluids. I lowered his Norvasc 10 mg to 5 mg. Patient has evidence of supine hypertension with systolic blood pressure 141 therefore we recommend elevated head of bed 30 degree at night to help lower his supine hypertension. No other new complaint. Vital stable Labs from today still pending He is still on aspirin and warfarin. INR 3 yesterday recommend to check INR again today. Echocardiogram still pending. I reviewed TSH, B12, urine analysis and bladder scan: All checked and they were unremarkable Discussed with staff in details 11/14. Patient seen and examined. Patient still very orthostatic, got dizzy on standing up. Patient was started on midodrine, dose increased to 5 mg 3 times daily. 11/15. Patient seen and examined. No acute issue overnight. Orthostatics were positive, losartan was discontinued, cardiology added Florinef REVIEW OF SYSTEMS: CONSTITUTIONAL: No fever, no malaise,. CARDIOVASCULAR: No chest pain, no palpitations, no syncope. PULMONARY: No shortness of breath, no cough, GASTROINTESTINAL: No diarrhea, no nausea, no vomiting, no abdominal pain. NEUROLOGICAL: No headaches, no weakness, PHYSICAL EXAMINATION: GENERAL: The patient is alert and oriented x3, not in any acute distress. Well developed, well nourished. HEENT: Pupils are round and equally reacting to light. EOMI. No scleral icterus. No conjunctival pallor. Normocephalic, atraumatic. No pharyngeal erythema. No thyromegaly. CARDIOVASCULAR: S1 and S2 present. No murmurs, rubs, or gallops. PULMONARY: Chest is clear to auscultation, no wheezing or crackles. ABDOMEN: Soft, nontender, nondistended, normoactive bowel sounds. No palpable organomegaly. MUSCULOSKELETAL: No joint swelling or deformity. EXTREMITIES: No cyanosis, clubbing, or pedal edema. NEUROLOGICAL: Gross neurological examination did not reveal any focal deficits. SKIN: No rashes. Assessment and plan recurrent falls secondary to syncope, rule out arrhythmia. Could be contributed to orthostatic hypotension versus other. Orthostatic hypotension, present on admission Mild acute kidney injury related to dehydration and mild gastroenteritis at 1.2 prior to admission Paroxysmal atrial fibrillation, currently patient has ventricular paced rhythm History of dementia Monitor vital signs Monitor CBC Monitor CMP Continue telemetry monitoring Encourage use of incentive spirometer Monitor orthostatics Continue Coumadin pharmacy to dose Continue Lipitor DC losartan, added Florinef Continue Coreg, midodrine Cardiology following Labs and medication were reviewed.. Continue same treatment. Continue with symptomatic treatment. Resume home medication. Monitor labs and vitals. DVT and GI prophylaxis. Further recommendations as per clinical course of the patient Dictation was produced using [employer] dictation software. please excuse any grammatical, word or spelling errors. Objective - Vital Signs Vital signs: Vital Signs Temp 98.1 F 11/16/23 03:13 Pulse 62 11/16/23 06:46 Resp 18 11/16/23 03:13 BP 167/82 11/16/23 06:46 Pulse Ox 96 11/16/23 03:13 FiO2 Intake & Output 11/15/23 11/16/23 11/16/23 18:59 06:59 18:59 Intake Total 540 Balance 540 Intake: Oral 540 Other: Voiding Method Toilet Toilet Urinal Urinal Diaper Diaper Incontinent Incontinent # Voids 1 2 # Bowel Movements 1 - Labs CBC & Chem 7: 11/15/23 11:01 11/15/23 11:01 Labs: Abnormal Lab Results - Last 24 Hours (Table) 11/15/23 11/15/23 11/15/23 Range/Units 11:01 11:01 11:01 Lymphocytes # 0.8 L (1.0-4.8) k/uL PT 37.0 H (10.0-12.5) sec INR 3.8 H (<1.2) Chloride 109 H (98-107) mmol/L BUN 23 H (9-20) mg/dL Glucose 102 H (74-99) mg/dL
[2023-11-16] MEDS: WARFARIN 0.5 MG TAB PO ONE (17:19)
[2023-11-17] MEDS: FLUDROCORTISONE 0.1 MG TAB PO SCH (09:17)
--- NOTE | 2023-11-17 10:05 | P.PN ---
Subjective HISTORY OF PRESENT ILLNESS: This is a 83-year-old male with a past medical history significant for permanent atrial fibrillation, nonischemic cardiomyopathy, sick sinus syndrome with previous pacemaker implantation, hypertension, hyperlipidemia, and asthma. Patient follows in the office with Dr. Wyatt. We have been asked to see the patient in consultation for symptomatic bradycardia. Patient examined at the bedside in the emergency room. There is no family present. The patient is a poor historian. Apparently he had a syncopal episode at his nursing facility. According to the ER documentation the patient has had multiple falls recently. The patient currently denies any chest pain or pressure. He denies any shortness of breath. Vital signs are stable. According to EMS the patient's heart rate was down in the 20s however there are no telemetry tracings available for review. Since patient has been in the hospital his heart rates have been around 60. His pacemaker appears to be functioning properly. DIAGNOSTICS: - EKG reveals paced rhythm - Chest xray negative for acute process - Laboratory data: WBC 8.9. Hemoglobin 15.2. Platelet count 175. INR 2.6. Sodium 142. Potassium 3.5. BUN 32. Creatinine 1.13. Magnesium 2.0. TSH 2.250. Troponin negative x 3. - Current home cardiac medications include carvedilol 12.5 mg twice a day, Norvasc 10 mg daily, rosuvastatin 5 mg daily, warfarin 7.5 mg daily, and losartan 50 mg daily. - Most recent echocardiogram obtained in October 2022 revealed ejection fraction 40 to 45%, mild left ventricular dilatation, mild concentric LVH, dyskinetic septum, apex hypokinetic, mild pulmonary hypertension, mild to moderate AR - Cardiac catheterization history: December 2019 revealing right dominant system, 35% mid LAD disease, minor irregularities in RCA and circumflex no significant CAD, no gradient across aortic valve, EF 50% 11/14/2023 Patient examined this morning at the bedside. Patient currently denies chest pain or pressure. He denies shortness of breath. He does report dizziness upon standing. Patient's pacemaker was interrogated and is functioning appropriately. No significant events were noted. Patient was found to have positive orthostatic blood pressures with a systolic blood pressure supine of 141 dropping to 88 standing. Echocardiogram completed revealing ejection fraction 45% with mid to apical anterior, apical inferior hypokinesis, mild MR, mild TR 11/15/2023 Patient examined this morning. He is sitting up in the chair. His is present. Patient continues to have positive orthostatic blood pressures. Patient's baseline blood pressures are now in the low 100s which is new from yesterday as his blood pressures were in the [id number]. Patient's states he has been having dizziness and episodes of falls for the past 5 weeks. She states about 3 weeks ago they did get a blood pressure machine and he has been having orthostatic changes on an outpatient basis as well. They did speak to Dr. Wyatt about this and his losartan was decreased on an outpatient basis. 11/16/2023 Patient examined this morning. He is sitting up in the chair. Patient's pulses present. Orthostatic blood pressures obtained this morning are still positive. Blood pressure sitting 107/66. Blood pressure standing 76/39. INR today 3.9. 11/17/2023 Patient examined this morning. He is sitting up in the chair. Patient currently denies chest pain or pressure. He denies shortness of breath. Resting blood pressures are more elevated today. However, patient is less symptomatic with his orthostatic blood pressures. He currently denies any dizziness or lightheadedness. PHYSICAL EXAM: VITAL SIGNS: Reviewed. GENERAL: Well-developed in no acute distress. HEENT: Head is normocephalic. Pupils are equal, round. Sclerae anicteric. Mucous membranes of the mouth are moist. Neck supple. No JVD or thyromegaly LUNGS: Respirations even and unlabored. Lungs essentially clear to auscultation bilaterally. HEART: Regular rate and rhythm. S1 and S2 heard. ABDOMEN: Soft. Nondistended. Nontender. EXTREMITIES: Normal range of motion. No clubbing or cyanosis. Peripheral pulses intact. No lower extremity edema NEUROLOGIC: Awake and alert. Oriented x 3. ASSESSMENT: Reported syncope Questionable bradycardia per EMS, however no telemetry strips available for re view, no evidence of bradycardia since being in the hospital Orthostatic hypotension, symptomatic Permanent atrial fibrillation Nonischemic cardiomyopathy Sick sinus syndrome with previous pacemaker implantation Hypertension Hyperlipidemia History of asthma PLAN: Amlodipine and losartan has been discontinued Continue decreased dose of carvedilol 3.125 mg twice a day Discontinue losartan Continue midodrine to 10 mg 3 times a day Increase Florinef 0.2 mg daily Continue to monitor orthostatic blood pressures every shift Continue AURORA hose to bilateral lower extremities Continue telemetry monitoring Continue anticoagulation with Coumadin. Monitor INR. Patient is currently stable for discharge from a cardiac standpoint Nurse practitioner note has been reviewed by physician. Signing provider agrees with the documented findings, assessment, and plan of care documented by APPAREL PATTERN MAKER as a scribe. Objective - Vital Signs Vital signs: Vital Signs Temp 98.1 F 11/17/23 04:30 Pulse 60 11/17/23 04:30 Resp 18 11/17/23 04:30 BP 152/86 11/17/23 06:27 Pulse Ox 98 11/17/23 04:30 FiO2 Intake & Output 11/16/23 11/17/23 11/17/23 18:59 06:59 18:59 Intake Total 476 Balance 476 Intake: Oral 476 Other: Voiding Method Toilet Toilet Urinal Urinal Diaper Diaper Incontinent Incontinent # Voids 1 2 - Labs CBC & Chem 7: 11/15/23 11:01 11/15/23 11:01 Labs: Abnormal Lab Results - Last 24 Hours (Table) 11/17/23 Range/Units 06:08 PT 30.0 H (10.0-12.5) sec INR 3.0 H (<1.2)
--- NOTE | 2023-11-17 13:43 | P.PN ---
Subjective Progress Note Date: 11/17/23 Patient is a pleasant 83 years old male with past medical history of dementia, atrial fibrillation, hypertension, hyperlipidemia Presents because of recurrent syncopal episodes. Patient states he was getting to the living room when he got wobbly and dizzy and fell to the ground and with passing out, he states he woke up right away. He has been feeling more dizzy lately and he had similar episodes and fell about 5 times over the last 2 to 3 weeks. He states he has been feeling dizzy on and off. As per staff states he went to see his PCP a week ago who diagnosed him with orthostatic hypotension 1 day earlier he had stomach flu, he was complaining from stomach upset and he vomited more than once and he had diarrhea more than once but these are resolved now. He denies any dysuria or urgency No chest pain or dyspnea No headache dizziness weakness or numbness He denies smoking alcohol or illicit drugs He is hemodynamically stable He has unremarkable CBC, BMP except for mildly low potassium 3.1 and creatinine slightly elevated 1.27 with baseline 0.1-1.0. Liver enzymes not elevated. Troponin x 2 is -0.017 and less than 0.012. EKG showing ventricular paced rhythm at 63 and another EKG at a rate of 60 CTA of the head and neck is negative for aneurysm dissection or other abnormality Chest x-ray is negative for acute process Patient was started on aspirin 325 mg and admitted with cardiology consult There was documented in the chart for bradycardia and heart rate was in the 20s and history however since admission is heart rate was in 60s with a range 60-67. Also blood pressure and other vitals stable 11/14/2023 Patient just waking up from sleep, he denies chest pain or dizziness. No other new complaints Yesterday we checked his orthostatic vitals and they were really off his sys tolic blood pressure dropped to 141 on supine down to 88 on standing. Patient also has evidence of dehydration on admission which might be contributing with creatinine 1.27, down to 1.1. We are going to check orthostatic again this morning and the distal positive for going to give him more fluids. I lowered his Norvasc 10 mg to 5 mg. Patient has evidence of supine hypertension with systolic blood pressure 141 therefore we recommend elevated head of bed 30 degree at night to help lower his supine hypertension. No other new complaint. Vital stable Labs from today still pending He is still on aspirin and warfarin. INR 3 yesterday recommend to check INR again today. Echocardiogram still pending. I reviewed TSH, B12, urine analysis and bladder scan: All checked and they were unremarkable Discussed with staff in details 11/14. Patient seen and examined. Patient still very orthostatic, got dizzy on standing up. Patient was started on midodrine, dose increased to 5 mg 3 times daily. 11/15. Patient seen and examined. No acute issue overnight. Orthostatics were positive, losartan was discontinued, cardiology added Florinef 11/16. Patient seen and examined. Patient orthostatics have improved, patient losartan and Norvasc was discontinued but patient systolic blood pressure is now elevated, cardiology recommended decreasing the dose of midodrine to 5 mg 3 times daily. REVIEW OF SYSTEMS: CONSTITUTIONAL: No fever, no malaise,. CARDIOVASCULAR: No chest pain, no palpitations, no syncope. PULMONARY: No shortness of breath, no cough, GASTROINTESTINAL: No diarrhea, no nausea, no vomiting, no abdominal pain. NEUROLOGICAL: No headaches, no weakness, PHYSICAL EXAMINATION: GENERAL: The patient is alert and oriented x3, not in any acute distress. Well developed, well nourished. HEENT: Pupils are round and equally reacting to light. EOMI. No scleral icterus. No conjunctival pallor. Normocephalic, atraumatic. No pharyngeal erythema. No thyromegaly. CARDIOVASCULAR: S1 and S2 present. No murmurs, rubs, or gallops. PULMONARY: Chest is clear to auscultation, no wheezing or crackles. ABDOMEN: Soft, nontender, nondistended, normoactive bowel sounds. No palpable organomegaly. MUSCULOSKELETAL: No joint swelling or deformity. EXTREMITIES: No cyanosis, clubbing, or pedal edema. NEUROLOGICAL: Gross neurological examination did not reveal any focal deficits. SKIN: No rashes. Assessment and plan recurrent falls secondary to syncope, rule out arrhythmia. Could be contributed to orthostatic hypotension versus other. Orthostatic hypotension, present on admission Mild acute kidney injury related to dehydration and mild gastroenteritis at 1.2 prior to admission Paroxysmal atrial fibrillation, currently patient has ventricular paced rhythm History of dementia Monitor vital signs Monitor CBC Monitor CMP Continue telemetry monitoring Encourage use of incentive spirometer Monitor orthostatics Continue Coumadin pharmacy to dose Continue Lipitor Continue Florinef Continue Coreg, Dose of midodrine increased to 5 mg 3 times daily Cardiology following Labs and medication were reviewed.. Continue same treatment. Continue with symptomatic treatment. Resume home medication. Monitor labs and vitals. DVT and GI prophylaxis. Further recommendations as per clinical course of the patient Dictation was produced using [employer] dictation software. please excuse any grammatical, word or spelling errors. Objective - Vital Signs Vital signs: Vital Signs Temp 98.1 F 11/17/23 04:30 Pulse 60 11/17/23 04:30 Resp 18 11/17/23 04:30 BP 152/86 11/17/23 06:27 Pulse Ox 98 11/17/23 04:30 FiO2 Intake & Output 11/16/23 11/17/23 11/17/23 18:59 06:59 18:59 Intake Total 476 Balance 476 Intake: Oral 476 Other: Voiding Method Toilet Toilet Urinal Urinal Diaper Diaper Incontinent Incontinent # Voids 1 2 - Labs CBC & Chem 7: 11/15/23 11:01 11/15/23 11:01 Labs: Abnormal Lab Results - Last 24 Hours (Table) 11/17/23 Range/Units 06:08 PT 30.0 H (10.0-12.5) sec INR 3.0 H (<1.2)
[2023-11-17] MEDS: MIDODRINE 5 MG TAB PO SCH (14:06)
[2023-11-17] MEDS: LOSARTAN 25 MG TAB PO STA (14:06)
[2023-11-17] MEDS: WARFARIN 2 MG TAB PO ONE (17:08)
[2023-11-18 09:15] LABS: INR 1.7 (<1.2); Prothrombin Time 16.9 sec (10.0-12.5)
[2023-11-18 09:25] VITALS: RESP 16; TEMP 98.4
[2023-11-18 12:20] VITALS: BP 156/84; PULSE 59
--- NOTE | 2023-11-18 12:46 | P.PN ---
Subjective Progress Note Date: 11/18/23 Patient is a pleasant 83 years old male with past medical history of dementia, atrial fibrillation, hypertension, hyperlipidemia Presents because of recurrent syncopal episodes. Patient states he was getting to the living room when he got wobbly and dizzy and fell to the ground and with passing out, he states he woke up right away. He has been feeling more dizzy lately and he had similar episodes and fell about 5 times over the last 2 to 3 weeks. He states he has been feeling dizzy on and off. As per staff states he went to see his PCP a week ago who diagnosed him with orthostatic hypotension 1 day earlier he had stomach flu, he was complaining from stomach upset and he vomited more than once and he had diarrhea more than once but these are resolved now. He denies any dysuria or urgency No chest pain or dyspnea No headache dizziness weakness or numbness He denies smoking alcohol or illicit drugs He is hemodynamically stable He has unremarkable CBC, BMP except for mildly low potassium 3.1 and creatinine slightly elevated 1.27 with baseline 0.1-1.0. Liver enzymes not elevated. Troponin x 2 is -0.017 and less than 0.012. EKG showing ventricular paced rhythm at 63 and another EKG at a rate of 60 CTA of the head and neck is negative for aneurysm dissection or other abnormality Chest x-ray is negative for acute process Patient was started on aspirin 325 mg and admitted with cardiology consult There was documented in the chart for bradycardia and heart rate was in the 20s and history however since admission is heart rate was in 60s with a range 60-67. Also blood pressure and other vitals stable 11/14/2023 Patient just waking up from sleep, he denies chest pain or dizziness. No other new complaints Yesterday we checked his orthostatic vitals and they were really off his sys tolic blood pressure dropped to 141 on supine down to 88 on standing. Patient also has evidence of dehydration on admission which might be contributing with creatinine 1.27, down to 1.1. We are going to check orthostatic again this morning and the distal positive for going to give him more fluids. I lowered his Norvasc 10 mg to 5 mg. Patient has evidence of supine hypertension with systolic blood pressure 141 therefore we recommend elevated head of bed 30 degree at night to help lower his supine hypertension. No other new complaint. Vital stable Labs from today still pending He is still on aspirin and warfarin. INR 3 yesterday recommend to check INR again today. Echocardiogram still pending. I reviewed TSH, B12, urine analysis and bladder scan: All checked and they were unremarkable Discussed with staff in details 11/14. Patient seen and examined. Patient still very orthostatic, got dizzy on standing up. Patient was started on midodrine, dose increased to 5 mg 3 times daily. 11/15. Patient seen and examined. No acute issue overnight. Orthostatics were positive, losartan was discontinued, cardiology added Florinef 11/16. Patient seen and examined. Patient orthostatics have improved, patient losartan and Norvasc was discontinued but patient systolic blood pressure is now elevated, cardiology recommended decreasing the dose of midodrine to 5 mg 3 times daily. 11/17. Patient seen and examined. Orthostatics have improved, patient is less symptomatic. REVIEW OF SYSTEMS: CONSTITUTIONAL: No fever, no malaise,. CARDIOVASCULAR: No chest pain, no palpitations, no syncope. PULMONARY: No shortness of breath, no cough, GASTROINTESTINAL: No diarrhea, no nausea, no vomiting, no abdominal pain. NEUROLOGICAL: No headaches, no weakness, PHYSICAL EXAMINATION: GENERAL: The patient is alert and oriented x3, not in any acute distress. Well developed, well nourished. HEENT: Pupils are round and equally reacting to light. EOMI. No scleral icterus. No conjunctival pallor. Normocephalic, atraumatic. No pharyngeal erythema. No thyromegaly. CARDIOVASCULAR: S1 and S2 present. No murmurs, rubs, or gallops. PULMONARY: Chest is clear to auscultation, no wheezing or crackles. ABDOMEN: Soft, nontender, nondistended, normoactive bowel sounds. No palpable organomegaly. MUSCULOSKELETAL: No joint swelling or deformity. EXTREMITIES: No cyanosis, clubbing, or pedal edema. NEUROLOGICAL: Gross neurological examination did not reveal any focal deficits. SKIN: No rashes. Assessment and plan recurrent falls secondary to syncope, rule out arrhythmia. Could be contributed to orthostatic hypotension versus other. Orthostatic hypotension, present on admission Mild acute kidney injury related to dehydration and mild gastroenteritis at 1.2 prior to admission Paroxysmal atrial fibrillation, currently patient has ventricular paced rhythm History of dementia Monitor vital signs Monitor CBC Monitor CMP Continue telemetry monitoring Encourage use of incentive spirometer Monitor orthostatics Continue Coumadin pharmacy to dose Continue Lipitor Continue Florinef Continue Coreg, Midodrine 5 mg 3 times daily Cardiology following Labs and medication were reviewed.. Continue same treatment. Continue with symptomatic treatment. Resume home medication. Monitor labs and vitals. DVT and GI prophylaxis. Further recommendations as per clinical course of the patient Dictation was produced using [employer] dictation software. please excuse any grammatical, word or spelling errors. Objective - Vital Signs Vital signs: Vital Signs Temp 98.4 F 11/18/23 08:00 Pulse 59 L 11/18/23 12:00 Resp 16 11/18/23 12:00 BP 156/84 11/18/23 12:00 Pulse Ox 97 11/18/23 12:00 FiO2 Intake & Output 11/17/23 11/18/23 11/18/23 18:59 06:59 18:59 Intake Total 1556 10 240 Balance 1556 10 240 Intake: IV 10 Invasive Line 2 10 Oral 1556 240 Other: Voiding Method Toilet Toilet Toilet Urinal Urinal Urinal Diaper Diaper Diaper Incontinent Incontinent Incontinent # Voids 2 3 - Labs CBC & Chem 7: 11/15/23 11:01 11/15/23 11:01 Labs: Abnormal Lab Results - Last 24 Hours (Table) 11/18/23 Range/Units 08:28 PT 16.9 H (10.0-12.5) sec INR 1.7 H (<1.2)
--- NOTE | 2023-11-18 14:47 | P.PN ---
Subjective Progress Note Date: 11/18/23 HISTORY OF PRESENT ILLNESS: This is a 83-year-old male with a past medical history significant for permanent atrial fibrillation, nonischemic cardiomyopathy, sick sinus syndrome with previous pacemaker implantation, hypertension, hyperlipidemia, and asthma. Patient follows in the office with Dr. Wyatt. We have been asked to see the patient in consultation for symptomatic bradycardia. Patient examined at the bedside in the emergency room. There is no family present. The patient is a poor historian. Apparently he had a syncopal episode at his nursing facility. According to the ER documentation the patient has had multiple falls recently. The patient currently denies any chest pain or pressure. He denies any shortness of breath. Vital signs are stable. According to EMS the patient's heart rate was down in the 20s however there are no telemetry tracings available for review. Since patient has been in the hospital his heart rates have been around 60. His pacemaker appears to be functioning properly. DIAGNOSTICS: - EKG reveals paced rhythm - Chest xray negative for acute process - Laboratory data: WBC 8.9. Hemoglobin 15.2. Platelet count 175. INR 2.6. Sodium 142. Potassium 3.5. BUN 32. Creatinine 1.13. Magnesium 2.0. TSH 2.250. Troponin negative x 3. - Current home cardiac medications include carvedilol 12.5 mg twice a day, Norvasc 10 mg daily, rosuvastatin 5 mg daily, warfarin 7.5 mg daily, and losartan 50 mg daily. - Most recent echocardiogram obtained in October 2022 revealed ejection fraction 40 to 45%, mild left ventricular dilatation, mild concentric LVH, dyskinetic septum, apex hypokinetic, mild pulmonary hypertension, mild to moderate AR - Cardiac catheterization history: December 2019 revealing right dominant system, 35% mid LAD disease, minor irregularities in RCA and circumflex no significant CAD, no gradient across aortic valve, EF 50% 11/14/2023 Patient examined this morning at the bedside. Patient currently denies chest pain or pressure. He denies shortness of breath. He does report dizziness upon standing. Patient's pacemaker was interrogated and is functioning appropriately. No significant events were noted. Patient was found to have pos itive orthostatic blood pressures with a systolic blood pressure supine of 141 dropping to 88 standing. Echocardiogram completed revealing ejection fraction 45% with mid to apical anterior, apical inferior hypokinesis, mild MR, mild TR 11/15/2023 Patient examined this morning. He is sitting up in the chair. His is present. Patient continues to have positive orthostatic blood pressures. Jimmy del valle's baseline blood pressures are now in the low 100s which is new from yesterday as his blood pressures were in the [id number]. Patient's states he has been having dizziness and episodes of falls for the past 5 weeks. She states about 3 weeks ago they did get a blood pressure machine and he has been having orthostatic changes on an outpatient basis as well. They did speak to Dr. Wyatt about this and his losartan was decreased on an outpatient basis. 11/16/2023 Patient examined this morning. He is sitting up in the chair. Patient's pulses present. Orthostatic blood pressures obtained this morning are still positive. Blood pressure sitting 107/66. Blood pressure standing 76/39. INR today 3.9. 11/17/2023 Patient examined this morning. He is sitting up in the chair. Patient cu rrently denies chest pain or pressure. He denies shortness of breath. Resting blood pressures are more elevated today. However, patient is less symptomatic with his orthostatic blood pressures. He currently denies any dizziness or lightheadedness. 11/17 Blood pressure 114/68, heart rate between 59 and 82, pulse ox 96% on room air. Repeat blood work reveals INR 1.7. PHYSICAL EXAM: VITAL SIGNS: Reviewed. GENERAL: Well-developed in no acute distress. HEENT: Head is normocephalic. Pupils are equal, round. Sclerae anicteric. Mucous membranes of the mouth are moist. Neck supple. No JVD or thyromegaly LUNGS: Respirations even and unlabored. Lungs essentially clear to auscultation bilaterally. HEART: Regular rate and rhythm. S1 and S2 heard. ABDOMEN: Soft. Nondistended. Nontender. EXTREMITIES: Normal range of motion. No clubbing or cyanosis. Peripheral pulses intact. No lower extremity edema NEUROLOGIC: Awake and alert. Oriented x 3. ASSESSMENT: Reported syncope Questionable bradycardia per EMS, however no telemetry strips available for review, no evidence of bradycardia since being in the hospital Orthostatic hypotension, symptomatic Permanent atrial fibrillation Nonischemic cardiomyopathy Sick sinus syndrome with previous pacemaker implantation Hypertension Hyperlipidemia History of asthma PLAN: Amlodipine and losartan has been discontinued Continue decreased dose of carvedilol 3.125 mg twice a day Discontinue losartan Continue midodrine to 10 mg 3 times a day Increase Florinef 0.2 mg daily Continue to monitor orthostatic blood pressures every shift Continue AURORA hose to bilateral lower extremities Continue telemetry monitoring Continue anticoagulation with Coumadin. Monitor INR. Patient is currently stable for discharge from a cardiac standpoint Nurse practitioner note has been reviewed by physician. Signing provider agrees with the documented findings, assessment, and plan of care documented by PHOTO OPTICS TECHNICIAN as a scribe. Objective - Vital Signs Vital signs: Vital Signs Temp 98.4 F 11/18/23 08:00 Pulse 59 L 11/18/23 12:00 Resp 16 11/18/23 12:00 BP 156/84 11/18/23 12:00 Pulse Ox 97 11/18/23 12:00 FiO2 Intake & Output 11/17/23 11/18/23 11/18/23 18:59 06:59 18:59 Intake Total 1556 10 240 Balance 1556 10 240 Intake: IV 10 Invasive Line 2 10 Oral 1556 240 Other: Voiding Method Toilet Toilet Toilet Urinal Urinal Urinal Diaper Diaper Diaper Incontinent Incontinent Incontinent # Voids 2 3 - Labs CBC & Chem 7: 11/15/23 11:01 11/15/23 11:01 Labs: Abnormal Lab Results - Last 24 Hours (Table) 11/18/23 Range/Units 08:28 PT 16.9 H (10.0-12.5) sec INR 1.7 H (<1.2)
[2023-11-18] MEDS ORDERED: WARFARIN 7.5 MG TAB PO ONE (18:00)
== END 2023-11-18 14:26 | disposition home or self-care (01) | DRG 312 ==
LOC: SUPCPDRO 21:28 → EC 21:28 → 3SCARD 11-13 00:23 → OBSVTOIN 11-14 00:04
PROVIDERS: ADMIT Hospitalist; ATTEND Hospitalist
DX: I95.1 Orthostatic hypotension (principal); I48.21 Permanent atrial fibrillation; N17.9 Acute kidney failure, unspecified; I42.8 Other cardiomyopathies; I10 Essential (primary) hypertension; Z95.0 Presence of cardiac pacemaker; E78.5 Hyperlipidemia, unspecified; E86.0 Dehydration; K52.9 Noninfective gastroenteritis and colitis, unspecified; R00.1 Bradycardia, unspecified; R29.6 Repeated falls; Z79.899 Other long term (current) drug therapy; F03.90 Unspecified dementia, unspecified severity, without behavioral disturbance, psychotic disturbance, mood disturbance, and anxiety; Z91.041 Radiographic dye allergy status; Z91.013 Allergy to seafood; Z91.018 Allergy to other foods; Z79.01 Long term (current) use of anticoagulants
CPT/HCPCS: 36415; 51798; 70450; 71045; 72125; 80048; 80053; 81001; 82533; 82607; 82746; 83735; 84443; 84484; 85025; 85610; 85730; 93005; 93306; 94760; 96360; 96361; 99285

== ENCOUNTER 2023-12-14 15:31 | Inpatient (IN) | payer MEDICARE ==
--- NOTE | 2023-12-14 16:05 | ED ---
General Adult HPI - General Chief complaint: Shortness of Breath Stated complaint: SOB Time Seen by Provider: 12/14/23 15:35 Source: EMS Mode of arrival: EMS - History of Present Illness Initial comments: Dictation was produced using [employer] dictation software. please excuse any gram matical, word or spelling errors. Chief Complaint: 83-year-old male presents to the emergency department for dyspnea History of Present Illness: Patient is 83-year-old male presents to the emerge ncy department with dyspnea. Patient and his live in assisted living facility. Over the last 3 days she has been having wheezing, shortness of breath and hypoxia. Patient was visited by family and family requested that facility staff call EMS. Patient states he has been coughing. He is does feel short of breath. Denies any constitutional symptoms. Patient denies any history of respiratory issues. He does take Coumadin and midodrine for cardiac issues. States that his cough is productive. The ROS documented in this emergency department record has been reviewed and confirmed by me. Those systems with pertinent positive or negative responses have been documented in the HPI. All other systems are other negative and/or noncontributory. - Related Data Home Medications Medication Instructions Recorded Confirmed Multivitamins, Thera [Multivitamin 1 tab PO DAILY@0800 12/24/19 12/14/23 (formulary)] Cyanocobalamin [Vitamin B-12] 500 mcg PO DAILY@0800 06/27/21 12/14/23 Rosuvastatin Calcium 5 mg PO DAILY@0800 10/11/22 12/14/23 Albuterol Nebulized [Ventolin 2.5 mg INHALATION RT-Q4H PRN 08/18/23 12/14/23 Nebulized] Cholecalciferol [Vitamin D3 (10 10 mcg PO DAILY@0800 08/18/23 12/14/23 Mcg = 400 Iu)] Zinc Gluconate [Zinc] 100 mg PO DAILY@00 11/13/23 12/14/23 Ascorbic Acid [Vitamin C] 1,000 mg PO DAILY@79912/14/23 12/14/23 Clobetasol Propionate [Temovate 1 applic TOPICAL BID 12/14/23 12/14/23 0.05% Cream] Dupilumab [Dupixent Pen] 300 mg SQ Q14D 12/14/23 12/14/23 Fludrocortisone [Florinef] 0.2 mg PO DAILY@0800 12/14/23 12/14/23 Furosemide [Lasix] 20 mg PO DAILY@0800 12/14/23 12/14/23 Midodrine [ProAmatine] 5 mg PO AC-TID PRN 12/14/23 12/14/23 bisacodyL [Dulcolax] 5 mg PO HS 12/14/23 12/14/23 carvediloL [Coreg] 6.25 mg PO BID-W/MEALS@08,17 12/14/23 12/14/23 Allergies Allergy/AdvReac Type Severity Reaction Status Date / Time iodine Allergy Unknown Verified 12/14/23 18:59 shellfish derived [Shrimp] Allergy Anaphylaxis Verified 12/14/23 18:59 watermelon AdvReac Abdominal Verified 12/14/23 18:59 Pain Review of Systems ROS Statement: Those systems with pertinent positive or pertinent negative responses have been documented in the HPI. ROS Other: All systems not noted in ROS Statement are negative. Past Medical History Past Medical History: Atrial Fibrillation, Dementia, Hyperlipidemia, Hypertension, Memory Impairment History of Any Multi-Drug Resistant Organisms: None Reported Past Surgical History: Cholecystectomy, Pacemaker Past Anesthesia/Blood Transfusion Reactions: No Reported Reaction Type of Cardiac Device: Unknown Device Placement Date:: 2013 Past Psychological History: No Psychological Hx Reported Smoking Status: Never smoker Past Alcohol Use History: None Reported Past Drug Use History: None Reported - Past Family History Mother History Unknown: Yes Family Medical History: No Reported History General Exam - General Exam Comments Initial Comments: PHYSICAL EXAM: General Impression: Alert and oriented x3, not in acute distress HEENT: Normocephalic atraumatic, extra-ocular movements intact, pupils equal and reactive to light bilaterally, mucous membranes moist. Cardiovascular: Heart regular rate and rhythm Chest: Mildly dyspneic, on 3 L nasal cannula, diffuse wheezing and rhonchi, coughing Abdomen: abdomen soft, non-tender, non-distended, no organomegaly Musculoskeletal: Pulses present and equal in all extremities, no peripheral edema Motor: no focal deficits noted Neurological: CN II-XII grossly intact, no focal motor or sensory deficits noted Skin: Intact with no visualized rashes Psych: Normal affect and mood Course Vital Signs 12/14/23 12/14/23 12/14/23 15:36 16:57 17:07 Pulse Rate 60 60 63 Respiratory 21 Rate Blood Pressure 160/76 O2 Sat by Pulse 90 L Oximetry EKG Findings - EKG Comments: EKG Findings:: My EKG interpretation: Ventricular rate 60, ventricular paced rhythm, QRS 192, QTc 543. No IL prolongation, no QTC prolongation, no ST or T- wave changes noted. EKG compared to November 13, 2023 showing no changes. Overall, this EKG is unremarkable Medical Decision Making - Medical Decision Making Was pt. sent in by a medical professional or institution (, PA, BOBBIN WASHER, urgent care, hospital, or retirement...) When possible be specific @ -No Did you speak to anyone other than the patient for history (EMS, parent, family, police, friend...)? What history was obtained from this source @ -No Did you review nursing and triage notes (agree or disagree)? Why? @ -I reviewed and agree with nursing and triage notes Were old charts reviewed (outside hosp., previous admission, EMS record, old EKG, old radiological studies, urgent care reports/EKG's, retirement records)? Report findings @ -No old charts were reviewed Differential Diagnosis (chest pain, altered mental status, abdominal pain women, abdominal pain men, vaginal bleeding, musculoskeletal, weakness, fever, dyspnea, syncope, headache, dizziness, GI bleed, back pain, seizure, CVA, palpatations, mental health)? @ -Differential Dyspnea: Coronary syndrome, arrhythmia, tamponade, asthma, COPD, pulmonary embolism, pneumonia, pneumothorax, pulmonary effusion, anaphylaxis, diabetic ketoacidosis, flailed chest, pulmonary contusion, diaphragmatic rupture, anemia, neuromuscular, this is not meant to be an all-inclusive list. EKG interpreted by me (3pts min.). @ -See above X-rays interpreted by me (1pt min.). @ -Chest x-ray shows cardiomegaly with questionable opacity CT interpreted by me (1pt min.). @ -CT scan of the chest shows ascending thoracic aortic aneurysm 4.8 cm along with narrowing of the trachea to the radha U/S interpreted by me (1pt. min.). @ -None done What testing was considered but not performed or refused? (CT, X-rays, U/S, labs)? Why? @ -None What meds were considered but not given or refused? Why? @ -None Did you discuss the management of the patient with other professionals (professionals i.e. , PA, BOBBIN WASHER, lab, RT, psych nurse, manager social responsibility, stem setter, teacher, air force senior officer, supportive employment case manager)? Give summary @ -Case discussed with hospitalist for admission Was smoking cessation discussed for >3mins.? @ -No Was critical care preformed (if so, how long)? @ -No Were there social determinants of health that impacted care today? How? (Homelessness, low income, unemployed, alcoholism, drug addiction, transportation, low edu. Level, literacy, decrease access to med. care, snf, rehab)? @ -No Was there de-escalation of care discussed even if they declined (Discuss DNR or withdrawal of care, Hospice)? DNR status @ -No What co-morbidities impacted this encounter? (DM, HTN, Smoking, COPD, CAD, Cancer, CVA, ARF, Chemo, Hep., AIDS, mental health diagnosis, sleep apnea, morbid obesity)? @ -None Was patient admitted / discharged? Hospital course, mention meds given and route, prescriptions, significant lab abnormalities, going to OR and other pertinent info. @ -83-year-old male presents to the emergency department for respiratory failure. Vital signs upon arrival shows 90% on 3 L nasal cannula. Patient does not wear oxygen at home. Rest of labs within acceptable limits. Patient mildly distressed secondary to dyspnea. Laboratory evaluation obtained found to be within acceptable limits. Patient's BNP level 8390. Seems to be decreased from August. Echocardiogram from November of this year shows 45% EF. At this point it is unclear whether patient experiencing dyspnea secondary to heart failure or pulmonary process. Patient given antibiotics, breathing treatment al varun with Lasix. Will be admitted with consultation to pulmonology. Family is agreeable to plan. Patient reevaluated bedside 8:00 PM he is resting comfortably. Undiagnosed new problem with uncertain prognosis? @ -No Drug Therapy requiring intensive monitoring for toxicity (Heparin, Nitro, Insulin, Cardizem)? @ -No Were any procedures done? @ -No Diagnosis/symptom? Acute, or Chronic, or Acute on Chronic? Uncomplicated (without systemic symptoms) or Complicated (systemic symptoms)? @ -Hypoxic respiratory failure Side effects of treatment? @ -No Exacerbation, Progression, or Severe Exacerbation? @ -No Poses a threat to life or bodily function? How? (Chest pain, USA, HI, pneumonia, PE, COPD, DKA, ARF, appy, cholecystitis, CVA, Diverticulitis, Homicidal, Suicidal, threat to staff... and all critical care pts) @ -yes - Lab Data Result diagrams: 12/14/23 16:01 12/14/23 16:01 Lab Results 12/14/23 12/14/23 12/14/23 Range/Units 16:01 16: 16:01 WBC 8.8 (3.8-10.6) k/uL RBC 4.45 (4.30-5.90) m/uL Hgb 13.7 (13.0-17.5) gm/dL Hct 42.3 (39.0-53.0) % MCV 95.0 (80.0-100.0) fL MCH 30.8 (25.0-35.0) pg MCHC 32.4 (31.0-37.0) g/dL RDW 14.8 (11.5-15.5) % Plt Count 149 L (150-450) k/uL MPV 8.1 Neutrophils % 83 % Lymphocytes % 6 % Monocytes % 5 % Eosinophils % 5 % Basophils % 1 % Neutrophils # 7.3 (1.3-7.7) k/uL Lymphocytes # 0.5 L (1.0-4.8) k/uL Monocytes # 0.4 (0-1.0) k/uL Eosinophils # 0.5 (0-0.7) k/uL Basophils # 0.1 (0-0.2) k/uL VBG pH (7.31-7.41) VBG pCO2 (37-51) mmHg VBG HCO3 (24-28) mmol/L Sodium 140 (137-145) mmol/L Potassium 3.8 (3.5-5.1) mmol/L Chloride 106 (98-107) mmol/L Carbon Dioxide 25 (22-30) mmol/L Anion Gap 9 mmol/L BUN 16 (9-20) mg/dL Creatinine 0.84 (0.66-1.25) mg/dL Est GFR (CKD-EPI)AfAm >90 (>60 ml/min/1.73 sqM) Est GFR (CKD-EPI)NonAf 81 (>60 ml/min/1.73 sqM) Glucose 127 H (74-99) mg/dL Plasma Lactic Acid Jerald 1.8 (0.7-2.0) mmol/L Calcium 8.6 (8.4-10.2) mg/dL Magnesium 2.0 (1.6-2.3) mg/dL Total Bilirubin 1.1 (0.2-1.3) mg/dL AST 29 (17-59) U/L ALT 24 (4-49) U/L Alkaline Phosphatase 80 (38-126) U/L NT-Pro-B Natriuret Pep 8390 pg/mL Total Protein 6.1 L (6.3-8.2) g/dL Albumin 3.7 (3.5-5.0) g/dL 12/14/23 Range/Units 16:23 WBC (3.8-10.6) k/uL RBC (4.30-5.90) m/uL Hgb (13.0-17.5) gm/dL Hct (39.0-53.0) % MCV (80.0-100.0) fL MCH (25.0-35.0) pg MCHC (31.0-37.0) g/dL RDW (11.5-15.5) % Plt Count (150-450) k/uL MPV Neutrophils % % Lymphocytes % % Monocytes % % Eosinophils % % Basophils % % Neutrophils # (1.3-7.7) k/uL Lymphocytes # (1.0-4.8) k/uL Monocytes # (0-1.0) k/uL Eosinophils # (0-0.7) k/uL Basophils # (0-0.2) k/uL VBG pH 7.40 (7.31-7.41) VBG pCO2 45 (37-51) mmHg VBG HCO3 28 (24-28) mmol/L Sodium (137-145) mmol/L Potassium (3.5-5.1) mmol/L Chloride (98-107) mmol/L Carbon Dioxide (22-30) mmol/L Anion Gap mmol/L BUN (9-20) mg/dL Creatinine (0.66-1.25) mg/dL Est GFR (CKD-EPI)AfAm (>60 ml/min/1.73 sqM) Est GFR (CKD-EPI)NonAf (>60 ml/min/1.73 sqM) Glucose (74-99) mg/dL Plasma Lactic Acid Jerald (0.7-2.0) mmol/L Calcium (8.4-10.2) mg/dL Magnesium (1.6-2.3) mg/dL Total Bilirubin (0.2-1.3) mg/dL AST (17-59) U/L ALT (4-49) U/L Alkaline Phosphatase (38-126) U/L NT-Pro-B Natriuret Pep pg/mL Total Protein (6.3-8.2) g/dL Albumin (3.5-5.0) g/dL Disposition Clinical Impression: Respiratory failure Disposition: ADMITTED IP TO THIS HOSP Condition: Fair Referrals: Deedee Ding NPC [Primary Care Provider] - 1-2 days Decision Time: 19:59
[2023-12-14 16:19] LABS: Basophils # (A) 0.1 k/uL (0-0.2); Basophils % (A) 1 %; Eosinophils # (A) 0.5 k/uL (0-0.7); Eosinophils % (A) 5 %; HCT 42.3 % (39.0-53.0); HGB 13.7 gm/dL (13.0-17.5); Lymphocytes # (A) 0.5 k/uL (1.0-4.8); Lymphocytes % (A) 6 %; MCH 30.8 pg (25.0-35.0); MCHC 32.4 g/dL (31.0-37.0); Mean Platelet Volume 8.1; Monocytes # (A) 0.4 k/uL (0-1.0); Monocytes % (A) 5 %; Neutrophils # (A) 7.3 k/uL (1.3-7.7); Neutrophils % (A) 83 %; Platelet Count 149 k/uL (150-450); RBC 4.45 m/uL (4.30-5.90); RDW 14.8 % (11.5-15.5); WBC 8.8 k/uL (3.8-10.6)
[2023-12-14 16:29] LABS: VBG PH 7.4 (7.31-7.41)
[2023-12-14 16:30] LABS: ALT 24 U/L (4-49); AST 29 U/L (17-59); African American GFR (CKD) >90 (>60 ml/min/1.73 sqM); Albumin 3.7 g/dL (3.5-5.0); Alkaline Phosphatase 80 U/L (38-126); Anion Gap 9 mmol/L; Blood Urea Nitrogen 16 mg/dL (9-20); Calcium 8.6 mg/dL (8.4-10.2); Carbon Dioxide 25 mmol/L (22-30); Chloride 106 mmol/L (98-107); Glucose 127 mg/dL (74-99); Non-African American GFR(CKD) 81 (>60 ml/min/1.73 sqM); Potassium 3.8 mmol/L (3.5-5.1); Sodium 140 mmol/L (137-145); Total Bilirubin 1.1 mg/dL (0.2-1.3); Total Protein 6.1 g/dL (6.3-8.2)
[2023-12-14 16:38] LABS: NT-Pro-B-Type Natriuretic Pept 8390 pg/mL
[2023-12-14] MEDS: DEXAMETHASONE SOD PHOSPHATE 10 MG/ML 1 ML VIAL IV STA (16:44)
[2023-12-14] MEDS: IPRATROPIUM-ALBUTEROL 3 ML NEB INHALATION STA (16:57)
--- NOTE | 2023-12-14 17:35 | XR ---
EXAMINATION TYPE: XR chest 2V DATE OF EXAM: 12/14/2023 4:39 PM CLINICAL INDICATION:Male, 83 years old with history of dyspnea, wheezing; [facility] COMPARISON: 11/12/2023 chest x-ray. TECHNIQUE: XR chest 2V. Frontal and lateral views of the chest.. FINDINGS: Left chest single lead pacemaker again seen with lead terminating over the RV. Heart appears mild to moderately enlarged. The aorta is not well seen, seems to be tortuous. There is the suggestion of opacity extending cc favian ng the left hand margin of the trachea, potentially narrowing the lumen, however evaluation is limite d by this exam. Diffuse coarsening of interstitial lung markings, likely chronic changes. No focal consolidation or p neumothorax is demonstrated. Small bilateral effusions. No clearly acute osseous abnormality. 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 Degenerative changes of the shoulders. IMPRESSION: 1. Mild to moderate cardiomegaly with small pleural effusions. Correlate for mild CHF. 2. Question opacity along the left side of the trachea, of uncertain etiology or significance. CT ch est may be of benefit in further evaluation.
[2023-12-14] MEDS ORDERED: RX INFO: IV CONTRAST WAS GIVEN 1 EACH MISC MISCELLANE PRN (17:49)
[2023-12-14] MEDS: diphenhydrAMINE 50 MG/ML 1 ML VIAL IVP STA (18:34)
[2023-12-14] MEDS: methylPREDNISolone SOD SUCCI 125 MG/2 ML VIAL IV STA (18:35)
[2023-12-14] MEDS: FAMOTIDINE 20 MG/2 ML VIAL IV STA (18:35)
--- NOTE | 2023-12-14 19:46 | CT ---
EXAMINATION TYPE: CT chest w con DATE OF EXAM: 12/14/2023 COMPARISON: HISTORY: ABNORMAL CXR CT DLP: 626.2 mGycm, Automated exposure control for dose reduction was used. CONTRAST: Performed injected with 100 mL of Isovue 300. TECHNIQUE: Axial images were obtained at 5 mm thick sections. Reconstructed images are reviewed on [employer] computer in the coronal plane. FINDINGS: Portion of the thyroid visualized is normal. No suspicious lung nodules or focal infiltrates are present. Heart size is enlarged. There is posterior impression on the trachea, likely air-filled esophagus extending towards the miya a. Portions may be related to motion artifact. Left peritracheal abnormality to correlate with the est x-ray findings not clearly evident. No enlarged mediastinal or hilar adenopathy is evident. The ascending aorta diameter at the level o f the main pulmonary artery is 4.8 cm. The main pulmonary artery diameter at the bifurcation is 3.[address] sections are obtained through the upper abdomen. Abdomen is essentially unremarkable. IMPRESSION: 1. Ascending thoracic aortic aneurysm of 4.8 cm. 2. Posterior portion of the trachea may have impression from the esophagus with narrowing of the trac hea to the radha. This finding however doesn't directly correlate with the chest x-ray findings. Con patient care specialist bronchoscopy for additional evaluation.
[2023-12-14] MEDS ORDERED: NALOXONE 0.4 MG/ML 1 ML VIAL IVP PRN (19:49)
[2023-12-14] MEDS: FUROSEMIDE 10 MG/ML 4 ML VIAL IV STA (20:10)
[2023-12-14] MEDS ORDERED: AZITHROMYCIN 500 MG TAB PO SCH (21:00)
[2023-12-14] MEDS ORDERED: bisacodyL 5 MG TABLET.DR PO PRN (21:03)
[2023-12-14] MEDS ORDERED: ACETAMINOPHEN TAB 325 MG TAB PO PRN (21:04)
[2023-12-14] MEDS: IPRATROPIUM-ALBUTEROL 3 ML NEB INHALATION SCH (21:24)
[2023-12-14] MEDS: AZITHROMYCIN 500 MG in SODIUM CHLORIDE 0.9% 250 ML IVPB STA (22:42)
[2023-12-15] MEDS: FUROSEMIDE 20 MG TAB PO SCH (08:49)
[2023-12-15] MEDS: carvediloL 6.25 MG TAB PO SCH (08:49)
[2023-12-15] MEDS: ASCORBIC ACID 500 MG TAB PO SCH (10:17)
[2023-12-15] MEDS: ZINC SULFATE 220 MG CAP PO SCH (10:17)
[2023-12-15] MEDS: MULTIVITAMINS, THERA 1 EACH TAB PO SCH (10:17)
[2023-12-15] MEDS: FLUDROCORTISONE 0.1 MG TAB PO SCH (10:18)
[2023-12-15] MEDS: CYANOCOBALAMIN 500 MCG TAB PO SCH (10:18)
[2023-12-15] MEDS: ATORVASTATIN 10 MG TAB PO SCH (10:18)
[2023-12-15] MEDS: CHOLECALCIFEROL 10 MCG (400 IU) TABLET PO SCH (10:18)
[2023-12-15] MEDS: FUROSEMIDE 10 MG/ML 4 ML VIAL IV SCH (12:02)
[2023-12-15] MEDS: methylPREDNISolone SOD SUCCI 125 MG/2 ML VIAL IV SCH (12:03)
--- NOTE | 2023-12-15 12:42 | P.CNPUL ---
History of Present Illness Consult date: 12/15/23 Reason for consult: dyspnea History of present illness: 12/15/2023, this patient is being seen for consultation for worsening shortness of breath. The patient is currently retired. He is known to have bronchial asthma, nevertheless, he has not required any maintenance respiratory medications. He has used on and off short acting bronchodilators over the years. He has also been maintained on Dupixent on outpatient basis every 2 weeks. I believe his sports medicine masseur is Dr. CARMINE Wyatt. He is a non-smoker. He comes into the hospital because of worsening shortness of breath and increased dyspnea chest tightness and wheezing. Chest x-ray was done in the emergency department that showed no acute abnormalities. Known to have CHF and the patie nt had some mild cardiomegaly. Subsequently, the patient underwent a CT scan of the chest and I reviewed the images. The patient has an ascending aortic aneurysm measuring 4.8 cm. The patient also had evidence of tracheobronchomalacia with significant collapsibility of the trachea especially in the mid and distal trachea and at the level of radha. The azygos vein is quite distended. No airspace disease. No consolidation. Patient is extensively bronchospastic and wheezy. White cell count of 8.8 with a hemoglobin 15.7, sodium is at 140 with a potassium level of 3.8 and a BUN of 16 with a creatinine of 0.8. proBNP level is 8390. He is known to have CHF with mild chronic systolic impairment of the LV function. The patient also has history of sick sinus syndrome and the patient has a permanent pacemaker in place. He suffers from chronic atrial fibrillation admission. His heart f ailure is nonischemic in nature. He has been followed up by cardiology on outpatient basis. His cardiac catheterization back in December 2019 showed some mild irregularities and 35% mid LAD, minor irregularities of the RCA and the circumflex without any significant occlusion. His most recent echocardiogram that was done on 12/10/2023 showed an left-ventricular ejection fraction of 45%, Review of Systems Constitutional: Reports fatigue Eyes: denies as per HPI, denies blurred vision, denies bulging eye, denies decreased vision, denies diplopia, denies discharge, denies dry eye, denies irritation, denies itching, denies pain, denies photophobia, denies loss of peripheral vision, denies loss of vision, denies tunnel vision/blind spots Ears: deny: decreased hearing, ear discharge, earache, tinnitus Ears, nose, mouth and throat: Reports as per HPI Breasts: absent: as per HPI, gynecomastia Cardiovascular: Reports decreased exercise tolerance, Reports dyspnea on exertion Respiratory: Reports dyspnea, Reports wheezing Gastrointestinal: Reports as per HPI Genitourinary: Reports as per HPI Musculoskeletal: Reports as per HPI Musculoskeletal: absent: ankle pain, ankle stiffness, ankle swelling Integumentary: Reports as per HPI Neurological: Reports as per HPI Psychiatric: Reports as per HPI Endocrine: Reports as per HPI Hematologic/Lymphatic: Reports as per HPI Allergic/Immunologic: Reports as per HPI Past Medical History Past Medical History: Atrial Fibrillation, Asthma, Dementia, Hyperlipidemia, Hypertension, Memory Impairment Additional Past Medical History / Comment(s): PT LIVES AT [facility] WITH History of Any Multi-Drug Resistant Organisms: None Reported Past Surgical History: Cholecystectomy, Pacemaker Past Anesthesia/Blood Transfusion Reactions: No Reported Reaction Type of Cardiac Device: Unknown Device Placement Date:: 2013 Past Psychological History: No Psychological Hx Reported Smoking Status: Never smoker Past Alcohol Use History: None Reported Past Drug Use History: None Reported - Past Family History Mother History Unknown: Yes Family Medical History: No Reported History Medications and Allergies Home Medications Medication Instructions Recorded Confirmed Type Multivitamins, Thera [Multivitamin 1 tab PO DAILY@79912/24/19 12/14/23 History (formulary)] Cyanocobalamin [Vitamin B-12] 500 mcg PO DAILY@0800 06/27/21 12/14/23 History Rosuvastatin Calcium 5 mg PO DAILY@79910/11/22 12/14/23 History Albuterol Nebulized [Ventolin 2.5 mg INHALATION RT-Q4H PRN 08/18/23 12/14/23 Hi story Nebulized] Cholecalciferol [Vitamin D3 (10 10 mcg PO DAILY@79908/18/23 12/14/23 History Mcg = 400 Iu)] Zinc Gluconate [Zinc] 100 mg PO DAILY@0800 11/13/23 12/14/23 History Ascorbic Acid [Vitamin C] 1,000 mg PO DAILY@79912/14/23 12/14/23 History Clobetasol Propionate [Temovate 1 applic TOPICAL BID 12/14/23 12/14/23 History 0.05% Cream] Dupilumab [Dupixent Pen] 300 mg SQ Q14D 12/14/23 12/14/23 History Fludrocortisone [Florinef] 0.2 mg PO DAILY@0800 12/14/23 12/14/23 History Furosemide [Lasix] 20 mg PO DAILY@0800 12/14/23 12/14/23 History Midodrine [ProAmatine] 5 mg PO AC-TID PRN 12/14/23 12/14/23 History bisacodyL [Dulcolax] 5 mg PO HS 12/14/23 12/14/23 History carvediloL [Coreg] 6.25 mg PO BID-W/MEALS@08,17 12/14/23 12/14/23 History Allergies Allergy/AdvReac Type Severity Reaction Status Date / Time iodine Allergy Unknown Verified 12/14/23 18:59 shellfish derived [Shrimp] Allergy Anaphylaxis Verified 12/14/23 18:59 watermelon AdvReac Abdominal Verified 12/14/23 18:59 Pain Physical Exam Vitals: Vital Signs Temp Pulse Resp BP BP Pulse Ox 12/15/23 11:03 68 12/15/23 10:53 64 12/15/23 10:49 157/69 12/15/23 08:31 98.5 F 22 198/77 95 12/15/23 08:15 70 12/15/23 08:06 95 12/15/23 08:05 68 12/15/23 06:00 68 18 190/88 96 12/15/23 03:00 66 18 182/86 95 12/15/23 01:41 65 18 168/88 95 12/14/23 22:46 60 18 182/93 95 12/14/23 21:37 65 12/14/23 21:25 62 12/14/23 20:08 64 18 180/90 96 12/14/23 17:07 63 12/14/23 16:57 60 12/14/23 15:36 60 21 160/76 90 L Intake and Output 12/14/23 12/15/23 12/15/23 22:59 06:59 14:59 Other: # Voids 1 Weight 108.862 kg 108.862 kg Results - Laboratory Findings CBC and BMP: 12/14/23 16:01 12/14/23 16:01 Abnormal lab findings: Abnormal Labs 12/14/23 12/14/23 16:01 16:01 Plt Count 149 L Lymphocytes # 0.5 L Glucose 127 H Total Protein 6.1 L Assessment and Plan Plan: Acute exacerbation of chronic asthma with significant bronchospasm wheezing and secondary shortness of breath. Exact exacerbating factor is not clear. Could be viral. Reviewed the CAT scan of the chest and the patient also has evidence of tracheobronchomalacia with significant compressibility of the distal trachea and the carinal area. Azygous venous distention was also noted related to underlying CHF. Acute hypoxic respiratory failure currently on 2 L of O2 nasal cannula Chronic bronchial asthma maintained on Dupixent and albuterol rescue inhaler nightly basis. No maintenance inhaled corticosteroids. Suspected tracheobronchomalacia based on the CAT scan findings CHF with impaired LV function with an ejection fraction of 45%, likely nonischemic in nature Nonocclusive coronary artery disease, currently free of any chest pain Sick sinus syndrome and the patient has a pacemaker in place paroxysmal atrial fibrillation, currently on warfarin, patient's cardiac rhythm is paced. Hypertension Hyperlipidemia Dementia Episodes of syncope requiring recent hospitalization in November 2023 and a workup included CTA of the head and neck that showed no acute abnormalities when the patient had a detailed cardiac evaluation by the cardiology team. Discharged home on 11/18/2023 on a combination of Coreg midodrine and Florinef. Plan Will start the patient on DuoNeb updrafts 4 times a day IV Solu-Medrol 60 mg every 6 hours Viral 4-Plex evaluation Empiric antibiotic coverage with Zithromax CAT scan of the chest was noted we will continue to follow. Resume home medications
--- NOTE | 2023-12-15 16:17 | P.HPIM ---
History of Present Illness H&P Date: 12/15/23 This is an 83-year-old male with medical history significant for atrial fibrillation, asthma, dementia, hypertension, hyperlipidemia. Patient presents to the hospital with complaints of shortness of breath and bronchospasm. Patient's at the bedside provides most of the history and states that this has been progressing since last . She states that for the last 2 days patient has been unable to sleep and she has been giving him his albuterol treatments without relief of symptoms. She states that he became so short of breath she had to call EMS and patient was brought to the hospital for further evaluation. Patient does not wear any oxygen on an outpatient basis he is found to be hypoxemic with oxygen saturation of 90% requiring 3 L of oxygen. Patient had a chest x-ray done which reveals mild to moderate cardiomegaly with small pleural effusions clinically mild CHF there is questionable pacer along the left side of the trachea of uncertain etiology or significance. CT of the chest was completed for further evaluation which reveals ascending thoracic aortic aneurysm of 4.8 cm, posterior portion of the trachea may have impression from the esophagus with narrowing of the trachea to the radha. This finding however does not directly correlate with the chest x-ray findings. Consider bronchoscopy for additional evaluation. Has blood work reveals a proBNP level of 8390, viral panel was negative for influenza, RSV, COVID. Patient's renal function is within normal limits and his white blood cell count is normal at 8.8. Patient was given a dose of IV Lasix in the EC with improvement in his oxygen saturations. He is currently denying any chest pain however he does continue to report shortness of breath. He is not having any fever or chills he is not having any sputum production. Patient was admitted to the hospital with a consult placed to pulmonary services. REVIEW OF SYSTEMS: CONSTITUTIONAL: No fever, no malaise, no fatigue. HEENT: No recent visual problems or hearing problems. Denied any sore throat. CARDIOVASCULAR: No chest pain, orthopnea, PND, no palpitations, no syncope. PULMONARY: No shortness of breath, no cough, no hemoptysis. GASTROINTESTINAL: No diarrhea, no nausea, no vomiting, no abdominal pain. NEUROLOGICAL: No headaches, no weakness, no numbness. HEMATOLOGICAL: Denies any bleeding or petechiae. GENITOURINARY: Denies any burning micturition, frequency, or urgency. MUSCULOSKELETAL/RHEUMATOLOGICAL: Denies any joint pain, swelling, or any muscle pain. ENDOCRINE: Denies any polyuria or polydipsia. The rest of the 14-point review of systems is negative. PHYSICAL EXAMINATION: GENERAL: The patient is alert and oriented x3, not in any acute distress. Well developed, well nourished. HEENT: Pupils are round and equally reacting to light. EOMI. No scleral icterus. No conjunctival pallor. Normocephalic, atraumatic. No pharyngeal erythema. No thyromegaly. CARDIOVASCULAR: S1 and S2 present. No murmurs, rubs, or gallops. PULMONARY: Scattered inspiratory and expiratory wheezing. Bilateral bibasilar crackles and rales. ABDOMEN: Soft, nontender, nondistended, normoactive bowel sounds. No palpable organomegaly. MUSCULOSKELETAL: No joint swelling or deformity. EXTREMITIES: No cyanosis, clubbing, or pedal edema. NEUROLOGICAL: Gross neurological examination did not reveal any focal deficits. SKIN: No rashes. Assessment and plan Acute congestive heart failure exacerbation patient systolic and diastolic dys function patient will be treated with Lasix and repeat labs in the morning Acute exacerbation of bronchial asthma pulmonary is following the patient is and started on high-dose IV steroids as well as updrafts. Acute hypoxemic respiratory failure secondary to above patient is currently on 3 L of oxygen which can be weaned his oxygen saturations are improving. Concern for tracheomalacia speech therapy consulted as family reports he is having issues swallowing and barium swallow ordered. 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 Recurrent episodes of syncope require recent hospitalization felt due to orthostatic hypotenstion recent medication adjustments made by cardiology Hx of hypertension Hx of hyperlipidemia GI prophylaxis DVT prophylaxis Plan Continue IV lasix 40 mg Q12 with strict intake and output monitoring Continue IV solumedrol and updrafts, wean oxygen as tolerated. Viral panel negative Barium swallow and speech therapy consultation Seroquel at HS ordered Continue on florinef Repeat BMP in the AM Cardiology consultation The impression and plan of care has been dictated by Emily Abad, Nurse Practitioner as directed. Dr. Cristian MD I have performed a history and physical examination and medical decision making of this patient, discussed the same with the dictator, and agree with the dictators assessment and plan as written, documented as a scribe. Based on total visit time, I have performed more than 50% of this visit. Past Medical History Past Medical History: Atrial Fibrillation, Asthma, Dementia, Hyperlipidemia, Hypertension, Memory Impairment Additional Past Medical History / Comment(s): PT LIVES AT [facility] WITH History of Any Multi-Drug Resistant Organisms: None Reported Past Surgical History: Cholecystectomy, Pacemaker Past Anesthesia/Blood Transfusion Reactions: No Reported Reaction Type of Cardiac Device: Unknown Device Placement Date:: 2013 Past Psychological History: No Psychological Hx Reported Smoking Status: Never smoker Past Alcohol Use History: None Reported Past Drug Use History: None Reported - Past Family History Mother History Unknown: Yes Family Medical History: No Reported History Medications and Allergies Home Medications Medication Instructions Recorded Confirmed Type Multivitamins, Thera [Multivitamin 1 tab PO DAILY@0812/24/19 12/14/23 History (formulary)] Cyanocobalamin [Vitamin B-12] 500 mcg PO DAILY@0800 06/27/21 12/14/23 History Rosuvastatin Calcium 5 mg PO DAILY@0810/11/22 12/14/23 History Albuterol Nebulized [Ventolin 2.5 mg INHALATION RT-Q4H PRN 08/18/23 12/14/23 History Nebulized] Cholecalciferol [Vitamin D3 (10 10 mcg PO DAILY@79908/18/23 12/14/23 History Mcg = 400 Iu)] Zinc Gluconate [Zinc] 100 mg PO DAILY@0800 11/13/23 12/14/23 History Ascorbic Acid [Vitamin C] 1,000 mg PO DAILY@79912/14/23 12/14/23 History Clobetasol Propionate [Temovate 1 applic TOPICAL BID 12/14/23 12/14/23 History 0.05% Cream] Dupilumab [Dupixent Pen] 300 mg SQ Q14D 12/14/23 12/14/23 History Fludrocortisone [Florinef] 0.2 mg PO DAILY@79912/14/23 12/14/23 History Furosemide [Lasix] 20 mg PO DAILY@0800 12/14/23 12/14/23 History Midodrine [ProAmatine] 5 mg PO AC-TID PRN 12/14/23 12/14/23 History bisacodyL [Dulcolax] 5 mg PO HS 12/14/23 12/14/23 History carvediloL [Coreg] 6.25 mg PO BID-W/MEALS@08,17 12/14/23 12/14/23 History Allergies Allergy/AdvReac Type Severity Reaction Status Date / Time iodine Allergy Unknown Verified 12/14/23 18:59 shellfish derived [Shrimp] Allergy Anaphylaxis Verified 12/14/23 18:59 watermelon AdvReac Abdominal Verified 12/14/23 18:59 Pain Physical Exam Vitals: Vital Signs Temp Pulse Pulse Resp BP BP Pulse Ox 12/15/23 15:22 64 12/15/23 15:12 60 12/15/23 14:12 98.0 F 60 17 137/67 96 12/15/23 11:03 68 12/15/23 10:53 64 12/15/23 10:49 157/69 12/15/23 08:31 98.5 F 22 198/77 95 12/15/23 08:15 70 12/15/23 08:06 95 12/15/23 08:05 68 12/15/23 06:00 68 18 190/88 96 12/15/23 03:00 66 18 182/86 95 12/15/23 01:41 65 18 168/88 95 12/14/23 22:46 60 18 182/93 95 12/14/23 21:37 65 12/14/23 21:25 62 12/14/23 20:08 64 18 180/90 96 12/14/23 17:07 63 12/14/23 16:57 60 Intake and Output 12/15/23 12/15/23 12/15/23 06:59 14:59 22:59 Other: # Voids 1 Weight 108.862 kg Results CBC & Chem 7: 12/14/23 16:01 12/14/23 16:01 Labs: Abnormal Lab Results - Last 24 Hours (Table) 12/14/23 12/14/23 Range/Units 16:01 16:01 Plt Count 149 L (150-450) k/uL Lymphocytes # 0.5 L (1.0-4.8) k/uL Glucose 127 H (74-99) mg/dL Total Protein 6.1 L (6.3-8.2) g/dL Thrombosis Risk Factor Assmnt - Choose All That Apply Any of the Below Risk Factors Present?: Yes Each Factor Represents 1 point: Obesity (BMI >25) Other Risk Factors: Yes Each Risk Factor Represents 3 Points: Age 75 years or older Other congenital or acquired thrombophilia - If yes, enter type in comment: Yes Thrombosis Risk Factor Assessment Total Risk Factor Score: 4 Thrombosis Risk Factor Assessment Level: Moderate Risk Assessment and Plan Time with Patient: Less than 30
[2023-12-15] MEDS: HEPARIN SODIUM,PORCINE 5,000 UNIT/ML 1 ML VIAL SQ SCH (20:57)
[2023-12-15] MEDS: QUEtiapine 25 MG TAB PO SCH (20:57)
[2023-12-15] MEDS: AZITHROMYCIN 500 MG TAB PO SCH (21:19)
[2023-12-16 08:38] LABS: BUN/Creat Ratio 23.67 Ratio (12.00-20.00); Blood Urea Nitrogen 28.4 mg/dL (9.0-27.0); Calcium 9.4 mg/dL (8.7-10.3); Carbon Dioxide 26.3 mmol/L (21.6-31.8); Chloride 103 mmol/L (96-109); Glucose 169 mg/dL (70-110); Potassium 3.7 mmol/L (3.5-5.5); Sodium 143 mmol/L (135-145)
--- NOTE | 2023-12-16 12:14 | P.CRDCN ---
History of Present Illness Consult date: 12/16/23 Chief complaint: Shortness of breath History of present illness: The patient is a pleasant 83-year-old gentleman who is known to our service from before with a past medical history significant for nonischemic cardiomyopathy with an ejection fraction around 45% as well as permanent pacemaker as well as hypertension and dyslipidemia and history of asthma presented to the hospital complaining of shortness of breath. The patient somewhat is a poor historian and the history was taken from him as well as from his who was at bedside. For the last 1 to 2 weeks he has been experiencing increasing in the shortness of breath with exertion associated with wheezing with no cough or sputum production and no symptoms of chest pain or chest discomfort but bilateral lower extremities edema as well. He stated that no change in the weight. For that reason he decided to come to the hospital where he underwent further investigation including an EKG which showed atrial fibrillation as an underlying rhythm with ventricular paced rhythm. He was on oral anticoagulation and that has stopped by Dr. Wyatt because of high risk of falling and bleeding. Beside that he underwent chest x-ray which showed pulmonary vascular congestions with NT proBNP came in to be elevated at 8000. The rest of the blood work overall came in to be unremarkable but he was seen by the pulmonary service and he was started on bronchodilators and inhalers. His symptoms of shortness of breath has been somewhat better compared to before. He was seen by our service 4 weeks ago and he underwent an echocardiogram which revealed mildly impaired LV function with EF around 45%. On examination he seems to be in fluid overload. Please note that his pressure has been elevated and consistent with hypertension crisis with a systolic pressure above 200 mmHg when he was seen and evaluated. Currently he is on carvedilol only for hypertension. The examination is fitz rkable for elevated blood pressure with bilateral expiratory wheezing and regular rate and rhythm with a distant heart sounds and bilateral lower extremities edema Assessment Acute hypoxic respiratory failure likely to be multifactorial Asthma exacerbation Heart failure exacerbation with preserved ejection fraction Hypertension emergency which is complicated by heart failure Permanent pacemaker Permanent atrial fibrillation not on anticoagulation because of high risk of falling and bleeding Multiple comorbid conditions Plan DC oral Lasix and start the patient on IV Lasix Start the patient also on losartan/hydrochlorothiazide for the hypertension emergency Continue monitor the kidney function and electrolytes No need to repeat the echo in the light of recent echo showing an EF around 45% Follow-up with the patient Past Medical History Past Medical History: Atrial Fibrillation, Asthma, Dementia, Hyperlipidemia, Hypertension, Memory Impairment Additional Past Medical History / Comment(s): PT LIVES AT [facility] WITH History of Any Multi-Drug Resistant Organisms: None Reported Past Surgical History: Cholecystectomy, Pacemaker Past Anesthesia/Blood Transfusion Reactions: No Reported Reaction Type of Cardiac Device: Unknown Device Placement Date:: 2013 Past Psychological History: No Psychological Hx Reported Smoking Status: Never smoker Past Alcohol Use History: None Reported Past Drug Use History: None Reported - Past Family History Mother History Unknown: Yes Family Medical History: No Reported History Medications and Allergies Home Medications Medication Instructions Recorded Confirmed Type Multivitamins, Thera [Multivitamin 1 tab PO DAILY@0800 12/24/19 12/14/23 History (formulary)] Cyanocobalamin [Vitamin B-12] 500 mcg PO DAILY@0800 06/27/21 12/14/23 History Rosuvastatin Calcium 5 mg PO DAILY@0800 10/11/22 12/14/23 History Albuterol Nebulized [Ventolin 2.5 mg INHALATION RT-Q4H PRN 08/18/23 12/14/23 History Nebulized] Cholecalciferol [Vitamin D3 (10 10 mcg PO DAILY@0800 08/18/23 12/14/23 History Mcg = 400 Iu)] Zinc Gluconate [Zinc] 100 mg PO DAILY@0800 11/13/23 12/14/23 History Ascorbic Acid [Vitamin C] 1,000 mg PO DAILY@0800 12/14/23 12/14/23 History Clobetasol Propionate [Temovate 1 applic TOPICAL BID 12/14/23 12/14/23 History 0.05% Cream] Dupilumab [Dupixent Pen] 300 mg SQ Q14D 12/14/23 12/14/23 History Fludrocortisone [Florinef] 0.2 mg PO DAILY@0800 12/14/23 12/14/23 History Furosemide [Lasix] 20 mg PO DAILY@0800 12/14/23 12/14/23 History Midodrine [ProAmatine] 5 mg PO AC-TID PRN 12/14/23 12/14/23 History bisacodyL [Dulcolax] 5 mg PO HS 12/14/23 12/14/23 History carvediloL [Coreg] 6.25 mg PO BID-W/MEALS@08,17 12/14/23 12/14/23 History Allergies Allergy/AdvReac Type Severity Reaction Status Date / Time iodine Allergy Unknown Verified 12/14/23 18:59 shellfish derived [Shrimp] Allergy Anaphylaxis Verified 12/14/23 18:59 watermelon AdvReac Abdominal Verified 12/14/23 18:59 Pain Physical Exam Vitals: Vital Signs Temp Pulse Pulse Resp BP Pulse Ox 12/16/23 12:00 68 12/16/23 08:00 98.3 F 60 18 205/96 94 L 12/16/23 01:52 97.6 F 60 15 153/65 94 L 12/15/23 21:10 65 12/15/23 19:10 97.7 F 65 16 176/88 95 12/15/23 15:22 64 12/15/23 15:12 60 12/15/23 14:12 98.0 F 60 17 137/67 96 Intake and Output 12/15/23 12/16/23 12/16/23 22:59 06:59 14:59 Output Total 600 Balance -600 Output: Urine 600 Other: # Voids 2 Results 12/14/23 16:01 12/16/23 04:25 Comprehensive Metabolic Panel 12/16/23 Range/Units 04:25 Sodium 143 (135-145) mmol/L Potassium 3.7 (3.5-5.5) mmol/L Chloride 103 (96-109) mmol/L Carbon Dioxide 26.3 (21.6-31.8) mmol/L BUN 28.4 H (9.0-27.0) mg/dL Creatinine 1.2 (0.6-1.5) mg/dL Glucose 169 H (70-110) mg/dL Calcium 9.4 (8.7-10.3) mg/dL Current Medications Generic Name Dose Route Start Last Admin Trade Name Freq PRN Reason Stop Dose Admin Acetaminophen 650 mg 12/14/23 21:04 Acetaminophen Tab 325 Mg Tab PO Q6HR PRN Fever and/ or Mild Pain Albuterol/Ipratropium 3 ml 12/14/23 20:00 12/16/23 12:00 Ipratropium-Albuterol 3 Ml Neb INHALATION 3 ml RT-QID MAURIZIO Administration Ascorbic Acid 1,000 mg 12/15/23 08:00 12/16/23 09:25 Ascorbic Acid 500 Mg Tab PO 1,000 mg DAILY@0800 MAURIZIO Administration Atorvastatin Calcium 10 mg 12/15/23 08:00 12/16/23 09:26 Atorvastatin 10 Mg Tab PO 10 mg DAILY@0800 MAURIZIO Administration Azithromycin 500 mg 12/15/23 21:00 12/15/23 21:19 Azithromycin 500 Mg Tab PO 12/17/23 21:01 500 mg HS MAURIZIO Administration Protocol Bisacodyl 5 mg 12/14/23 21:03 Bisacodyl [address] CHEN HS PRN Constipation Carvedilol 6.25 mg 12/15/23 08:00 12/16/23 09:26 Carvedilol 6.25 Mg Tab PO 6.25 mg BID-W/MEALS@ [facility] Administration Cholecalciferol 10 mcg 12/15/23 08:00 12/16/23 09:25 Cholecalciferol 10 Mcg (400 Iu) Tablet PO 10 mcg DAILY@0800 [facility] Administration Cyanocobalamin 500 mcg 12/15/23 08:00 12/16/23 09:25 Cyanocobalamin 500 Mcg Tab PO 500 mcg DAILY@0800 [facility] Administration Furosemide 40 mg 12/16/23 21:00 Furosemide 10 Mg/Ml 4 Ml Vial IV Q12HR [facility] HCTZ/Losartan Potassium 1 each 12/17/23 09:00 Losartan-Hctz 50-12.5 Mg 1 Each Tab PO DAILY MAURIZIO Heparin Sodium (Porcine) 5,000 unit 12/15/23 21:00 12/16/23 09:27 Heparin Sodium,Porcine 5,000 Unit/Ml 1 Ml Vial SQ 5,000 unit Q12HR [facility] Administration Methylprednisolone 24 mg 12/17/23 09:00 Methylprednisolone 4 Mg Tab Taper PO 12/23/23 08:59 DAILY [facility] Taper Miscellaneous Information 1 each 12/14/23 17:49 Rx Info: Iv Contrast Was Given 1 Each Misc MISCELLANE 12/16/23 17:49 DAILY PRN Per Protocol Multivitamins 1 each 12/15/23 08:00 12/16/23 09:25 Multivitamins, Thera 1 Each Tab PO 1 each DAILY@0800 [facility] Administration Naloxone HCl 0.2 mg 12/14/23 19:49 Naloxone 0.4 Mg/Ml 1 Ml Vial IVP Q2M PRN Opioid Reversal Quetiapine Fumarate 25 mg 12/16/23 11:52 Quetiapine 25 Mg Tab PO HS PRN Agitation Zinc Sulfate 220 mg 12/15/23 08:00 12/16/23 09:25 Zinc Sulfate 220 Mg Cap PO 220 mg DAILY@0800 MAURIZIO Administration Intake and Output 12/15/23 12/16/23 12/16/23 22:59 06:59 14:59 Output Total 600 Balance -600 Output: Urine 600 Other: # Voids 2 12/14/23 16:01 12/16/23 04:25
--- NOTE | 2023-12-16 12:22 | FL ---
EXAMINATION TYPE: FL barium swallow DATE OF EXAM: 12/16/2023 CLINICAL INDICATION: 82-year-old male with hypoxic respiratory failure, cough, assess for esophageal stricture COMPARISON: None Total fluoroscopy time: 2 minutes 57 seconds Total images: 112 DOSE AREA PRODUCT (DAP) UGY*M,MGY*CM: 792 FINDINGS: The table was brought to 45 degrees and thin barium was utilized due to patient's condition . There is moderate hypertrophy of the cricopharyngeus. Moderate tertiary peristaltic contractions are present throughout. There is gradual tapering of the distal half of the esophagus. The proximal half is patulous. The dis cruzito third fails to distend. Residual contrast remains pooled within the distal esophagus and transit across the GE junction is slowed. Assessment of the mucosa is limited due to single contrast technique. No hiatal hernia seen. IMPRESSION: 1. Moderate CP muscle hypertrophy. 2. Gradual tapering of the distal half of the esophagus with proximal dilatation. The distal third fa ils to distend and there is delayed transit of contrast across the GE junction. A distal stricture or early achalasia are both in the differential.
--- NOTE | 2023-12-16 13:39 | P.PN ---
Subjective Progress Note Date: 12/16/23 12/15/2023, this patient is being seen for consultation for worsening shortness of breath. The patient is currently retired. He is known to have bronchial asthma, nevertheless, he has not required any maintenance respiratory medications. He has used on and off short acting bronchodilators over the years. He has also been maintained on Dupixent on outpatient basis every 2 weeks. I believe his undertaker assistant is Dr. CARMINE Wyatt. He is a non-smoker. He comes into the hospital because of worsening shortness of breath and increased dyspnea chest tightness and wheezing. Chest x-ray was done in the emergency department that showed no acute abnormalities. Known to have CHF and the patient had some mild cardiomegaly. Subsequently, the patient underwent a CT scan of the chest and I reviewed the images. The patient has an ascending aortic aneurysm measuring 4.8 cm. The patient also had evidence of t racheobronchomalacia with significant collapsibility of the trachea especially in the mid and distal trachea and at the level of radha. The azygos vein is quite distended. No airspace disease. No consolidation. Patient is extensively bronchospastic and wheezy. White cell count of 8.8 with a he moglobin 15.7, sodium is at 140 with a potassium level of 3.8 and a BUN of 16 with a creatinine of 0.8. proBNP level is 8390. He is known to have CHF with mild chronic systolic impairment of the LV function. The patient also has history of sick sinus syndrome and the patient has a permanent pacemaker in place. He suffers from chronic atrial fibrillation admission. His heart failure is nonischemic in nature. He has been followed up by cardiology on outpatient basis. His cardiac catheterization back in December 2019 showed some mild irregularities and 35% mid LAD, minor irregularities of the RCA and the circumflex without any significant occlusion. His most recent echocardiogram that was done on 12/10/2023 showed an left-ventricular ejection fraction of 45%, The patient is seen today December 16, 2023 in follow-up on the regular medical floor. He is currently awake and alert in no acute distress. Sitting up in a chair at the bedside. He still has a loose congested cough. Some end expiratory wheeze. He did go down for a swallow evaluation today. Sodium 143. Potassium 3.7. Bicarb 26. BUN 28. Creatinine 1.2. He remains on azithromycin. Heparin for DVT prophylaxis. Remains on bronchodilators and IV diuretics. Objective - Vital Signs Vital signs: Vital Signs Temp 98.3 F 12/16/23 08:00 Pulse 68 12/16/23 12:11 Resp 18 12/16/23 08:00 BP 205/96 12/16/23 08:00 Pulse Ox 94 L 12/16/23 08:00 FiO2 Intake & Output 12/15/23 12/16/23 12/16/23 18:59 06:59 18:59 Output Total 600 Balance -600 Weight 108.862 kg Output: Urine 600 Other: # Voids 2 - Exam GENERAL EXAM: Alert, pleasant 83-year-old gentleman, up in a chair, on 3 L nasal cannul, in no apparent distress. HEAD: Normocephalic. EYES: Normal reaction of pupils, equal size. NOSE: Clear with pink turbinates. THROAT: No erythema or exudates. NECK: No masses, no JVD. CHEST: No chest wall deformity. LUNGS: Equal air entry with bilateral end expiratory wheeze, few scattered rhonchi. CVS: S1 and S2 normal with no audible murmur, regular rhythm. ABDOMEN: No hepatosplenomegaly, normal bowel sounds, no guarding or rigidity. SPINE: No scoliosis or deformity SKIN: No rashes CENTRAL NERVOUS SYSTEM: No focal deficits, tone is normal in all 4 extremities. EXTREMITIES: There is no peripheral edema. No clubbing, no cyanosis. Peripheral pulses are intact. - Labs CBC & Chem 7: 12/14/23 16:01 12/16/23 04:25 Labs: Abnormal Lab Results - Last 24 Hours (Table) 12/16/23 Range/Units 04:25 Anion Gap 13.70 H (4.00-12.00) mmol/L BUN 28.4 H (9.0-27.0) mg/dL BUN/Creatinine Ratio 23.67 H (12.00-20.00) Ratio Glucose 169 H (70-110) mg/dL Assessment and Plan Assessment: Acute exacerbation of chronic asthma with significant bronchospasm wheezing and secondary shortness of breath. Exact exacerbating factor is not clear. Could be viral. Reviewed the CAT scan of the chest and the patient also has evidence of tracheobronchomalacia with significant compressibility of the distal trachea and the carinal area. Azygous venous distention was also noted related to underlying CHF. Barium swallow pending. Acute hypoxic respiratory failure currently on 3 L of O2 nasal cannula Chronic bronchial asthma maintained on Dupixent and albuterol rescue inhale No maintenance inhaled corticosteroids. Suspected tracheobronchomalacia based on the CAT scan findings CHF with impaired LV function with an ejection fraction of 45%, likely nonischemic in nature Nonocclusive coronary artery disease, currently free of any chest pain Sick sinus syndrome and the patient has a pacemaker in place paroxysmal atrial fibrillation, currently on warfarin, patient's cardiac rhythm is paced. Hypertension Hyperlipidemia Dementia Episodes of syncope requiring recent hospitalization in November 2023 and a workup included CTA of the head and neck that showed no acute abnormalities when the patient had a detailed cardiac evaluation. Discharged home on 11/18/2023 on a combination of Coreg, midodrine and Florinef. Plan: The patient was seen and evaluated Labs and medications reviewed Barium swallow pending Initiated on IV diuretics per cardiology Continues on azithromycin Discontinue IV Solu-Medrol Initiate a Medrol Dosepak Heparin for DVT prophylaxis We will continue to follow I have personally seen and examined the patient, performed the documentation and the assessment and plan as written. Number of minutes spent on the visit: 10.
[2023-12-16] MEDS: FUROSEMIDE 10 MG/ML 4 ML VIAL IV SCH (21:51)
--- NOTE | 2023-12-16 21:54 | P.PN ---
Subjective Progress Note Date: 12/16/23 This is an 83-year-old male with medical history significant for atrial fibrillation, asthma, dementia, hypertension, hyperlipidemia. Patient presents to the hospital with complaints of shortness of breath and bronchospasm. Patient's at the bedside provides most of the history and states that this has been progressing since last . She states that for the last 2 days patient has been unable to sleep and she has been giving him his albuterol treatments without relief of symptoms. She states that he became so short of breath she had to call EMS and patient was brought to the hospital for further evaluation. Patient does not wear any oxygen on an outpatient basis he is found to be hypoxemic with oxygen saturation of 90% requiring 3 L of oxygen. Patient had a chest x-ray done which reveals mild to moderate cardiomegaly with small pleural effusions clinically mild CHF there is questionable pacer along the left side of the trachea of uncertain etiology or significance. CT of the chest was completed for further evaluation which reveals ascending thoracic aortic aneurysm of 4.8 cm, posterior portion of the trachea may have impression from the esophagus with narrowing of the trachea to the radha. This finding however does not directly correlate with the chest x-ray findings. Consider bronchoscopy for additional evaluation. Has blood work reveals a proBNP level of 8390, viral panel was negative for influenza, RSV, COVID. Patient's renal function is within normal limits and his white blood cell count is normal at 8.8. Patient was given a dose of IV Lasix in the EC with improvement in his oxygen saturations. He is currently denying any chest pain however he does c ontinue to report shortness of breath. He is not having any fever or chills he is not having any sputum production. Patient was admitted to the hospital with a consult placed to pulmonary services. 12/16/2023 Patient is evaluated in follow up today. Less short of breath and less wheezy. Was transitioned to oral prednisone taper by pulmonary. He is pending cardiology consultation. He received IV lasix and has been transitioned back to oral lasix. Oxygen saturations have improved and currently maintaining 96% on 2L and recommending to wean to room air. He received seroquel last night and states he slept well. Patient underwent barium swallow today reveals moderate CP muscle atrophy, gradual tapering of the distal half of the esophagus with proximal dilatation. The distal third fails to distend and there is delayed transit of contrast across the GE junction. A distal stricture or early achalasia are both in the differential. Patient was evaluated by speech therapy and can continue on thin liquid diet and the esophageal narrowing can be addressed likely on an outpatient basis. REVIEW OF SYSTEMS: CONSTITUTIONAL: No fever, no malaise, no fatigue. HEENT: No recent visual problems or hearing problems. Denied any sore throat. CARDIOVASCULAR: No chest pain, orthopnea, PND, no palpitations, no syncope. PULMONARY: No shortness of breath, no cough, no hemoptysis. GASTROINTESTINAL: No diarrhea, no nausea, no vomiting, no abdominal pain. NEUROLOGICAL: No headaches, no weakness, no numbness. PHYSICAL EXAMINATION: GENERAL: The patient is alert and oriented x3, not in any acute distress. Well developed, well nourished. HEENT: Pupils are round and equally reacting to light. EOMI. No scleral icterus. No conjunctival pallor. Normocephalic, atraumatic. No pharyngeal erythema. No thyromegaly. CARDIOVASCULAR: S1 and S2 present. No murmurs, rubs, or gallops. PULMONARY: Scattered inspiratory and expiratory wheezing. Bilateral bibasilar crackles and rales. ABDOMEN: Soft, nontender, nondistended, normoactive bowel sounds. No palpable organomegaly. MUSCULOSKELETAL: No joint swelling or deformity. EXTREMITIES: No cyanosis, clubbing, or pedal edema. NEUROLOGICAL: Gross neurological examination did not reveal any focal deficits. Generalizes weakness. SKIN: No rashes. Assessment and plan Acute congestive heart failure exacerbation patient systolic and diastolic dysf unction patient will be treated with Lasix and repeat labs in the morning Acute exacerbation of bronchial asthma pulmonary is following the patient is receiving systemic steroids. Acute hypoxemic respiratory failure secondary to above patient is currently on 2 L of oxygen which can be weaned his oxygen saturations are improving. 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 Dementia/memory impairment Sick sinus syndrome status post pacemaker in 2013 Hx of nonischemic cardiomyopathy Permanent atrial fibrillation patient has been taken off warfarin outpatient by his coat operator. Recurrent episodes of syncope require recent hospitalization felt due to orthostatic hypotenstion recent medication adjustments made by cardiology Hx of hypertension Hx of hyperlipidemia GI prophylaxis DVT prophylaxis Plan Transitioned to oral lasix. Transitioned to oral prednisone, pulmonary following. Wean oxygen as tolerated. Barium swallow and speech therapy consultation Seroquel at HS ordered Florinef and midodrine have been discontinued as patient has been hypertensive. Repeat BMP in the AM Cardiology consultation PT/OT recommending subacute rehab on discharge. The impression and plan of care has been dictated by Emily Abad Nurse Practitioner as directed. Dr. Cristian MD I have performed a history and physical examination and medical decision making of this patient, discussed the same with the dictator, and agree with the dictators assessment and plan as written, documented as a scribe. Based on total visit time, I have performed more than 50% of this visit. Objective - Vital Signs Vital signs: Vital Signs Temp 98.6 F 12/16/23 19:09 Pulse 65 12/16/23 21:41 Resp 20 12/16/23 19:09 BP 144/83 12/16/23 19:09 Pulse Ox 96 12/16/23 19:09 FiO2 Intake & Output 12/16/23 12/16/23 12/17/23 06:59 18:59 06:59 Output Total 600 100 Balance -600 -100 Output: Urine 600 100 - Labs CBC & Chem 7: 12/14/23 16:01 12/16/23 04:25 Labs: Abnormal Lab Results - Last 24 Hours (Table) 12/16/23 Range/Units 04:25 Anion Gap 13.70 H (4.00-12.00) mmol/L BUN 28.4 H (9.0-27.0) mg/dL BUN/Creatinine Ratio 23.67 H (12.00-20.00) Ratio Glucose 169 H (70-110) mg/dL Assessment and Plan Time with Patient: Less than 30
[2023-12-16] MEDS: QUEtiapine 25 MG TAB PO PRN (22:55)
[2023-12-17] MEDS: methylPREDNISolone 4 MG TAB TAPER PO SCH (08:15)
[2023-12-17] MEDS: LOSARTAN-HCTZ 50-12.5 MG 1 EACH TAB PO SCH (08:16)
[2023-12-17] MEDS ORDERED: FUROSEMIDE 20 MG TAB PO SCH (09:00)
[2023-12-17 10:56] LABS: African American GFR (CKD) 80 (>60 ml/min/1.73 sqM); Anion Gap 4 mmol/L; Blood Urea Nitrogen 32 mg/dL (9-20); Carbon Dioxide 34 mmol/L (22-30); Chloride 103 mmol/L (98-107); Glucose 123 mg/dL (74-99); Non-African American GFR(CKD) 69 (>60 ml/min/1.73 sqM); Potassium 3.2 mmol/L (3.5-5.1); Sodium 141 mmol/L (137-145)
--- NOTE | 2023-12-17 11:41 | P.PN ---
Subjective Progress Note Date: 12/17/23 Principal diagnosis: Hypertension emergency The patient is a pleasant 83-year-old gentleman who is known to our service from before with a past medical history significant for nonischemic cardiomyopathy with an ejection fraction around 45% as well as permanent pacemaker as well as hypertension and dyslipidemia and history of asthma presented to the hospital complaining of shortness of breath. The patient somewhat is a poor historian and the history was taken from him as well as from his who was at bedside. For the last 1 to 2 weeks he has been experiencing increasing in the shortness of breath with exertion associated with wheezing with no cough or sputum production and no symptoms of chest pain or chest discomfort but bilateral lower extremities edema as well. He stated that no change in the weight. For that reason he decided to come to the hospital where he underwent further investigation including an EKG which showed atrial fibrillation as an underlying rhythm with ventricular paced rhythm. He was on oral anticoagulation and that has stopped by Dr. Wyatt because of high risk of falling and bleeding. Beside that he underwent chest x-ray which showed pulmonary vascular congestions with NT proBNP came in to be elevated at 8000. The rest of the blood work overall came in to be unremarkable but he was seen by the pulmonary service and he was started on bronchodilators and inhalers. His symptoms of shortness of breath has been somewhat better compared to before. He was seen by our service 4 weeks ago and he underwent an echocardiogram which revealed mildly impaired LV function with EF around 45%. On examination he seems to be in fluid overload. Please note that his pressure has been elevated and consistent with hypertension crisis with a systolic pressure above 200 mmHg when he was seen and evaluated. Currently he is on carvedilol only for hypertension. The examination is remarkable for elevated blood pressure with bilateral expiratory wheezing and regular rate and rhythm with a distant heart sounds and bilateral lower extremities edema December 17, 2023 The patient was seen and evaluated this morning. The pressure appears to be s omewhat better. He is feeling better. The shortness of breath is slightly better as well. He continues to be on Lasix IV. Yesterday losartan/hydrochlorothiazide was added to his medication. From the cardiovascular standpoint of view, we will continue the current medical regimen and continue monitor the kidney function and electrolytes and follow-up with the patient Assessment Acute hypoxic respiratory failure likely to be multifactorial Asthma exacerbation Heart failure exacerbation with preserved ejection fraction Hypertension emergency which is complicated by heart failure Permanent pacemaker Permanent atrial fibrillation not on anticoagulation because of high risk of falling and bleeding Multiple comorbid conditions Plan Continue IV diuretics for additional 24-hour Continue monitor the kidney function and electrolytes No need to repeat the echo in the light of recent echo showing an EF around 45% Follow-up with the patient Objective - Vital Signs Vital signs: Vital Signs Temp 97.8 F 12/17/23 07:23 Pulse 60 12/17/23 09:44 Resp 19 12/17/23 07:45 BP 194/64 12/17/23 07:23 Pulse Ox 96 12/17/23 07:23 FiO2 Intake & Output 12/16/23 12/17/23 12/17/23 18:59 06:59 18:59 Intake Total 480 Output Total 100 600 Balance -100 -120 Intake: Oral 480 Output: Urine 100 600 Other: Voiding Method External Catheter External Catheter - Labs CBC & Chem 7: 12/14/23 16:01 12/17/23 10:23 Labs: Abnormal Lab Results - Last 24 Hours (Table) 12/17/23 Range/Units 10:23 Potassium 3.2 L (3.5-5.1) mmol/L Carbon Dioxide 34 H (22-30) mmol/L BUN 32 H (9-20) mg/dL Glucose 123 H (74-99) mg/dL
[2023-12-17] MEDS ORDERED: BENZONATATE 100 MG CAP PO PRN (13:00)
--- NOTE | 2023-12-17 13:58 | P.PN ---
Subjective Progress Note Date: 12/17/23 12/15/2023, this patient is being seen for consultation for worsening shortness of breath. The patient is currently retired. He is known to have bronchial asthma, nevertheless, he has not required any maintenance respiratory medications. He has used on and off short acting bronchodilators over the years. He has also been maintained on Dupixent on outpatient basis every 2 weeks. 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 CARMINE Wyatt. He is a non-smoker. He comes into the hospital because of worsening shortness of breath and increased dyspnea chest tightness and wheezing. Chest x-ray was done in the emergency department that showed no acute abnormalities. Known to have CHF and the patient had some mild cardiomegaly. Subsequently, the patient underwent a CT scan of the chest and I reviewed the images. The patient has an ascending aortic aneurysm measuring 4.8 cm. The patient also had evidence of t racheobronchomalacia with significant collapsibility of the trachea especially in the mid and distal trachea and at the level of radha. The azygos vein is quite distended. No airspace disease. No consolidation. Patient is extensively bronchospastic and wheezy. White cell count of 8.8 with a he moglobin 15.7, sodium is at 140 with a potassium level of 3.8 and a BUN of 16 with a creatinine of 0.8. proBNP level is 8390. He is known to have CHF with mild chronic systolic impairment of the LV function. The patient also has history of sick sinus syndrome and the patient has a permanent pacemaker in place. He suffers from chronic atrial fibrillation admission. His heart failure is nonischemic in nature. He has been followed up by cardiology on outpatient basis. His cardiac catheterization back in December 2019 showed some mild irregularities and 35% mid LAD, minor irregularities of the RCA and the circumflex without any significant occlusion. His most recent echocardiogram that was done on 12/10/2023 showed an left-ventricular ejection fraction of 45%, The patient is seen today December 16, 2023 in follow-up on the regular medical floor. He is currently awake and alert in no acute distress. Sitting up in a chair at the bedside. He still has a loose congested cough. Some end expiratory wheeze. He did go down for a swallow evaluation today. Sodium 143. Potassium 3.7. Bicarb 26. BUN 28. Creatinine 1.2. He remains on azithromycin. Heparin for DVT prophylaxis. Remains on bronchodilators and IV diuretics. The patient is seen today December 17, 2023 and follow-up on the regular medical floor. He is currently resting comfortably in bed. Awake and alert in no acute distress. Maintaining O2 saturations in the 90s on room air. He has had some episodes of confusion. Some lightheadedness and dizziness. His is at the bedside. We had discontinued his IV steroids yesterday. He is currently on a Medrol Dosepak. Sodium 141. Potassium 3.2. Bicarb 34. BUN 32. Creatinine 1.00. Glucose 123. He is continued on DuoNeb inhalations, Tessalon Perles, Mucinex. Heparin for DVT prophylaxis. Antibiotics in the form of azithromycin. Objective - Vital Signs Vital signs: Vital Signs Temp 97.8 F 12/17/23 07:23 Pulse 60 12/17/23 12:56 Resp 19 12/17/23 07:45 BP 194/64 12/17/23 07:23 Pulse Ox 96 12/17/23 07:23 FiO2 Intake & Output 12/16/23 12/17/23 12/17/23 18:59 06:59 18:59 Intake Total 480 Output Total 100 600 Balance -100 -120 Intake: Oral 480 Output: Urine 100 600 Other: Voiding Method External Catheter External Catheter - Exam GENERAL EXAM: Alert, 83-year-old gentleman, resting in bed, on 3 L nasal cannul, in no apparent distress. HEAD: Normocephalic. EYES: Normal reaction of pupils, equal size. NOSE: Clear with pink turbinates. THROAT: No erythema or exudates. NECK: No masses, no JVD. CHEST: No chest wall deformity. LUNGS: Equal air entry with bilateral end expiratory wheeze, few scattered rhonchi. CVS: S1 and S2 normal with no audible murmur, regular rhythm. ABDOMEN: No hepatosplenomegaly, normal bowel sounds, no guarding or rigidity. SPINE: No scoliosis or deformity SKIN: No rashes CENTRAL NERVOUS SYSTEM: No focal deficits, tone is normal in all 4 extremities. EXTREMITIES: There is no peripheral edema. No clubbing, no cyanosis. Peripheral pulses are intact. - Labs CBC & Chem 7: 12/14/23 16:01 12/17/23 10:23 Labs: Abnormal Lab Results - Last 24 Hours (Table) 12/17/23 Range/Units 10:23 Potassium 3.2 L (3.5-5.1) mmol/L Carbon Dioxide 34 H (22-30) mmol/L BUN 32 H (9-20) mg/dL Glucose 123 H (74-99) mg/dL Assessment and Plan Assessment: Acute exacerbation of chronic asthma with significant bronchospasm wheezing and secondary shortness of breath. Exact exacerbating factor is not clear. Could be viral. Reviewed the CAT scan of the chest and the patient also has evidence of tracheobronchomalacia with significant compressibility of the distal trachea and the carinal area. Azygous venous distention was also noted related to underlying CHF. Barium swallow pending. Acute hypoxic respiratory failure currently on 3 L of O2 nasal cannula Chronic bronchial asthma maintained on Dupixent and albuterol rescue inhale No maintenance inhaled corticosteroids. Suspected tracheobronchomalacia based on the CAT scan findings CHF with impaired LV function with an ejection fraction of 45%, likely nonischemic in nature Nonocclusive coronary artery disease, currently free of any chest pain Sick sinus syndrome and the patient has a pacemaker in place paroxysmal atrial fibrillation, currently on warfarin, patient's cardiac rhythm is paced. Hypertension Hyperlipidemia Dementia Episodes of syncope requiring recent hospitalization in November 2023 and a workup included CTA of the head and neck that showed no acute abnormalities when the patient had a detailed cardiac evaluation. Discharged home on 11/18/2023 on a combination of Coreg, midodrine and Florinef. Plan: The patient was seen and evaluated Labs and medications reviewed Barium swallow results reviewed Continues on azithromycin Continue a Medrol Dosepak Heparin for DVT prophylaxis We will continue to follow I have personally seen and examined the patient, performed the documentation and the assessment and plan as written. Number of minutes spent on the visit: 10.
[2023-12-17] MEDS ORDERED: ARTIFICIAL TEARS-HYPROMELLOSE DROPS 15 ML BTL BOTH EYES PRN (15:36)
--- NOTE | 2023-12-17 15:39 | P.PN ---
Subjective Progress Note Date: 12/17/23 This is an 83-year-old male with medical history significant for atrial fibrillation, asthma, dementia, hypertension, hyperlipidemia. Patient presents to the hospital with complaints of shortness of breath and bronchospasm. Patient's at the bedside provides most of the history and states that this has been progressing since last . She states that for the last 2 days patient has been unable to sleep and she has been giving him his albuterol treatments without relief of symptoms. She states that he became so short of breath she had to call EMS and patient was brought to the hospital for further evaluation. Patient does not wear any oxygen on an outpatient basis he is found to be hypoxemic with oxygen saturation of 90% requiring 3 L of oxygen. Patient had a chest x-ray done which reveals mild to moderate cardiomegaly with small pleural effusions clinically mild CHF there is questionable pacer along the left side of the trachea of uncertain etiology or significance. CT of the chest was completed for further evaluation which reveals ascending thoracic aortic aneurysm of 4.8 cm, posterior portion of the trachea may have impression from the esophagus with narrowing of the trachea to the radha. This finding however does not directly correlate with the chest x-ray findings. Consider bronchoscopy for additional evaluation. Has blood work reveals a proBNP level of 8390, viral panel was negative for influenza, RSV, COVID. Patient's renal function is within normal limits and his white blood cell count is normal at 8.8. Patient was given a dose of IV Lasix in the EC with improvement in his oxygen saturations. He is currently denying any chest pain however he does c ontinue to report shortness of breath. He is not having any fever or chills he is not having any sputum production. Patient was admitted to the hospital with a consult placed to pulmonary services. 12/16/2023 Patient is evaluated in follow up today. Less short of breath and less wheezy. Was transitioned to oral prednisone taper by pulmonary. He is pending cardiology consultation. He received IV lasix and has been transitioned back to oral lasix. Oxygen saturations have improved and currently maintaining 96% on 2L and recommending to wean to room air. He received seroquel last night and states he slept well. Patient underwent barium swallow today reveals moderate CP muscle atrophy, gradual tapering of the distal half of the esophagus with proximal dilatation. The distal third fails to distend and there is delayed transit of contrast across the GE junction. A distal stricture or early achalasia are both in the differential. Patient was evaluated by speech therapy and can continue on thin liquid diet and the esophageal narrowing can be addressed likely on an outpatient basis. 12/17/2023 Patient is evaluated today in follow up on the medical floor. He remains on diet and tolerating well discussed barium swallow with family and plans to follow up with GI on discharge. Patient has been put back on IV lasix. He continues to have bronchospastic cough and difficulty bringing up phlegm. Has been taken off midodrine and florinef remains hypertensive and medications are being adjusted by cardiology. Patient and have brought up hospice and have talked with their DIL who works for [facility] about transitioning on discharge. REVIEW OF SYSTEMS: CONSTITUTIONAL: No fever, no malaise, no fatigue. HEENT: No recent visual problems or hearing problems. Denied any sore throat. CARDIOVASCULAR: No chest pain, orthopnea, PND, no palpitations, no syncope. PULMONARY: No shortness of breath, no cough, no hemoptysis. GASTROINTESTINAL: No diarrhea, no nausea, no vomiting, no abdominal pain. NEUROLOGICAL: No headaches, no weakness, no numbness. PHYSICAL EXAMINATION: GENERAL: The patient is alert and oriented x3, not in any acute distress. Well developed, well nourished. HEENT: Pupils are round and equally reacting to light. EOMI. No scleral icterus. No conjunctival pallor. Normocephalic, atraumatic. No pharyngeal erythema. No thyromegaly. CARDIOVASCULAR: S1 and S2 present. No murmurs, rubs, or gallops. PULMONARY: Scattered inspiratory and expiratory wheezing. Bilateral bibasilar crackles and rales. ABDOMEN: Soft, nontender, nondistended, normoactive bowel sounds. No palpable organomegaly. MUSCULOSKELETAL: No joint swelling or deformity. EXTREMITIES: No cyanosis, clubbing, or pedal edema. NEUROLOGICAL: Gross neurological examination did not reveal any focal deficits. Generalizes weakness. SKIN: No rashes. Assessment and plan Acute congestive heart failure exacerbation patient systolic and diastolic dysfunction patient will be treated with Lasix and repeat labs in the morning Acute exacerbation of bronchial asthma pulmonary is following the patient has been transitioned to oral prednisone. Acute hypoxemic respiratory failure secondary to above patient is currently on 2 L of oxygen which can be weaned his oxygen saturations are improving. 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 Recurrent episodes of syncope require recent hospitalization felt due to orthostatic hypotenstion recent medication adjustments made by cardiology Hx of hypertension Hx of hyperlipidemia GI prophylaxis DVT prophylaxis Plan IV lasix 40 mg Q12 hr and recommend strict intake and output monitoring. Transitioned to oral prednisone, pulmonary following. Wean oxygen as tolerated. GI follow up outpatient. Speech therapy following. Seroquel at HS ordered Florinef and midodrine have been discontinued as patient has been hypertensive. Repeat BMP in the AM Cardiology consultation adjusting mediations has started the patient on losartan hydrochlorothiazide combination. PT/OT recommending subacute rehab on discharge. Family and patient are considering hospice on discharge. The impression and plan of care has been dictated by Emily Abad, Nurse Practitioner as directed. Dr. Cristian MD I have performed a history and physical examination and medical decision making of this patient, discussed the same with the dictator, and agree with the dictators assessment and plan as written, documented as a scribe. Based on total visit time, I have performed more than 50% of this visit. Objective - Vital Signs Vital signs: Vital Signs Temp 97.8 F 12/17/23 07:23 Pulse 60 12/17/23 12:56 Resp 19 12/17/23 07:45 BP 194/64 12/17/23 07:23 Pulse Ox 96 12/17/23 07:23 FiO2 Intake & Output 12/16/23 12/17/23 12/17/23 18:59 06:59 18:59 Intake Total 480 Output Total 100 600 Balance -100 -120 Intake: Oral 480 Output: Urine 100 600 Other: Voiding Method External Catheter External Catheter - Labs CBC & Chem 7: 12/14/23 16:01 12/17/23 10:23 Labs: Abnormal Lab Results - Last 24 Hours (Table) 12/17/23 Range/Units 10:23 Potassium 3.2 L (3.5-5.1) mmol/L Carbon Dioxide 34 H (22-30) mmol/L BUN 32 H (9-20) mg/dL Glucose 123 H (74-99) mg/dL Assessment and Plan Time with Patient: Less than 30
[2023-12-17] MEDS: guaiFENesin 600 MG TABLET.ER PO SCH (17:31)
[2023-12-17] MEDS: POTASSIUM CHLORIDE ER 20 MEQ TAB.ER PO SCH (17:31)
[2023-12-18 08:54] LABS: BUN/Creat Ratio 30.33 Ratio (12.00-20.00); Blood Urea Nitrogen 36.4 mg/dL (9.0-27.0); Calcium 8.9 mg/dL (8.7-10.3); Carbon Dioxide 30.5 mmol/L (21.6-31.8); Chloride 102 mmol/L (96-109); Glucose 114 mg/dL (70-110); Magnesium 2.2 mg/dL (1.5-2.4); Potassium 3.8 mmol/L (3.5-5.5); Sodium 144 mmol/L (135-145)
[2023-12-18] MEDS: LOSARTAN 50 MG TAB PO STA (10:20)
[2023-12-18] MEDS: hydroCHLOROthiazide 12.5 MG CAP PO ONE (10:20)
--- NOTE | 2023-12-18 11:50 | P.PN ---
Subjective HISTORY OF PRESENT ILLNESS: The patient is a pleasant 83-year-old gentleman who is known to our service from before with a past medical history significant for nonischemic cardiomyopathy with an ejection fraction around 45% as well as permanent pacemaker as well as hypertension and dyslipidemia and history of asthma presented to the hospital co mplaining of shortness of breath. The patient somewhat is a poor historian and the history was taken from him as well as from his who was at bedside. For the last 1 to 2 weeks he has been experiencing increasing in the shortness of breath with exertion associated with wheezing with no cough or sputum production and no symptoms of chest pain or chest discomfort but bilateral lower extremitie s edema as well. He stated that no change in the weight. For that reason he decided to come to the hospital where he underwent further investigation including an EKG which showed atrial fibrillation as an underlying rhythm with ventricular paced rhythm. He was on oral anticoagulation and that has stopped by Dr. Wyatt because of high risk of falling and bleeding. Beside that he underwent chest x-ray which showed pulmonary vascular congestions with NT proBNP came in to be elevated at 8000. The rest of the blood work overall came in to be unremarkable but he was seen by the pulmonary service and he was started on bronchodilators and inhalers. His symptoms of shortness of breath has been s omewhat better compared to before. He was seen by our service 4 weeks ago and he underwent an echocardiogram which revealed mildly impaired LV function with EF around 45%. On examination he seems to be in fluid overload. Please note that his pressure has been elevated and consistent with hypertension crisis with a systolic pressure above 200 mmHg when he was seen and evaluated. Currently he is on carvedilol only for hypertension. The examination is remarkable for elevated blood pressure with bilateral expiratory wheezing and regular rate and rhythm with a distant heart sounds and bilateral lower extremities edema December 17, 2023 The patient was seen and evaluated this morning. The pressure appears to be somewhat better. He is feeling better. The shortness of breath is slightly better as well. He continues to be on Lasix IV. Yesterday losartan/hydrochlorothiazide was added to his medication. From the cardiovascular standpoint of view, we will continue the current medical regimen and continue monitor the kidney function and electrolytes and follow-up with the patient 12/18/2023 Patient examined this morning. Patient currently denies chest pain or pressure. He reports improvement in his shortness of breath. He remains on IV Lasix. Patient's blood pressure is elevated this morning with a systolic in the 170s. Patient is currently on 3 L nasal cannula to maintain oxygen saturations greater than 92%. PHYSICAL EXAM: VITAL SIGNS: Reviewed. GENERAL: Well-developed in no acute distress. NECK: Supple. No JVD or thyromegaly LUNGS: Respirations even and unlabored. Lungs essentially clear to auscultation bilaterally. HEART: Regular rate and rhythm. S1 and S2 heard. EXTREMITIES: Normal range of motion. No clubbing or cyanosis. Peripheral pulses intact. No lower extremity edema ASSESSMENT: Acute hypoxic respiratory failure likely to be multifactorial Asthma exacerbation Heart failure exacerbation with preserved ejection fraction Hypertension emergency which is complicated by heart failure Permanent pacemaker Permanent atrial fibrillation not on anticoagulation because of high risk of falling and bleeding Multiple comorbid conditions PLAN: Continue current cardiac medications Increase losartanhydrochlorothiazide to 100-25 mg daily Continue to monitor blood pressure Continue IV Lasix 40 mg every 12 hours Daily weights, accurate intake and output, and monitoring of kidney function Further recommendations pending patient course Nurse practitioner note has been reviewed by physician. Signing provider agrees with the documented findings, assessment, and plan of care documented by CHIEF EXECUTIVE as a scribe. Objective - Vital Signs Vital signs: Vital Signs Temp 98.4 F 12/18/23 06:55 Pulse 92 12/18/23 09:37 Resp 17 12/18/23 06:55 BP 178/98 12/18/23 06:55 Pulse Ox 96 12/18/23 09:27 FiO2 Intake & Output 12/17/23 12/18/23 12/18/23 18:59 06:59 18:59 Other: Voiding Method External Catheter External Catheter Incontinent External Catheter # Voids 1 - Labs CBC & Chem 7: 12/14/23 16:01 12/18/23 04:32 Labs: Abnormal Lab Results - Last 24 Hours (Table) 12/18/23 Range/Units 04:32 BUN 36.4 H (9.0-27.0) mg/dL BUN/Creatinine Ratio 30.33 H (12.00-20.00) Ratio Glucose 114 H (70-110) mg/dL
--- NOTE | 2023-12-18 13:01 | P.PN ---
Subjective Progress Note Date: 12/18/23 12/15/2023, this patient is being seen for consultation for worsening shortness of breath. The patient is currently retired. He is known to have bronchial asthma, nevertheless, he has not required any maintenance respiratory medications. He has used on and off short acting bronchodilators over the years. He has also been maintained on Dupixent on outpatient basis every 2 weeks. 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 CARMINE Wyatt. He is a non-smoker. He comes into the hospital because of worsening shortness of breath and increased dyspnea chest tightness and wheezing. Chest x-ray was done in the emergency department that showed no acute abnormalities. Known to have CHF and the patient had some mild cardiomegaly. Subsequently, the patient underwent a CT scan of the chest and I reviewed the images. The patient has an ascending aortic aneurysm measuring 4.8 cm. The patient also had evidence of t racheobronchomalacia with significant collapsibility of the trachea especially in the mid and distal trachea and at the level of radha. The azygos vein is quite distended. No airspace disease. No consolidation. Patient is extensively bronchospastic and wheezy. White cell count of 8.8 with a he moglobin 15.7, sodium is at 140 with a potassium level of 3.8 and a BUN of 16 with a creatinine of 0.8. proBNP level is 8390. He is known to have CHF with mild chronic systolic impairment of the LV function. The patient also has history of sick sinus syndrome and the patient has a permanent pacemaker in place. He suffers from chronic atrial fibrillation admission. His heart failure is nonischemic in nature. He has been followed up by cardiology on outpatient basis. His cardiac catheterization back in December 2019 showed some mild irregularities and 35% mid LAD, minor irregularities of the RCA and the circumflex without any significant occlusion. His most recent echocardiogram that was done on 12/10/2023 showed an left-ventricular ejection fraction of 45%, The patient is seen today December 16, 2023 in follow-up on the regular medical floor. He is currently awake and alert in no acute distress. Sitting up in a chair at the bedside. He still has a loose congested cough. Some end expiratory wheeze. He did go down for a swallow evaluation today. Sodium 143. Potassium 3.7. Bicarb 26. BUN 28. Creatinine 1.2. He remains on azithromycin. Heparin for DVT prophylaxis. Remains on bronchodilators and IV diuretics. The patient is seen today December 17, 2023 and follow-up on the regular medical floor. He is currently resting comfortably in bed. Awake and alert in no acute distress. Maintaining O2 saturations in the 90s on room air. He has had some episodes of confusion. Some lightheadedness and dizziness. His is at the bedside. We had discontinued his IV steroids yesterday. He is currently on a Medrol Dosepak. Sodium 141. Potassium 3.2. Bicarb 34. BUN 32. Creatinine 1.00. Glucose 123. He is continued on DuoNeb inhalations, Tessalon Perles, Mucinex. Heparin for DVT prophylaxis. Antibiotics in the form of azithromycin. The patient is seen today December 18, 2023 in follow-up on the regular medical floor. He is currently sitting up in a chair at the bedside. Awake and alert in no acute distress. Maintaining O2 saturations in the mid 90s on 3 L/min per nasal cannula. He is breathing a bit easier today compared to yesterday. Sodium 144. Potassium 3.8. Bicarb 30. BUN 36. Creatinine 1.2. Glucose 114. He remains on DuoNeb inhalations, Tessalon Perles, Mucinex, Medrol Dosepak. He remains on IV diuretics. Heparin for DVT prophylaxis. Objective - Vital Signs Vital signs: Vital Signs Temp 98.4 F 12/18/23 06:55 Pulse 92 12/18/23 09:37 Resp 17 12/18/23 06:55 BP 178/98 12/18/23 06:55 Pulse Ox 96 12/18/23 09:27 FiO2 Intake & Output 12/17/23 12/18/23 12/18/23 18:59 06:59 18:59 Other: Voiding Method External Catheter External Catheter Incontinent External Catheter # Voids 1 - Exam GENERAL EXAM: Alert, pleasant 83-year-old male, sitting up in a chair, on 3 L nasal cannul, in no apparent distress. HEAD: Normocephalic. EYES: Normal reaction of pupils, equal size. NOSE: Clear with pink turbinates. THROAT: No erythema or exudates. NECK: No masses, no JVD. CHEST: No chest wall deformity. LUNGS: Equal air entry with bilateral end expiratory wheeze, few scattered rhonchi. CVS: S1 and S2 normal with no audible murmur, regular rhythm. ABDOMEN: No hepatosplenomegaly, normal bowel sounds, no guarding or rigidity. SPINE: No scoliosis or deformity SKIN: No rashes CENTRAL NERVOUS SYSTEM: No focal deficits, tone is normal in all 4 extremities. EXTREMITIES: There is no peripheral edema. No clubbing, no cyanosis. Peripheral pulses are intact. - Labs CBC & Chem 7: 12/14/23 16:01 12/18/23 04:32 Labs: Abnormal Lab Results - Last 24 Hours (Table) 12/18/23 Range/Units 04:32 BUN 36.4 H (9.0-27.0) mg/dL BUN/Creatinine Ratio 30.33 H (12.00-20.00) Ratio Glucose 114 H (70-110) mg/dL Assessment and Plan Assessment: Acute exacerbation of chronic asthma with significant bronchospasm wheezing and secondary shortness of breath. Exact exacerbating factor is not clear. Could be viral. Reviewed the CAT scan of the chest and the patient also has evidence of tracheobronchomalacia with significant compressibility of the distal trachea and the carinal area. Azygous venous distention was also noted related to underlying CHF. Barium swallow revealed moderate CP muscle hypertrophy. Gradual tapering of the distal half of the esophagus with proximal dilatation. The distal third fails to distend and there is delayed transit of contrast across the GE junction. A distal stricture or early achalasia are within the differential Acute hypoxic respiratory failure currently on 3 L of O2 nasal cannula Chronic bronchial asthma maintained on Dupixent and albuterol rescue inhale No maintenance inhaled corticosteroids. Suspected tracheobronchomalacia based on the CAT scan findings CHF with impaired LV function with an ejection fraction of 45%, likely nonischemic in nature Nonocclusive coronary artery disease, currently free of any chest pain Sick sinus syndrome and the patient has a pacemaker in place paroxysmal atrial fibrillation, currently on warfarin, patient's cardiac rhythm is paced. Hypertension Hyperlipidemia Dementia Episodes of syncope requiring recent hospitalization in November 2023 and a workup included CTA of the head and neck that showed no acute abnormalities when the patient had a detailed cardiac evaluation. Discharged home on 11/18/2023 on a combination of Coreg, midodrine and Florinef. Plan: The patient was seen and evaluated Labs and medications reviewed Continue bronchodilators, Mucinex, Medrol Dosepak Remains on IV diuretics Prognosis remains guarded has a hospice meeting today Plan will be for discharge to [facility] tomorrow We will continue to follow I have personally seen and examined the patient, performed the documentation and the assessment and plan as written. Number of minutes spent on the visit: 10.
--- NOTE | 2023-12-18 13:59 | P.PN ---
Subjective Progress Note Date: 12/18/23 This is an 83-year-old male with medical history significant for atrial fibrillation, asthma, dementia, hypertension, hyperlipidemia. Patient presents to the hospital with complaints of shortness of breath and bronchospasm. Patient's at the bedside provides most of the history and states that this has been progressing since last . She states that for the last 2 days patient has been unable to sleep and she has been giving him his albuterol treatments without relief of symptoms. She states that he became so short of breath she had to call EMS and patient was brought to the hospital for further evaluation. Patient does not wear any oxygen on an outpatient basis he is found to be hypoxemic with oxygen saturation of 90% requiring 3 L of oxygen. Patient had a chest x-ray done which reveals mild to moderate cardiomegaly with small pleural effusions clinically mild CHF there is questionable pacer along the left side of the trachea of uncertain etiology or significance. CT of the chest was completed for further evaluation which reveals ascending thoracic aortic aneurysm of 4.8 cm, posterior portion of the trachea may have impression from the esophagus with narrowing of the trachea to the radha. This finding however does not directly correlate with the chest x-ray findings. Consider bronchoscopy for additional evaluation. Has blood work reveals a proBNP level of 8390, viral panel was negative for influenza, RSV, COVID. Patient's renal function is within normal limits and his white blood cell count is normal at 8.8. Patient was given a dose of IV Lasix in the EC with improvement in his oxygen saturations. He is currently denying any chest pain however he does c ontinue to report shortness of breath. He is not having any fever or chills he is not having any sputum production. Patient was admitted to the hospital with a consult placed to pulmonary services. 12/16/2023 Patient is evaluated in follow up today. Less short of breath and less wheezy. Was transitioned to oral prednisone taper by pulmonary. He is pending cardiology consultation. He received IV lasix and has been transitioned back to oral lasix. Oxygen saturations have improved and currently maintaining 96% on 2L and recommending to wean to room air. He received seroquel last night and states he slept well. Patient underwent barium swallow today reveals moderate CP muscle atrophy, gradual tapering of the distal half of the esophagus with proximal dilatation. The distal third fails to distend and there is delayed transit of contrast across the GE junction. A distal stricture or early achalasia are both in the differential. Patient was evaluated by speech therapy and can continue on thin liquid diet and the esophageal narrowing can be addressed likely on an outpatient basis. 12/17/2023 Patient is evaluated today in follow up on the medical floor. He remains on diet and tolerating well discussed barium swallow with family and plans to follow up with GI on discharge. Patient has been put back on IV lasix. He continues to have bronchospastic cough and difficulty bringing up phlegm. Has been taken off midodrine and florinef remains hypertensive and medications are being adjusted by cardiology. Patient and have brought up hospice and have talked with their DIL who works for [facility] [facility] about transitioning on discharge. 12/18/2023 Patient is evaluated today in follow up. Sitting up at the bedside. Tolerating diet. Continues on IV lasix. Hyzaar has been increased by cardiology. Patient was given Mucinex and does state that he is able to cough up the phlegm easier. His potassium is improved to 3.8, BUN of 36.4 and creatinine of 1.2. He has been weaned to room air. Referral placed to [facility] at the request of patient and his . REVIEW OF SYSTEMS: CONSTITUTIONAL: No fever, no malaise, no fatigue. HEENT: No recent visual problems or hearing problems. Denied any sore throat. CARDIOVASCULAR: No chest pain, orthopnea, PND, no palpitations, no syncope. PULMONARY: No shortness of breath, Reports cough with thick whit sputum. no hemoptysis. GASTROINTESTINAL: No diarrhea, no nausea, no vomiting, no abdominal pain. NEUROLOGICAL: No headaches, no weakness, no numbness. PHYSICAL EXAMINATION: GENERAL: The patient is alert and oriented x3, not in any acute distress. Well developed, well nourished. HEENT: Pupils are round and equally reacting to light. EOMI. No scleral icterus. No conjunctival pallor. Normocephalic, atraumatic. No pharyngeal erythema. No thyromegaly. CARDIOVASCULAR: S1 and S2 present. No murmurs, rubs, or gallops. PULMONARY: Scattered inspiratory and expiratory wheezing. Bilateral bibasilar crackles and rales improving. ABDOMEN: Soft, nontender, nondistended, normoactive bowel sounds. No palpable organomegaly. MUSCULOSKELETAL: No joint swelling or deformity. EXTREMITIES: No cyanosis, clubbing, or pedal edema. NEUROLOGICAL: Gross neurological examination did not reveal any focal deficits. Generalizes weakness. SKIN: No rashes. Assessment and plan Acute congestive heart failure exacerbation patient systolic and diastolic dysfunction patient will be treated with Lasix and repeat labs in the morning Acute exacerbation of bronchial asthma pulmonary is following the patient has been transitioned to oral prednisone. Acute hypoxemic respiratory failure secondary to above patient has been weaned to room air. 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 Dementia/memory impairment Sick sinus syndrome status post pacemaker in 2013 Hx of nonischemic cardiomyopathy Permanent atrial fibrillation patient has been taken off warfarin outpatient by his baker second and agreeing as patient is high risk for falls/bleeding. Recurrent episodes of syncope require recent hospitalization felt due to orthostatic hypotenstion recent medication adjustments made by cardiology Hx of hypertension Hx of hyperlipidemia GI prophylaxis DVT prophylaxis Plan IV lasix 40 mg Q12 hr and recommend strict intake and output monitoring. Transitioned to oral prednisone, pulmonary following. GI follow up outpatient. Speech therapy following. Seroquel at HS ordered Florinef and midodrine have been discontinued as patient has been hypertensive. Repeat BMP in the AM Cardiology consultation adjusting mediations has started the patient on losartan hydrochlorothiazide combination which was increased today. PT/OT recommending subacute rehab on discharge. Family and patient are considering hospice on discharge. Discharge home in the next 24 hours. The impression and plan of care has been dictated by Emily Abad, Nurse Practitioner as directed. Dr. Cristian MD I have performed a history and physical examination and medical decision making of this patient, discussed the same with the dictator, and agree with the dictators assessment and plan as written, documented as a scribe. Based on total visit time, I have performed more than 50% of this visit. Objective - Vital Signs Vital signs: Vital Signs Temp 98.4 F 12/18/23 06:55 Pulse 92 12/18/23 09:37 Resp 17 12/18/23 06:55 BP 178/98 12/18/23 06:55 Pulse Ox 96 12/18/23 09:27 FiO2 Intake & Output 12/17/23 12/18/23 12/18/23 18:59 06:59 18:59 Other: Voiding Method External Catheter External Catheter Incontinent External Catheter # Voids 1 - Labs CBC & Chem 7: 12/14/23 16:01 12/18/23 04:32 Labs: Abnormal Lab Results - Last 24 Hours (Table) 12/17/23 12/18/23 Range/Units 10:23 04:32 Potassium 3.2 L (3.5-5.1) mmol/L Carbon Dioxide 34 H (22-30) mmol/L BUN 32 H 36.4 H (9-20) mg/dL BUN/Creatinine Ratio 30.33 H (12.00-20.00) Ratio Glucose 123 H 114 H (74-99) mg/dL Assessment and Plan Time with Patient: Less than 30
[2023-12-18] MEDS ORDERED: HYDROcodone/APAP 5-325MG 1 EACH TAB PO PRN (14:52)
[2023-12-19] MEDS: LOSARTAN-HCTZ 50-12.5 MG 1 EACH TAB PO SCH (08:50)
[2023-12-19] MEDS: carvediloL 6.25 MG TAB PO STA (09:00)
[2023-12-19 09:01] LABS: Blood Urea Nitrogen 36.6 mg/dL (9.0-27.0); Calcium 9.3 mg/dL (8.7-10.3); Carbon Dioxide 27.7 mmol/L (21.6-31.8); Chloride 100 mmol/L (96-109); Glucose 131 mg/dL (70-110); Potassium 3.6 mmol/L (3.5-5.5); Sodium 141 mmol/L (135-145)
--- NOTE | 2023-12-19 09:39 | P.PN ---
Subjective HISTORY OF PRESENT ILLNESS: The patient is a pleasant 83-year-old gentleman who is known to our service from before with a past medical history significant for nonischemic cardiomyopathy with an ejection fraction around 45% as well as permanent pacemaker as well as hypertension and dyslipidemia and history of asthma presented to the hospital co mplaining of shortness of breath. The patient somewhat is a poor historian and the history was taken from him as well as from his who was at bedside. For the last 1 to 2 weeks he has been experiencing increasing in the shortness of breath with exertion associated with wheezing with no cough or sputum production and no symptoms of chest pain or chest discomfort but bilateral lower extremitie s edema as well. He stated that no change in the weight. For that reason he decided to come to the hospital where he underwent further investigation including an EKG which showed atrial fibrillation as an underlying rhythm with ventricular paced rhythm. He was on oral anticoagulation and that has stopped by Dr. Wyatt because of high risk of falling and bleeding. Beside that he underwent chest x-ray which showed pulmonary vascular congestions with NT proBNP came in to be elevated at 8000. The rest of the blood work overall came in to be unremarkable but he was seen by the pulmonary service and he was started on bronchodilators and inhalers. His symptoms of shortness of breath has been s omewhat better compared to before. He was seen by our service 4 weeks ago and he underwent an echocardiogram which revealed mildly impaired LV function with EF around 45%. On examination he seems to be in fluid overload. Please note that his pressure has been elevated and consistent with hypertension crisis with a systolic pressure above 200 mmHg when he was seen and evaluated. Currently he is on carvedilol only for hypertension. The examination is remarkable for elevated blood pressure with bilateral expiratory wheezing and regular rate and rhythm with a distant heart sounds and bilateral lower extremities edema December 17, 2023 The patient was seen and evaluated this morning. The pressure appears to be somewhat better. He is feeling better. The shortness of breath is slightly better as well. He continues to be on Lasix IV. Yesterday losartan/hydrochlorothiazide was added to his medication. From the cardiovascular standpoint of view, we will continue the current medical regimen and continue monitor the kidney function and electrolytes and follow-up with the patient 12/18/2023 Patient examined this morning. Patient currently denies chest pain or pressure. He reports improvement in his shortness of breath. He remains on IV Lasix. Patient's blood pressure is elevated this morning with a systolic in the 170s. Patient is currently on 3 L nasal cannula to maintain oxygen saturations greater than 92%. 12/19/2023 Patient examined this morning. Patient is sitting up in the chair. Patient denies chest pain or pressure. He denies shortness of breath. Remains on IV Lasix. Blood pressure remains elevated this morning. PHYSICAL EXAM: VITAL SIGNS: Reviewed. GENERAL: Well-developed in no acute distress. NECK: Supple. No JVD or thyromegaly LUNGS: Respirations even and unlabored. Lungs essentially clear to auscultation bilaterally. HEART: Regular rate and rhythm. S1 and S2 heard. EXTREMITIES: Normal range of motion. No clubbing or cyanosis. Peripheral pulses intact. No lower extremity edema ASSESSMENT: Acute hypoxic respiratory failure likely to be multifactorial Asthma exacerbation Heart failure exacerbation with preserved ejection fraction Hypertension emergency which is complicated by heart failure Permanent pacemaker Permanent atrial fibrillation not on anticoagulation because of high risk of falling and bleeding Multiple comorbid conditions PLAN: Continue current cardiac medications Increase carvedilol to 12.5 mg twice a day Discontinue IV Lasix Begin oral Lasix 20 mg twice a day Further management of hypertensive regimen may be completed on an outpatient basis Patient is stable for discharge home today from a cardiac standpoint Nurse practitioner note has been reviewed by physician. Signing provider agrees with the documented findings, assessment, and plan of care documented by JEWELRY MOLD MAKER as a scribe. Objective - Vital Signs Vital signs: Vital Signs Temp 98.5 F 12/19/23 07:06 Pulse 74 12/19/23 08:38 Resp 17 12/19/23 07:06 BP 184/88 12/19/23 07:06 Pulse Ox 95 12/19/23 07:06 FiO2 Intake & Output 12/18/23 12/19/23 12/19/23 18:59 06:59 18:59 Output Total 1100 Balance -1100 Output: Urine 1100 Other: Voiding Method Incontinent Toilet External Catheter External Catheter # Voids 5 2 # Bowel Movements 1 - Labs CBC & Chem 7: 12/14/23 16:01 12/19/23 03:17 Labs: Abnormal Lab Results - Last 24 Hours (Table) 12/19/23 Range/Units 03:17 Anion Gap 13.30 H (4.00-12.00) mmol/L BUN 36.6 H (9.0-27.0) mg/dL BUN/Creatinine Ratio 36.60 H (12.00-20.00) Ratio Glucose 131 H (70-110) mg/dL
[2023-12-19] MEDS: FUROSEMIDE 20 MG TAB PO SCH (10:19)
--- NOTE | 2023-12-19 11:57 | P.PN ---
Subjective Progress Note Date: 12/19/23 12/15/2023, this patient is being seen for consultation for worsening shortness of breath. The patient is currently retired. He is known to have bronchial asthma, nevertheless, he has not required any maintenance respiratory medications. He has used on and off short acting bronchodilators over the years. He has also been maintained on Dupixent on outpatient basis every 2 weeks. 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 CARMINE Wyatt. He is a non-smoker. He comes into the hospital because of worsening shortness of breath and increased dyspnea chest tightness and wheezing. Chest x-ray was done in the emergency department that showed no acute abnormalities. Known to have CHF and the patient had some mild cardiomegaly. Subsequently, the patient underwent a CT scan of the chest and I reviewed the images. The patient has an ascending aortic aneurysm measuring 4.8 cm. The patient also had evidence of t racheobronchomalacia with significant collapsibility of the trachea especially in the mid and distal trachea and at the level of radha. The azygos vein is quite distended. No airspace disease. No consolidation. Patient is extensively bronchospastic and wheezy. White cell count of 8.8 with a he moglobin 15.7, sodium is at 140 with a potassium level of 3.8 and a BUN of 16 with a creatinine of 0.8. proBNP level is 8390. He is known to have CHF with mild chronic systolic impairment of the LV function. The patient also has history of sick sinus syndrome and the patient has a permanent pacemaker in place. He suffers from chronic atrial fibrillation admission. His heart failure is nonischemic in nature. He has been followed up by cardiology on outpatient basis. His cardiac catheterization back in December 2019 showed some mild irregularities and 35% mid LAD, minor irregularities of the RCA and the circumflex without any significant occlusion. His most recent echocardiogram that was done on 12/10/2023 showed an left-ventricular ejection fraction of 45%, The patient is seen today December 16, 2023 in follow-up on the regular medical floor. He is currently awake and alert in no acute distress. Sitting up in a chair at the bedside. He still has a loose congested cough. Some end expiratory wheeze. He did go down for a swallow evaluation today. Sodium 143. Potassium 3.7. Bicarb 26. BUN 28. Creatinine 1.2. He remains on azithromycin. Heparin for DVT prophylaxis. Remains on bronchodilators and IV diuretics. The patient is seen today December 17, 2023 and follow-up on the regular medical floor. He is currently resting comfortably in bed. Awake and alert in no acute distress. Maintaining O2 saturations in the 90s on room air. He has had some episodes of confusion. Some lightheadedness and dizziness. His is at the bedside. We had discontinued his IV steroids yesterday. He is currently on a Medrol Dosepak. Sodium 141. Potassium 3.2. Bicarb 34. BUN 32. Creatinine 1.00. Glucose 123. He is continued on DuoNeb inhalations, Tessalon Perles, Mucinex. Heparin for DVT prophylaxis. Antibiotics in the form of azithromycin. The patient is seen today December 18, 2023 in follow-up on the regular medical floor. He is currently sitting up in a chair at the bedside. Awake and alert in no acute distress. Maintaining O2 saturations in the mid 90s on 3 L/min per nasal cannula. He is breathing a bit easier today compared to yesterday. Sodium 144. Potassium 3.8. Bicarb 30. BUN 36. Creatinine 1.2. Glucose 114. He remains on DuoNeb inhalations, Tessalon Perles, Mucinex, Medrol Dosepak. He remains on IV diuretics. Heparin for DVT prophylaxis. The patient is seen today December 19, 2023 in follow-up on the regular medical floor. He is awake and alert in no acute distress. Sitting up in a chair at the bedside. Denies any worsening shortness of breath, cough or congestion. He remains on bronchodilators, Tessalon Perles and Mucinex, Medrol Dosepak. Hep kristal for DVT prophylaxis. Continued on oral diuretics. Sodium 141. Potassium 3.6. Bicarb 28. BUN 37. Creatinine 1.0. Glucose 131. Objective - Vital Signs Vital signs: Vital Signs Temp 98.5 F 12/19/23 07:06 Pulse 64 12/19/23 11:50 Resp 17 12/19/23 07:06 BP 184/88 12/19/23 07:06 Pulse Ox 95 12/19/23 07:06 FiO2 Intake & Output 12/18/23 12/19/23 12/19/23 18:59 06:59 18:59 Output Total 1100 Balance -1100 Output: Urine 1100 Other: Voiding Method Incontinent Toilet Toilet External Catheter External Catheter Diaper # Voids 5 2 # Bowel Movements 1 - Exam GENERAL EXAM: Alert, 83-year-old male, sitting in a chair, on 3 L nasal cannul, in no distress. HEAD: Normocephalic. EYES: Normal reaction of pupils, equal size. NOSE: Clear with pink turbinates. THROAT: No erythema or exudates. NECK: No masses, no JVD. CHEST: No chest wall deformity. LUNGS: Equal air entry with bilateral end expiratory wheeze, few scattered rhonchi. CVS: S1 and S2 normal with no audible murmur, regular rhythm. ABDOMEN: No hepatosplenomegaly, normal bowel sounds, no guarding or rigidity. SPINE: No scoliosis or deformity SKIN: No rashes CENTRAL NERVOUS SYSTEM: No focal deficits, tone is normal in all 4 extremities. EXTREMITIES: There is no peripheral edema. No clubbing, no cyanosis. Peripheral pulses are intact. - Labs CBC & Chem 7: 12/14/23 16:01 12/19/23 03:17 Labs: Abnormal Lab Results - Last 24 Hours (Table) 12/19/23 Range/Units 03:17 Anion Gap 13.30 H (4.00-12.00) mmol/L BUN 36.6 H (9.0-27.0) mg/dL BUN/Creatinine Ratio 36.60 H (12.00-20.00) Ratio Glucose 131 H (70-110) mg/dL Assessment and Plan Assessment: Acute exacerbation of chronic asthma with significant bronchospasm wheezing and secondary shortness of breath. Exact exacerbating factor is not clear. Could be viral. Reviewed the CAT scan of the chest and the patient also has evidence of tracheobronchomalacia with significant compressibility of the distal trachea and the carinal area. Azygous venous distention was also noted related to underlying CHF. Barium swallow revealed moderate CP muscle hypertrophy. Gr adual tapering of the distal half of the esophagus with proximal dilatation. The distal third fails to distend and there is delayed transit of contrast across the GE junction. A distal stricture or early achalasia are within the differential Acute hypoxic respiratory failure currently on 3 L of O2 nasal cannula Chronic bronchial asthma maintained on Dupixent and albuterol rescue inhale No maintenance inhaled corticosteroids. Suspected tracheobronchomalacia based on the CAT scan findings CHF with impaired LV function with an ejection fraction of 45%, likely nonischemic in nature Nonocclusive coronary artery disease, currently free of any chest pain Sick sinus syndrome and the patient has a pacemaker in place paroxysmal atrial fibrillation, currently on warfarin, patient's cardiac rhythm is paced. Hypertension Hyperlipidemia Dementia Episodes of syncope requiring recent hospitalization in November 2023 and a workup included CTA of the head and neck that showed no acute abnormalities when the patient had a detailed cardiac evaluation. Discharged home on 11/18/2023 on a combination of Coreg, midodrine and Florinef Plan: The patient was seen and evaluated Labs and medications reviewed Continue bronchodilators, prednisone taper Cleared for discharge from the pulmonary standpoint Plan will be for discharge to home with hospice This patient was seen independently by the pulmonary nurse practitioner addressing pulmonary issues I have personally seen and examined the patient, performed the documentation and the assessment and plan as written. Number of minutes spent on the visit: 24.
[2023-12-19 15:55] VITALS: BP 126/79; PULSE 72; RESP 18; TEMP 98.8
[2023-12-19] MEDS ORDERED: carvediloL 12.5 MG TAB PO SCH (17:00)
--- NOTE | 2023-12-20 23:16 | P.DS ---
Providers Date of admission: 12/14/23 19:49 Attending physician: Criss Macario Consults: 12/14/23 20:00 Consult Physician Routine Consulting Provider: Margarita Poon Consult Reason/Comments: respiratory failure Do you want consulting provider notified?: Yes 12/15/23 16:16 Consult Physician Routine Consulting Provider: Ayo Wyatt Consult Reason/Comments: CHF Do you want consulting provider notified?: Yes Primary care physician: TAZ Pierson Hospital Course: Final Diagnosis Acute congestive heart failure exacerbation patient systolic and diastolic dysfunction Acute exacerbation of bronchial asthma Acute hypoxemic respiratory failure secondary to above patient has been weaned to room air. 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 Dementia/memory impairment Sick sinus syndrome status post pacemaker in 2013 Hx of nonischemic cardiomyopathy Permanent atrial fibrillation patient has been taken off warfarin outpatient by his machine shorthand reporter and agreeing as patient is high risk for falls/bleeding. Recurrent episodes of syncope require recent hospitalization felt due to orthost atic hypotenstion recent medication adjustments made by cardiology Discharge Disposition Patient is stable for discharge home and will be opened with [facility] hospice upon return home. Patient has been transitioned to oral lasix and oral prednisone taper. Midodrine and Florinef have been discontinued. Patient has been started on Hyzaar and increased dose of carvedilol. Follow up with PCP Aminata KAPOOR on discharge. Hospital Course This is an 83-year-old male with medical history significant for atrial fibrillation, asthma, dementia, hypertension, hyperlipidemia. Patient presents to the hospital with complaints of shortness of breath and bronchospasm. Patient's at the bedside provides most of the history and states that this has been progressing since last . She states that for the last 2 days patient has been unable to sleep and she has been giving him his albuterol treatments without relief of symptoms. She states that he became so short of breath she had to call EMS and patient was brought to the hospital for further evaluation. Patient does not wear any oxygen on an outpatient basis he is found to be hypoxemic with oxygen saturation of 90% requiring 3 L of oxygen. Patient had a chest x-ray done which reveals mild to moderate cardiomegaly with small pleural effusions clinically mild CHF there is questionable pacer along the left side of the trachea of uncertain etiology or significance. CT of the chest was completed for further evaluation which reveals ascending thoracic aortic aneurysm of 4.8 cm, posterior portion of the trachea may have impression from the esophagus with narrowing of the trachea to the radha. This finding however does not directly correlate with the chest x-ray findings. Consider bronchoscopy for additional evaluation. Has blood work reveals a proBNP level of 8390, viral panel was negative for influenza, RSV, COVID. Patient's renal function is within normal limits and his white blood cell count is normal at 8.8. Patient was given a dose of IV Lasix in the EC with improvement in his oxygen saturations. He is currently denying any chest pain however he does continue to report shortness of breath. He is not having any fever or chills he is not having any sputum production. Patient was admitted to the hospital with a consult placed to pulmonary services, cardiology services. Patient has diuresed with IV lasix. He has received IV steriods and transitioned to oral prednisone. Patient underwent barium swallow reveals moderate CP muscle atrophy, gradual tapering of the distal half of the esophagus with proximal dilatation. The distal third fails to distend and there is delayed transit of contrast across the GE junction. A distal stricture or early achalasia are both in the differential. Patient was evaluated by speech therapy and can continue on thin liquid diet and the esophageal narrowing can be addressed likely on an outpatient basis. Has been taken off midodrine and florinef remains hypertens agnes and medications are being adjusted by cardiology. Patient and have brought up hospice and have talked with their DIL who works for [facility] hospice about transitioning on discharge. Patient has been transitioned to room air and denies shortness of breath and denies chest pain. He is awake alert oriented x 3. Please see medication reconciliation for a list of current medications. Thank you for allowing us to participate in the care of this patient. The impression and plan of care has been dictated by Emily Abad, Nurse Practitioner as directed. Dr. Cristian MD I have performed a history and physical examination and medical decision making of this patient, discussed the same with the dictator, and agree with the dictators assessment and plan as written, documented as a scribe. Based on total visit time, I have performed more than 50% of this visit. Patient Condition at Discharge: Fair Plan - Discharge Summary New Discharge Prescriptions: New Losartan-Hctz 50-12.5 mg [Hyzaar 50-12.5] 2 each PO DAILY #30 tab QUEtiapine [SEROquel] 12.5 mg PO HS PRN #10 tab PRN Reason: Insomnia Benzonatate [Tessalon Perles] 100 mg PO TID PRN #20 cap PRN Reason: Cough Artificial Tears-Hypromellose [Artificial Tear Drops] 1 drops BOTH EYES QID PRN ml PRN Reason: Dry Eye(S) carvediloL [Coreg*] 12.5 mg PO BID-W/MEALS@08,17 #60 tab Furosemide [Lasix] 20 mg PO BID@0900,1600 #60 tab methylPREDNISolone Dose Pack [Medrol Dose Pack] 4 mg PO DIRECTED #21 tab guaiFENesin [Mucinex] 600 mg PO Q12HR tab Continue Multivitamins, Thera [Multivitamin (formulary)] 1 tab PO DAILY@0800 Rosuvastatin Calcium 5 mg PO DAILY@0800 Cholecalciferol [Vitamin D3 (10 Mcg = 400 Iu)] 10 mcg PO DAILY@0800 Zinc Gluconate [Zinc] 100 mg PO DAILY@0800 Ascorbic Acid [Vitamin C] 1,000 mg PO DAILY@0800 Dupilumab [Dupixent Pen] 300 mg SQ Q14D Cyanocobalamin [Vitamin B-12] 500 mcg PO DAILY@0800 Albuterol Nebulized [Ventolin Nebulized] 2.5 mg INHALATION RT-Q4H PRN PRN Reason: Shortness Of Breath bisacodyL [Dulcolax] 5 mg PO HS Clobetasol Propionate [Temovate 0.05% Cream] 1 applic TOPICAL BID Discontinued carvediloL [Coreg] 6.25 mg PO BID-W/MEALS@ Fludrocortisone [Florinef] 0.2 mg PO DAILY@0800 Furosemide [Lasix] 20 mg PO DAILY@0800 Midodrine [ProAmatine] 5 mg PO AC-TID PRN PRN Reason: low blood pressure Discharge Medication List Multivitamins, Thera [Multivitamin (formulary)] 1 tab PO DAILY@0800 12/24/19 [History] Cyanocobalamin [Vitamin B-12] 500 mcg PO DAILY@0800 06/27/21 [History] Rosuvastatin Calcium 5 mg PO DAILY@0800 10/11/22 [History] Albuterol Nebulized [Ventolin Nebulized] 2.5 mg INHALATION RT-Q4H PRN 08/18/23 [History] Cholecalciferol [Vitamin D3 (10 Mcg = 400 Iu)] 10 mcg PO DAILY@0800 08/18/23 [History] Zinc Gluconate [Zinc] 100 mg PO DAILY@0800 11/13/23 [History] Ascorbic Acid [Vitamin C] 1,000 mg PO DAILY@0812/14/23 [History] Clobetasol Propionate [Temovate 0.05% Cream] 1 applic TOPICAL BID 12/14/23 [History] Dupilumab [Dupixent Pen] 300 mg SQ Q14D 12/14/23 [History] bisacodyL [Dulcolax] 5 mg PO HS 12/14/23 [History] Artificial Tears-Hypromellose [Artificial Tear Drops] 1 drops BOTH EYES QID PRN ml 12/19/23 [Rx] Benzonatate [Tessalon Perles] 100 mg PO TID PRN #20 cap 12/19/23 [Rx] Furosemide [Lasix] 20 mg PO BID@0900,1600 #60 tab 12/19/23 [Rx] Losartan-Hctz 50-12.5 mg [Hyzaar 50-12.5] 2 each PO DAILY #30 tab 12/19/23 [Rx] QUEtiapine [SEROquel] 12.5 mg PO HS PRN #10 tab 12/19/23 [Rx] carvediloL [Coreg*] 12.5 mg PO BID-W/MEALS@08,17 #60 tab 12/19/23 [Rx] guaiFENesin [Mucinex] 600 mg PO Q12HR tab 12/19/23 [Rx] methylPREDNISolone Dose Pack [Medrol Dose Pack] 4 mg PO DIRECTED #21 tab 12/19/23 [Rx] Follow up Appointment(s)/Referral(s): Hospice,[facility] [NON-STAFF] - As Needed Ayo Wyatt MD [STAFF PHYSICIAN] - 1 Week Deedee Ding NPC [Primary Care Provider] - 1-2 days Ambulatory/Diagnostic Orders: Basic Metabolic Panel [LAB.AMB] Time Frame: 3 Days, Location: None Selected Complete Blood Count w/diff [LAB.AMB] Location: None Selected Patient Instructions/Handouts: Hypoxia (GEN) Discharge Disposition: HOME WITH HOSPICE
== END 2023-12-19 16:31 | disposition hospice, home (50) | DRG 291 ==
LOC: EC 15:31 → 4SSUR 19:49
PROVIDERS: ADMIT Hospitalist; ATTEND Hospitalist
DX: I11.0 Hypertensive heart disease with heart failure (principal); I50.43 Acute on chronic combined systolic (congestive) and diastolic (congestive) heart failure; J96.01 Acute respiratory failure with hypoxia; J44.1 Chronic obstructive pulmonary disease with (acute) exacerbation; I48.21 Permanent atrial fibrillation; I16.1 Hypertensive emergency; I49.5 Sick sinus syndrome; I42.8 Other cardiomyopathies; J45.901 Unspecified asthma with (acute) exacerbation; J39.8 Other specified diseases of upper respiratory tract; J98.09 Other diseases of bronchus, not elsewhere classified; I71.21 Aneurysm of the ascending aorta, without rupture; F03.90 Unspecified dementia, unspecified severity, without behavioral disturbance, psychotic disturbance, mood disturbance, and anxiety; I25.10 Atherosclerotic heart disease of native coronary artery without angina pectoris; E78.5 Hyperlipidemia, unspecified; M62.50 Muscle wasting and atrophy, not elsewhere classified, unspecified site; I95.1 Orthostatic hypotension; Z79.01 Long term (current) use of anticoagulants; Z79.899 Other long term (current) drug therapy; Z95.0 Presence of cardiac pacemaker; Z91.041 Radiographic dye allergy status; Z91.013 Allergy to seafood; Z91.018 Allergy to other foods
CPT/HCPCS: 36415; 71046; 71260; 74220; 80048; 80053; 82803; 83605; 83735; 83880; 85025; 87636; 93005; 94640; 94760; 96365; 96366; 96375; 99285